=== PATIENT | male | born 1945 | race Caucasian/White ===

== ENCOUNTER 2019-09-05 05:48 | Inpatient (IN) | payer MEDICARE ==
[2019-09-05] MEDS ORDERED: Propofol* 100 ML IV ONE (05:49)
[2019-09-05] MEDS ORDERED: Etomidate* 2 MG/ML 20 ML VIAL (40 MG) ONE (05:50)
[2019-09-05] MEDS ORDERED: Succinylcholine* 20 MG/ML 10 ML VIAL ONE (05:50)
--- NOTE | 2019-09-05 05:59 | ED ---
Altered Mental Status - HPI Summary HPI Summary: This pt is a 74 Y/O M brought in by [facility] to [facility] due to being found unresponsive. The pt was last known well on 09/03/2019. [facility] states that the pt is believed to have cranial bleeding due to decerebrate posturing and a seizure that was witnessed when they arrived on the scene. His blood pressure [employer] was 147/86. This pt is a level 5 caveat due to his unresponsive nature. Pt was given Versed en route to [facility] by EMS. - History Of Current Complaint Chief Complaint: EDAltMentalStatus Stated Complaint: CVA PER EMS Time Seen by Provider: 09/05/19 05:49 Hx Obtained From: EMS Hx From Patient Unobtainable Due To: Other - unresponsiveness Last Known Well Date: 09/03/2019 Onset/Duration: Unknown Timing: Constant Severity Initially: Severe Severity Currently: Severe Character: Responsiveness - unresponsive Aggravating Factor(s): Unknown Alleviating Factor(s): Unknown - Allergies/Home Medications Allergies/Adverse Reactions: Allergies Allergy/AdvReac Type Severity Reaction Status Date / Time bupropion Allergy Vomiting Verified 09/05/19 07:47 famciclovir Allergy Vomiting Verified 09/05/19 07:47 liraglutide Allergy Vomiting Verified 09/05/19 07:47 morphine Allergy See Comment Verified 09/05/19 07:47 pioglitazone Allergy Vomiting Verified 09/05/19 07:47 pravastatin Allergy Vomiting Verified 09/05/19 07:47 Home Medications: Home Medications Aspirin 81 mg CHEW TAB* [Aspirin Low Dose TAB*] 81 mg PO DAILY 08/06/18 [ History Confirmed 09/05/19] Azelastine HCl 2 spray BOTH NARES BID PRN 08/06/18 [History Confirmed 09/05/19] Cilostazol TAB* [Pletal TAB*] 100 mg PO BID 08/06/18 [History Confirmed 09/05/19 ] Glucosamine Sulfate Dipot Chlr [Gnp Glucosamine Maximum S] 1,000 mg PO DAILY 10/20 [History Confirmed 09/05/19] Insulin Detemir [Levemir Flextouch] 52 unit SC BID 08/06/18 [History Confirmed 09/05/19] Loperamide CAP* [Imodium CAP*] 4 mg PO ONCE PRN MDD 8 caps 08/06/18 [History Confirmed 09/05/19] Metoprolol Tartrate TAB* [Lopressor TAB*] 25 mg PO BID 08/06/18 [History Confirmed 09/05/19] Multivitamin [Multivitamins] 1 cap PO DAILY 08/06/18 [History Confirmed 09/05/19 ] Nitroglycerin TAB 0.4 MG* 0.4 mg SL Q5M PRN 08/06/18 [History Confirmed 09/05/19 ] Ramipril CAP* [Altace CAP*] 10 mg PO BID 08/06/18 [History Confirmed 09/05/19] Cholecalciferol CAP/TAB(NF) [Vitamin D3 CAP/TAB (NF)] 2,000 unit PO DAILY [History Confirmed 09/05/19] Fenofibrate [Tricor 160 MG] 160 mg PO QAM 09/05/19 [History Confirmed 09/05/19] Insulin Aspart [Novolog Penfill 100 units/ml 5 ml x 3 pens] 6 units SUBCUT TID 09/05/19 [History Confirmed 09/05/19] Polyethylene Glycol 3350* [Miralax (17 GM DOSE JEN)] 17 gm PO DAILY 09/05/19 [ History Confirmed 09/05/19] Rosuvastatin (NF) [Crestor] 20 mg PO DAILY 09/05/19 [History Confirmed 09/05/19] hydroCHLOROthiazide [Hydrochlorothiazide] 12.5 mg PO QAM 09/05/19 [History Confirmed 09/05/19] PMH/Surg Hx/FS Hx/Imm Hx Previously Healthy: No - Unable to assess due to the pt being unresponsive and a level 5 caveat Endocrine/Hematology History: Reports: Hx Diabetes Cardiovascular History: Reports: Hx Coronary Artery Disease, Hx Hypertension, Other Cardiovascular Problems/Disorders - CABG - Cancer History Cancer Type, Location and Year: prostate - Surgical History Surgical History: Yes Surgery Procedure, Year, and Place: open heart. fatou. appy. CABG Infectious Disease History: Unable to Obtain/Confirm - Family History Known Family History: Positive: Hypertension - Social History Alcohol Use: Rare Substance Use Type: Reports: None Smoking Status (MU): Heavy Every Day Tobacco Smoker Type: Cigarettes Amount Used/How Often: 1 PPD Review of Systems Neurological/Mental Status: Other - unresponsive Psychological: Other - seizure and decerebrate position per EMS All Other Systems Reviewed And Are Negative: No Physical Exam - Summary Physical Exam Summary: General: Well appearing, no distress, non-responsive to painful or auditory stimulation. Dentures present in upper and lower mouth. Cardiovascular: Skin is well perfused Pulmonary: No respiratory distress, no tachypnea Abdomen: Non-distended Skin: Warm, pink, dry Psych: Normal affect Neuro: A&Ox3 Back: no CVA tenderness. Eye: Pupils 7mm nonreactive, L upper conjugate gauge Musculoskeletal: Left BKA A full PE is unobtainable due to the pt's unresponsiveness and being a level 5 caveat. Vital Signs On Initial Exam: Temp Pulse Resp BP SpO2 FiO2 Completion Of Physical Exam Limited Due To: Level 5 - unresponsive Procedures - Procedure Summary Procedure Summary: Upon arrival pt was met with respiratory therapists, ED Physician and nurses in protective equipment due to the unresponsive nature of the patient and to avoid any staff complications if the pt has COVID-19. The pt was given 20mg etomidate (0555) and 100mg succinylcholine (0556). He was successfully intubated at 0556 with a 7.5 tube. The patient had equal breath sounds bilaterally and a post procedural CXR was taken to see if the tube was in good position. Post procedural CXR shows that the tube is in good position without complications. Tube is 23 at the lip. - Sedation Patient Received Moderate/Deep Sedation with Procedure: No - Intubation Time of Intubation: 05:56 Intubation Method: orotracheal Tube Size (cm): 7.5 Medications: Succinylcholine - 100 Breath Sounds after Intubation: equal - bilateral Intubation Complications: no complications Post Intubation Xray: Yes Diagnostics - Laboratory Result Diagrams: 09/06/19 04:19 09/07/19 05:27 Lab Statement: Any lab studies that have been ordered have been reviewed, and results considered in the medical decision making process. - Radiology CXR post intubation Radiology Interpretation Completed By: ED Physician Summary of Radiographic Findings: Intubation tube is in good position without complications. no signs of infiltrate or plueral effusions. Pending offical review. - CT Brain CT CT Interpretation Completed By: Radiologist Summary of CT Findings: 1. Mild cerebral atrophy. 2. No acute intracranial hemorrhage or infarct. ED physician has reviewed this report. Re-Evaluation - Re-Evaluation First Eval Re-Evaluation Time: 06:06 Change: Unchanged Comment: TPA not considered due to the onset of the patient's current condition being unknown. Second Eval Re-Evaluation Time: 06:11 Change: Unchanged Comment: After looking through his records, he has a Hx of a CABG, HTN, and CAD Third Eval Re-Evaluation Time: 06:18 Change: Improved Comment: CT scan shows no large obvious intracranial hemorrhage, pt will be given propofol. Fourth Eval Re-Evaluation Time: 06:51 Change: Unchanged Comment: Pt's son was called to update him on the pt's condition. The son stated that the past couple of days the pt has been altered and was not responding yesterday to his . He is currently under work at [employer] for cancer. The son saw the pt shaking his arms but states that he is unsure of what a seizure is. Altered Mental Statu Course/Dx - Course Course Of Treatment: Patient is here with altered mental status. Patient had seizure activity per family at home. Upon arrival here, patient had left upward conjugate gaze and was posturing. Patient was intubated for airway protection. Patient had a stat CT head which showed no intracranial hemorrhage. Patient was started on sedation with propofol. Patient had blood work performed which showed a leukocytosis of 21. Neurology was called and they recommended a CTA to rule out basilar artery occlusion and an EEG to determine if patient is in status. Patient was signed out to Dr. Goins pending further testing - Diagnoses Provider Diagnoses: Status epilepticus, Adrenal insufficiency - Provider Notifications Discussed Care Of Patient With: Landy Le Time Discussed With Above Provider: 06:45 Instructed by Provider To: Other - Dr. Le, neurology, recommends EEG in the ED and a CTA to evaluate for basilar artery occulsion. If CTA and EEG is normal the pt can be admitted here. If the patient shows any seizure-like activity or EEG and CTA is abnormal the pt will need to be transfered. - Critical Care Time Critical Care Time: 75-104 min - 80 minutes Discharge ED - Sign-Out/Discharge Documenting (check all that apply): Sign-Out Patient Signing out patient TO: Myron Goins - Discharge Plan Condition: Fair Disposition: ADMITTED TO [facility] - Billing Disposition and Condition Condition: FAIR Disposition: Admitted to [facility] - Attestation Statements Document Initiated by Scribe: Yes Documenting Scribe: Yan Benitez Provider For Whom Scribe is Documenting (Include Credential): Jeremi Chairez MD Scribe Attestation: I, Yan Benitez, scribed for Jeremi Chairez MD on 09/07/19 at 0707. Scribe Documentation Reviewed: Yes Provider Attestation: The documentation as recorded by the myronibYan coronel accurately reflects the service I personally performed and the decisions made by me, Jeremi Chairez MD Status of Scribe Document: Viewed
[2019-09-05] MEDS ORDERED: Propofol* 0 ML ONE (06:15)
[2019-09-05] MEDS: Propofol* 100 ML IV ONE ×2 (06:18→12:48)
[2019-09-05 06:48] LABS: Hematocrit 39 % (42-52); Hemoglobin 12.6 g/dL (14.0-18.0); Mean Corpuscular HGB Conc 33 g/dL (31-36); Mean Corpuscular Hemoglobin 31 pg (27-31); Mean Corpuscular Volume 94 fL (80-94); Mean Platelet Volume 7.6 fL (7.4-10.4); Platelet Count 657 10^3/uL (150-450); Red Blood Count 4.13 10^6 /uL (4.18-5.48); Red Cell Distribution Width 15 % (10-15); White Blood Count 21.6 10^3/uL (3.5-10.8)
[2019-09-05 06:58] LABS: INR 1.23 (0.82-1.09)
[2019-09-05 07:04] LABS: Alcohol < 10 mg/dL (<10)
[2019-09-05 07:05] LABS: ALT 14 U/L (7-52); Albumin 3.7 g/dL (3.2-5.2); Alkaline Phosphatase 24 U/L (34-104); BUN/Creatinine Ratio 19.3 (8-20); Blood Urea Nitrogen 29 mg/dL (6-24); C Reactive Protein 76.69 mg/L (<8.01); Calcium 9.5 mg/dL (8.6-10.3); Chloride 85 mmol/L (101-111); Creatine Kinase 115 U/L (10-223); EGFR African American 55.7 (>60); Globulin 3.6 g/dL (2-4); Glucose 294 mg/dL (70-100); Sodium 120 mmol/L (135-145); Total Protein 7.3 g/dL (6.4-8.9)
[2019-09-05 07:09] LABS: Anion Gap 26 mmol/L (2-11); CO2 Carbon Dioxide 9 mmol/L (22-32)
--- NOTE | 2019-09-05 07:16 | ED ---
Progress - Progress Note Progress Note: Patient is received as a sign-out from Dr. Chairez at 0700 09/05/19 shift change pending Head CTA and EEG of this patient. EKG done at 0700 shows tachycardia with rate of 123 BPM, narrow complex, no STEMI. ED physician has reviewed and interpreted this EKG. 0747 - Dr. Le in ED, EEG evaluated and patient noted to be in status epilepticus. Ativan and Keppra to be administered and will inquire nearby facilities for transfer for continuous EEG monitoring. 0800 - Family was called with regards to the patient's case. Son reports that he had found the patient on the floor shaking. No recent illness, no fever, no cough, no SOB noted. However, the patient has been having decreased appetite and loose stools for the past week. It is also noted that the patient had low sugars recently. They have been in touch with his doctor with regards to this issue. Son states that the patient was recently found to have a mass "above one of his kidneys". Patient had additionally been admitted to [facility] for low sodium. Patient underwent recent PET scan in [place], patient was supposed to followup on results in near future. Transfer center to be contacted. 0818 - Initial report given to transfer center, patient's case discussed with [facility] neurology. Dr. Le notes that the EEG has cleared after Ativan and Keppra administration. CTA to be done, if negative, will admit to [facility] [address] Dr. Le notes the possibility of adrenal insufficiency, hydrocortisone 100 mg to be administrated. 0835 - Patient's case was discussed with Dr. Ta, Dr. Ta accepts for admission to ICU. HEAD CTA IMPRESSION: 1. ATTENUATION OF THE RIGHT SUPERIOR CEREBELLAR ARTERY, CONCERNING FOR OCCLUSION. THERE IS NO APPRECIABLE PERFUSION DEFECT OR LOSS OF CEJA-WHITE DIFFERENTIATION WITHIN THE EXPECTED VASCULAR TERRITORY OF THE RIGHT SUPERIOR CEREBELLAR ARTERY. 2. ATHEROMATOUS DISEASE 3. NO INTERNAL CAROTID ARTERY STENOSIS BY NASCET CRITERIA. THIS REPORT WAS REVIEWED BY ED PHYSICIAN. CXR IMPRESSION: NO ACTIVE CARDIOPULMONARY DISEASE IS NOTED. OG TUBE APPEARS TO BE COILED IN THE STOMACH. THIS REPORT WAS REVIEWED BY ED PHYSICIAN. 1003 - Head CTA was discussed with Dr. Le, agrees with having patient admitted to [facility]. Patient to be admitted to ICU by Dr. Ta. Re-Evaluation - Re-Evaluation First Eval Re-Evaluation Time: 08:00 Comment: 0800 - Family was called with regards to the patient's case. Son reports that he had found the patient on the floor shaking. No recent illness, no fever, no cough, no SOB noted. However, the patient has been having loose stools for the past week. It is also noted that the patient had low sugars recently. They have been in touch with his doctor with regards to this issue. Son states that the patient was recently found to have a mass above one of his kidneys. Patient had additionally been admitted to [facility] for low sodium. Patient underwent recent PET scan, patient was supposed to followup on results in near future. Second Eval Re-Evaluation Time: 08:18 Comment: Initial report given to transfer center. Third Eval Re-Evaluation Time: 08:39 Comment: Patient is noted to have systolic BP in 70s, 1 L fluid to be administered. Fourth Eval Re-Evaluation Time: 08:40 Comment: Patient to be admitted to [facility] [place]. Course/Dx - Course Course Of Treatment: Patient is received as a sign-out from Dr. Chairez at 0700 09/05/19 shift change pending Head CTA and EEG of this patient. EKG done at 0700 shows tachycardia with rate of 123 BPM, narrow complex, no STEMI. ED physician has reviewed and interpreted this EKG. 0747 - Dr. Le in ED, EEG evaluated and patient noted to be in status epilepticus. Ativan and Keppra to be administered and will inquire nearby facilities for transfer for continuous EEG monitoring. 0800 - Family was called with regards to the patient's case. Son reports that he had found the patient on the floor shaking. No recent illness, no fever, no cough, no SOB noted. However, the patient has been having decreased appetite and loose stools for the past week. It is also noted that the patient had low sugars recently. They have been in touch with his doctor with regards to this issue. Son states that the patient was recently found to have a "mass above one of his kidneys". Patient had additionally been admitted to [facility] for low sodium. Patient underwent recent PET scan in [place], patient was supposed to followup on results in near future. Transfer center to be contacted. 0818 - Initial report given to transfer center, patient's case discussed with [facility] neurology. Dr. Le notes that the EEG has cleared after Ativan and Keppra administration. CTA to be done, if negative, will admit to [facility] [address] Dr. Le notes the possibility of adrenal insufficiency, hydrocortisone 100 mg to be administrated. 0835 - Patient's case was discussed with Dr. Ta, Dr. Ta accepts for admission to ICU. HEAD CTA IMPRESSION: 1. ATTENUATION OF THE RIGHT SUPERIOR CEREBELLAR ARTERY, CONCERNING FOR OCCLUSION. THERE. IS NO APPRECIABLE PERFUSION DEFECT OR LOSS OF CEJA-WHITE DIFFERENTIATION WITHIN THE. EXPECTED VASCULAR TERRITORY OF THE RIGHT SUPERIOR CEREBELLAR ARTERY. 2. ATHEROMATOUS DISEASE. 3. NO INTERNAL CAROTID ARTERY STENOSIS BY NASCET CRITERIA. THIS REPORT WAS REVIEWED BY ED PHYSICIAN. CXR IMPRESSION: NO ACTIVE CARDIOPULMONARY DISEASE IS NOTED. OG TUBE APPEARS TO BE COILED IN. THE STOMACH. THIS REPORT WAS REVIEWED BY ED PHYSICIAN. 1003 - Head CTA was discussed with Dr. Le, agrees with having patient admitted to [facility]. Patient to be admitted to ICU by Dr. Ta. - Diagnoses Provider Diagnoses: Status epilepticus, Adrenal insufficiency - Provider Notifications Discussed Care Of Patient With: Landy Le Time Discussed With Above Provider: 07:47 Instructed by Provider To: Other - 0747 - Dr. Le in ED, EEG evaluated and patient noted to be in status epilepticus. Ativan and Keppra to be administered and will inquire nearby facilities for transfer for continuous EEG monitoring. 0818 - Initial report given to transfer center, patient's case discussed with [facility] neurology. Dr. Le notes that the EEG has cleared after Ativan and Keppra administration. CTA to be done, if negative, will admit to [facility] 0833 Dr. Le notes the possibility of adrenal insufficiency, hydrocortisone 100 mg to be administrated. 0835 - Patient's case was discussed with Dr. Ta, Dr. Ta accepts for admission to ICU. - Critical Care Time Critical Care Time: 75-104 min - 80 minutes Discharge ED - Sign-Out/Discharge Documenting (check all that apply): Patient Departure - admit, Receiving Sign- Out Receiving patient FROM: Jeremi Chairez - Discharge Plan Condition: Fair Disposition: ADMITTED TO [facility] - Billing Disposition and Condition Condition: FAIR Disposition: Admitted to [facility] - Attestation Statements Document Initiated by Scribe: Yes Documenting Scribe: VAIBHAV GAMBOA Provider For Whom Scribe is Documenting (Include Credential): POLINA DAVIDSON DO Scribe Attestation: I, VAIBHAV GAMBOA, scribed for POLINA DAVIDSON DO on 09/05/19 at 1309. Scribe Documentation Reviewed: Yes Provider Attestation: The documentation as recorded by the scribeVAIBHAV accurately reflects the service I personally performed and the decisions made by me, POLINA DAVIDSON DO Status of Scribe Document: Viewed
[2019-09-05 07:18] LABS: TSH (Thyroid Stimulating Horm) 1.75 mcIU/mL (0.34-5.60)
--- OUTSIDE RECORDS SUMMARY | 2019-09-05 07:26 | XMS REPORT | Continuity of Care Document ---
:1945 External Reference #:[id number] Author Name Servio (transmitted by agent of provider Jayda Apple) Address [address] [place] [address] Care Team Providers Name Role Phone Cleo Camacho MD - Physical Medicine Care Team Information Inorganic Chemical Technician & Rehabilitation Carlos Enrique Hale MD - Emergency Medicine Care Team Information Inorganic Chemical Technician Argenis Fox NP - Nurse Care Team Information Inorganic Chemical Technician [phone] Practitioner Jose Peña FISHERIES DIVER - Nurse Care Team Information Inorganic Chemical Technician [phone] Practitioner Treva Cornejo NP, CNM - Nurse Care Team Information Inorganic Chemical Technician Practitioner Richelle Munguia MD - Hematology & Care Team Information Inorganic Chemical Technician Oncology Problems Active Problems Provider Date Degenerative joint disease involving Leslie Lopez PA-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 Note: olecranon bursitis Type 2 diabetes mellitus Leslie Lopez PA-C Onset: 01/20/2015 Note: insulin-requiring (Jul 2016 A1C 7.7 microalb-; October 2014 microalb-) podiatry cs 2011 oph cs 31 Dec 2013 humulag sliding scale: > 100, 1 unit > 200, 4 unit 1 exta unit for every 25 MDD 24 units; call office/seek medica attention for BG over 500 Chronic obstructive lung disease Leslie Lopez PA-C Onset: 01/20/2015 Note: Apr 2012 FEV1/FVC 0.63 Coronary arteriosclerosis Leslie Lopez PA-C Onset: 01/20/2015 Note: Triple CABG 1997; Mar 2016 LDL 75 HDL 40 Chol 132; [place]/cath December 2015 Chronic renal failure Leslie Lopez PA-C Onset: 01/20/2015 Note: Jun 2015 cr 1.5 eGFR 49 Angiodysplasia of duodenum Leslie Lopez PA-C Onset: 01/20/2015 Note: D1 AVM. upper to D3 2013 History of polyp of colon Leslie Lopez PA-C Onset: 01/20/2015 Note: hyperplastic polyposis, colo to cecum Feb 2015 Cataract Leslie Lopez PA-C Onset: 01/20/2015 Allergic rhinitis Leslie Lopez PA-C Onset: 01/20/2015 Impotence of organic origin Leslie Lopez PA-C Onset: 01/20/2015 Disorder of prostate Leslie Lopez PA-C Onset: 01/20/2015 Note: stage II, T2, C, Hugh score 7 in 2006 (Radiation therapy -> microscopic hematuria, radiation colitis); Shields Congestive heart failure Leslie Lopez PA-C Onset: 01/20/2015 Note: diastolic dysfunction Essential hypertension Leslie Lopez PA-C Onset: 01/20/2015 Note: high-renin Diverticular disease of colon Mariano Rhodes MD Onset: 03/09/2015 Hemorrhoids Leslie Lopez PA-C Onset: 03/11/2015 Note: Internal and external Irritable bowel syndrome Leslie Lopez PA-C Onset: 03/11/2015 Note: SC, O&P negative 2014 Adult health examination Leslie Lopez PA-C Onset: 03/11/2015 Note: AAA screening - 2012. AWV 24 Jul 2014. 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 Longoria Navneet hematuria Leslie Lopez PA-C Onset: 01/20/2016 Note: 2016; Dr. 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 Onset: 03/27/2019 prostate Anorectal abscess Óscar Crenshaw MD,FACS Onset: 2019 Social History Type Date Description Comments Sex Unknown Tobacco Use Start: Unknown Current Cigarette Smoker 1 Pack Daily ETOH Use Rarely consumes alcohol 3 x year Recreational Drug Use Denies Drug Use Tobacco Use Start: Unknown Light tobacco smoker (10 or fewer cigarettes/day) Smoking Status Reviewed: 08/20/19 Light tobacco smoker (10 or fewer cigarettes/day) Allergies, Adverse Reactions, Alerts Active Allergies Reaction Severity Comments Date Victoza nausea Severe 01/20/2015 Prozac 01/03/2016 Bee Sting Anaphylaxis 10/19/2016 Bupropion dizziness Moderate also possible seizure hx 01/20/2015 Famciclovir Moderate 01/20/2015 Morphine and Related Moderate 01/20/2015 Liraglutide 12/24/2013 Pioglitazone Moderate 01/20/2015 Pravastatin Moderate 01/20/2015 PT Does Not Know 12/24/2013 Ssri's HypoNa 01/20/2015 Metformin lactic acidosis Moderate 12/16/2015 Chantix Nausea and Vomiting Moderate 03/20/2016 Medications Active Medications SIG Qnty Indications Ordering Date Provider Ramipril Take one capsule 180caps I10 Ratnasingam, 10mg Capsules twice a day MD Walt 0 Omron 7 Series Blood use daily as 1units I10 Ratnasingam, Pressure Monitor directed to MD Walt 0 Device monitor bp Vitamin D3 1 by mouth every 90caps Ratnasingam, 50mcg (2000 Ut) day MD Walt 0 Capsules Levaquin take one tablet 10tabs K61.1 Den, 500mg Tablets by mouth daily Mandi Cantrell for 10 days. MDFACS take it in the middle of your meal Fenofibrate Take 1 Tablet 90Tablet Gagen, 160mg Tablets Every Morning Treva, 9 MS, SENIOR WEB ENGINEER-C, CNM Hydrochlorothiazide take one capsule 90caps I10 Jimenez, Abbey 12.5mg in the morning Simonetta, 9 Capsules VIPUL, SY Loperamide HCL take two 30caps V89.2xxA Augustus Christianson, 2mg Capsules capsules with 8 onset of diarrhea and then one capsule after each diarrhea. maximum 16 mg (8 capsules) in 24 hours Prosthesis Left Lower Leg prosthesis left I73.9 Parul Foster, lower leg 8 S88.912D Accu-Chek Jennifer Plus use before meals,2 100units Terell, 07/24/2016 hours after a Christiana Collado Strips meal,at bedtime,and as needed Pen Loretto BV uad with insulin 100units nasing, 07/10/2016 31G X 8 MD Walt mm Misc Azelastine HCL 2 spays in each 90ml J30.9 Parul Foster MD 03/20/2016 (Nasal) nostril twice a day 0.1% Solution as needed Loperamide A-D 1 by mouth after 360tabs Wei Perez, 11/25/2015 2mg each unformed bm up DO Tablets to 8 times daily Accu-Chek Jennifer Plus use before meals, 2 100units Parul Foster MD 06/29 h after meals, at Strips bedtime and as needed Aspir-81 1 by mouth every day 90tabs Wei Perez, 81mg Tablets DO DR Glucosamine 1 by mouth every day Unknown 1000mg Capsules Levemir Flextouch 52 units subq twice 45ml Kristin, Parul, MD a day 100Unit/ML Solution Pen-Inject Metoprolol Tartrate 1 by mouth twice a 180tabs Ratnasingam, day MD Walt 25mg Tablets Nitrostat 1 tab sl every 5 min 30tabs Abbey Jimenez 0.4mg Tablets x3 chest pain as VIPUL King, Sub needed SENIOR WEB ENGINEER Polyethylene Glycol Take 17 Grams By Unknown 3350 Mouth Daily as 3350NF Packet Needed For Constipation Cilostazol take 1 tablet by 180tabs Parul Foster MD 100mg mouth twice a day Tablets Novolog Flexpen Inject 6 Units Unknown Before Meals Under 100Unit/ML Solution The Skin Three Times Pen-Inject A Day Multivitamin Adult 1 by mouth every day Unknown Tablets Rosuvastatin Calcium 1 by mouth every day Unknown 20mg Tablets History Medications Retroperineal Patient 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.10 Ratnasing, 07/28/2019 - Biopsey retroperitoneal lymph MD Walt Unknown node biopsy, in lieu of a left adrenal biopsy, as recommended by Dr Tiffanie Cleveland take one tablet by 30tabs K61.1 Óscar Crenshaw, 2019 - 500mg mouth 3 times daily ,FACS 04/11/2019 Tablets for 10 days. take it in the middle of your meal Medications Administered in Office Medication SIG Qnty Indications Ordering Provider Date Administration Of Flu Mariano Rhodes MD 04/03/2008 Injection Immunizations CPT Code Status Date Vaccine Reaction Lot # [id number] Given 03/31/2019 Influenza High Dose [id number] 24889 Given 05/20/2018 Influenza High Dose none [id number] 82883 Given 02/27/2017 Influenza High Dose [id number] 36520 Given 10/23/2016 Pneumovax Injection [id number] 85234 Given 10/23/2016 Tdap injection [id number] Q2038 Given 03/20/2016 Influenza Vaccine (Fluzone) Age 3 And [id number] Older Q2038 Given 03/11/2015 Influenza Vaccine (Fluzone) Age 3 And Older 86540 Given 03/11/2015 Pneumococcal Conjugate Vaccine 13 Valent For Intramuscular Use 49558 Given 04/03/2008 flu vaccination Vital Signs Date Vital Result Comment 08/20/2019 10:23am BP Systolic Sitting Left Arm 130 mmHg BP Diastolic Sitting Left Arm 64 mmHg Heart Rate 89 /min Respiratory Rate 14 /min Height 67 inches 5'7" Weight 149.00 lb BMI (Body Mass Index) 23.3 kg/m2 BSA (Body Surface Area) 1.78 m2 [place] body weight in kilograms 67 kg O2 % BldC Oximetry 98 % Ra 08/15/2019 9:52am BP Systolic 148 mmHg BP Diastolic 70 mmHg Body Temperature 98.5 F Heart Rate 80 /min Respiratory Rate 18 /min Height 67 inches 5'7" Weight 148.00 lb BMI (Body Mass Index) 23.2 kg/m2 BSA (Body Surface Area) 1.78 m2 [place] body weight in kilograms 67 kg O2 % BldC Oximetry 99 % Results Test Acquired Date Facility Test Result H/L Range Note Laboratory test 08/22/2019 [facility] Glycohemoglobin A1c <pending> finding [address] [place] [address] [phone] Vitamin D,25-Hydroxy <pending> Calcium 08/08/2019 N2N/CCD Import Calcium Level 8.5 8.5-10.1 SerPl-mCnc Co2 SerPl-sCnc 08/08/2019 N2N/CCD Import Carbon Dioxide 24 21-32 Level Chloride 08/08/2019 N2N/CCD Import Chloride Level 104 98-107 SerPl-sCnc Potassium 08/08/2019 N2N/CCD Import Potassium Level 4.5 3.5-5.1 SerPl-sCnc Sodium 08/08/2019 N2N/CCD Import Sodium Level 133 Low 136-145 SerPl-sCnc BUN/Creat SerPl 08/08/2019 N2N/CCD Import BUN/Creatinine 5.0 Ratio GFR/Bsa 08/08/2019 N2N/CCD Import Estimated GFR >60 >60 pred.black SerPl ( MDRD-ArVRat [place]) GFR/Bsa pred.non 08/08/2019 N2N/CCD Import Estimated GFR >60 >60 black SerPl (Non- MDRD-ArVRat [place] BUN SerPl-mCnc 08/08/2019 N2N/CCD Import Blood Urea 3 7-18 Nitrogen Glucose 08/08/2019 N2N/CCD Import Glucose Screen 203 High 74-106 SerPl-mCnc nRBC/100 WBC Bld 08/08/2019 N2N/CCD Import Nucleated Red 0.0 < 10/ 100 WBC Auto-Rto Blood Cells % (auto) RDW RBC Auto-Rto 08/08/2019 N2N/CCD Import RDW Coefficient 13.1 11.6- 15.8 of Variation RDW RBC Auto 08/08/2019 N2N/CCD Import Red Cell 45.8 36-51 Distribution Width MCHC RBC 08/08/2019 N2N/CCD Import Mean Corpuscular 32.9 31.7-36.0 Auto-mCnc Hemoglobin Concent MCH RBC Qn Auto 08/08/2019 N2N/CCD Import Mean Corpuscular 31.1 27.0- 33.0 Hemoglobin MCV RBC Auto 08/08/2019 N2N/CCD Import Mean Corpuscular 94.3 80.0-96.0 Volume Basic Metabolic 08/08/2019 [facility] Glucose 203 High 74-[address] mg/[place] [address] [phone] BUN 3 mg/dL Critical low 7-18 Creatinine 0.6 mg/dL Normal 0.6-1.3 Glom Filtration Rate, Estimate >60 mL/min >60 If >60 mL/min >60 2 BUN/Creat 5.0 ratio Sodium 133 mmol/L Low 136-145 Potassium 4.5 mmol/L 3.5-5.1 Chloride 104 mmol/L Normal 98-107 Carbon Dioxide 24 mmol/L Normal 21-32 Anion Gap 5 mEq/L Low 8-16 Calcium 8.5 mg/dL Normal 8.5-10.1 CBC 08/08/2019 [facility] White Blood Count 8.3 K/uL Normal 3.4-10.[address] [place] [address] [phone] Red Blood Count 3.67 M/uL Low 4.20-5.80 Hemoglobin 11.4 gm/dL Low 12.8-17.0 Hematocrit 34.6 % Low 38.0-48.0 Mean Cell Volume 94.3 fl Normal 80.0-96.0 Mean Corpuscular HGB 31.1 pg Normal 27.0-33.0 Mean Corpuscular HGB Conc 32.9 g/dL Normal 31.7-36.0 Platelet Count 473 K/uL High 155-360 Red Cell Distri Width SD 45.8 fl Normal 36-51 Red Cell Distri Width %CV 13.1 % Normal 11.6-15.8 Mean Platelet Volume 9.9 fl Normal 6.6-10.6 NRBC % 0.0 /100WBC < 10/ 100 WBC Glucose BldC 08/08/2019 N2N/CCD Import Bedside Glucose 202 High 70-110 Glucomtr-mCnc Cortisol - 3 08/07/2019 [facility] Cortisol #1 17.8 . [address] (Base) g/[place] [address] [phone] Cortisol #2 16.3 g/dL Not Estab. Cortisol #3 13.3 g/dL Not Estab. 4 Basic Metabolic 08/07/2019 [facility] Glucose 29 mg/dL Critical low 74-[address] [place] [address] [phone] BUN 5 mg/dL Critical low 7-18 Creatinine 0.6 mg/dL Normal 0.6-1.3 Glom Filtration Rate, Estimate >60 mL/min >60 If >60 mL/min >60 5 BUN/Creat 8.3 ratio Sodium 135 mmol/L Low 136-145 Potassium 3.6 mmol/L Normal 3.5-5.1 Chloride 106 mmol/L Normal 98-107 Carbon Dioxide 26 mmol/L Normal 21-32 Anion Gap 3 mEq/L Low 8-16 Calcium 8.3 mg/dL Low 8.5-10.1 CBC 08/07/2019 [facility] White Blood Count 11.8 K/uL High 3.4-10.[address] [place] [address] [phone] Red Blood Count 3.66 M/uL Low 4.20-5.80 Hemoglobin 11.2 gm/dL Low 12.8-17.0 Hematocrit 34.5 % Low 38.0-48.0 Mean Cell Volume 94.3 fl Normal 80.0-96.0 Mean Corpuscular HGB 30.6 pg Normal 27.0-33.0 Mean Corpuscular HGB Conc 32.5 g/dL Normal 31.7-36.0 Platelet Count 530 K/uL High 155-360 Red Cell Distri Width SD 45.5 fl Normal 36-51 Red Cell Distri Width %CV 13.0 % Normal 11.6-15.8 Mean Platelet Volume 9.7 fl Normal 6.6-10.6 NRBC % 0.0 /100WBC < 10/ 100 WBC TSH SerPl-aCnc 08/06/2019 N2N/CCD Import Thyroid 1.94 0.30-4.20 Stimulating Hormone (TSH) Est. average 08/06/2019 N2N/CCD Import Estimated 151 glucose Bld gHb Average Glucose Est-mCnc (eAG) Hgb A1c MFr Bld 08/06/2019 N2N/CCD Import Hemoglobin A1c 6.9 High 4.2- 6.3 nRBC # Bld Auto 08/06/2019 N2N/CCD Import Nucleated RBC 0.00 Absolute Count (auto) Imm Granulocytes # 08/06/2019 N2N/CCD Import Immature 0.04 Bld Auto Granulocyte # (Auto) Basophils # Bld 08/06/2019 N2N/CCD Import Basophils # 0.04 0.0-0.1 Auto (Auto) Eosinophil # Bld 08/06/2019 N2N/CCD Import Eosinophils # 0.02 0.0-0.5 Auto (Auto) Monocytes # Bld 08/06/2019 N2N/CCD Import Monocytes # 1.00 High 0.0-0.8 Auto (Auto) Lymphocytes # Bld 08/06/2019 N2N/CCD Import Lymphocytes # 0.70 Low 1.0- 4.0 Auto (Auto) Neutrophils # Bld 08/06/2019 N2N/CCD Import Neutrophils # 8.47 High 1.8- 7.0 Auto (Auto) Imm 08/06/2019 N2N/CCD Import Immature 0.4 0.0-5.0 Granulocytes/leuk Granulocyte % NFr Bld Auto (Auto) Basophils/leuk NFr 08/06/2019 N2N/CCD Import Basophils (%) 0.4 0.0-1.1 Bld Auto (Auto) Eosinophil/leuk 08/06/2019 N2N/CCD Import Eosinophils (%) 0.2 0.0-6.6 NFr Bld Auto (Auto) Monocytes/leuk NFr 08/06/2019 N2N/CCD Import Monocytes (%) 9.7 0.0-10.0 Bld Auto (Auto) Lymphocytes/leuk 08/06/2019 N2N/CCD Import Lymphocytes (%) 6.8 Low 20.0- 42.0 NFr Bld Auto (Auto) Neutrophils/leuk 08/06/2019 N2N/CCD Import Neutrophils (%) 82.5 High 33.0 -73.0 NFr Bld Auto (Auto) TSH Reflex FT4 08/06/2019 [facility] Thyroid Stim 1.94 Normal 0.30-4.20 And/Or FT3 [address] Hormone uIU/mL [facility] [place], [place] [id number] [phone] Reflex add FT3? N Reflex add FT4? Y Basic Metabolic Panel 08/06/2019 [facility] Glucose 91 mg/dL Normal 74-[address] [place] [address] [phone] BUN 10 mg/dL Normal 7-18 Creatinine 0.7 mg/dL Normal 0.6-1.3 Glom Filtration Rate, Estimate >60 mL/min >60 If >60 mL/min >60 6 BUN/Creat 14.2 ratio Sodium 132 mmol/L Low 136-145 Potassium 4.0 mmol/L Normal 3.5-5.1 Chloride 102 mmol/L 98-107 Carbon Dioxide 26 mmol/L Normal 21-32 Anion Gap 4 mEq/L Low 8-16 Calcium 8.5 mg/dL Normal 8.5-10.1 Reflex add FT3? N Reflex add FT4? Y Glycohemoglobin 08/06/2019 [facility] Glycohemoglobin 6.9 % High 4.2-6.[address] (A1c) [place] [address] [phone] eAG 151 mg/dL CBC W/Automated 08/06/2019 [facility] White Blood 10.3 K/uL Normal 3.4-10.[address] [place] [place] [address] [phone] Red Blood Count 3.80 M/uL Low 4.20-5.80 Hemoglobin 12.0 gm/dL Low 12.8-17.0 Hematocrit 35.3 % Low 38.0-48.0 Mean Cell Volume 92.9 fl Normal 80.0-96.0 Mean Corpuscular HGB 31.6 pg Normal 27.0-33.0 Mean Corpuscular HGB Conc 34.0 g/dL Normal 31.7-36.0 Platelet Count 530 K/uL High 155-360 Red Cell Distri Width SD 44.3 fl Normal 36-51 Red Cell Distri Width %CV 13.1 % Normal 11.6-15.8 Mean Platelet Volume 9.8 fl Normal 6.6-10.6 Neut% 82.5 % High 33.0-73.0 Lymph % 6.8 % Low 20.0-42.0 Amador % 9.7 % Normal 0.0-10.0 Eo% 0.2 % Normal 0.0-6.6 Bas% 0.4 % Normal 0.0-1.1 Immature Grans 0.4 % Normal 0.0-5.0 NRBC % 0.0 /100WBC < 10/ 100 WBC Neut# 8.47 K/uL High 1.8-7.0 Lymph # 0.70 K/uL Low 1.0-4.0 Amador # 1.00 K/uL High 0.0-0.8 Eos # 0.02 K/uL Normal 0.0-0.5 Baso # 0.04 K/uL Normal 0.0-0.1 Immature Grans Absolute 0.04 K/uL NRBC # 0.00 K/uL Leukocyte 08/05/2019 N2N/CCD Import Urine Small High Negative esterase Ur Ql Leukocyte Strip.auto Esterase Hyaline Casts 08/05/2019 N2N/CCD Import Urine Hyaline 3-5 None Seen #/area UrnS LPF Casts S pyo Throat Ql 08/05/2019 N2N/CCD Import Group A Strep No Beta Cult Throat Culture Streptococci Isolated CBC W/Automated 08/05/2019 [facility] White Blood 14.3 K/uL High 3.4-10.5 [address] [place] [place] [address] [phone] Red Blood Count 4.08 M/uL Low 4.20-5.80 Hemoglobin 12.8 gm/dL Normal 12.8-17.0 Hematocrit 37.5 % Low 38.0-48.0 Mean Cell Volume 91.9 fl Normal 80.0-96.0 Mean Corpuscular HGB 31.4 pg Normal 27.0-33.0 Mean Corpuscular HGB Conc 34.1 g/dL Normal 31.7-36.0 Platelet Count 529 K/uL High 155-360 Red Cell Distri Width SD 43.7 fl Normal 36-51 Red Cell Distri Width %CV 12.9 % Normal 11.6-15.8 Mean Platelet Volume 9.6 fl Normal 6.6-10.6 Neut% 84.1 % High 33.0-73.0 Lymph % 6.5 % Low 20.0-42.0 Amador % 8.1 % Normal 0.0-10.0 Eo% 0.1 % Normal 0.0-6.6 Bas% 0.4 % Normal 0.0-1.1 Immature Grans 0.8 % Normal 0.0-5.0 NRBC % 0.0 /100WBC < 10/ 100 WBC Neut# 12.00 K/uL High 1.8-7.0 Lymph # 0.93 K/uL Low 1.0-4.0 Amador # 1.16 K/uL High 0.0-0.8 Eos # 0.01 K/uL Normal 0.0-0.5 Baso # 0.06 K/uL Normal 0.0-0.1 Immature Grans Absolute 0.11 K/uL NRBC # 0.00 K/uL Prot 08/05/2019 N2N/CCD Import Total Protein 7.4 6.4-8.2 SerPl-mCnc Albumin 08/05/2019 N2N/CCD Import Albumin 3.2 Low 3.4-5.0 SerPl-mCnc Globulin Ser 08/05/2019 N2N/CCD Import Globulin 4.2 1.9-4.3 Calc-mCnc Albumin/Glob 08/05/2019 N2N/CCD Import Albumin/Globulin 0.8 SerPl Ratio Bilirub 08/05/2019 N2N/CCD Import Total Bilirubin 0.6 0.2-1.0 SerPl-mCnc Ast SerPl-cCnc 08/05/2019 N2N/CCD Import Aspartate Amino 23 15-37 Transf (Ast/Sgot) Alt SerPl-cCnc 08/05/2019 N2N/CCD Import Alanine 16 12-78 Aminotransferase (Alt/SGPT) Alp SerPl-cCnc 08/05/2019 N2N/CCD Import Alkaline Phosphatase 27 Low 45- 117 Lipase 08/05/2019 N2N/CCD Import Lipase 101 56-289 SerPl-cCnc Laboratory 08/05/2019 [facility] Troponin-I < 0.015 9 test finding [address] ng/[place] [address] [phone] Laboratory 08/05/2019 [facility] Rapid Strep A Negative Negative 10 test finding [address] [place] [address] [phone] Influenza A/B 08/05/2019 [facility] Influenza A Antigen Negative (Negative) Antigen [address] [place] [address] [phone] Influenza B Antigen Negative (Negative) 11 Urinalysis With 08/05/2019 [facility] Urine Color Yellow Yellow Microscopic [address] [place], [place] [id number] [phone] Urine Clarity Clear Clear Urine Glucose - Dipstick TRACE mg/dL Negative Urine Bilirubin - Dipstick NEGATIVE Negative Urine Ketone 20 mg/dL Abnormal Negative Urine Specific [place] 1.021 Normal 1.010-1.030 Urine Blood NEGATIVE Negative Urine PH 5.5 Low 6.5-7.5 Urine Protein - Dipstick 70 mg/dL Abnormal Negative Urine Urobilinogen - Dipstick 2.0 mg/dL < 2.0 Urine Nitrite - Dipstick NEGATIVE Negative Urine Leuk Esterase SMALL Abnormal Negative Urine RBC 3-5 rbc/hpf 0-2 Urine WBC 3-5 wbc/hpf 0-5 Urine Hyaline Cast 3-5 #/lpf None Seen Urine Mucus SMALL None Seen Source: URINE, CLEAN CAT <SEE NOTE> 12 Laboratory test 08/05/2019 [facility] Throat Strep NO BETA [address] [place] [address] <SEE NOTE> [phone] Fluav Ag XXX Ql 08/05/2019 N2N/CCD Import Influenza Type Negative ( Negative) A Antigen Flubv Ag XXX Ql 08/05/2019 N2N/CCD Import Influenza Type Negative ( Negative) B Antigen Glucose Ur Ql 08/05/2019 N2N/CCD Import Urine Glucose Trace Negative Strip.auto (Ua) Bilirub Ur Ql 08/05/2019 N2N/CCD Import Urine Negative Negative Strip.auto Bilirubin Ketones Ur Ql 08/05/2019 N2N/CCD Import Urine Ketones 20 High Negative Strip.auto Prot Ur Ql 08/05/2019 N2N/CCD Import Urine Protein 70 High Negative Strip.auto Urobilinogen Ur 08/05/2019 N2N/CCD Import Urine 2.0 < 2.0 Ql Strip.auto Urobilinogen Nitrite Ur Ql 08/05/2019 N2N/CCD Import Urine Nitrite Negative Negative Strip.auto Laboratory 07/14/2019 N2N/CCD Import Urine Culture Culture To comment Report Reflexed Follow Urine Culture 07/14/2019 [facility] Urine Culture URETHRAL [address] [place] [place], [place] [id number] [phone] Quantity 10,000 - 50,000 <SEE NOTE> 15 Laboratory test finding 07/14/2019 [facility] CK 45 U/L Normal 39-308 [address] [place] [address] [phone] Troponin-I 0.015 ng/mL 16 Comprehensive Metabolic 07/14/2019 [facility] Glucose 125 mg/dL High 74-106 Panel [address] [place], [place] [id number] [phone] BUN 9 mg/dL Normal 7-18 Creatinine 0.9 mg/dL Normal 0.6-1.3 Glom Filtration Rate, Estimate >60 mL/min >60 If >60 mL/min >60 17 BUN/Creat 10.0 ratio Sodium 132 mmol/L Low 136-145 Potassium 3.7 mmol/L Normal 3.5-5.1 Chloride 101 mmol/L Normal 98-107 Carbon Dioxide 26 mmol/L Normal 21-32 Anion Gap 5 mEq/L Low 8-16 Calcium 9.2 mg/dL Normal 8.5-10.1 Total Protein 6.9 g/dL Normal 6.4-8.2 Albumin 3.4 g/dL Normal 3.4-5.0 Globulin 3.5 g/dL Normal 1.9-4.3 Alb/Glob 1.0 ratio Bilirubin,Total 0.3 mg/dL Normal 0.2-1.0 Sgot/Ast 15 U/L Normal 15-37 SGPT/Alt 16 U/L Normal 12-78 Alkaline Phosphatase 22 U/L Low 45-117 Culture If 07/14/2019 [facility] Culture If CULTURE TO 18 Indicated Comment [address] Indicated Comment FOLLO <[place] [address] NOTE> [phone] Source: URINE, CLEAN CAT <SEE NOTE> 19 Urinalysis With 07/14/2019 [facility] Urine Color Yellow Yellow Microscopic [address] [place] [address] [phone] Urine Clarity Clear Clear Urine Glucose - Dipstick 500 mg/dL Abnormal Negative Urine Bilirubin - Dipstick NEGATIVE Negative Urine Ketone NEGATIVE mg/dL Negative Urine Specific [place] 1.021 Normal 1.010-1.030 Urine Blood NEGATIVE Negative Urine PH 5.5 Low 6.5-7.5 Urine Protein - Dipstick TRACE mg/dL Negative Urine Urobilinogen - Dipstick < 2.0 mg/dL < 2.0 Urine Nitrite - Dipstick NEGATIVE Negative Urine Leuk Esterase SMALL Abnormal Negative Urine RBC 3-5 rbc/hpf 0-2 Urine WBC 6-10 wbc/hpf 0-5 Urine Bacteria FEW None Seen Urine Hyaline Cast 0-2 #/lpf None Seen Urine Mucus SMALL None Seen Source: URINE, CLEAN CAT <SEE NOTE> 20 Blood Culture 07/14/2019 [facility] Blood Culture NO GROWTH: FINAL [address] Aerobic <SEE NOTE> [place] [address] [phone] Blood Culture Anaerobic NO GROWTH: FINAL <SEE NOTE> 22 Bacteria Bld 07/14/2019 N2N/CCD Import Aerobic Blood No Growth: Final Aerobe Cult Culture Report Bacteria Bld 07/14/2019 N2N/CCD Import Anaerobic Blood No Growth: Final Anaerobe Cult Culture Report Blood Culture 07/14/2019 [facility] Blood Culture NO GROWTH: FINAL [address] Aerobic <SEE NOTE> [place] [address] [phone] Blood Culture Anaerobic NO GROWTH: FINAL <SEE NOTE> 24 CBC W/Automated 07/14/2019 [facility] White Blood 10.7 K/uL High 3.4-10.[address] [place] [place] [address] [phone] Red Blood Count 4.41 M/uL Normal 4.20-5.80 Hemoglobin 13.8 gm/dL Normal 12.8-17.0 Hematocrit 40.3 % Normal 38.0-48.0 Mean Cell Volume 91.4 fl Normal 80.0-96.0 Mean Corpuscular HGB 31.3 pg Normal 27.0-33.0 Mean Corpuscular HGB Conc 34.2 g/dL Normal 31.7-36.0 Platelet Count 406 K/uL High 155-360 Red Cell Distri Width SD 42.6 fl Normal 36-51 Red Cell Distri Width %CV 12.6 % Normal 11.6-15.8 Mean Platelet Volume 9.8 fl Normal 6.6-10.6 Neut% 78.5 % High 33.0-73.0 Lymph % 12.4 % Low 20.0-42.0 Amador % 7.2 % Normal 0.0-10.0 Eo% 0.8 % Normal 0.0-6.6 Bas% 0.6 % Normal 0.0-1.1 Immature Grans 0.5 % Normal 0.0-5.0 NRBC % 0.0 /100WBC < 10/ 100 WBC Neut# 8.38 K/uL High 1.8-7.0 Lymph # 1.32 K/uL Normal 1.0-4.0 Amador # 0.77 K/uL Normal 0.0-0.8 Eos # 0.08 K/uL Normal 0.0-0.5 Baso # 0.06 K/uL Normal 0.0-0.1 Immature Grans Absolute 0.05 K/uL NRBC # 0.00 K/uL Lactate SerPl-sCnc 07/14/2019 N2N/CCD Import Lactic Acid 1.0 0.4-1.9 Level Lactic Acid 07/14/2019 [facility] Lactic Acid 1.0 mmol/L Normal 0.4-1.[address] [place], [place] [id number] [phone] Lab Reflex >2.0 for Sepsis? N Laboratory test 07/14/2019 [facility] LDH 200 Normal 87-[address] U/L [facility] [place], [place] [id number] [phone] Creat Ur-mCnc 05/14/2019 N2N/CCD Import Urine Creatinine 156 Concentration Microalbumin/Crea 05/14/2019 N2N/CCD Import Urine 73.7 < 30.0 t Ur-Rto Microalbumin/Cre atinine Ratio Microalbumin 05/14/2019 N2N/CCD Import Urine 115.0 < 20.0 Ur-mCnc Microalbumin Comprehensive 05/14/2019 [facility] Glucose 101 Normal 74-106 25 Metabolic Panel [address] mg/[place] [address] [phone] BUN 14 mg/dL Normal 7-18 Creatinine 1.0 mg/dL Normal 0.6-1.3 Glom Filtration Rate, Estimate >60 mL/min >60 If >60 mL/min >60 26 BUN/Creat 14.0 ratio Sodium 137 mmol/L Normal 136-145 Potassium 4.1 mmol/L Normal 3.5-5.1 Chloride 105 mmol/L Normal 98-107 Carbon Dioxide 27 mmol/L Normal 21-32 Anion Gap 5 mEq/L Low 8-16 Calcium 9.2 mg/dL Normal 8.5-10.1 Total Protein 7.2 g/dL Normal 6.4-8.2 Albumin 3.8 g/dL Normal 3.4-5.0 Globulin 3.4 g/dL Normal 1.9-4.3 Alb/Glob 1.1 ratio Bilirubin,Total 0.4 mg/dL Normal 0.2-1.0 Sgot/Ast 11 U/L Low 15-37 27 SGPT/Alt 22 U/L Normal 12-78 Alkaline Phosphatase 20 U/L Low 45-117 CBC W/Automated 05/14/2019 [facility] White Blood 11.2 K/uL High 3.4-10.[address] [place] [address] [phone] Red Blood Count 5.02 M/uL Normal 4.20-5.80 Hemoglobin 16.0 gm/dL Normal 12.8-17.0 Hematocrit 47.5 % Normal 38.0-48.0 Mean Cell Volume 94.6 fl Normal 80.0-96.0 Mean Corpuscular HGB 31.9 pg Normal 27.0-33.0 Mean Corpuscular HGB Conc 33.7 g/dL Normal 31.7-36.0 Platelet Count 403 K/uL High 155-360 Red Cell Distri Width SD 46.6 fl Normal 36-51 Red Cell Distri Width %CV 13.4 % Normal 11.6-15.8 Mean Platelet Volume 9.9 fl Normal 6.6-10.6 Neut% 79.1 % High 33.0-73.0 Lymph % 10.5 % Low 20.0-42.0 Amador % 8.1 % Normal 0.0-10.0 Eo% 1.3 % Normal 0.0-6.6 Bas% 0.6 % Normal 0.0-1.1 Immature Grans 0.4 % Normal 0.0-5.0 NRBC % 0.0 /100WBC < 10/ 100 WBC Neut# 8.84 K/uL High 1.8-7.0 Lymph # 1.18 K/uL Normal 1.0-4.0 Amador # 0.91 K/uL High 0.0-0.8 Eos # 0.14 K/uL Normal 0.0-0.5 Baso # 0.07 K/uL Normal 0.0-0.1 Immature Grans Absolute 0.05 K/uL NRBC # 0.00 K/uL Laboratory test 05/14/2019 [facility] Cholesterol 141 <200 [address] mg/[place] [address] [phone] Glycohemoglobin 05/14/2019 [facility] Glycohemoglobin 7.4 % High 4.2-6. [address] (A1c) 3 [address] [place], [place] [id number] [phone] eAG 166 mg/dL Microalbumin,Random 05/14/2019 [facility] Microalbumin,Urine 115.0 < 20.[address] mg/[place] [address] [phone] Microalb/Creat 05/14/2019 [facility] Microalbumin/Creatin 73.7 < 30.0 Ratio,Random [address] ine Ratio ug/[place] [address] t [phone] Urine Creatinine Conc 156 mg/dL Glycohemoglobin 04/29/2019 [facility] Glycohemoglobin 7.5 % High 4.2-6.3 30, A1c [address] (A1c) 31 [address] [place], [place] [id number] [phone] eAG 169 mg/dL CBC W/Automated 04/29/2019 [facility] White Blood 9.5 K/uL Normal 3.4-10.[address] Count [facility] [place], [place] [id number] [phone] Red Blood Count 4.86 M/uL Normal 4.20-5.80 Hemoglobin 15.4 gm/dL Normal 12.8-17.0 Hematocrit 46.1 % Normal 38.0-48.0 Mean Cell Volume 94.9 fl Normal 80.0-96.0 Mean Corpuscular HGB 31.7 pg Normal 27.0-33.0 Mean Corpuscular HGB Conc 33.4 g/dL Normal 31.7-36.0 Platelet Count 363 K/uL High 155-360 Red Cell Distri Width SD 46.6 fl Normal 36-51 Red Cell Distri Width %CV 13.3 % Normal 11.6-15.8 Mean Platelet Volume 10.2 fl Normal 6.6-10.6 Neut% 73.9 % High 33.0-73.0 Lymph % 14.6 % Low 20.0-42.0 Amador % 8.6 % Normal 0.0-10.0 Eo% 1.9 % Normal 0.0-6.6 Bas% 0.6 % Normal 0.0-1.1 Immature Grans 0.4 % Normal 0.0-5.0 NRBC % 0.0 /100WBC < 10/ 100 WBC Neut# 6.99 K/uL Normal 1.8-7.0 Lymph # 1.38 K/uL Normal 1.0-4.0 Amador # 0.81 K/uL High 0.0-0.8 Eos # 0.18 K/uL Normal 0.0-0.5 Baso # 0.06 K/uL Normal 0.0-0.1 Immature Grans Absolute 0.04 K/uL NRBC # 0.00 K/uL Comprehensive 04/29/2019 [facility] Glucose 80 mg/dL Normal 74-106 Metabolic Panel [address] [place] [address] [phone] BUN 19 mg/dL High 7-18 Creatinine 1.0 mg/dL Normal 0.6-1.3 Glom Filtration Rate, Estimate >60 mL/min >60 If >60 mL/min >60 32 BUN/Creat 19.0 ratio Sodium 138 mmol/L Normal 136-145 Potassium 4.2 mmol/L Normal 3.5-5.1 Chloride 108 mmol/L High 98-107 Carbon Dioxide 29 mmol/L Normal 21-32 Anion Gap 1 mEq/L Low 8-16 Calcium 8.9 mg/dL Normal 8.5-10.1 Total Protein 7.0 g/dL Normal 6.4-8.2 Albumin 3.7 g/dL Normal 3.4-5.0 Globulin 3.3 g/dL Normal 1.9-4.3 Alb/Glob 1.1 ratio Bilirubin,Total 0.4 mg/dL Normal 0.2-1.0 Sgot/Ast 9 U/L Low 15-37 33 SGPT/Alt 22 U/L Normal 12-78 Alkaline Phosphatase 21 U/L Low 45-117 LDL Cholesterol Profile 04/29/2019 [facility] Cholesterol 146 mg/dL <[address] [place] [address] [phone] Triglycerides 78 mg/dL <150 35 HDL Cholesterol 37 mg/dL Low >40 36 LDL-Cholesterol 93 mg/dL < 100 37 Laboratory test 04/29/2019 [facility] Vitamin 52.3 30.0-100.0 [address] D,25-Hydroxy ng/[place] [address] [phone] Hepatitis C Antibody < 0.1 s/corat 0.0-0.9 39 Trigl SerPl-mCnc 04/29/2019 N2N/CCD Import Triglycerides Level 78 <150 LDLc SerPl 04/29/2019 N2N/CCD Import LDL Cholesterol, 93 < 100 Calc-mCnc Calculated HCV Ab s/co SerPl 04/29/2019 N2N/CCD Import Hepatitis C Ab < 0.1 0.0- 0.9 Ia Signal/Cutoff Ratio Laboratory test 03/27/2019 [facility] Prostate Specific 0.17 < 4.0 40, [address] Antigen ng/[place] [address] [phone] 1 HYPONATREMIA, VOMITING 2 Note: Persistent reduction for 3 months or more in an eGFR <60 mL/min/1.73 m2 defines CKD. Patients with eGFR values >/=60 mL/min/1.73 m2 may also have CKD if evidence of persistent proteinuria is present. The original MDRD equation for estimated GFR is not valid for patients less than 18 years of age. Additional information may be found at www.kdoqi.org. 3 Cortisol AM 6.2 - 19.4 Cortisol PM 2.3 - 11.9 4 Performed at: RN - [facility] [id number] Passenger Flagman: Michelle Lima MD, Phone: [phone] Note: Persistent reduction for 3 months or more in an eGFR <60 mL/min/1.73 m2 defines CKD. Patients with eGFR values >/=60 mL/min/1.73 m2 may also have CKD if evidence of persistent proteinuria is present. The original MDRD equation for estimated GFR is not valid for patients less than 18 years of age. Additional information may be found at www.[email or web address]. 6 Note: Persistent reduction for 3 months or more in an eGFR <60 mL/min/1.73 m2 defines CKD. Patients with eGFR values >/=60 mL/min/1.73 m2 may also have CKD if evidence of persistent proteinuria is present. The original MDRD equation for estimated GFR is not valid for patients less than 18 years of age. Additional information may be found at www.[email or web address]. 7 Elevated levels of HbA1c suggest the need for more aggressive treatment of glycemia. The [place] [employer] recommends that a primary goal of therapy should be a HbA1c of <7% and that physicians should re-evaluate the treatment regimen in patients with HbA1c values consistently >8%. 8 VOMITING,SOB,DIARRHEA,HARD TIME SWALLOWING 9 0.0 - 0.045 ng/mL: Normal 0.046 - 0.5 ng/mL: Suggestive 0.6 - 1.5 ng/mL: Consistent 10 Infection due to Strep A cannot be ruled-out because the antigen present in the sample may be below the detection limit of the test. Culture confirmation of negative result is in progress Method: BD Veritor Chromatographic immunoassay 11 Please Note: A POSITIVE result for influenza A and/or B antigen does not rule out a co-infection with other pathogens or identify any specific influenza A virus subtype. A NEGATIVE result for influenza A and/or B antigen does not preclude influenza virus infection and should not be the sole basis for treatment or other management decisions, since the antigen present in the specimen may be below the detection limit of the test. A NEGATIVE result is PRESUMPTIVE and it is recommended these results be confirmed by virus culture or an FDA-cleared influenza A and B molecular assay. Method: BD Veritor Chromatographic immunoassay 12 URINE, CLEAN CATCH 13 NO BETA STREPTOCOCCI ISOLATED 14 DIARRHEA,WATERY,SMELLS,GETTING NEAR KIDNEYS 15 10,000 - 50,000 CFU/mL 16 0.0 - 0.045 ng/mL: Normal 0.046 - 0.5 ng/mL: Suggestive 0.6 - 1.5 ng/mL: Consistent 17 Note: Persistent reduction for 3 months or more in an eGFR <60 mL/min/1.73 m2 defines CKD. Patients with eGFR values >/=60 mL/min/1.73 m2 may also have CKD if evidence of persistent proteinuria is present. The original MDRD equation for estimated GFR is not valid for patients less than 18 years of age. Additional information may be found at www.[email or web address]. 18 CULTURE TO FOLLOW 19 URINE, CLEAN CATCH 20 URINE, CLEAN CATCH 21 NO GROWTH: FINAL REPORT 22 NO GROWTH: FINAL REPORT 23 NO GROWTH: FINAL REPORT 24 NO GROWTH: FINAL REPORT 25 E11.9 E78.5 I10 26 Note: Persistent reduction for 3 months or more in an eGFR <60 mL/min/1.73 m2 defines CKD. Patients with eGFR values >/=60 mL/min/1.73 m2 may also have CKD if evidence of persistent proteinuria is present. The original MDRD equation for estimated GFR is not valid for patients less than 18 years of age. Additional information may be found at www.kdoqi.org. 27 Values below the stated reference ranges of AST and ALT can be seen in normal populations. Clinical correlation is suggested. 28 Reference Guidelines*: Desirable: ........... < 200 mg/dL Borderline High: ..... 200-239 mg/dL High: ................ >= 240 mg/dL * The National Cholesterol Education Program (NCEP) 29 Elevated levels of HbA1c suggest the need for more aggressive treatment of glycemia. The [place] Diabetes [employer] recommends that a primary goal of therapy should be a HbA1c of <7% and that physicians should re-evaluate the treatment regimen in patients with HbA1c values consistently >8%. 30 E11.9 V89.2XXA E78.5 E55.9 31 Elevated levels of HbA1c suggest the need for more aggressive treatment of glycemia. The [place] Diabetes [employer] recommends that a primary goal of therapy should be a HbA1c of <7% and that physicians should re-evaluate the treatment regimen in patients with HbA1c values consistently >8%. 32 Note: Persistent reduction for 3 months or more in an eGFR <60 mL/min/1.73 m2 defines CKD. Patients with eGFR values >/=60 mL/min/1.73 m2 may also have CKD if evidence of persistent proteinuria is present. The original MDRD equation for estimated GFR is not valid for patients less than 18 years of age. Additional information may be found at www.kdoqi.org. 33 Values below the stated reference ranges of AST and ALT can be seen in normal populations. Clinical correlation is suggested. 34 Reference Guidelines*: Desirable: ........... < 200 mg/dL Borderline High: ..... 200-239 mg/dL High: ................ >= 240 mg/dL * The National Cholesterol Education Program (NCEP) 35 Reference Guidelines*: Normal: ............. < 150 mg/dL Borderline High: .... 150-199 mg/dL High: ............... 200-499 mg/dL Very High: .......... > 500 mg/dL * Source: National Cholesterol Education Program (NCEP) 36 Reference Guidelines*: Low HDL: ..... < 40 mg/dL Normal: ..... 40-60 mg/dL Desirable: ... > 60 mg/dL *The National Cholesterol Education Program(NCEP) 37 Reference Guidelines*: Optimal:........... <100 mg/dL Near Optimal....... 100-129 mg/dL Borderline High.... 130-159 mg/dL High............... 160-189 mg/dL Very High.......... >=190 mg/dL * Source: National Cholesterol Education Program (NCEP) 38 Vitamin D deficiency has been defined by the [place] of [employer] and an Endocrine Society practice guideline as a level of serum 25-OH vitamin D less than 20 ng/mL (1,2). The Endocrine Society went on to further define vitamin D insufficiency as a level between 21 and 29 ng/mL (2). 1. IOM ([place] of [employer]). 2010. Dietary reference intakes for calcium and D. [place]: The National Academies Press. 2. Margarita QUINTERO, Jesús [place], David DUBON, et al. Evaluation, treatment, and prevention of vitamin D deficiency: an Endocrine Society clinical practice guideline. JCEM. 2010; 96(7):1911-30. Performed at: [facility] [id number] Passenger Flagman: Michelle Lima MD, Phone: [phone] INFCE Result Units: s/co ratio Negative: < 0.8 Indeterminate: 0.8 - 0.9 Positive: > 0.9 The CDC recommends that a positive HCV antibody result be followed up with a HCV Nucleic Acid Amplification test (333173). Performed at: [address] [id number] Passenger Flagman: Michelle Lima MD, Phone: [phone] 40 Z85.46 41 THIS ASSAY IS NOT INTENDED A CANCER SCREENING TEST The concentration of PSA in a given specimen, determined with assays from different manufacturers, can vary due to differences in assay methods and reagent specificity. Values obtained from different assay methods cannot be used interchangeably. Method: Sport Universal Process [place] Chemiluminescent immunoassay. 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 Fernando, VIPUL, disease of [place] [employer]IOR WEB ENGINEER cor art w unsp ang pctrs I73.9 Peripheral vascular disease, unspecified E78.5 Hyperlipidemia, unspecified I10 Essential (primary) hypertension Office Visit 08/15/2019 10:10a Primary Care Chantal, E11.9 Type 2 diabetes Office MS Treva, mellitus without [employer]IOR WEB ENGINEER-C, CNM complications 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 I10 Essential (primary) hypertension E78.5 Hyperlipidemia, unspecified G47.00 Insomnia, unspecified E55.9 Vitamin D deficiency, unspecified N50.89 Other specified disorders of the male genital organs R63.4 Abnormal weight loss Z71.6 Tobacco abuse counseling Office Visit 07/17/2019 10:30a Primary Care Chantal, D44.10 Neoplasm of Office Treva, , uncertain [employer] WEB ENGINEER-C, CNM behavior of unspecified adrenal gland R63.4 Abnormal weight loss G47.00 Insomnia, unspecified Office Visit 05/21/2019 11:00a Primary Care Elidaelvira Treva, Z85.46 Personal history Office MS, [employer] WEB ENGINEER-C, CNM of malignant neoplasm of prostate Z12.11 Encounter for screening for malignant neoplasm of colon 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 I73.9 Peripheral vascular disease, unspecified R19.7 Diarrhea, unspecified E11.9 Type 2 diabetes mellitus without complications I10 Essential (primary) hypertension F17.210 Nicotine dependence, cigarettes, uncomplicated Z71.6 Tobacco abuse counseling E78.5 Hyperlipidemia, unspecified Office Visit 04/11/2019 8:45a Surgical Office Óscar Crenshaw, Z48.817 Encntr for ,FACS surgical aftcr fol surgery on the skin, subcu K61.1 Rectal abscess Office Visit 2019 11:30a Surgical Office Óscar Crenshaw, K61.1 Rectal abscess ,FACS K61.1 Rectal abscess Office Visit 03/27/2019 9:30a Urology Eric Moreira, Z85.46 Personal history of M.D. 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, VIPUL, [place] coronary artery with [employer] WE[employer] ENGINEER 08/20/2019 I73.9 Peripheral vascular disease, Abbey iJmenez, VIPUL, unspecified [employer] WE[employer] ENG[employer]ER 08/20/2019 E78.5 Hyperlipidemia, unspecified Abbey Jimenez, VIPUL, [employer] WE[employer] ENGINEER 08/20/2019 I10 Essential (primary) hypertension Abbey Jimenez, MSN, [facility] 08/15/2019 E11.9 Type 2 diabetes mellitus without Treva Cornejo, MS, [employer] WE[employer] ENGINEER -C, complications [facility] 08/15/2019 D44.10 Neoplasm of uncertain behavior of Treva Cornejo, , [employer] WE[employer] ENGINEER-C, unspecified adrenal gland [facility] 08/15/2019 I10 Essential (primary) hypertension Treva Cornejo, MS, [employer] WEB ENGINEER-C , [facility] 08/15/2019 E78.5 Hyperlipidemia, unspecified Chantal, Treva, MS, [employer] WE[employer] ENGINEER-C, [facility] 08/15/2019 G47.00 Insomnia, unspecified Treva Cornejo, MS, [employer]IOR WE[employer] ENGINEER-C, [facility] 08/15/2019 E55.9 Vitamin D deficiency, unspecified Treva Cornejo, MS, [employer] WE[employer] ENGINEER-C, [facility] 08/15/2019 N50.89 Swelling of scrotum Treva Cornejo, MS, [employer] WE[employer] ENGINEER-C, [facility] 08/15/2019 R63.4 Abnormal weight loss Treva Cornejo, MS, [employer] WE[employer] ENGINEER-C, [facility] 08/15/2019 Z71.6 Tobacco abuse counseling Treva Cornejo, MS, [employer] WE[employer] ENGINEER-C, [facility] 08/08/2019 R11.15 Cyclical vomiting syndrome unrelated Jorge Nieto, [employer]IOR WEB ENGINEER to migraine 08/08/2019 R19.7 Diarrhea, unspecified KaroetJorge, S[employer]IOR WEB ENGINEER 08/08/2019 E86.0 Dehydration Felice Nietoley, [employer]IOR WEB ENGINEER 08/08/2019 E11.649 Type 2 diabetes mellitus with Cadet, Jorge, [employer] WE[employer] ENGINEER hypoglycemia without coma 08/07/2019 E87.1 Hypo-osmolality and hyponatremia Jorge Nieto, S[employer]IOR WEB ENGINEER 08/07/2019 E86.0 Dehydration KaroetFeliceJorge, S[employer]IOR WEB ENGINEER 08/07/2019 E11.649 Type 2 diabetes mellitus with Cadet, Jorge, [employer]IOR WE[employer] ENGINEER hypoglycemia without coma 08/06/2019 R19.7 Diarrhea, unspecified KaroetFeliceJorge, S[employer]IOR WEB ENGINEER 08/06/2019 E87.1 Hypo-osmolality and hyponatremia Jorge Nieto, S[employer]IOR WEB ENGINEER 08/06/2019 E86.0 Dehydration CadJorge barrientos, [facility] 08/05/2019 R11.15 Cyclical vomiting syndrome unrelated Benjamin Akins M.D. to migraine 08/05/2019 R19.7 Diarrhea, unspecified Benjamin Akins M.D. 08/05/2019 E87.1 Hypo-osmolality and hyponatremia Benjamin Akins M.D. 08/05/2019 R93.3 Abnormal findings on diagnostic Benjamin Akins M.D. 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, MS, [employer] WE[employer] ENGINEER-C, [place] coronary artery with CNM 05/21/2019 I73.9 Peripheral vascular disease, Flory Cornejoline, MS, [employer]IOR WEB ENGINEER-C, unspecified CNM 05/21/2019 R19.7 Diarrhea, unspecified Gagen, Treva, MS, S[employer]IOR WEB ENGINEER-C, CNM 05/21/2019 E11.9 Type 2 diabetes mellitus without Gagen, Treva, MS, [employer]IOR WEB ENGINEER -C, complications CNM 05/21/2019 I10 Essential (primary) hypertension Treva Cornejo, MS, [employer] WEB ENGINEER-C , CNM 05/21/2019 F17.210 Nicotine dependence, cigarettes, Chantal, Treva, MS, [employer] WE[employer] ENGINEER-C, uncomplicated CNM 05/21/2019 Z71.6 Tobacco abuse counseling ChantalTreva, MS, [employer] WE[employer] ENGINEER-C, CNM 05/21/2019 E78.5 Hyperlipidemia, unspecified Treva Cornejo, , [employer]IOR WEB ENGINEER-C, CNM 05/05/2019 Z85.46 Personal history of malignant Treva Cornejo, , [employer]IOR WEB ENGINEER-C , neoplasm of prostate CNM 05/05/2019 Z12.11 Encounter for screening for malignant Treva Cornejo, , [employer]IOR WEB ENGINEER-C, neoplasm of colon CNM 05/05/2019 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, , [employer]IOR WE[employer] ENGINEER-C, [place] coronary artery with CNM 05/05/2019 E78.5 Hyperlipidemia, unspecified Treva Cornejo, MS, [employer]IOR WE[employer] ENGINEER-C, CNM 05/05/2019 I73.9 Peripheral vascular disease, Treva Cornejo, MS, S[employer]IOR WEB ENGINEER-C, unspecified CNM 05/05/2019 I10 Essential (primary) hypertension Treva Cornejo, MS, S[employer]IOR WEB ENGINEER-C , CNM 05/05/2019 F17.210 Nicotine dependence, cigarettes, Treva Cornejo, MS, [employer]IOR WEB ENGINEER-C, uncomplicated CNM 05/05/2019 E11.9 Type 2 diabetes mellitus without Treva Cornejo, MS, SENIOR WEB ENGINEER -C, complications CNM 05/05/2019 R19.7 Diarrhea, unspecified Treva Cornejo, MS, [employer]IOR WEB ENGINEER-C, CNM 05/05/2019 E55.9 Vitamin D deficiency, unspecified Treva Cornejo, MS, S[employer]IOR WEB ENGINEER-C, CNM 05/05/2019 J44.9 Chronic obstructive pulmonary Treva Cornejo, MS, S[employer]IOR WEB ENGINEER-C, disease, unspecified CN 05/05/2019 Z71.6 Tobacco abuse counseling Treva Cornejo, MS, S[employer]IOR WEB ENGINEER-C, CNM 04/11/2019 Z48.817 Encounter for surgical aftercare Óscar Crenshaw MD,FACS following surgery on the skin and subcutaneous tissue 04/11/2019 K61.1 Rectal abscess Óscar Crenshaw MD,FACS 03/31/2019 Z23 Encounter for immunization Treva Cornejo MS, SENIOR WEB ENGINEER-C, CN 03/31/2019 Z23 Encounter for immunization Nurse Internal Med 2019 K61.1 Rectal abscess Óscar Crenshaw MD,FACS 2019 K61.1 Rectal abscess Óscar Crenshaw MD,FACS 03/27/2019 Z85.46 Personal history of malignant Eric Moreira M.D. neoplasm of prostate 03/27/2019 Z71.6 Tobacco abuse counseling Eric Moreira M.D. 03/13/2019 Z12.11 Encounter for screening for malignant Nicholas Drew MD neoplasm of colon 03/13/2019 K63.5 Polyp of colon Nicholas Drew MD 02/26/2019 Z12.11 Encounter for screening for malignant Nicholas Drew MD neoplasm of colon 02/26/2019 D12.2 Benign neoplasm of ascending colon Nicholas Drew MD 02/26/2019 K63.5 Polyp of colon Nicholas Drew MD 02/26/2019 K57.30 Diverticulosis of large intestine Nicholas Drew MD without perforation or abscess without bleeding Plan of Treatment Future Appointment(s):02/20/2020 2:00 pm - Abbey Jimenez, MSN, SENIOR WEB ENGINEER at Cardiology Ceogwz6508/29/2019 10:30 am - Treva Cornejo MS, SENIOR WEB ENGINEER-C, CNM at Primary Care Lnbecw2009/22/2019 10:30 am - Treva Cornejo MS, SY-C, CNM at Primary Care Chwdbx4708/20/2019 - Abbey Jimenez, MSN, FNP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 [place] coronary artery withNew Orders: Echocardiogram, Ordered: 08/20/19Comments:I will set him up for an echo prior to next visit to re-valuate his LVF. Continue with medical management.I73.9 Peripheral vascular disease, unspecifiedComments:Monitor.E78.5 Hyperlipidemia, unspecifiedComments:Goal of therapy: Total cholesterol <200 and LDL < 70.I10 Essential (primary) hypertensionComments:No changes.AllFollow up:Follow up visit in six months with echo just before. Functional Status Functional Condition Comment Date Status Glasses Active Mental Status Description No Information Available Referrals Refer to Reason for Referral Status Appt Date Richelle Munguia MD send [facility] note pls call Patient to let Scheduled him know address and that we are working on OV 07/18/2019 faxed notes.. [address], [place] [id number] [phone] Nicholas Alvarado MD was going to endo who retired diabetes Closed 06/25/[address] [place] [id number] [phone]
--- OUTSIDE RECORDS SUMMARY | 2019-09-05 07:26 | XMS REPORT | Continuity of Care Document ---
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 Carlos Enrique Hale MD - Emergency Medicine Care Team Information Swimming Pool Installer Argenis Fox NP - Nurse Care Team Information Swimming Pool Installer [phone] Practitioner Jose Peña GOVERNMENT CLERK - Nurse Care Team Information Swimming Pool Installer [phone] Practitioner Treva Cornejo NP, CNM - Nurse Care Team Information Swimming Pool Installer [phone] Practitioner Richelle Munguia MD - Hematology & Care Team Information Swimming Pool Installer [phone] Oncology Problems Active Problems Provider Date Degenerative [...] 2016 LDL 75 HDL 40 Chol 132; RI/cath December 2015 Chronic renal failure Leslie Lopez [...] Shields Hyperlipidemia Abbey Jimenez, MSN, Onset: 02/15/2017 [employer] Tobacco user Abbey Jimenez, MSN, Onset: 02/15/2017 [employer] Atherosclerotic heart disease of Abbey Jimenez, MSN, 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 Mixed hyperlipidemia Parul Foster [...] 160mg Tablets Every Morning Treva, 9 MS, [employer]ER-C, CNM Hydrochlorothiazide take one capsule 90caps I10 [...] Collado Strips meal,at bedtime,and as needed Pen [place] [employer] uad with insulin 100units nasing, 07/10/2016 [...] Levemir Flextouch 52 units subq twice 45ml KristinParul MD a day 100Unit/ML Solution Pen-Inject Metoprolol Tartrate 1 by mouth twice a 180tabs Ratnasingam, day MD Walt 25mg Tablets Nitrostat 1 tab sl every 5 min 30tabs Abbey Jimenez 0.4mg Tablets x3 chest pain as VIPUL King, Sub needed [employer]ER Polyethylene Glycol Take 17 Grams By Unknown 3350 Mouth Daily as 3350NF Packet Needed For Constipation Cilostazol Take 1 Tablet By 180tabs Ratnasingam, 100mg Mouth Twice A Day MD Walt Tablets Novolog Flexpen Inject 6 Units Unknown [...] Code Status Date Vaccine Reaction Lot # 77255 Given 03/31/2019 Influenza High Dose [id number] 35350 Given 05/20/2018 Influenza High Dose none [id number] 13862 Given 02/27/2017 Influenza High Dose [id number] 43717 Given 10/23/2016 Pneumovax Injection [id number] 02910 Given 10/23/2016 Tdap injection [id number] Q2038 Given 03/20/2016 Influenza Vaccine (Fluzone) Age 3 And [id number] Older Q2038 Given 03/11/2015 Influenza Vaccine (Fluzone) Age 3 And Older 39485 Given 03/11/2015 Pneumococcal Conjugate Vaccine 13 Valent For Intramuscular Use 90033 Given 04/03/2008 flu vaccination Vital Signs Date Vital Result Comment 08/20/2019 10:23am BP Systolic Sitting Left Arm 130 mmHg BP Diastolic Sitting Left Arm 64 mmHg Heart Rate 89 /min Respiratory Rate 14 /min Height 67 inches 5'7" Weight 149.00 lb BMI (Body Mass Index) 23.3 kg/m2 BSA (Body Surface Area) 1.78 m2 [place]ott body weight in kilograms 67 kg O2 % BldC Oximetry 98 % Ra 08/15/2019 9:52am BP Systolic 148 mmHg BP Diastolic 70 mmHg Body Temperature 98.5 F Heart Rate 80 /min Respiratory Rate 18 /min Height 67 inches 5'7" Weight 148.00 lb BMI (Body Mass Index) 23.2 kg/m2 BSA (Body Surface Area) 1.78 m2 [place] body weight in kilograms 67 kg O2 % BldC Oximetry 99 % Results Test Acquired Date Facility Test Result H/L Range Note CBC 08/22/2019 [facility] White Blood 18.1 K/uL High 3.4-10.5 1 W/Automated [address] [place] [address] [phone] Red Blood Count 4.43 M/uL Normal 4.20-5.80 Hemoglobin 13.4 gm/dL Normal 12.8-17.0 Hematocrit 41.0 % Normal 38.0-48.0 Mean Cell Volume 92.6 fl Normal 80.0-96.0 Mean Corpuscular HGB 30.2 pg Normal 27.0-33.0 Mean Corpuscular HGB Conc 32.7 g/dL Normal 31.7-36.0 Platelet Count 728 K/uL High 155-360 Red Cell Distri Width SD 45.6 fl Normal 36-51 Red Cell Distri Width %CV 13.4 % Normal 11.6-15.8 Mean Platelet Volume 9.6 fl Normal 6.6-10.6 Neut% 87.4 % High 33.0-73.0 Lymph % 4.8 % Low 20.0-42.0 [place] % 6.2 % Normal 0.0-10.0 Eo% 0.4 % Normal 0.0-6.6 Bas% 0.4 % Normal 0.0-1.1 Immature Grans 0.8 % Normal 0.0-5.0 NRBC % 0.0 /100WBC < 10/ 100 WBC Neut# 15.83 K/uL High 1.8-7.0 Lymph # 0.87 K/uL Low 1.0-4.0 [place] # 1.12 K/uL High 0.0-0.8 Eos # 0.08 K/uL Normal 0.0-0.5 Baso # 0.08 K/uL Normal 0.0-0.1 Immature Grans Absolute 0.14 K/uL NRBC # 0.00 K/uL Comprehensive Metabolic 08/22/2019 [facility] Glucose 57 mg/dL Low 74-106 Panel [address] [place] [address] [phone] BUN 11 mg/dL Normal 7-18 Creatinine 0.7 mg/dL Normal 0.6-1.3 Glom Filtration Rate, Estimate >60 mL/min >60 If >60 mL/min >60 2 BUN/Creat 15.7 ratio Sodium 128 mmol/L Low 136-145 Potassium 4.9 mmol/L Normal 3.5-5.1 Chloride 93 mmol/L Low 98-107 Carbon Dioxide 28 mmol/L Normal 21-32 Anion Gap 7 mEq/L Low 8-16 Calcium 9.9 mg/dL Normal 8.5-10.1 Total Protein 7.4 g/dL Normal 6.4-8.2 Albumin 3.6 g/dL Normal 3.4-5.0 Globulin 3.8 g/dL Normal 1.9-4.3 Alb/Glob 0.9 ratio Bilirubin,Total 0.4 mg/dL Normal 0.2-1.0 3 Sgot/Ast 24 U/L Normal 15-37 SGPT/Alt 16 U/L Normal 12-78 Alkaline Phosphatase 26 U/L Low 45-117 LDL Cholesterol Profile 08/22/2019 [facility] Cholesterol 120 mg/dL <200 4 [address] [place] [address] [phone] Triglycerides 104 mg/dL <150 5 HDL Cholesterol 42 mg/dL >40 6 LDL-Cholesterol 57 mg/dL < 100 7 Glycohemoglobin 08/22/2019 [facility] Glycohemoglobin 6.9 % High 4.2-6.3 8 A1c [address] [place] (A1c) [place] [address] [phone] eAG 151 mg/dL Laboratory 08/22/2019 [facility] Vitamin 43.4 30.0-100.0 9 test finding [address] D,25-Hydroxy ng/mL [place] [address] [phone] Slide Review 08/22/2019 [facility] Slide Review (SEE [address] NOTE) [place] [address] [phone] Calcium 08/08/2019 N2N/CCD Import Calcium Level 8.5 8.5-10.1 SerPl-mCnc Co2 08/08/2019 N2N/CCD Import Carbon Dioxide 24 21-32 SerPl-sCnc Level Chloride 08/08/2019 N2N/CCD Import Chloride Level 104 98-107 SerPl-sCnc Potassium 08/08/2019 N2N/CCD Import Potassium Level 4.5 3.5-5.1 SerPl-sCnc Sodium 08/08/2019 N2N/CCD Import Sodium Level 133 Low 136-145 SerPl-sCnc BUN/Creat 08/08/2019 N2N/CCD Import BUN/Creatinine 5.0 SerPl Ratio GFR/Bsa 08/08/2019 N2N/CCD Import Estimated GFR >60 >60 pred.black ( SerPl [place]) MDRD-ArVRat GFR/Bsa 08/08/2019 N2N/CCD Import Estimated GFR >60 >60 pred.non (Non- black SerPl [place] MDRD-ArVRat BUN 08/08/2019 N2N/CCD Import Blood Urea 3 7-18 SerPl-mCnc Nitrogen Glucose 08/08/2019 N2N/CCD Import Glucose Screen 203 High 74-106 SerPl-mCnc nRBC/100 WBC 08/08/2019 N2N/CCD Import Nucleated Red 0.0 < 10/ 100 WBC Bld Auto-Rto Blood Cells % (auto) RDW RBC 08/08/2019 N2N/CCD Import RDW Coefficient 13.1 11.6-15.8 Auto-Rto of Variation RDW RBC Auto 08/08/2019 N2N/CCD Import Red Cell 45.8 36-51 Distribution Width MCHC RBC 08/08/2019 N2N/CCD Import Mean 32.9 31.7-36.0 Auto-mCnc Corpuscular Hemoglobin Concent MCH RBC Qn 08/08/2019 N2N/CCD Import Mean 31.1 27.0-33.0 Auto Corpuscular Hemoglobin MCV RBC Auto 08/08/2019 N2N/CCD Import Mean 94.3 80.0-96.0 Corpuscular Volume Basic 08/08/2019 [facility] Glucose 203 High 74-106 [address] mg/[place] [address] [phone] BUN 3 mg/dL Critical low 7-18 Creatinine 0.6 mg/dL Normal 0.6-1.3 Glom Filtration Rate, Estimate >60 mL/min >60 If >60 mL/min >60 12 BUN/Creat 5.0 ratio Sodium 133 mmol/L Low 136-145 Potassium 4.5 mmol/L 3.5-5.1 Chloride 104 mmol/L Normal 98-107 Carbon Dioxide 24 mmol/L Normal 21-32 Anion Gap 5 mEq/L Low 8-16 Calcium 8.5 mg/dL Normal 8.5-10.1 CBC 08/08/2019 [facility] White Blood Count 8.3 K/uL Normal 3.4-10.[address] [place], [place] [id number] [phone] Red Blood Count 3.67 M/uL Low 4.20-5.80 [...] N2N/CCD Import Bedside Glucose 202 High 70-110 Glucomtr-[facility] Cortisol - 3 08/07/2019 [facility] Cortisol #1 17.8 . [address] (Base) g/[place] [address] [phone] Cortisol #2 16.3 g/dL Not Estab. Cortisol #3 13.3 g/dL Not Estab. 14 Basic Metabolic 08/07/2019 [facility] Glucose 29 mg/dL Critical low 74-106 Panel [address] [place] [address] [phone] BUN 5 mg/dL Critical low 7-18 Creatinine 0.6 mg/dL Normal 0.6-1.3 Glom Filtration Rate, Estimate >60 mL/min >60 If >60 mL/min >60 15 BUN/Creat 8.3 ratio Sodium 135 mmol/L Low 136-145 Potassium 3.6 mmol/L Normal 3.5-5.1 Chloride 106 mmol/L Normal 98-107 Carbon Dioxide 26 mmol/L Normal 21-32 Anion Gap 3 mEq/L Low 8-16 Calcium 8.3 mg/dL Low 8.5-10.1 CBC 08/07/2019 [facility] White Blood Count 11.8 K/uL High 3.4-10.5 [address] [place], [place] [address] [phone] Red Blood Count 3.66 M/uL Low 4.20-5.80 [...] Bld Auto (Auto) TSH Reflex FT4 08/06/2019 [facility] Thyroid Stim 1.94 Normal 0.30-4.20 And/Or FT3 [address] Hormone uIU/[place] [address] [phone] Reflex add FT3? N Reflex add FT4? Y Basic Metabolic Panel 08/06/2019 [facility] Glucose 91 mg/dL Normal 74-[address] [place], [place] [id number] [phone] BUN 10 mg/dL Normal 7-18 Creatinine 0.7 mg/dL Normal 0.6-1.3 Glom Filtration Rate, Estimate >60 mL/min >60 If >60 mL/min >60 16 BUN/Creat 14.2 ratio Sodium 132 mmol/L Low 136-145 Potassium 4.0 mmol/L Normal 3.5-5.1 Chloride 102 mmol/L 98-107 Carbon Dioxide 26 mmol/L Normal 21-32 Anion Gap 4 mEq/L Low 8-16 Calcium 8.5 mg/dL Normal 8.5-10.1 Reflex add FT3? N Reflex add FT4? Y Glycohemoglobin 08/06/2019 [facility] Glycohemoglobin 6.9 % High 4.2-6.3 [address] (A1c) [place], [place] [id number] [phone] eAG 151 mg/dL CBC W/Automated 08/06/2019 [facility] White Blood 10.3 K/uL Normal 3.4-10.[address] Count [place], [place] [address] [phone] Red Blood Count 3.80 M/uL Low 4.20-5.80 [...] 33.0-73.0 Lymph % 6.8 % Low 20.0-42.0 [place] % 9.7 % Normal 0.0-10.0 Eo% 0.2 % Normal 0.0-6.6 Bas% 0.4 % Normal 0.0-1.1 Immature Grans 0.4 % Normal 0.0-5.0 NRBC % 0.0 /100WBC < 10/ 100 WBC Neut# 8.47 K/uL High 1.8-7.0 Lymph # 0.70 K/uL Low 1.0-4.0 [place] # 1.00 K/uL High 0.0-0.8 Eos # [...] Group A Strep No Beta Cult Throat Streptococci Culture Isolated CBC W/Automated 08/05/2019 [facility] White Blood 14.3 K/uL High 3.4-10.5 [address] [place] [place] [address] [phone] Red Blood Count 4.08 M/uL Low 4.20-5.80 [...] 33.0-73.0 Lymph % 6.5 % Low 20.0-42.0 [place] % 8.1 % Normal 0.0-10.0 Eo% 0.1 % Normal 0.0-6.6 Bas% 0.4 % Normal 0.0-1.1 Immature Grans 0.8 % Normal 0.0-5.0 NRBC % 0.0 /100WBC < 10/ 100 WBC Neut# 12.00 K/uL High 1.8-7.0 Lymph # 0.93 K/uL Low 1.0-4.0 [place] # 1.16 K/uL High 0.0-0.8 Eos # [...] Import Lipase 101 56-289 SerPl-cCnc Laboratory 08/05/2019 [facility] Troponin-I < 0.015 19 test finding [address] ng/[place] [address] [phone] Laboratory 08/05/2019 [facility] Rapid Strep A Negative Negative 20 test finding [address] [place] [address] [phone] Influenza A/B 08/05/2019 [facility] Influenza A Antigen Negative (Negative) Antigen [address] [place], [place] [address] [phone] Influenza B Antigen Negative (Negative) 21 Urinalysis With 08/05/2019 [facility] Urine Color Yellow Yellow Microscopic [address] [place] [address] [phone] Urine Clarity Clear Clear Urine Glucose - Dipstick TRACE mg/dL Negative Urine Bilirubin - Dipstick NEGATIVE Negative Urine Ketone 20 mg/dL Abnormal Negative Urine Specific [place] 1.021 Normal 1.010-1.030 Urine Blood NEGATIVE Negative [...] Seen Source: URINE, CLEAN CAT <SEE NOTE> 22 Laboratory test 08/05/2019 [facility] Throat Strep NO BETA 23 finding [address] [facility] [place] [address] <SEE NOTE> [phone] Fluav Ag XXX Ql 08/05/2019 N2N/CCD Import [...] comment Report Reflexed Follow Urine Culture 07/14/2019 [facility] Urine Culture URETHRAL 24 [address] [place] [address] [phone] Quantity 10,000 - 50,000 <SEE NOTE> 25 Laboratory test finding 07/14/2019 [facility] CK 45 U/L Normal 39-[address] [place] [address] [phone] Troponin-I 0.015 ng/mL 26 Comprehensive Metabolic 07/14/2019 [facility] Glucose 125 mg/dL High 74-106 Panel [address] [place], [place] [address] [phone] BUN 9 mg/dL Normal 7-18 Creatinine 0.9 mg/dL Normal 0.6-1.3 Glom Filtration Rate, Estimate >60 mL/min >60 If >60 mL/min >60 27 BUN/Creat 10.0 ratio Sodium 132 mmol/L Low [...] 22 U/L Low 45-117 Culture If 07/14/2019 [facility] Culture If CULTURE TO 28 Indicated Comment [address] [facility] Indicated Comment FOLLO <[place] [address] NOTE> [phone] Source: URINE, CLEAN CAT <SEE NOTE> 29 Urinalysis With 07/14/2019 [facility] Urine Color Yellow Yellow Microscopic [address] [place], [place] [address] [phone] Urine Clarity Clear Clear Urine Glucose - Dipstick 500 mg/dL Abnormal Negative Urine Bilirubin - Dipstick NEGATIVE Negative Urine Ketone NEGATIVE mg/dL Negative Urine Specific [place] 1.021 Normal 1.010-1.030 Urine Blood NEGATIVE Negative [...] Seen Source: URINE, CLEAN CAT <SEE NOTE> 30 Blood Culture 07/14/2019 [facility] Blood Culture NO GROWTH: FINAL [address] Aerobic <SEE NOTE> [place] [address] [phone] Blood Culture Anaerobic NO GROWTH: FINAL <SEE NOTE> 32 Bacteria Bld 07/14/2019 N2N/CCD Import Aerobic Blood No Growth: Final Aerobe Cult Culture Report Bacteria Bld 07/14/2019 N2N/CCD Import Anaerobic Blood No Growth: Final Anaerobe Cult Culture Report Blood Culture 07/14/2019 [facility] Blood Culture NO GROWTH: FINAL [address] Aerobic <SEE NOTE> [place] [address] [phone] Blood Culture Anaerobic NO GROWTH: FINAL <SEE NOTE> 34 CBC W/Automated 07/14/2019 [facility] White Blood 10.7 K/uL High 3.4-10.[address] [place] [place] [address] [phone] Red Blood Count 4.41 M/uL Normal 4.20-5.80 [...] 33.0-73.0 Lymph % 12.4 % Low 20.0-42.0 [place] % 7.2 % Normal 0.0-10.0 Eo% 0.8 % Normal 0.0-6.6 Bas% 0.6 % Normal 0.0-1.1 Immature Grans 0.5 % Normal 0.0-5.0 NRBC % 0.0 /100WBC < 10/ 100 WBC Neut# 8.38 K/uL High 1.8-7.0 Lymph # 1.32 K/uL Normal 1.0-4.0 [place] # 0.77 K/uL Normal 0.0-0.8 Eos # 0.08 K/uL Normal 0.0-0.5 Baso # 0.06 K/uL Normal 0.0-0.1 Immature Grans Absolute 0.05 K/uL NRBC # 0.00 K/uL Lactate SerPl-sCnc 07/14/2019 N2N/CCD Import Lactic Acid 1.0 0.4-1.9 Level Lactic Acid 07/14/2019 [facility] Lactic Acid 1.0 mmol/L Normal 0.4-1.[address] [place] [address] [phone] Lab Reflex >2.0 for Sepsis? N Laboratory test 07/14/2019 [facility] LDH 200 Normal 87-[address] U/[place] [address] [phone] Creat Ur-mCnc 05/14/2019 N2N/CCD Import Urine Creatinine 156 Concentration Microalbumin/Crea 05/14/2019 N2N/CCD Import Urine 73.7 < 30.0 t Ur-Rto Microalbumin/Cre atinine Ratio Microalbumin 05/14/2019 N2N/CCD Import Urine 115.0 < 20.0 Ur-mCnc Microalbumin Comprehensive 05/14/2019 [facility] Glucose 101 Normal 74-106 35 Metabolic Panel [address] mg/[place] [address] [phone] BUN 14 mg/dL Normal 7-18 Creatinine 1.0 mg/dL Normal 0.6-1.3 Glom Filtration Rate, Estimate >60 mL/min >60 If >60 mL/min >60 36 BUN/Creat 14.0 ratio Sodium 137 mmol/L Normal [...] Normal 0.2-1.0 Sgot/Ast 11 U/L Low 15-37 37 SGPT/Alt 22 U/L Normal 12-78 Alkaline Phosphatase 20 U/L Low 45-117 CBC W/Automated 05/14/2019 [facility] White Blood 11.2 K/uL High 3.4-10.[address] [place] [place] [address] [phone] Red Blood Count 5.02 M/uL Normal 4.20-5.80 [...] 33.0-73.0 Lymph % 10.5 % Low 20.0-42.0 [place] % 8.1 % Normal 0.0-10.0 Eo% 1.3 % Normal 0.0-6.6 Bas% 0.6 % Normal 0.0-1.1 Immature Grans 0.4 % Normal 0.0-5.0 NRBC % 0.0 /100WBC < 10/ 100 WBC Neut# 8.84 K/uL High 1.8-7.0 Lymph # 1.18 K/uL Normal 1.0-4.0 [place] # 0.91 K/uL High 0.0-0.8 Eos # 0.14 K/uL Normal 0.0-0.5 Baso # 0.07 K/uL Normal 0.0-0.1 Immature Grans Absolute 0.05 K/uL NRBC # 0.00 K/uL Laboratory test 05/14/2019 [facility] Cholesterol 141 <200 [address] mg/[place] [address] [phone] Glycohemoglobin 05/14/2019 [facility] Glycohemoglobin 7.4 % High 4.2-6. [address] (A1c) 3 [place] [address] [phone] eAG 166 mg/dL Microalbumin,Random 05/14/2019 [facility] Microalbumin,Urine 115.0 < 20.[address] mg/[place] [address] [phone] Microalb/Creat 05/14/2019 [facility] Microalbumin/Creatin 73.7 < 30.0 Ratio,Random [address] ine Ratio ug/[place] [address] t [phone] Urine Creatinine Conc 156 mg/dL Glycohemoglobin 04/29/2019 [facility] Glycohemoglobin 7.5 % High 4.2-6.3 40, A1c [address] (A1c) [address] [place] [address] [phone] eAG 169 mg/dL CBC W/Automated 04/29/2019 [facility] White Blood 9.5 K/uL Normal 3.4-10.[address] [place] [place] [address] [phone] Red Blood Count 4.86 M/uL Normal 4.20-5.80 [...] 33.0-73.0 Lymph % 14.6 % Low 20.0-42.0 [place] % 8.6 % Normal 0.0-10.0 Eo% 1.9 % Normal 0.0-6.6 Bas% 0.6 % Normal 0.0-1.1 Immature Grans 0.4 % Normal 0.0-5.0 NRBC % 0.0 /100WBC < 10/ 100 WBC Neut# 6.99 K/uL Normal 1.8-7.0 Lymph # 1.38 K/uL Normal 1.0-4.0 [place] # 0.81 K/uL High 0.0-0.8 Eos # 0.18 K/uL Normal 0.0-0.5 Baso # 0.06 K/uL Normal 0.0-0.1 Immature Grans Absolute 0.04 K/uL NRBC # 0.00 K/uL Comprehensive 04/29/2019 [facility] Glucose 80 mg/dL Normal 74-106 Metabolic Panel [address] [place] [address] [phone] BUN 19 mg/dL High 7-18 Creatinine 1.0 mg/dL Normal 0.6-1.3 Glom Filtration Rate, Estimate >60 mL/min >60 If >60 mL/min >60 42 BUN/Creat 19.0 ratio Sodium 138 mmol/L Normal [...] Normal 0.2-1.0 Sgot/Ast 9 U/L Low 15-37 43 SGPT/Alt 22 U/L Normal 12-78 Alkaline Phosphatase 21 U/L Low 45-117 LDL Cholesterol Profile 04/29/2019 [facility] Cholesterol 146 mg/dL <200 44 [address] [place] [address] [phone] Triglycerides 78 mg/dL <150 45 HDL Cholesterol 37 mg/dL Low >40 46 LDL-Cholesterol 93 mg/dL < 100 47 Laboratory test 04/29/2019 [facility] Vitamin 52.3 30.0-100.0 [address] D,25-Hydroxy ng/[place] [address] [phone] Hepatitis C Antibody < 0.1 s/corat 0.0-0.9 49 Trigl SerPl-mCnc 04/29/2019 N2N/CCD Import Triglycerides Level 78 <150 LDLc SerPl 04/29/2019 N2N/CCD Import LDL Cholesterol, 93 < 100 Calc-mCnc Calculated HCV Ab s/co SerPl 04/29/2019 N2N/CCD Import Hepatitis C Ab < 0.1 0.0- 0.9 Ia Signal/Cutoff Ratio Laboratory test 03/27/2019 [facility] Prostate Specific 0.17 < 4.0 50, [address] Antigen ng/[place] [address] [phone] 1 I10,E78.5,E11.9,E55.9 2 Note: Persistent reduction for 3 months or more in an eGFR <60 mL/min/1.73 m2 defines CKD. Patients with eGFR values >/=60 mL/min/1.73 m2 may also have CKD if evidence of persistent proteinuria is present. The original MDRD equation for estimated GFR is not valid for patients less than 18 years of age. Additional information may be found at www.kdoqi.org. 3 Please Note: Patients undergoing treatment with eltrombopag may have falsely elevated results with this assay method. 4 Reference Guidelines*: Desirable: ........... < 200 mg/dL Borderline High: ..... 200-239 mg/dL High: ................ >= 240 mg/dL * The National Cholesterol Education Program (NCEP) 5 Reference Guidelines*: Normal: ............. < 150 mg/dL Borderline High: .... 150-199 mg/dL High: ............... 200-499 mg/dL Very High: .......... > 500 mg/dL * Source: National Cholesterol Education Program (NCEP) 6 Reference Guidelines*: Low HDL: ..... < 40 mg/dL Normal: ..... 40-60 mg/dL Desirable: ... > 60 mg/dL *The National Cholesterol Education Program(NCEP) 7 Reference Guidelines*: Optimal:........... <100 mg/dL Near Optimal....... 100-129 mg/dL Borderline High.... 130-159 mg/dL High............... 160-189 mg/dL Very High.......... >=190 mg/dL * Source: National Cholesterol Education Program (NCEP) 8 Elevated levels of HbA1c suggest the need for more aggressive treatment of glycemia. The [place] Diabetes Association recommends that a primary goal of therapy should be a HbA1c of <7% and that physicians should re-evaluate the treatment regimen in patients with HbA1c values consistently >8%. 9 Vitamin D deficiency has been defined by the [place] [employer] and an Endocrine Society practice guideline as a level of serum 25-OH vitamin D less than 20 ng/mL (1,2). The Endocrine Society went on to further define vitamin D insufficiency as a level between 21 and 29 ng/mL (2). 1. IOM ([employer]). 2010. Dietary reference intakes for calcium and D. [place]: The National Academies Press. 2. Margarita MF, Jesús GERMAN, David DUBON, et al. Evaluation, treatment, and prevention of vitamin D deficiency: an Endocrine Society clinical practice guideline. JCEM. 2010; 96(7):1911-30. Performed at: RN - [facility] [address] [id number] [employer] Garment Finisher: Michelle Lima MD, Phone: [phone] 10 Instrument flagged sample for slide review. Less than 10% Bands seen, no other immature WBC's seen. RBC morphology essentially normal. Platelet estimate = MARKED INCREASE 11 HYPONATREMIA, VOMITING 12 Note: Persistent reduction for 3 months or more in an eGFR <60 mL/min/1.73 m2 defines CKD. Patients with eGFR values >/=60 mL/min/1.73 m2 may also have CKD if evidence of persistent proteinuria is present. The original MDRD equation for estimated GFR is not valid for patients less than 18 years of age. Additional information may be found at www.kdoqi.org. 13 Cortisol AM 6.2 - 19.4 Cortisol PM 2.3 - 11.9 14 Performed at: RN - [facility] [address] [id number] Knitted Garment Finisher: Michelel Lima MD, Phone: [phone] 15 Note: Persistent reduction for 3 months or more in an eGFR <60 mL/min/1.73 m2 defines CKD. Patients with eGFR values >/=60 mL/min/1.73 m2 may also have CKD if evidence of persistent proteinuria is present. The original MDRD equation for estimated GFR is not valid for patients less than 18 years of age. Additional information may be found at www.kdoqi.org. 16 Note: Persistent reduction for 3 months or more in an eGFR <60 mL/min/1.73 m2 defines CKD. Patients with eGFR values >/=60 mL/min/1.73 m2 may also have CKD if evidence of persistent proteinuria is present. The original MDRD equation for estimated GFR is not valid for patients less than 18 years of age. Additional information may be found at www.kdoqi.org. 17 Elevated levels of HbA1c suggest the need for more aggressive treatment of glycemia. The [place] Diabetes Association recommends that a primary goal of therapy should be a HbA1c of <7% and that physicians should re-evaluate the treatment regimen in patients with HbA1c values consistently >8%. 18 VOMITING,SOB,DIARRHEA,HARD TIME SWALLOWING 19 0.0 - 0.045 ng/mL: Normal 0.046 - 0.5 ng/mL: Suggestive 0.6 - 1.5 ng/mL: Consistent 20 Infection due to Strep A cannot be ruled-out because the antigen present in the sample may be below the detection limit of the test. Culture confirmation of negative result is in progress Method: [employer] Chromatographic immunoassay 21 Please Note: A POSITIVE result for influenza [...] A and B molecular assay. Method: [employer] Chromatographic immunoassay 22 URINE, CLEAN CATCH 23 NO BETA STREPTOCOCCI ISOLATED 24 DIARRHEA,WATERY,SMELLS,GETTING NEAR KIDNEYS 25 10,000 - 50,000 CFU/mL 26 0.0 - 0.045 ng/mL: Normal 0.046 - 0.5 ng/mL: Suggestive 0.6 - 1.5 ng/mL: Consistent 27 Note: Persistent reduction for 3 months or more in an eGFR <60 mL/min/1.73 m2 defines CKD. Patients with eGFR values >/=60 mL/min/1.73 m2 may also have CKD if evidence of persistent proteinuria is present. The original MDRD equation for estimated GFR is not valid for patients less than 18 years of age. Additional information may be found at [email or web address]. 28 CULTURE TO FOLLOW 29 URINE, CLEAN CATCH 30 URINE, CLEAN CATCH 31 NO GROWTH: FINAL REPORT 32 NO GROWTH: FINAL REPORT 33 NO GROWTH: FINAL REPORT 34 NO GROWTH: FINAL REPORT 35 E11.9 E78.5 I10 36 Note: Persistent reduction for 3 months or more in an eGFR <60 mL/min/1.73 m2 defines CKD. Patients with eGFR values >/=60 mL/min/1.73 m2 may also have CKD if evidence of persistent proteinuria is present. The original MDRD equation for estimated GFR is not valid for patients less than 18 years of age. Additional information may be found at www.kdoqi.org. 37 Values below the stated reference ranges of AST and ALT can be seen in normal populations. Clinical correlation is suggested. 38 Reference Guidelines*: Desirable: ........... < 200 mg/dL Borderline High: ..... 200-239 mg/dL High: ................ >= 240 mg/dL * The National Cholesterol Education Program (NCEP) 39 Elevated levels of HbA1c suggest the need for more aggressive treatment of glycemia. The [place] [employer] recommends that a primary goal of therapy should be a HbA1c of <7% and that physicians should re-evaluate the treatment regimen in patients with HbA1c values consistently >8%. 40 E11.9 V89.2XXA E78.5 E55.9 41 Elevated levels of HbA1c suggest the need for more aggressive treatment of glycemia. The [place] [employer] recommends that a primary goal of therapy should be a HbA1c of <7% and that physicians should re-evaluate the treatment regimen in patients with HbA1c values consistently >8%. 42 Note: Persistent reduction for 3 months or more in an eGFR <60 mL/min/1.73 m2 defines CKD. Patients with eGFR values >/=60 mL/min/1.73 m2 may also have CKD if evidence of persistent proteinuria is present. The original MDRD equation for estimated GFR is not valid for patients less than 18 years of age. Additional information may be found at www.kdoqi.org. 43 Values below the stated reference ranges of AST and ALT can be seen in normal populations. Clinical correlation is suggested. 44 Reference Guidelines*: Desirable: ........... < 200 mg/dL Borderline High: ..... 200-239 mg/dL High: ................ >= 240 mg/dL * The National Cholesterol Education Program (NCEP) 45 Reference Guidelines*: Normal: ............. < 150 mg/dL Borderline High: .... 150-199 mg/dL High: ............... 200-499 mg/dL Very High: .......... > 500 mg/dL * Source: National Cholesterol Education Program (NCEP) 46 Reference Guidelines*: Low HDL: ..... < 40 mg/dL Normal: ..... 40-60 mg/dL Desirable: ... > 60 mg/dL *The National Cholesterol Education Program(NCEP) 47 Reference Guidelines*: Optimal:........... <100 mg/dL Near Optimal....... 100-129 mg/dL Borderline High.... 130-159 mg/dL High............... 160-189 mg/dL Very High.......... >=190 mg/dL * Source: National Cholesterol Education Program (NCEP) 48 Vitamin D deficiency has been defined by the [place] [employer] and an Endocrine Society practice guideline as a level of serum 25-OH vitamin D less than 20 ng/mL (1,2). The Endocrine Society went on to further define vitamin D insufficiency as a level between 21 and 29 ng/mL (2). 1. IOM ([employer] [place] [employer]). 2010. Dietary reference intakes for calcium and D. [place]: The National Academies Press. 2. Margarita MF, Jesús GERMAN, David DUBON, et al. Evaluation, treatment, and prevention of vitamin D deficiency: an Endocrine Society clinical practice guideline. JCEM. 2010; 96(7):1911-30. Performed at: [facility] [id number] Knitted Garment Finisher: Michelle Lima MD, Phone: [phone] INFCE Result Units: s/co ratio Negative: < 0.8 Indeterminate: 0.8 - 0.9 Positive: > 0.9 The CDC recommends that a positive HCV antibody result be followed up with a HCV Nucleic Acid Amplification test (195803). Performed at: [facility] [id number] Knitted Garment Finisher: Michelle Lima MD, Phone: [phone] Z85.46 51 THIS ASSAY IS NOT INTENDED A CANCER SCREENING TEST The concentration of PSA in a given specimen, determined with assays from different manufacturers, can vary due to differences in assay methods and reagent specificity. Values obtained from different assay methods cannot be used interchangeably. Method: Siemens Dimension [place] Chemiluminescent immunoassay. 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, VIPUL, 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 I73.9 Peripheral vascular disease, unspecified E78.5 Hyperlipidemia, unspecified I10 Essential (primary) hypertension Office Visit 08/15/2019 10:10a Primary Care Chantal, E11.9 Type 2 diabetes Office MS Treva, mellitus without [employer]-C, CNM complications 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 I10 Essential (primary) hypertension E78.5 Hyperlipidemia, unspecified G47.00 Insomnia, unspecified E55.9 Vitamin D deficiency, unspecified N50.89 Other specified disorders of the male genital organs R63.4 Abnormal weight loss Z71.6 Tobacco abuse counseling Office Visit 07/17/2019 10:30a Primary Care Chantal, 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.10 Neoplasm of Office MS Treva, uncertain [employer]-C, CNM behavior of unspecified adrenal gland R63.4 Abnormal weight loss G47.00 Insomnia, unspecified Office Visit 05/21/2019 11:00a Primary Care Treva Cornejo, Z85.46 Personal history Office MS, [employer]-C, CNM of malignant neoplasm of prostate Z12.11 Encounter for screening for malignant neoplasm of colon 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 I73.9 Peripheral vascular disease, unspecified R19.7 Diarrhea, unspecified E11.9 Type 2 diabetes mellitus without complications I10 Essential (primary) hypertension F17.210 Nicotine dependence, cigarettes, uncomplicated Z71.6 Tobacco abuse counseling E78.5 Hyperlipidemia, unspecified Office Visit 04/11/2019 8:45a Surgical Office Óscar Crenshaw, Z48.817 Encntr for THA SHAIKH surgical aftcr fol surgery on the skin, subcu K61.1 Rectal abscess Office Visit 2019 11:30a Surgical Office Óscar Crenshaw K61.1 Rectal abscess THA SHAIKH K61.1 Rectal abscess Office Visit 03/27/2019 9:30a Urology Eric Moreira, Z85.46 Personal history of M.D. malignant neoplasm of prostate Z71.6 Tobacco abuse counseling Office Visit 03/13/2019 9:45a Nicholas Gabriel MD Z12.11 Encounter for screening for malignant neoplasm of colon K63.5 Polyp of colon Assessments Date Code Description Provider 08/22/2019 I10 Essential (primary) hypertension Walt Cortez MD 08/22/2019 I10 Essential (primary) hypertension [employer] 08/22/2019 E78.5 Hyperlipidemia, unspecified Walt Cortez MD 08/22/2019 E78.5 Hyperlipidemia, unspecified [employer] 08/22/2019 E11.9 Type 2 diabetes mellitus without Walt Cortez MD complications 08/22/2019 E11.9 Type 2 diabetes mellitus without [employer] complications 08/22/2019 E55.9 Vitamin D deficiency, unspecified Walt Cortez MD 08/22/2019 E55.9 Vitamin D deficiency, unspecified [employer] 08/20/2019 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, VIPUL, kenaitze coronary artery with [facility] 08/20/2019 I73.9 Peripheral vascular disease, Abbey Jimenez, MSN, unspecified [facility] 08/20/2019 E78.5 Hyperlipidemia, unspecified Abbey Jimenez, VIPUL, [facility] 08/20/2019 I10 Essential (primary) hypertension Abbey Jimenez, VIPUL, [facility] 08/15/2019 E11.9 Type 2 diabetes mellitus without Treva Cornejo, MS, [employer] -C, complications [facility] 08/15/2019 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.10 Neoplasm of uncertain behavior of Treva Cornejo, MS, [employer]-C, unspecified adrenal gland [facility] 08/15/2019 I10 Essential (primary) hypertension Treva Cornejo, MS, [employer]-C , [facility] 08/15/2019 E78.5 Hyperlipidemia, unspecified Treva Cornejo, MS, [employer], [facility] 08/15/2019 G47.00 Insomnia, unspecified Gagelvira, Treva, MS, [employer], [facility] 08/15/2019 E55.9 Vitamin D deficiency, unspecified Treva Cornejo, MS, [employer], [facility] 08/15/2019 N50.89 Swelling of scrotum Treva Cornejo, MS, [employer]-C, [facility] 08/15/2019 R63.4 Abnormal weight loss Treva Cornejo, MS, [employer]C, [facility] 08/15/2019 Z71.6 Tobacco abuse counseling Treva Cornejo, MS, [employer]-C, CNM 08/08/2019 R11.15 Cyclical vomiting syndrome unrelated Cadet, Jorge, [employer] to migraine 08/08/2019 R19.7 Diarrhea, unspecified CadetJorge, [employer] 08/08/2019 E86.0 Dehydration CadetFeliceJorge, [employer]ER 08/08/2019 E11.649 Type 2 diabetes mellitus with Cadet, Jorge, [employer] hypoglycemia without coma 08/07/2019 E87.1 Hypo-osmolality and hyponatremia CadetFeliceJorge, [employer]ER 08/07/2019 E86.0 Dehydration CadetFeliceJorge, [employer]ER 08/07/2019 E11.649 Type 2 diabetes mellitus with Cadet, Jorge, [employer] hypoglycemia without coma 08/06/2019 R19.7 Diarrhea, unspecified Cadet, Jorge, [employer] 08/06/2019 E87.1 Hypo-osmolality and hyponatremia CadJorge barrientos, [employer]ER 08/06/2019 E86.0 Dehydration CadetFeliceJorge, [employer]ER 08/05/2019 R11.15 Cyclical vomiting syndrome unrelated Benjamin Akins M.D. to migraine 08/05/2019 R19.7 Diarrhea, unspecified Benjamin Akins M.D. 08/05/2019 E87.1 Hypo-osmolality and hyponatremia Benjamin Akins M.D. 08/05/2019 R93.3 Abnormal findings on diagnostic Benjamin Akins M.D. 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, Treva, MS, [employer]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, kenaitze coronary artery with CNM 05/21/2019 I73.9 Peripheral vascular disease, Gagen, Treva, MS, [employer]-C, unspecified CNM 05/21/2019 R19.7 Diarrhea, unspecified Gagen, Treva, MS, [employer]-C, CNM 05/21/2019 E11.9 Type 2 diabetes mellitus without Gagen, Treva, MS, [employer] -C, complications CNM 05/21/2019 I10 Essential (primary) hypertension Gagen, Treva, MS, [employer]-C , CNM 05/21/2019 F17.210 Nicotine dependence, cigarettes, Gagen, Treva, MS, [employer]-C, uncomplicated CNM 05/21/2019 Z71.6 Tobacco abuse counseling Gagen, Treva, MS, [employer]-C, CNM 05/21/2019 E78.5 Hyperlipidemia, unspecified Gagen, Treva, MS, [employer]-C, CNM 05/05/2019 Z85.46 Personal history of malignant Gagen, Treva, MS, [employer]-C , neoplasm of prostate CNM 05/05/2019 Z12.11 Encounter for screening for malignant Elidaen, Treva, MS, [employer]-C, neoplasm of colon CNM 05/05/2019 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, Treva, MS, [employer]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, kenaitze coronary artery with CNM 05/05/2019 E78.5 Hyperlipidemia, unspecified Gagen, Treva, MS, [employer]-C, CNM 05/05/2019 I73.9 Peripheral vascular disease, Gagen, Treva, MS, [employer]-C, unspecified CNM 05/05/2019 I10 Essential (primary) hypertension Gagen, Treva, MS, [employer]-C , CNM 05/05/2019 F17.210 Nicotine dependence, cigarettes, Gagen, Treva, MS, [employer]-C, uncomplicated CNM 05/05/2019 E11.9 Type 2 diabetes mellitus without Gagen, Rteva, MS, [employer] -C, complications CNM 05/05/2019 R19.7 Diarrhea, unspecified Gagen, Treva, MS, [employer]-C, CNM 05/05/2019 E55.9 Vitamin D deficiency, unspecified Treva Cornejo MS, [employer]-C, CNM 05/05/2019 J44.9 Chronic obstructive pulmonary Treva Cornejo MS, [employer]-C, disease, unspecified CNM 05/05/2019 Z71.6 Tobacco abuse counseling Treva Cornejo MS, [employer]-C, CNM 04/11/2019 Z48.817 Encounter for surgical aftercare Óscar Crenshaw MD,FACS following surgery on the skin and subcutaneous tissue 04/11/2019 K61.1 Rectal abscess Óscar Crenshaw MD,FACS 03/31/2019 Z23 Encounter for immunization Chantal TrevaMS, ALEXIS, CNM 03/31/2019 Z23 Encounter for immunization Nurse Internal [...] Future Appointment(s):02/20/2020 2:00 pm - Abbey Jimenez, VIPUL, [employer] P[employer]ER at Cardiology Acgmof0308/29/2019 10:30 am - Treva Cornejo MS, ALEXIS, RUBÉNM at Primary Care Yyvpjn6009/22/2019 10:30 am - Treva Cornejo, MS, [employer] P[employer]ER-C, CNM at Primary Care Bydqpx6408/20/2019 - Abbey Jimenez, MSN, FNP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 kenaitze coronary artery withNew Orders: Echocardiogram, Ordered: 08/20/19Comments:I [...] Status Appt Date Richelle Munguia MD send [facility] note pls call Patient to let Scheduled him know address and that we are working on OV 07/18/2019 faxed notes.. [address], [place] [address] [phone] Nicholas Alvarado MD was going to [facility] who retired diabetes Closed 06/25/[address] [place] [id number] [phone]
--- OUTSIDE RECORDS SUMMARY | 2019-09-05 07:26 | XMS REPORT | Continuity of Care Document ---
:1945 External Reference #:[id number] Author Name Treva Cornejo, MS, UNIX SYSTEM ADMINISTRATOR-C, CNM (transmitted by agent of provider Shira Lopez) Address [address] [place] [address] Care Team Providers Name Role Phone Cleo Camacho MD - Physical Medicine Care Team Information Test Inspection Engineer & Rehabilitation Carlos Enrique Hale MD - Emergency Medicine Care Team Information Test Inspection Engineer Argenis Fox NP - Nurse Care Team Information Test Inspection Engineer [phone] Practitioner Jose Peña SMOKE EATER - Nurse Care Team Information Test Inspection Engineer [phone] Practitioner Treva Cornejo NP, CNM - Nurse Care Team Information Test Inspection Engineer [phone] Practitioner Richelle Munguia MD - Hematology & Care Team Information Test Inspection Engineer Oncology Problems Active Problems Provider Date Degenerative [...] 2016 LDL 75 HDL 40 Chol 132; SC/cath December 2015 Chronic renal failure Leslie Lopez [...] Shields Hyperlipidemia Abbey Jimenez, MSN, Onset: 02/15/2017 UNIX SYSTEM ADMINISTRATOR Tobacco user Abbey Jimenez, MSN, Onset: 02/15/2017 UNIX SYSTEM ADMINISTRATOR Atherosclerotic heart disease of Abbey Jimenez, MSN, 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 UNIX SYSTEM ADMINISTRATOR unspecified angina pectoris Mixed hyperlipidemia Parul Foster [...] (10 or fewer cigarettes/day) Smoking Status Reviewed: 08/27/19 Light tobacco smoker (10 or fewer cigarettes/day) [...] 160mg Tablets Every Morning Treva, 9 MS, UNIX SYSTEM ADMINISTRATOR-C, CNM Hydrochlorothiazide take one capsule 90caps I10 Jimenez, Abbey 12.5mg in the morning Fernando, 9 Capsules VIPUL, SY Loperamide HCL take [...] Collado Strips meal,at bedtime,and as needed Pen [place] [facility] uad with insulin 100units [facility], 07/10/2016 31G X 8 MD Walt mm [...] Levemir Flextouch 52 units subq twice 45ml Parul Foster MD a day 100Unit/ML Solution Pen-Inject Metoprolol Tartrate 1 by mouth twice a 180tabs Ratnasingam, day MD Walt 25mg Tablets Nitrostat 1 tab sl every 5 min 30tabs JimenezAbbey khanna 0.4mg Tablets x3 chest pain as Fernando, MSN, Sub needed UNIX SYSTEM ADMINISTRATOR Polyethylene Glycol Take 17 Grams By Unknown [...] Medications Retroperineal Patient 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.10 Ratnasingam, 07/28/2019 - Biopsey retroperitoneal lymph MD Walt [...] Code Status Date Vaccine Reaction Lot # 56924 Given 03/31/2019 Influenza High Dose [id number] 36246 Given 05/20/2018 Influenza High Dose none [id number] 19781 Given 02/27/2017 Influenza High Dose [id number] 44663 Given 10/23/2016 Pneumovax Injection [id number] 18254 Given 10/23/2016 Tdap injection [id number] Q2038 Given 03/20/2016 Influenza Vaccine (Fluzone) Age 3 And [id number] Older Q2038 Given 03/11/2015 Influenza Vaccine (Fluzone) Age 3 And Older 25025 Given 03/11/2015 Pneumococcal Conjugate Vaccine 13 Valent For Intramuscular Use 18388 Given 04/03/2008 flu vaccination Vital Signs Date Vital Result Comment 08/20/2019 10:23am BP Systolic Sitting Left Arm 130 mmHg BP Diastolic Sitting Left Arm 64 mmHg Heart Rate 89 /min Respiratory Rate 14 /min Height 67 inches 5'7" Weight 149.00 lb BMI (Body Mass Index) 23.3 kg/m2 BSA (Body Surface Area) 1.78 m2 [place] body weight in kilograms 67 kg O2 % BldC Oximetry 98 % Ra 08/15/2019 9:52am BP Systolic 148 mmHg BP Diastolic 70 mmHg Body Temperature 98.5 F Heart Rate 80 /min Respiratory Rate 18 /min Height 67 inches 5'7" Weight 148.00 lb BMI (Body Mass Index) 23.2 kg/m2 BSA (Body Surface Area) 1.78 m2 [place] body weight in kilograms 67 kg O2 % BldC Oximetry 99 % Results Test Acquired Date Facility Test Result H/L Range Note CBC 08/22/2019 [facility] White Blood 18.1 K/uL High 3.4-10.5 1 W/Automated [address] Count Diff [place], [place] [id number] [phone] Red Blood Count 4.43 M/uL Normal 4.20-5.80 [...] 33.0-73.0 Lymph % 4.8 % Low 20.0-42.0 [place] % 6.2 % Normal 0.0-10.0 Eo% 0.4 % Normal 0.0-6.6 Bas% 0.4 % Normal 0.0-1.1 Immature Grans 0.8 % Normal 0.0-5.0 NRBC % 0.0 /100WBC < 10/ 100 WBC Neut# 15.83 K/uL High 1.8-7.0 Lymph # 0.87 K/uL Low 1.0-4.0 [place] # 1.12 K/uL High 0.0-0.8 Eos # 0.08 K/uL Normal 0.0-0.5 Baso # 0.08 K/uL Normal 0.0-0.1 Immature Grans Absolute 0.14 K/uL NRBC # 0.00 K/uL Comprehensive Metabolic 08/22/2019 [facility] Glucose 57 mg/dL Low 74-106 Panel [address] [place] [address] [phone] BUN 11 mg/dL Normal 7-18 Creatinine 0.7 [...] U/L Low 45-117 LDL Cholesterol Profile 08/22/2019 [facility] Cholesterol 120 mg/dL <200 4 [address] [place] [address] [phone] Triglycerides 104 mg/dL <150 5 HDL Cholesterol 42 mg/dL >40 6 LDL-Cholesterol 57 mg/dL < 100 7 Glycohemoglobin 08/22/2019 [facility] Glycohemoglobin 6.9 % High 4.2-6.3 8 A1c [address] [facility] (A1c) [place] [address] [phone] eAG 151 mg/dL Laboratory 08/22/2019 [facility] Vitamin 43.4 30.0-100.0 9 test finding [address] D,25-Hydroxy ng/[place] [address] [phone] Slide Review 08/22/2019 [facility] Slide Review (SEE [address] NOTE) [place] [address] [phone] Calcium 08/08/2019 N2N/CCD Import Calcium Level 8.5 [...] Estimated GFR >60 >60 pred.black ( SerPl [place]) MDRD-ArVRat GFR/Bsa 08/08/2019 N2N/CCD Import Estimated GFR >60 >60 pred.non (Non- black SerPl [place] MDRD-ArVRat BUN 08/08/2019 N2N/CCD Import Blood Urea [...] Mean 94.3 80.0-96.0 Corpuscular Volume Basic 08/08/2019 [facility] Glucose 203 High 74-106 [address] mg/dL Panel [place], [place] [address] [phone] BUN 3 mg/dL Critical low 7-18 Creatinine 0.6 mg/dL Normal 0.6-1.3 Glom Filtration Rate, Estimate >60 mL/min >60 If >60 mL/min >60 12 BUN/Creat 5.0 ratio Sodium 133 mmol/L Low 136-145 Potassium 4.5 mmol/L 3.5-5.1 Chloride 104 mmol/L Normal 98-107 Carbon Dioxide 24 mmol/L Normal 21-32 Anion Gap 5 mEq/L Low 8-16 Calcium 8.5 mg/dL Normal 8.5-10.1 CBC 08/08/2019 [facility] White Blood Count 8.3 K/uL Normal 3.4-10.[address] [place] [address] [phone] Red Blood Count 3.67 M/uL Low 4.20-5.80 [...] High 70-110 Glucomtr-mCnc Cortisol - 3 08/07/2019 [facility] Cortisol #1 17.8 . [address] (Base) g/[place] [address] [phone] Cortisol #2 16.3 g/dL Not Estab. Cortisol #3 13.3 g/dL Not Estab. 14 Basic Metabolic 08/07/2019 [facility] Glucose 29 mg/dL Critical low 74-106 Panel [address] [place], [place] [address] [phone] BUN 5 mg/dL Critical low 7-18 Creatinine 0.6 mg/dL Normal 0.6-1.3 Glom Filtration Rate, Estimate >60 mL/min >60 If >60 mL/min >60 15 BUN/Creat 8.3 ratio Sodium 135 mmol/L Low 136-145 Potassium 3.6 mmol/L Normal 3.5-5.1 Chloride 106 mmol/L Normal 98-107 Carbon Dioxide 26 mmol/L Normal 21-32 Anion Gap 3 mEq/L Low 8-16 Calcium 8.3 mg/dL Low 8.5-10.1 CBC 08/07/2019 [facility] White Blood Count 11.8 K/uL High 3.4-10.5 [address] [place] [address] [phone] Red Blood Count 3.66 M/uL Low 4.20-5.80 [...] Bld Auto (Auto) TSH Reflex FT4 08/06/2019 [facility] Thyroid Stim 1.94 Normal 0.30-4.20 And/Or FT3 [address] Hormone uIU/mL KENDAL Shepard [address] [phone] Reflex add FT3? N Reflex add FT4? Y Basic Metabolic Panel 08/06/2019 [facility] Glucose 91 mg/dL Normal 74-[address] [place], [place] [address] [phone] BUN 10 mg/dL Normal 7-18 Creatinine 0.7 [...] N Reflex add FT4? Y Glycohemoglobin 08/06/2019 [facility] Glycohemoglobin 6.9 % High 4.2-6.3 [address] (A1c) [place], [place] [address] [phone] eAG 151 mg/dL CBC W/Automated 08/06/2019 [facility] White Blood 10.3 K/uL Normal 3.4-10.[address] [place] [address] [phone] Red Blood Count 3.80 M/uL Low 4.20-5.80 [...] 33.0-73.0 Lymph % 6.8 % Low 20.0-42.0 [place] % 9.7 % Normal 0.0-10.0 Eo% 0.2 % Normal 0.0-6.6 Bas% 0.4 % Normal 0.0-1.1 Immature Grans 0.4 % Normal 0.0-5.0 NRBC % 0.0 /100WBC < 10/ 100 WBC Neut# 8.47 K/uL High 1.8-7.0 Lymph # 0.70 K/uL Low 1.0-4.0 [place] # 1.00 K/uL High 0.0-0.8 Eos # [...] 3.4-10.5 [address] Count [place], [place] [address] [phone] Red Blood Count 4.08 M/uL Low 4.20-5.80 [...] 33.0-73.0 Lymph % 6.5 % Low 20.0-42.0 [place] % 8.1 % Normal 0.0-10.0 Eo% 0.1 % Normal 0.0-6.6 Bas% 0.4 % Normal 0.0-1.1 Immature Grans 0.8 % Normal 0.0-5.0 NRBC % 0.0 /100WBC < 10/ 100 WBC Neut# 12.00 K/uL High 1.8-7.0 Lymph # 0.93 K/uL Low 1.0-4.0 [place] # 1.16 K/uL High 0.0-0.8 Eos # [...] Lipase 08/05/2019 N2N/CCD Import Lipase 101 56-[facility] 08/05/2019 [facility] Troponin-I < 0.015 19 test finding [address] ng/[place] [address] [phone] Laboratory 08/05/2019 [facility] Rapid Strep A Negative Negative 20 test finding [address] [place] [address] [phone] Influenza A/B 08/05/2019 [facility] Influenza A Antigen Negative (Negative) Antigen [address] [place] [address] [phone] Influenza B Antigen Negative (Negative) 21 Urinalysis With 08/05/2019 [facility] Urine Color Yellow Yellow Microscopic [address] [place] [address] [phone] Urine Clarity Clear Clear Urine Glucose - Dipstick TRACE mg/dL Negative Urine Bilirubin - Dipstick NEGATIVE Negative Urine Ketone 20 mg/dL Abnormal Negative Urine Specific [place] 1.021 Normal 1.010-1.030 Urine Blood NEGATIVE Negative [...] CAT <SEE NOTE> 22 Laboratory test 08/05/2019 [facility] Throat Strep NO BETA [address] [place] [address] <SEE NOTE> [phone] Fluav Ag XXX Ql 08/05/2019 N2N/CCD Import [...] comment Report Reflexed Follow Urine Culture 07/14/2019 [facility] Urine Culture URETHRAL [address] [place] [address] [phone] Quantity 10,000 - 50,000 <SEE NOTE> 25 Laboratory test finding 07/14/2019 [facility] CK 45 U/L Normal 39-308 [address] [place] [address] [phone] Troponin-I 0.015 ng/mL 26 Comprehensive Metabolic 07/14/2019 [facility] Glucose 125 mg/dL High 74-106 Panel [address] [place] [address] [phone] BUN 9 mg/dL Normal 7-18 Creatinine 0.9 [...] 22 U/L Low 45-117 Culture If 07/14/2019 [facility] Culture If CULTURE TO 28 Indicated Comment [address] [facility] Indicated Comment FOLLO <[place] [address] NOTE> [phone] Source: URINE, CLEAN CAT <SEE NOTE> 29 Urinalysis With 07/14/2019 [facility] Urine Color Yellow Yellow Microscopic [address] [place], [place] [address] [phone] Urine Clarity Clear Clear Urine Glucose - Dipstick 500 mg/dL Abnormal Negative Urine Bilirubin - Dipstick NEGATIVE Negative Urine Ketone NEGATIVE mg/dL Negative Urine Specific [place] 1.021 Normal 1.010-1.030 Urine Blood NEGATIVE Negative [...] CAT <SEE NOTE> 30 Blood Culture 07/14/2019 [facility] Blood Culture NO GROWTH: FINAL [address] Aerobic <SEE NOTE> [place] [address] [phone] Blood Culture Anaerobic NO GROWTH: FINAL <SEE NOTE> 32 Bacteria Bld 07/14/2019 N2N/CCD Import Aerobic Blood No Growth: Final Aerobe Cult Culture Report Bacteria Bld 07/14/2019 N2N/CCD Import Anaerobic Blood No Growth: Final Anaerobe Cult Culture Report Blood Culture 07/14/2019 [facility] Blood Culture NO GROWTH: FINAL [address] Aerobic <SEE NOTE> [place] [address] [phone] Blood Culture Anaerobic NO GROWTH: FINAL <SEE NOTE> 34 CBC W/Automated 07/14/2019 [facility] White Blood 10.7 K/uL High 3.4-10.[address] [place] [address] [phone] Red Blood Count 4.41 M/uL Normal 4.20-5.80 [...] 33.0-73.0 Lymph % 12.4 % Low 20.0-42.0 [place] % 7.2 % Normal 0.0-10.0 Eo% 0.8 % Normal 0.0-6.6 Bas% 0.6 % Normal 0.0-1.1 Immature Grans 0.5 % Normal 0.0-5.0 NRBC % 0.0 /100WBC < 10/ 100 WBC Neut# 8.38 K/uL High 1.8-7.0 Lymph # 1.32 K/uL Normal 1.0-4.0 [place] # 0.77 K/uL Normal 0.0-0.8 Eos # 0.08 K/uL Normal 0.0-0.5 Baso # 0.06 K/uL Normal 0.0-0.1 Immature Grans Absolute 0.05 K/uL NRBC # 0.00 K/uL Lactate SerPl-sCnc 07/14/2019 N2N/CCD Import Lactic Acid 1.0 0.4-1.9 Level Lactic Acid 07/14/2019 [facility] Lactic Acid 1.0 mmol/L Normal 0.4-1.[address] [place], [place] [address] [phone] Lab Reflex >2.0 for Sepsis? N Laboratory test 07/14/2019 [facility] LDH 200 Normal 87-[address] U/L [place], [place] [address] [phone] Creat Ur-mCnc 05/14/2019 N2N/CCD Import Urine Creatinine 156 Concentration Microalbumin/Crea 05/14/2019 N2N/CCD Import Urine 73.7 < 30.0 t Ur-Rto Microalbumin/Cre atinine Ratio Microalbumin 05/14/2019 N2N/CCD Import Urine 115.0 < 20.0 Ur-mCnc Microalbumin Comprehensive 05/14/2019 [facility] Glucose 101 Normal 74-106 35 Metabolic Panel [address] mg/[place] [address] [phone] BUN 14 mg/dL Normal 7-18 Creatinine 1.0 [...] 20 U/L Low 45-117 CBC W/Automated 05/14/2019 [facility] White Blood 11.2 K/uL High 3.4-10.[address] Count [place], [place] [address] [phone] Red Blood Count 5.02 M/uL Normal 4.20-5.80 [...] 33.0-73.0 Lymph % 10.5 % Low 20.0-42.0 [place] % 8.1 % Normal 0.0-10.0 Eo% 1.3 % Normal 0.0-6.6 Bas% 0.6 % Normal 0.0-1.1 Immature Grans 0.4 % Normal 0.0-5.0 NRBC % 0.0 /100WBC < 10/ 100 WBC Neut# 8.84 K/uL High 1.8-7.0 Lymph # 1.18 K/uL Normal 1.0-4.0 [place] # 0.91 K/uL High 0.0-0.8 Eos # 0.14 K/uL Normal 0.0-0.5 Baso # 0.07 K/uL Normal 0.0-0.1 Immature Grans Absolute 0.05 K/uL NRBC # 0.00 K/uL Laboratory test 05/14/2019 [facility] Cholesterol 141 <200 [address] mg/[place] [address] [phone] Glycohemoglobin 05/14/2019 [facility] Glycohemoglobin 7.4 % High 4.2-6. [address] (A1c) 3 [place] [address] [phone] eAG 166 mg/dL Microalbumin,Random 05/14/2019 [facility] Microalbumin,Urine 115.0 < 20.[address] mg/[place] [address] [phone] Microalb/Creat 05/14/2019 [facility] Microalbumin/Creatin 73.7 < 30.0 Ratio,Random [address] ine Ratio ug/[place] [address] t [phone] Urine Creatinine Conc 156 mg/dL Glycohemoglobin 04/29/2019 [facility] Glycohemoglobin 7.5 % High 4.2-6.3 40, A1c [address] (A1c) 41 [place] [address] [phone] eAG 169 mg/dL CBC W/Automated 04/29/2019 [facility] White Blood 9.5 K/uL Normal 3.4-10.[address] [place] [place] [address] [phone] Red Blood Count 4.86 M/uL Normal 4.20-5.80 [...] 33.0-73.0 Lymph % 14.6 % Low 20.0-42.0 [place] % 8.6 % Normal 0.0-10.0 Eo% 1.9 % Normal 0.0-6.6 Bas% 0.6 % Normal 0.0-1.1 Immature Grans 0.4 % Normal 0.0-5.0 NRBC % 0.0 /100WBC < 10/ 100 WBC Neut# 6.99 K/uL Normal 1.8-7.0 Lymph # 1.38 K/uL Normal 1.0-4.0 [place] # 0.81 K/uL High 0.0-0.8 Eos # 0.18 K/uL Normal 0.0-0.5 Baso # 0.06 K/uL Normal 0.0-0.1 Immature Grans Absolute 0.04 K/uL NRBC # 0.00 K/uL Comprehensive 04/29/2019 [facility] Glucose 80 mg/dL Normal 74-106 Metabolic Panel [address] [place] [address] [phone] BUN 19 mg/dL High 7-18 Creatinine 1.0 [...] U/L Low 45-117 LDL Cholesterol Profile 04/29/2019 [facility] Cholesterol 146 mg/dL <200 44 [address] [place] [address] [phone] Triglycerides 78 mg/dL <150 45 HDL Cholesterol 37 mg/dL Low >40 46 LDL-Cholesterol 93 mg/dL < 100 47 Laboratory test 04/29/2019 [facility] Vitamin 52.3 30.0-100.0 [address] D,25-Hydroxy ng/[place] [address] [phone] Hepatitis C Antibody < 0.1 s/corat 0.0-0.9 49 Trigl SerPl-mCnc 04/29/2019 N2N/CCD Import Triglycerides Level 78 <150 LDLc SerPl 04/29/2019 N2N/CCD Import LDL Cholesterol, 93 < 100 Calc-mCnc Calculated HCV Ab s/co SerPl 04/29/2019 N2N/CCD Import Hepatitis C Ab < 0.1 0.0- 0.9 Ia Signal/Cutoff Ratio Laboratory test 03/27/2019 [facility] Prostate Specific 0.17 < 4.0 50, [address] Antigen ng/[place] [address] [phone] 1 I10,E78.5,E11.9,E55.9 2 Note: Persistent reduction for [...] for more aggressive treatment of glycemia. The [place] Diabetes Association recommends that a primary goal of therapy should be a HbA1c of <7% and that physicians should re-evaluate the treatment regimen in patients with HbA1c values consistently >8%. 9 Vitamin D deficiency has been defined by the [place] [employer] and an Endocrine Society practice guideline as a level of serum 25-OH vitamin D less than 20 ng/mL (1,2). The Endocrine Society went on to further define vitamin D insufficiency as a level between 21 and 29 ng/mL (2). 1. IOM ([place] of [employer]). 2010. Dietary reference intakes for calcium and D. [place]: The National Academies Press. 2. Margarita MF, Jesús NC, David DUBON, et al. Evaluation, treatment, and prevention of vitamin D deficiency: an Endocrine Society clinical practice guideline. JCEM. 2010; 96(7):1911-30. Performed at: RN - [facility] [address] [id number] Artificial Candy Maker: Michelle Lima MD, Phone: [phone] Instrument flagged sample for slide review. [...] 11.9 14 Performed at: RN - [facility] [address] [id number] Artificial Candy Maker: Michelle Lima MD, Phone: [phone] Note: Persistent reduction for 3 months [...] for more aggressive treatment of glycemia. The [place] Diabetes Association recommends that a primary goal [...] of negative result is in progress Method: Frograms Chromatographic immunoassay 21 Please Note: A POSITIVE [...] influenza A and B molecular assay. Method: Frograms Chromatographic immunoassay 22 URINE, CLEAN CATCH 23 [...] for more aggressive treatment of glycemia. The [place] Diabetes Association recommends that a primary goal of therapy should be a HbA1c of <7% and that physicians should re-evaluate the treatment regimen in patients with HbA1c values consistently >8%. 40 E11.9 V89.2XXA E78.5 E55.9 41 Elevated levels of HbA1c suggest the need for more aggressive treatment of glycemia. The [place] Diabetes Association recommends that a primary goal [...] D deficiency has been defined by the [place] [employer] and an Endocrine Society practice guideline as a level of serum 25-OH vitamin D less than 20 ng/mL (1,2). The Endocrine Society went on to further define vitamin D insufficiency as a level between 21 and 29 ng/mL (2). 1. IOM ([place] [employer]). 2010. Dietary reference intakes for calcium and D. [place]: The National Academies Press. 2. Margarita MF, Jesús [place], David DUBON, et al. Evaluation, treatment, and prevention of vitamin D deficiency: an Endocrine Society clinical practice guideline. JCEM. 2010; 96(2):1911-30. Performed at: [facility] [id number] Artificial Candy Maker: Michelle Lima MD, Phone: [phone] INFCE Result Units: s/co ratio Negative: < 0.8 Indeterminate: 0.8 - 0.9 Positive: > 0.9 The CDC recommends that a positive HCV antibody result be followed up with a HCV Nucleic Acid Amplification test (319067). Performed at: [facility] [address] [id number] Artificial Candy Maker: Michelle Lima MD, Phone: [phone] Z85.46 51 THIS ASSAY IS NOT INTENDED A CANCER SCREENING TEST The concentration of PSA in a given specimen, determined with assays from different manufacturers, can vary due to differences in assay methods and reagent specificity. Values obtained from different assay methods cannot be used interchangeably. Method: Siemens [employer] Expressions [place] Chemiluminescent immunoassay. 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 Fernando, VIPUL, disease of eyak UNIX SYSTEM ADMINISTRATOR cor art w unsp ang pctrs I73.9 Peripheral vascular disease, unspecified E78.5 Hyperlipidemia, unspecified I10 Essential (primary) hypertension Office Visit 08/15/2019 10:10a Primary Care Chantal, E11.9 Type 2 diabetes Office Treva, MS, mellitus without UNIX SYSTEM ADMINISTRATOR-C, CNM complications 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 I10 Essential (primary) hypertension E78.5 Hyperlipidemia, unspecified G47.00 Insomnia, unspecified E55.9 Vitamin D deficiency, unspecified N50.89 Other specified disorders of the male genital organs R63.4 Abnormal weight loss Z71.6 Tobacco abuse counseling Office Visit 07/17/2019 10:30a Primary Care Chantal, D44.10 Neoplasm of Office MS Treva, uncertain UNIX SYSTEM ADMINISTRATOR-C, CNM behavior of unspecified adrenal gland R63.4 Abnormal weight loss G47.00 Insomnia, unspecified Office Visit 05/21/2019 11:00a Primary Care Treva Cornejo, Z85.46 Personal history Office MS, UNIX SYSTEM ADMINISTRATOR-C, CNM of malignant neoplasm of prostate Z12.11 Encounter for screening for malignant neoplasm of colon 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 eyak cor art w unsp ang pctrs I73.9 [...] of colon Assessments Date Code Description Provider 08/29/2019 C34.90 Non-small cell lung cancer Treva Cornejo, MS, UNIX SYSTEM ADMINISTRATOR-C, CN 08/29/2019 E87.1 Hypo-osmolality and hyponatremia Treva Cornejo MS, UNIX SYSTEM ADMINISTRATOR -C, [facility] 08/29/2019 N50.89 Swelling of scrotum Treva Cornejo MS, UNIX SYSTEM ADMINISTRATOR-C, [facility] 08/29/2019 F17.210 Nicotine dependence, cigarettes, Treva Cornejo, , UNIX SYSTEM ADMINISTRATOR-C, uncomplicated CN 08/29/2019 E11.9 Type 2 diabetes mellitus without Treva Cornejo, , UNIX SYSTEM ADMINISTRATOR -C, complications [facility] 08/29/2019 I10 Essential (primary) hypertension Treva Cornejo, , UNIX SYSTEM ADMINISTRATOR-C , [facility] 08/29/2019 E78.5 Hyperlipidemia, unspecified Treva Cornejo, , UNIX SYSTEM ADMINISTRATOR-C, [facility] 08/29/2019 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 MS, UNIX SYSTEM ADMINISTRATOR-C, eyak coronary artery with [facility] 08/29/2019 D72.829 Elevated white blood cell count, Treva Cornejo, , UNIX SYSTEM ADMINISTRATOR-C, unspecified [facility] 08/22/2019 I10 Essential (primary) hypertension Walt Cortez MD 08/22/2019 I10 Essential (primary) hypertension Group Managing Director 08/22/2019 E78.5 Hyperlipidemia, unspecified Walt Cortez MD 08/22/2019 E78.5 Hyperlipidemia, unspecified Group Managing Director 08/22/2019 E11.9 Type 2 diabetes mellitus without Walt Cortez MD complications 08/22/2019 E11.9 Type 2 diabetes mellitus without Group Managing Director complications 08/22/2019 E55.9 Vitamin D deficiency, unspecified Walt Cortez MD 08/22/2019 E55.9 Vitamin D deficiency, unspecified Group Managing Director 08/20/2019 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, VIPUL, eyak coronary artery with [facility] 08/20/2019 I73.9 Peripheral vascular disease, Abbey Jimenez, VIPUL, unspecified [facility] 08/20/2019 E78.5 Hyperlipidemia, unspecified Abbey Jimenez, VIPUL, [facility] 08/20/2019 I10 Essential (primary) hypertension Abbey Jimenez, MSN, [facility] 08/15/2019 E11.9 Type 2 diabetes mellitus without Treva Cornejo, MS, UNIX SYSTEM ADMINISTRATOR -C, complications [facility] 08/15/2019 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.10 Neoplasm of uncertain behavior of Treva Cornejo, , UNIX SYSTEM ADMINISTRATOR-C, unspecified adrenal gland [facility] 08/15/2019 I10 Essential (primary) hypertension Treva Cornejo, MS, UNIX SYSTEM ADMINISTRATOR-C , [facility] 08/15/2019 E78.5 Hyperlipidemia, unspecified Chantal, Treva, MS, [employer]IX SYSTEM ADMINISTRATOR-C, [facility] 08/15/2019 G47.00 Insomnia, unspecified Treva Cornejo, MS, UNIX SYSTEM ADMINISTRATOR-C, [facility] 08/15/2019 E55.9 Vitamin D deficiency, unspecified Treva Cornejo, MS, UNIX SYSTEM ADMINISTRATOR-C, [facility] 08/15/2019 N50.89 Swelling of scrotum Treva Cornejo, MS, UNIX SYSTEM ADMINISTRATOR-C, [facility] 08/15/2019 R63.4 Abnormal weight loss Treva Cornejo, MS, UNIX SYSTEM ADMINISTRATOR-C, [facility] 08/15/2019 Z71.6 Tobacco abuse counseling Treva Cornejo, MS, UNIX SYSTEM ADMINISTRATOR-C, [facility] 08/08/2019 R11.15 Cyclical vomiting syndrome unrelated Jorge Nieto, UNIX SYSTEM ADMINISTRATOR to migraine 08/08/2019 R19.7 Diarrhea, unspecified KaroetJorge, UNIX SYSTEM ADMINISTRATOR 08/08/2019 E86.0 Dehydration Felice Nietoley, UNIX SYSTEM ADMINISTRATOR 08/08/2019 E11.649 Type 2 diabetes mellitus with Cadet, Jroge, UNIX SYSTEM ADMINISTRATOR hypoglycemia without coma 08/07/2019 E87.1 Hypo-osmolality and hyponatremia Jorge Nieto, UNIX SYSTEM ADMINISTRATOR 08/07/2019 E86.0 Dehydration KaroetFeliceJorge, UNIX SYSTEM ADMINISTRATOR 08/07/2019 E11.649 Type 2 diabetes mellitus with Cadet, Jorge, UNIX SYSTEM ADMINISTRATOR hypoglycemia without coma 08/06/2019 R19.7 Diarrhea, unspecified KaroetFeliceJorge, UNIX SYSTEM ADMINISTRATOR 08/06/2019 E87.1 Hypo-osmolality and hyponatremia Jorge Nieto, UNIX SYSTEM ADMINISTRATOR 08/06/2019 E86.0 Dehydration CadJorge barrientos, [facility] 08/05/2019 R11.15 Cyclical vomiting syndrome unrelated Benjamin Akins M.D. to migraine 08/05/2019 R19.7 Diarrhea, unspecified Benjamin Akins M.D. 08/05/2019 E87.1 Hypo-osmolality and hyponatremia Benjamin Akins M.D. 08/05/2019 R93.3 Abnormal findings on diagnostic Benjamin Akins M.D. 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 Cornejo, MS, UNIX SYSTEM ADMINISTRATOR-C, unspecified adrenal gland CNM 07/17/2019 R63.4 Abnormal weight loss Flory Cornejoline, MS, UNIX SYSTEM ADMINISTRATOR-C, CNM 07/17/2019 G47.00 Insomnia, unspecified Gagen, Treva, MS, UNIX SYSTEM ADMINISTRATOR-C, CNM 05/21/2019 Z85.46 Personal history of malignant Flory Cornejoline, MS, UNIX SYSTEM ADMINISTRATOR-C , neoplasm of prostate CNM 05/21/2019 Z12.11 Encounter for screening for malignant Flory Cornejoline, MS, UNIX SYSTEM ADMINISTRATOR-C, neoplasm of colon CNM 05/21/2019 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, MS, UNIX SYSTEM ADMINISTRATOR-C, eyak coronary artery with CNM 05/21/2019 I73.9 Peripheral vascular disease, Flory Cornejoline, MS, UNIX SYSTEM ADMINISTRATOR-C, unspecified CNM 05/21/2019 R19.7 Diarrhea, unspecified Gagen, Treva, MS, UNIX SYSTEM ADMINISTRATOR-C, CNM 05/21/2019 E11.9 Type 2 diabetes mellitus without Gagen, Treva, MS, UNIX SYSTEM ADMINISTRATOR -C, complications CNM 05/21/2019 I10 Essential (primary) hypertension Treva Cornejo, MS, UNIX SYSTEM ADMINISTRATOR-C , CNM 05/21/2019 F17.210 Nicotine dependence, cigarettes, Chantal, Treva, MS, UNIX SYSTEM ADMINISTRATOR-C, uncomplicated CNM 05/21/2019 Z71.6 Tobacco abuse counseling ChantalTreva, MS, UNIX SYSTEM ADMINISTRATOR-C, CNM 05/21/2019 E78.5 Hyperlipidemia, unspecified Treva Cornejo, , UNIX SYSTEM ADMINISTRATOR-C, CNM 05/05/2019 Z85.46 Personal history of malignant Treva Cornejo, , UNIX SYSTEM ADMINISTRATOR-C , neoplasm of prostate CNM 05/05/2019 Z12.11 Encounter for screening for malignant Treva Cornejo, , UNIX SYSTEM ADMINISTRATOR-C, neoplasm of colon CNM 05/05/2019 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, , UNIX SYSTEM ADMINISTRATOR-C, eyak coronary artery with CNM 05/05/2019 E78.5 Hyperlipidemia, unspecified Treva Cornejo, MS, UNIX SYSTEM ADMINISTRATOR-C, CNM 05/05/2019 I73.9 Peripheral vascular disease, Treva Cornejo, MS, UNIX SYSTEM ADMINISTRATOR-C, unspecified CNM 05/05/2019 I10 Essential (primary) hypertension Treva Cornejo, MS, UNIX SYSTEM ADMINISTRATOR-C , CNM 05/05/2019 F17.210 Nicotine dependence, cigarettes, Treva Cornejo, MS, UNIX SYSTEM ADMINISTRATOR-C, uncomplicated CNM 05/05/2019 E11.9 Type 2 diabetes mellitus without Treva Cornejo, MS, UNIX SYSTEM ADMINISTRATOR -C, complications CNM 05/05/2019 R19.7 Diarrhea, unspecified Treva Cornejo, MS, UNIX SYSTEM ADMINISTRATOR-C, CNM 05/05/2019 E55.9 Vitamin D deficiency, unspecified Treva Corneoj, MS, UNIX SYSTEM ADMINISTRATOR-C, CNM 05/05/2019 J44.9 Chronic obstructive pulmonary Treva Cornejo, MS, UNIX SYSTEM ADMINISTRATOR-C, disease, unspecified CN 05/05/2019 Z71.6 Tobacco abuse counseling Treva Cornejo, MS, UNIX SYSTEM ADMINISTRATOR-C, CNM 04/11/2019 Z48.817 Encounter for surgical aftercare Óscar Crenshaw MD,FACS following surgery on the skin and subcutaneous tissue 04/11/2019 K61.1 Rectal abscess Óscar Crenshaw MD,FACS 03/31/2019 Z23 Encounter for immunization Treva Cornejo MS, UNIX SYSTEM ADMINISTRATOR-C, CN 03/31/2019 Z23 Encounter for immunization Nurse [...] K63.5 Polyp of colon Nicholas Drew MD Plan of Treatment Future Appointment(s):02/20/2020 2:00 pm - Abbey Jimenez, VIPUL, UNIX SYSTEM ADMINISTRATOR at Cardiology Uurycl5209/22/2019 10:30 am - Treva Cornejo MS, UNIX SYSTEM ADMINISTRATOR-C, CNM at Primary Care [id number]/29/2019 - Treva Cornejo MS, UNIX SYSTEM ADMINISTRATOR-C, CNMC34.90 Non- small cell lung cancerComments:--Following with DR Munguia. Office appointment on 08/25/2019 -- discussed treatment with palliative intent. Plan of care is to get a PET scan to stage cancer. He will then, most likely, start Keytruda with, or without, chemotherapy.E87.1 Hypo-osmolality and hyponatremiaComments:-- serum sodium level on 05/14/2019: 137. Then in July, 132> 135>133> presently 128 --Chronic, not acute. Most likely caused by disease component. CT scan showed thickened left adrenal gland --Will monitor fluid intake and restrict if needed. Gatorade--Edema, Emesis, diarrhea, H/A, confusion, fatigue, curettes looseness, irritability, muscle weakness, spasms, cramps, seizures, coma ?.--Will consider stopping HCTZ--Will consider urine osmolarity, urine sodium, plasma osmolarity, cortisol level--creatinine, TSH WNLN50.89 Swelling of scrotumComments:--In light of his new diagnosis of lung cancer, patient declines sonogram at this time. -- Patient counseled if pain-go to ER to R/O jpjnjozF16.210 Nicotine dependence, cigarettes, igebobkhefijjL63.9 Type 2 diabetes mellitus without complicationsComments:-- Patient recently went to ER, at which timehe had an episode of hypoglycemia. --No episodes of hypoglycemia since hospitalization--Controlled, Continue Levemir Flextouch 100 Unit/ML 52 units subq twice a dayNovolog Flexpen 100 Unit/ML inject 6 units before meals under the skin three times A day. Patient states endo said not to take his Novolog if his BS is < 150--HgA1C: 7.5 > 7.4 > 6.9-- Following with Dr Alvarado, had OV 06/24/2019--Continue BP goal is <130/80 mmHg. --Diet: Include complex carbohydrates such as brown rice, whole wheat, quinoa, oatmeal, fruits, vegetables, beans, lentils. Avoid simple carbohydrates such as, sugar, pasta, white bread, flour, processed foods, baked goods. --Optho: Had OV 12/17/18-- Podiatry: Patient is going to have his foot assessed with vascular surgeon. We discussed the importance of inspecting feet for abrasions, cuts, non healing sores. Potential for neuropathy, poor healing. Report any changes. -- Microalbuminuria: 115--Microalbuminuria/creatinine mass ratio: 73.7 --Had Prevnar vaccination 2014, had pneumonia vaccination 2016.Counseled againon Trisha --Was referred to heel slugger Myrna Benitez NP in [place] by dwaine. In light of new diagnosis of lung cancer, patient will hold on thisI10 Essential (primary) hypertensionComments:--BP goal <130/80 --On last at office visit we increased Ramipril from 5mg to 10 mg twice daily, Metoprolol Tartrate 25 mg 1 by mouth twice a day, HCTZ 12.5 mg po Qam--Endocrinology stated in OVnote that they also would like an increase in B/P medication -- On last office visit, I ordered a blood pressure machine and advised patient to take blood pressures every day. Patient was also advised to report any low B/P prior to OV.E78.5 Hyperlipidemia, unspecifiedComments:-- Rosuvastatin Calcium was increased by endo from 10 mg to 20 mg take 1 by mouth at bedtime, Fenofibric Acid 105 mg take 1 tablet in the morning, maximum daily dose 1 Total Cholesterol: 141 > 120Triglycerides: 78 > 104High Density Lipids:37 > 42Low Density Lipids: 93 > 57--Quit smoking.Non smokers should avoid second hand smoke. 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 S/p NSTEMI 12/2015; cath showed patent HOOKS toLAD and SVG to RCA, collaterals left to right and acute lesion Cx stented with BMS x 1. EF 65%.-- Remains asymptomatic.D72.829 Elevated white blood cell count, unspecifiedComments:--WBC 8.3 > 18.1 Functional Status Functional Condition Comment Date Status Glasses Active Mental Status Description No Information Available Referrals Refer to Dr Reason for Referral Status Appt Date Richelle Munguia MD send [facility] note pls call Patient to let him Closed know address and that we are working on OV 07/18/2019 faxed notes.. [address], [place] [address] [phone] Nicholas Alvarado MD was going to endo who retired diabetes Closed 06/25/[address] [place] [id number] [phone]
--- OUTSIDE RECORDS SUMMARY | 2019-09-05 07:26 | XMS REPORT | Continuity of Care Document ---
:1945 External Reference #:[id number] Author Name Abbey Jimenez, MSN, BOBBIN MARKER (transmitted by agent of provider Karla Chapman) Address [address] [place] [address] Care Team Providers Name Role Phone Cleo Camacho MD - Physical Medicine Care Team Information Equal Opportunity Specialist & Rehabilitation Carlos Enrique Hale MD - Emergency Medicine Care Team Information Equal Opportunity Specialist Argenis Fox NP - Nurse Care Team Information Equal Opportunity Specialist [phone] Practitioner Jose Peña [employer] GROUND WORKER - Nurse Care Team Information Equal Opportunity Specialist [phone] Practitioner Treva Cornejo NP, CNM - Nurse Care Team Information Equal Opportunity Specialist Practitioner Richelle Munguia MD - Hematology & Care Team Information Equal Opportunity Specialist Oncology Problems Active Problems Provider Date Degenerative [...] 2016 LDL 75 HDL 40 Chol 132; ID/cath December 2015 Chronic renal failure Leslie Lopez [...] Shields Hyperlipidemia Abbey Jimenez, MSN, Onset: 02/15/2017 BOBBIN MARKER Tobacco user Abbey Jimenez, MSN, Onset: 02/15/2017 BOBBIN MARKER Atherosclerotic heart disease of Abbey Jimenez, MSN, 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 THA SHAIKH take it in the middle of your meal Fenofibrate Take 1 Tablet 90Tablet Gagen, 160mg Tablets Every Morning Treva, 9 MS, SY-C, CNM Hydrochlorothiazide take one capsule 90caps I10 Jimenez, Abbey 12.5mg in the morning Fernando, 9 Capsules SY MATTHEW Loperamide HCL take two 30caps V89.2xxA Augustus [...] Collado Strips meal,at bedtime,and as needed Pen [place] BV uad with insulin 100units [facility], 07/10/2016 31G X 8 MD Walt [...] Flextouch 52 units subq twice 45ml KristinParul clemente MD a day 100Unit/ML Solution Pen-Inject Metoprolol Tartrate 1 by mouth twice a 180tabs Ratnasingam, day MD Walt 25mg Tablets Nitrostat 1 tab sl every 5 min 30tabs JimenezAbbey khanna 0.4mg Tablets x3 chest pain as Fernando, MSN, Sub needed BOBBIN MARKER Polyethylene Glycol Take 17 Grams By Unknown [...] Code Status Date Vaccine Reaction Lot # 21788 Given 03/31/2019 Influenza High Dose [id number] 59358 Given 05/20/2018 Influenza High Dose none [id number] 48920 Given 02/27/2017 Influenza High Dose [id number] 08172 Given 10/23/2016 Pneumovax Injection [id number] 15392 Given 10/23/2016 Tdap injection [id number] Q2038 Given 03/20/2016 Influenza Vaccine (Fluzone) Age 3 And [id number] Older Q2038 Given 03/11/2015 Influenza Vaccine (Fluzone) Age 3 And Older 99067 Given 03/11/2015 Pneumococcal Conjugate Vaccine 13 Valent For Intramuscular Use 35237 Given 04/03/2008 flu vaccination Vital Signs Date Vital Result Comment 08/20/2019 10:23am BP Systolic Sitting Left Arm 130 mmHg BP Diastolic Sitting Left Arm 64 mmHg Heart Rate 89 /min Respiratory Rate 14 /min Height 67 inches 5'7" Weight 149.00 lb BMI (Body Mass Index) 23.3 kg/m2 BSA (Body Surface Area) 1.78 m2 [place] body weight in kilograms 67 kg O2 % BldC Oximetry 98 % Ra 08/15/2019 9:52am BP Systolic 148 mmHg BP Diastolic 70 mmHg Body Temperature 98.5 F Heart Rate 80 /min Respiratory Rate 18 /min Height 67 inches 5'7" Weight 148.00 lb BMI (Body Mass Index) 23.2 kg/m2 BSA (Body Surface Area) 1.78 m2 [place] body weight in kilograms 67 kg O2 % BldC Oximetry 99 % Results Test Acquired Date Facility Test Result H/L Range Note CBC 08/22/2019 [facility] White Blood 18.1 K/uL High 3.4-10.5 1 W/Automated [address] Count Diff [place], [place] [id number] [phone] Red Blood Count 4.43 M/uL Normal 4.20-5.80 [...] 33.0-73.0 Lymph % 4.8 % Low 20.0-42.0 Norman % 6.2 % Normal 0.0-10.0 Eo% 0.4 % Normal 0.0-6.6 Bas% 0.4 % Normal 0.0-1.1 Immature Grans 0.8 % Normal 0.0-5.0 NRBC % 0.0 /100WBC < 10/ 100 WBC Neut# 15.83 K/uL High 1.8-7.0 Lymph # 0.87 K/uL Low 1.0-4.0 Norman # 1.12 K/uL High 0.0-0.8 Eos # 0.08 K/uL Normal 0.0-0.5 Baso # 0.08 K/uL Normal 0.0-0.1 Immature Grans Absolute 0.14 K/uL NRBC # 0.00 K/uL Comprehensive Metabolic 08/22/2019 [facility] Glucose 57 mg/dL Low 74-106 Panel [address] [place] [address] [phone] BUN 11 mg/dL Normal 7-18 Creatinine 0.7 [...] U/L Low 45-117 LDL Cholesterol Profile 08/22/2019 [facility] Cholesterol 120 mg/dL <200 4 [address] [place] [address] [phone] Triglycerides 104 mg/dL <150 5 HDL Cholesterol 42 mg/dL >40 6 LDL-Cholesterol 57 mg/dL < 100 7 Glycohemoglobin 08/22/2019 [facility] Glycohemoglobin 6.9 % High 4.2-6.3 8 A1c [address] [facility] (A1c) [place] [address] [phone] eAG 151 mg/dL Laboratory 08/22/2019 [facility] Vitamin 43.4 30.0-100.0 9 test finding [address] D,25-Hydroxy ng/[place] [address] [phone] Slide Review 08/22/2019 [facility] Slide Review (SEE [address] NOTE) [place] [address] [phone] Calcium 08/08/2019 N2N/CCD Import Calcium Level 8.5 [...] Estimated GFR >60 >60 pred.black ( SerPl [place]) MDRD-ArVRat GFR/Bsa 08/08/2019 N2N/CCD Import Estimated GFR >60 >60 pred.non (Non- black SerPl [place] MDRD-ArVRat BUN 08/08/2019 N2N/CCD Import Blood Urea [...] Mean 94.3 80.0-96.0 Corpuscular Volume Basic 08/08/2019 [facility] Glucose 203 High 74-106 [address] mg/dL Panel [place], [place] [id number] [phone] BUN 3 mg/dL Critical low 7-18 Creatinine 0.6 mg/dL Normal 0.6-1.3 Glom Filtration Rate, Estimate >60 mL/min >60 If >60 mL/min >60 12 BUN/Creat 5.0 ratio Sodium 133 mmol/L Low 136-145 Potassium 4.5 mmol/L 3.5-5.1 Chloride 104 mmol/L Normal 98-107 Carbon Dioxide 24 mmol/L Normal 21-32 Anion Gap 5 mEq/L Low 8-16 Calcium 8.5 mg/dL Normal 8.5-10.1 CBC 08/08/2019 [facility] White Blood Count 8.3 K/uL Normal 3.4-10.[address] [place], [place] [address] [phone] Red Blood Count 3.67 M/uL Low 4.20-5.80 [...] High 70-110 Glucomtr-mCnc Cortisol - 3 08/07/2019 [facility] Cortisol #1 17.8 . [address] (Base) g/[place] [address] [phone] Cortisol #2 16.3 g/dL Not Estab. Cortisol #3 13.3 g/dL Not Estab. 14 Basic Metabolic 08/07/2019 [facility] Glucose 29 mg/dL Critical low 74-106 Panel [address] [place], [place] [address] [phone] BUN 5 mg/dL Critical low 7-18 Creatinine 0.6 mg/dL Normal 0.6-1.3 Glom Filtration Rate, Estimate >60 mL/min >60 If >60 mL/min >60 15 BUN/Creat 8.3 ratio Sodium 135 mmol/L Low 136-145 Potassium 3.6 mmol/L Normal 3.5-5.1 Chloride 106 mmol/L Normal 98-107 Carbon Dioxide 26 mmol/L Normal 21-32 Anion Gap 3 mEq/L Low 8-16 Calcium 8.3 mg/dL Low 8.5-10.1 CBC 08/07/2019 [facility] White Blood Count 11.8 K/uL High 3.4-10.5 [address] [place] [address] [phone] Red Blood Count 3.66 M/uL Low 4.20-5.80 [...] # 0.02 0.0-0.5 Auto (Auto) Monocytes # d 08/06/2019 N2N/CCD Import Monocytes # 1.00 High 0.0-0.8 Auto (Auto) Lymphocytes # d 08/06/2019 N2N/CCD Import Lymphocytes # 0.70 Low [...] Bld Auto (Auto) TSH Reflex FT[facility] Thyroid Stim 1.94 Normal 0.30-4.20 And/Or FT3 [address] Hormone uIU/[place] [address] [phone] Reflex add FT3? N Reflex add FT4? Y Basic Metabolic Panel 08/06/2019 [facility] Glucose 91 mg/dL Normal 74-[address] [place], [place] [address] [phone] BUN 10 mg/dL Normal 7-18 Creatinine 0.7 [...] N Reflex add FT4? Y Glycohemoglobin 08/06/2019 [facility] Glycohemoglobin 6.9 % High 4.2-6.3 [address] (A1c) [place], [place] [id number] [phone] eAG 151 mg/dL CBC W/Automated 08/06/2019 [facility] White Blood 10.3 K/uL Normal 3.4-10.[address] Count [place], [place] [address] [phone] Red Blood Count 3.80 M/uL Low 4.20-5.80 [...] 33.0-73.0 Lymph % 6.8 % Low 20.0-42.0 Norman % 9.7 % Normal 0.0-10.0 Eo% 0.2 % Normal 0.0-6.6 Bas% 0.4 % Normal 0.0-1.1 Immature Grans 0.4 % Normal 0.0-5.0 NRBC % 0.0 /100WBC < 10/ 100 WBC Neut# 8.47 K/uL High 1.8-7.0 Lymph # 0.70 K/uL Low 1.0-4.0 Norman # 1.00 K/uL High 0.0-0.8 Eos # [...] 3.4-10.5 [address] Count [place], [place] [address] [phone] Red Blood Count 4.08 M/uL Low 4.20-5.80 [...] 33.0-73.0 Lymph % 6.5 % Low 20.0-42.0 Norman % 8.1 % Normal 0.0-10.0 Eo% 0.1 % Normal 0.0-6.6 Bas% 0.4 % Normal 0.0-1.1 Immature Grans 0.8 % Normal 0.0-5.0 NRBC % 0.0 /100WBC < 10/ 100 WBC Neut# 12.00 K/uL High 1.8-7.0 Lymph # 0.93 K/uL Low 1.0-4.0 Norman # 1.16 K/uL High 0.0-0.8 Eos # [...] Import Lipase 101 56-289 SerPl-cCnc Laboratory 08/05/2019 [facility] Troponin-I < 0.015 19 test finding [address] ng/[place] [address] [phone] Laboratory 08/05/2019 [facility] Rapid Strep A Negative Negative 20 test finding [address] [place] [address] [phone] Influenza A/B 08/05/2019 [facility] Influenza A Antigen Negative (Negative) Antigen [address] [place] [address] [phone] Influenza B Antigen Negative (Negative) 21 Urinalysis With 08/05/2019 [facility] Urine Color Yellow Yellow Microscopic [address] [place], [place] [address] [phone] Urine Clarity Clear Clear Urine Glucose - Dipstick TRACE mg/dL Negative Urine Bilirubin - Dipstick NEGATIVE Negative Urine Ketone 20 mg/dL Abnormal Negative Urine Specific [place] 1.021 Normal 1.010-1.030 Urine Blood NEGATIVE Negative [...] CAT <SEE NOTE> 22 Laboratory test 08/05/2019 [facility] Throat Strep NO BETA 23 finding [address] [place] [address] <SEE NOTE> [phone] Fluav Ag XXX Ql 08/05/2019 N2N/CCD Import [...] comment Report Reflexed Follow Urine Culture 07/14/2019 [facility] Urine Culture URETHRAL [address] [place] [address] [phone] Quantity 10,000 - 50,000 <SEE NOTE> 25 Laboratory test finding 07/14/2019 [facility] CK 45 U/L Normal 39-308 [address] [place] [address] [phone] Troponin-I 0.015 ng/mL 26 Comprehensive Metabolic 07/14/2019 [facility] Glucose 125 mg/dL High 74-106 Panel [address] [place] [address] [phone] BUN 9 mg/dL Normal 7-18 Creatinine 0.9 [...] 22 U/L Low 45-117 Culture If 07/14/2019 [facility] Culture If CULTURE TO 28 Indicated Comment 134 [facility] Indicated Comment FOLLO <[place] [address] NOTE> [phone] Source: URINE, CLEAN CAT <SEE NOTE> 29 Urinalysis With 07/14/2019 [facility] Urine Color Yellow Yellow Microscopic [address] [place], [place] [address] [phone] Urine Clarity Clear Clear Urine Glucose - Dipstick 500 mg/dL Abnormal Negative Urine Bilirubin - Dipstick NEGATIVE Negative Urine Ketone NEGATIVE mg/dL Negative Urine Specific [place] 1.021 Normal 1.010-1.030 Urine Blood NEGATIVE Negative [...] CAT <SEE NOTE> 30 Blood Culture 07/14/2019 [facility] Blood Culture NO GROWTH: FINAL [address] Aerobic <SEE NOTE> [place] [address] [phone] Blood Culture Anaerobic NO GROWTH: FINAL <SEE NOTE> 32 Bacteria Bld 07/14/2019 N2N/CCD Import Aerobic Blood No Growth: Final Aerobe Cult Culture Report Bacteria Bld 07/14/2019 N2N/CCD Import Anaerobic Blood No Growth: Final Anaerobe Cult Culture Report Blood Culture 07/14/2019 [facility] Blood Culture NO GROWTH: FINAL [address] Aerobic <SEE NOTE> [place], [place] [address] [phone] Blood Culture Anaerobic NO GROWTH: FINAL <SEE NOTE> 34 CBC W/Automated 07/14/2019 [facility] White Blood 10.7 K/uL High 3.4-10.[address] [place] [address] [phone] Red Blood Count 4.41 M/uL Normal 4.20-5.80 [...] 33.0-73.0 Lymph % 12.4 % Low 20.0-42.0 Norman % 7.2 % Normal 0.0-10.0 Eo% 0.8 % Normal 0.0-6.6 Bas% 0.6 % Normal 0.0-1.1 Immature Grans 0.5 % Normal 0.0-5.0 NRBC % 0.0 /100WBC < 10/ 100 WBC Neut# 8.38 K/uL High 1.8-7.0 Lymph # 1.32 K/uL Normal 1.0-4.0 Norman # 0.77 K/uL Normal 0.0-0.8 Eos # 0.08 K/uL Normal 0.0-0.5 Baso # 0.06 K/uL Normal 0.0-0.1 Immature Grans Absolute 0.05 K/uL NRBC # 0.00 K/uL Lactate SerPl-sCnc 07/14/2019 N2N/CCD Import Lactic Acid 1.0 0.4-1.9 Level Lactic Acid 07/14/2019 [facility] Lactic Acid 1.0 mmol/L Normal 0.4-1.[address] [place] [address] [phone] Lab Reflex >2.0 for Sepsis? N Laboratory test 07/14/2019 [facility] LDH 200 Normal 87-[address] U/L [place], [place] [address] [phone] Creat Ur-mCnc 05/14/2019 N2N/CCD Import Urine Creatinine 156 Concentration Microalbumin/Crea 05/14/2019 N2N/CCD Import Urine 73.7 < 30.0 t Ur-Rto Microalbumin/Cre atinine Ratio Microalbumin 05/14/2019 N2N/CCD Import Urine 115.0 < 20.0 Ur-mCnc Microalbumin Comprehensive 05/14/2019 [facility] Glucose 101 Normal 74-106 35 Metabolic Panel [address] mg/[place] [address] [phone] BUN 14 mg/dL Normal 7-18 Creatinine 1.0 [...] 20 U/L Low 45-117 CBC W/Automated 05/14/2019 [facility] White Blood 11.2 K/uL High 3.4-10.[address] Count [place], [place] [address] [phone] Red Blood Count 5.02 M/uL Normal 4.20-5.80 [...] 33.0-73.0 Lymph % 10.5 % Low 20.0-42.0 Norman % 8.1 % Normal 0.0-10.0 Eo% 1.3 % Normal 0.0-6.6 Bas% 0.6 % Normal 0.0-1.1 Immature Grans 0.4 % Normal 0.0-5.0 NRBC % 0.0 /100WBC < 10/ 100 WBC Neut# 8.84 K/uL High 1.8-7.0 Lymph # 1.18 K/uL Normal 1.0-4.0 Norman # 0.91 K/uL High 0.0-0.8 Eos # 0.14 K/uL Normal 0.0-0.5 Baso # 0.07 K/uL Normal 0.0-0.1 Immature Grans Absolute 0.05 K/uL NRBC # 0.00 K/uL Laboratory test 05/14/2019 [facility] Cholesterol 141 <200 [address] mg/[place] [address] [phone] Glycohemoglobin 05/14/2019 [facility] Glycohemoglobin 7.4 % High 4.2-6. [address] (A1c) 3 [place] [address] [phone] eAG 166 mg/dL Microalbumin,Random 05/14/2019 [facility] Microalbumin,Urine 115.0 < 20.[address] mg/[place] [address] [phone] Microalb/Creat 05/14/2019 [facility] Microalbumin/Creatin 73.7 < 30.0 Ratio,Random [address] ine Ratio ug/[place] [address] t [phone] Urine Creatinine Conc 156 mg/dL Glycohemoglobin 04/29/2019 [facility] Glycohemoglobin 7.5 % High 4.2-6.3 40, A1c [address] (A1c) 41 [place] [address] [phone] eAG 169 mg/dL CBC W/Automated 04/29/2019 [facility] White Blood 9.5 K/uL Normal 3.4-10.[address] [place] [address] [phone] Red Blood Count 4.86 M/uL Normal 4.20-5.80 [...] 33.0-73.0 Lymph % 14.6 % Low 20.0-42.0 Norman % 8.6 % Normal 0.0-10.0 Eo% 1.9 % Normal 0.0-6.6 Bas% 0.6 % Normal 0.0-1.1 Immature Grans 0.4 % Normal 0.0-5.0 NRBC % 0.0 /100WBC < 10/ 100 WBC Neut# 6.99 K/uL Normal 1.8-7.0 Lymph # 1.38 K/uL Normal 1.0-4.0 Norman # 0.81 K/uL High 0.0-0.8 Eos # 0.18 K/uL Normal 0.0-0.5 Baso # 0.06 K/uL Normal 0.0-0.1 Immature Grans Absolute 0.04 K/uL NRBC # 0.00 K/uL Comprehensive 04/29/2019 [facility] Glucose 80 mg/dL Normal 74-106 Metabolic Panel [address] [place] [address] [phone] BUN 19 mg/dL High 7-18 Creatinine 1.0 [...] U/L Low 45-117 LDL Cholesterol Profile 04/29/2019 [facility] Cholesterol 146 mg/dL <200 44 [address] [place] [address] [phone] Triglycerides 78 mg/dL <150 45 HDL Cholesterol 37 mg/dL Low >40 46 LDL-Cholesterol 93 mg/dL < 100 47 Laboratory test 04/29/2019 [facility] Vitamin 52.3 30.0-100.[address] D,25-Hydroxy ng/[place] [address] [phone] Hepatitis C Antibody < 0.1 s/corat 0.0-0.9 49 Trigl SerPl-mCnc 04/29/2019 N2N/CCD Import Triglycerides Level 78 <150 LDLc SerPl 04/29/2019 N2N/CCD Import LDL Cholesterol, 93 < 100 Calc-mCnc Calculated HCV Ab s/co SerPl 04/29/2019 N2N/CCD Import Hepatitis C Ab < 0.1 0.0- 0.9 Ia Signal/Cutoff Ratio Laboratory test 03/27/2019 [facility] Prostate Specific 0.17 < 4.0 50, [address] Antigen ng/[place] [address] [phone] 1 I10,E78.5,E11.9,E55.9 2 Note: Persistent reduction for [...] for more aggressive treatment of glycemia. The [place] Diabetes Association recommends that a primary goal of therapy should be a HbA1c of <7% and that physicians should re-evaluate the treatment regimen in patients with HbA1c values consistently >8%. 9 Vitamin D deficiency has been defined by the [place] of Medicine and an Endocrine Society practice guideline as a level of serum 25-OH vitamin D less than 20 ng/mL (1,2). The Endocrine Society went on to further define vitamin D insufficiency as a level between 21 and 29 ng/mL (2). 1. IOM ([place] of [employer]). 2010. Dietary reference intakes for calcium and D. [place]: The National Academies Press. 2. Margarita MF, Jesús [place], David DUBON, et al. Evaluation, treatment, and prevention of vitamin D deficiency: an Endocrine Society clinical practice guideline. JCEM. 2010; 96(7):1911-30. Performed at: RN - [facility] [address] [id number] Artistic Associate: Michelle Lima MD, Phone: [phone] Instrument flagged sample for slide review. [...] 11.9 14 Performed at: RN - [facility] [address] [id number] Artistic Associate: Michelle Lima MD, Phone: [phone] Note: Persistent reduction for 3 months [...] for more aggressive treatment of glycemia. The [place] Diabetes Association recommends that a primary goal [...] of negative result is in progress Method: TellMi Chromatographic immunoassay 21 Please Note: A POSITIVE [...] A and B molecular assay. Method: BD Roobiq Chromatographic immunoassay 22 URINE, CLEAN CATCH 23 [...] for more aggressive treatment of glycemia. The [place] Diabetes Association recommends that a primary goal of therapy should be a HbA1c of <7% and that physicians should re-evaluate the treatment regimen in patients with HbA1c values consistently >8%. 40 E11.9 V89.2XXA E78.5 E55.9 41 Elevated levels of HbA1c suggest the need for more aggressive treatment of glycemia. The [place] Diabetes Association recommends that a primary goal [...] D deficiency has been defined by the [place] of Medicine and an Endocrine Society practice guideline as a level of serum 25-OH vitamin D less than 20 ng/mL (1,2). The Endocrine Society went on to further define vitamin D insufficiency as a level between 21 and 29 ng/mL (2). 1. IOM ([place] of [employer]). 2010. Dietary reference intakes for calcium and D. [place]: The National Academies Press. 2. Margarita MF, Jesús [place], David DUBON, et al. Evaluation, treatment, and prevention of vitamin D deficiency: an Endocrine Society clinical practice guideline. JCEM. 2010; 96(1):1911-30. Performed at: [facility] [id number] Artistic Associate: Michelle Lima MD, Phone: [phone] INFCE Result Units: s/co ratio Negative: < 0.8 Indeterminate: 0.8 - 0.9 Positive: > 0.9 The CDC recommends that a positive HCV antibody result be followed up with a HCV Nucleic Acid Amplification test (520025). Performed at: [facility] [address] [id number] Artistic Associate: Michelle Lima MD, Phone: [phone] Z85.46 51 THIS ASSAY IS NOT INTENDED A CANCER SCREENING TEST The concentration of PSA in a given specimen, determined with assays from different manufacturers, can vary due to differences in assay methods and reagent specificity. Values obtained from different assay methods cannot be used interchangeably. Method: Siemens Dimension Linn Chemiluminescent immunoassay. Procedures Date Code Description Status 2019 11055 I&D, perianal abscess, superficial Completed 03/27/2019 20195 Measurement Post Voiding Residual Urine By Completed Ultrasound,Non-Imaging 03/27/2019 81274 complex uroflowmetry electronic Completed 02/26/2019 73434 Colonoscopy With Biopsy Completed 02/26/2019 [id number] Colonoscopy Completed 05/24/2017 [id number] Diabetic Foot Exam Completed 12/29/2013 [id number] Colonoscopy Completed Medical Devices Description No Information Available Encounters Type Date Location Provider Dx Diagnosis Office Visit 08/20/2019 Cardiology Office Abbey Jimenez I25.119 Athscl heart 10:20a Fernando, VIPUL, disease of kake BOBBIN MARKER cor art w unsp ang pctrs I73.9 Peripheral vascular disease, unspecified E78.5 Hyperlipidemia, unspecified I10 Essential (primary) hypertension Office Visit 08/15/2019 10:10a Primary Care Chantal, E11.9 Type 2 diabetes Office MS Treva, mellitus without BOBBIN MARKER-C, CNM complications 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 I10 Essential (primary) hypertension E78.5 Hyperlipidemia, unspecified G47.00 Insomnia, unspecified E55.9 Vitamin D deficiency, unspecified N50.89 Other specified disorders of the male genital organs R63.4 Abnormal weight loss Z71.6 Tobacco abuse counseling Office Visit 07/17/2019 10:30a Primary Care Elidaelvira, 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.10 Neoplasm of Office MS Treva, uncertain BOBBIN MARKER-C, CNM behavior of unspecified adrenal gland R63.4 Abnormal weight loss G47.00 Insomnia, unspecified Office Visit 05/21/2019 11:00a Primary Care ElidaTreva felix, Z85.46 Personal history Office MS, BOBBIN MARKER-C, CNM of malignant neoplasm of prostate Z12.11 Encounter for screening for malignant neoplasm of colon 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 kake cor art w unsp ang pctrs I73.9 [...] Cortez MD 08/22/2019 I10 Essential (primary) hypertension [employer] 08/22/2019 E78.5 Hyperlipidemia, unspecified Walt Cortez MD 08/22/2019 E78.5 Hyperlipidemia, unspecified [employer] 08/22/2019 E11.9 Type 2 diabetes mellitus without Walt Cortez MD complications 08/22/2019 E11.9 Type 2 diabetes mellitus without Chemical Tank Worker complications 08/22/2019 E55.9 Vitamin D deficiency, unspecified Watl Cortez MD 08/22/2019 E55.9 Vitamin D deficiency, unspecified [employer] 08/20/2019 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, VIPUL, kake coronary artery with [facility] 08/20/2019 I73.9 Peripheral vascular disease, Abbey Jimenez, VIPUL, unspecified [facility] 08/20/2019 E78.5 Hyperlipidemia, unspecified Abbey Jimenez, VIPUL, [facility] 08/20/2019 I10 Essential (primary) hypertension Abbey Jimenez, VIPUL, [facility] 08/15/2019 E11.9 Type 2 diabetes mellitus without Treva Cornejo, MS, BOBBIN MARKER -C, complications [facility] 08/15/2019 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.10 Neoplasm of uncertain behavior of Treva Cornejo, MS, BOBBIN MARKER-C, unspecified adrenal gland [facility] 08/15/2019 I10 Essential (primary) hypertension Treva Cornejo, MS, BOBBIN MARKER-C , [facility] 08/15/2019 E78.5 Hyperlipidemia, unspecified GagFlory felixline, MS, BOBBIN MARKER-C, [facility] 08/15/2019 G47.00 Insomnia, unspecified Gagen, Treva, MS, BOBBIN MARKER-C, [facility] 08/15/2019 E55.9 Vitamin D deficiency, unspecified Treva Cornejo, MS, BOBBIN MARKER-C, [facility] 08/15/2019 N50.89 Swelling of scrotum Treva Cornejo, MS, BOBBIN MARKER-C, [facility] 08/15/2019 R63.4 Abnormal weight loss Treva Cornejo, MS, BOBBIN MARKER-C, [facility] 08/15/2019 Z71.6 Tobacco abuse counseling ChantalTreva, MS, BOBBIN MARKER-C, CNM 08/08/2019 R11.15 Cyclical vomiting syndrome unrelated Cadet, Jorge, BOBBIN MARKER to migraine 08/08/2019 R19.7 Diarrhea, unspecified Cadet, Jorge, BOBBIN MARKER 08/08/2019 E86.0 Dehydration Cadet, Jorge, BOBBIN MARKER 08/08/2019 E11.649 Type 2 diabetes mellitus with Cadet, Jorge, BOBBIN MARKER hypoglycemia without coma 08/07/2019 E87.1 Hypo-osmolality and hyponatremia Cadet, Jorge, BOBBIN MARKER 08/07/2019 E86.0 Dehydration Cadet, Jorge, BOBBIN MARKER 08/07/2019 E11.649 Type 2 diabetes mellitus with Cadet, Jorge, BOBBIN MARKER hypoglycemia without coma 08/06/2019 R19.7 Diarrhea, unspecified Cadet, Jorge, BOBBIN MARKER 08/06/2019 E87.1 Hypo-osmolality and hyponatremia CadetFeliceJorge, BOBBIN MARKER 08/06/2019 E86.0 Dehydration Cadet, Jorge, BOBBIN MARKER 08/05/2019 R11.15 Cyclical vomiting syndrome unrelated Benjamin Akins M.D. to migraine 08/05/2019 R19.7 Diarrhea, unspecified Benjamin Akins M.D. 08/05/2019 E87.1 Hypo-osmolality and hyponatremia Benjamin Akins M.D. 08/05/2019 R93.3 Abnormal findings on diagnostic Benjamin Akins M.D. 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, Treva, MS, [employer], kake coronary artery with CNM 05/21/2019 I73.9 Peripheral vascular disease, Gagen, Treva, MS, [employer], unspecified CNM 05/21/2019 R19.7 Diarrhea, unspecified Gagen, Treva, MS, [employer], CNM 05/21/2019 E11.9 Type 2 diabetes mellitus without Gagen, Treva, MS, [employer], complications CNM 05/21/2019 I10 Essential (primary) hypertension Gagen, Treva, MS, [employer] , CNM 05/21/2019 F17.210 Nicotine dependence, cigarettes, GagenJayTreva, MS, [employer], uncomplicated CNM 05/21/2019 Z71.6 Tobacco abuse counseling Jay Cornejoqueline, MS, [employer], CN 05/21/2019 E78.5 Hyperlipidemia, unspecified Gagen, Treva, MS, [employer], CNM 05/05/2019 Z85.46 Personal history of malignant Gagen, Treva, MS, [employer] , neoplasm of prostate CNM 05/05/2019 Z12.11 Encounter for screening for malignant Flory Cornejoline, MS, [employer], neoplasm of colon CNM 05/05/2019 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, Treva, MS, [employer], kake coronary artery with CNM 05/05/2019 E78.5 Hyperlipidemia, unspecified Gagen, Treva, MS, [employer], CNM 05/05/2019 I73.9 Peripheral vascular disease, Gagen, Treva, MS, [employer], unspecified CNM 05/05/2019 I10 Essential (primary) hypertension Gagen, Treva, MS, [employer] , CNM 05/05/2019 F17.210 Nicotine dependence, cigarettes, Gagen, Treva, MS, [employer], uncomplicated CNM 05/05/2019 E11.9 Type 2 diabetes mellitus without Gagen, Treva, MS, [employer], complications CNM 05/05/2019 R19.7 Diarrhea, unspecified Treva Cornejo, , [employer], CNM 05/05/2019 E55.9 Vitamin D deficiency, unspecified Treva Cornejo, , [employer], CNM 05/05/2019 J44.9 Chronic obstructive pulmonary Treva Cornejo, , [employer], disease, unspecified CNM 05/05/2019 Z71.6 Tobacco abuse counseling Treva Cornejo, , [employer], CNM 04/11/2019 Z48.817 Encounter for surgical aftercare Óscar Crenshaw MD,FACS following surgery on the skin and subcutaneous tissue 04/11/2019 K61.1 Rectal abscess Óscar Crenshaw MD,FACS 03/31/2019 Z23 Encounter for immunization Elidaelvira MS Treva, [employer], CNM 03/31/2019 Z23 Encounter for immunization Nurse [...] Appointment(s):02/20/2020 2:00 pm - Abbey Jimenez, VIPUL, [employer] at Cardiology Pbzfkm0708/29/2019 10:30 am - Treva Cornejo MS, BOB[facility] MARKERCHRIS Lopez at [facility] Care Nahiop7909/22/2019 10:30 am - Treva Cornejo, , CHRIS ESPINOZA at Primary Care Vkwuwc4808/20/2019 - Abbey Jimenez, MSN, FNP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 kake coronary artery withNew Orders: Echocardiogram, Ordered: 08/20/19Comments:I [...] Status Appt Date Richelle Munguia MD send [facility] note pls call Patient to let him Closed know address and that we are working on OV 07/18/2019 faxed notes.. [address], [place] [id number] [phone] Nicholas Alvarado MD was going to endo who retired diabetes Closed 06/25/[address] [place] [id number] [phone]
--- OUTSIDE RECORDS SUMMARY | 2019-09-05 07:26 | XMS REPORT | Continuity of Care Document ---
:1945 External Reference #:[id number] Author Name Treva Cornejo, MS, ROBOTICS ENGINEER-C, CNM (transmitted by agent of provider Arianne Rendon) Address [address] [place] [address] Care Team Providers Name Role Phone Cleo Camacho MD - Physical Medicine Care Team Information Aircraft Systems Technician & Rehabilitation Carlos Enrique Hale MD - Emergency Medicine Care Team Information Aircraft Systems Technician Argenis Fox NP - Nurse Care Team Information Aircraft Systems Technician [phone] Practitioner Jose Peña RUBBER TUBING SPLICER - Nurse Care Team Information Aircraft Systems Technician [phone] Practitioner Treva Cornejo NP, CNM - Nurse Care Team Information Aircraft Systems Technician Practitioner Richelle Munguia MD - Hematology & Care Team Information Aircraft Systems Technician Oncology Problems Active Problems Provider Date Degenerative joint disease involving Leslie Lopez PA-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 Note: olecranon bursitis Type 2 diabetes mellitus Lelsie Lopez PA-C Onset: 01/20/2015 Note: insulin-requiring (Jul [...] 2016 LDL 75 HDL 40 Chol 132; TX/cath December 2015 Chronic renal failure Leslie Lopez [...] Shields Hyperlipidemia Abbey Jimenez, MSN, Onset: 02/15/2017 ROBOTICS ENGINEER Tobacco user Abbey Jimenez, MSN, Onset: 02/15/2017 ROBOTICS ENGINEER Atherosclerotic heart disease of Abbey Jimenez, MSN, 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 Mixed hyperlipidemia Parul [...] 160mg Tablets Every Morning Treva, 9 MS, ROBOTICS ENGINEER-C, CNM Hydrochlorothiazide take one capsule 90caps I10 Jimenez Abbey 12.5mg in the morning Fernando, 9 [...] Collado Strips meal,at bedtime,and as needed Pen [place] [employer] uad with insulin 100units ing, 07/10/2016 31G X 8 MD Walt mm Misc Azelastine HCL 2 spays in each 90ml J30.9 Parlu Foster MD 03/20/2016 (Nasal) nostril twice a [...] Jimenez 0.4mg Tablets x3 chest pain as Fernando, MSN, Sub needed ROBOTICS ENGINEER Polyethylene Glycol Take 17 Grams By [...] adrenal biopsy, as recommended by Dr Tiffanie Clevleand take one tablet by 30tabs K61.1 Óscar Crenshaw, 2019 - 500mg mouth 3 times daily ,FACS 04/11/2019 Tablets for 10 days. take it in the middle of your meal Medications Administered in Office Medication SIG Qnty Indications Ordering Provider Date Administration Of Flu Mariano Rhodes MD 04/03/2008 Injection Immunizations CPT Code Status Date Vaccine Reaction Lot # 48411 Given 03/31/2019 Influenza High Dose [id number] 10172 Given 05/20/2018 Influenza High Dose none [id number] 08691 Given 02/27/2017 Influenza High Dose [id number] 18190 Given 10/23/2016 Pneumovax Injection [id number] 09802 Given 10/23/2016 Tdap injection [id number] Q2038 Given 03/20/2016 Influenza Vaccine (Fluzone) Age 3 And [id number] Older Q2038 Given 03/11/2015 Influenza Vaccine (Fluzone) Age 3 And Older 58246 Given 03/11/2015 Pneumococcal Conjugate Vaccine 13 Valent For Intramuscular Use 99796 Given 04/03/2008 flu vaccination Vital Signs Date Vital Result Comment 08/20/2019 10:23am BP Systolic Sitting Left Arm 130 mmHg BP Diastolic Sitting Left Arm 64 mmHg Heart Rate 89 /min Respiratory Rate 14 /min Height 67 inches 5'7" Weight 149.00 lb BMI (Body Mass Index) 23.3 kg/m2 BSA (Body Surface Area) 1.78 m2 [place] body weight in kilograms 67 kg O2 % BldC Oximetry 98 % Ra 08/15/2019 9:52am BP Systolic 148 mmHg BP Diastolic 70 mmHg Body Temperature 98.5 F Heart Rate 80 /min Respiratory Rate 18 /min Height 67 inches 5'7" Weight 148.00 lb BMI (Body Mass Index) 23.2 kg/m2 BSA (Body Surface Area) 1.78 m2 [place] body weight in kilograms 67 kg O2 % BldC Oximetry 99 % Results Test Acquired Date Facility Test Result H/L Range Note CBC 08/22/2019 [facility] White Blood 18.1 K/uL High 3.4-10.5 1 W/Automated [address] Count Diff [place], [place] [id number] [phone] Red Blood Count 4.43 M/uL Normal 4.20-5.80 [...] 33.0-73.0 Lymph % 4.8 % Low 20.0-42.0 [place] % 6.2 % Normal 0.0-10.0 Eo% 0.4 % Normal 0.0-6.6 Bas% 0.4 % Normal 0.0-1.1 Immature Grans 0.8 % Normal 0.0-5.0 NRBC % 0.0 /100WBC < 10/ 100 WBC Neut# 15.83 K/uL High 1.8-7.0 Lymph # 0.87 K/uL Low 1.0-4.0 [place] # 1.12 K/uL High 0.0-0.8 Eos # 0.08 K/uL Normal 0.0-0.5 Baso # 0.08 K/uL Normal 0.0-0.1 Immature Grans Absolute 0.14 K/uL NRBC # 0.00 K/uL Comprehensive Metabolic 08/22/2019 [facility] Glucose 57 mg/dL Low 74-106 Panel [address] [place] [address] [phone] BUN 11 mg/dL Normal 7-18 Creatinine 0.7 [...] U/L Low 45-117 LDL Cholesterol Profile 08/22/2019 [facility] Cholesterol 120 mg/dL <200 4 [address] [place] [address] [phone] Triglycerides 104 mg/dL <150 5 HDL Cholesterol 42 mg/dL >40 6 LDL-Cholesterol 57 mg/dL < 100 7 Glycohemoglobin 08/22/2019 [facility] Glycohemoglobin 6.9 % High 4.2-6.3 8 A1c [address] [place] (A1c) [place] [address] [phone] eAG 151 mg/dL Laboratory 08/22/2019 [facility] Vitamin 43.4 30.0-100.0 9 test finding [address] D,25-Hydroxy ng/[place] [address] [phone] Slide Review 08/22/2019 [facility] Slide Review (SEE [address] NOTE) [place] [address] [phone] Calcium 08/08/2019 N2N/CCD Import Calcium Level 8.5 [...] Estimated GFR >60 >60 pred.black ( SerPl [place]) MDRD-ArVRat GFR/Bsa 08/08/2019 N2N/CCD Import Estimated GFR >60 >60 pred.non (Non- black SerPl [place] MDRD-ArVRat BUN 08/08/2019 N2N/CCD Import Blood Urea [...] Mean 94.3 80.0-96.0 Corpuscular Volume Basic 08/08/2019 [facility] Glucose 203 High 74-106 [address] mg/[place] [address] [phone] BUN 3 mg/dL Critical low 7-18 Creatinine 0.6 mg/dL Normal 0.6-1.3 Glom Filtration Rate, Estimate >60 mL/min >60 If >60 mL/min >60 12 BUN/Creat 5.0 ratio Sodium 133 mmol/L Low 136-145 Potassium 4.5 mmol/L 3.5-5.1 Chloride 104 mmol/L Normal 98-107 Carbon Dioxide 24 mmol/L Normal 21-32 Anion Gap 5 mEq/L Low 8-16 Calcium 8.5 mg/dL Normal 8.5-10.1 CBC 08/08/2019 [facility] White Blood Count 8.3 K/uL Normal 3.4-10.[address] [place] [address] [phone] Red Blood Count 3.67 M/uL Low 4.20-5.80 [...] High 70-110 Glucomtr-mCnc Cortisol - 3 08/07/2019 [facility] Cortisol #1 17.8 . [address] (Base) g/[place] [address] [phone] Cortisol #2 16.3 g/dL Not Estab. Cortisol #3 13.3 g/dL Not Estab. 14 Basic Metabolic 08/07/2019 [facility] Glucose 29 mg/dL Critical low 74-106 Panel [address] [place] [address] [phone] BUN 5 mg/dL Critical low 7-18 Creatinine 0.6 mg/dL Normal 0.6-1.3 Glom Filtration Rate, Estimate >60 mL/min >60 If >60 mL/min >60 15 BUN/Creat 8.3 ratio Sodium 135 mmol/L Low 136-145 Potassium 3.6 mmol/L Normal 3.5-5.1 Chloride 106 mmol/L Normal 98-107 Carbon Dioxide 26 mmol/L Normal 21-32 Anion Gap 3 mEq/L Low 8-16 Calcium 8.3 mg/dL Low 8.5-10.1 CBC 08/07/2019 [facility] White Blood Count 11.8 K/uL High 3.4-10.5 [address] [place] [address] [phone] Red Blood Count 3.66 M/uL Low 4.20-5.80 [...] Bld Auto (Auto) TSH Reflex FT4 08/06/2019 [facility] Thyroid Stim 1.94 Normal 0.30-4.20 And/Or FT3 [address] Hormone uIU/mL [facility] [place] [address] [phone] Reflex add FT3? N Reflex add FT4? Y Basic Metabolic Panel 08/06/2019 [facility] Glucose 91 mg/dL Normal 74-[address] [place] [address] [phone] BUN 10 mg/dL Normal 7-18 Creatinine 0.7 [...] N Reflex add FT4? Y Glycohemoglobin 08/06/2019 [facility] Glycohemoglobin 6.9 % High 4.2-6.3 [address] (A1c) [place] [address] [phone] eAG 151 mg/dL CBC W/Automated 08/06/2019 [facility] White Blood 10.3 K/uL Normal 3.4-10.[address] [place] [address] [phone] Red Blood Count 3.80 M/uL Low 4.20-5.80 [...] 33.0-73.0 Lymph % 6.8 % Low 20.0-42.0 [place] % 9.7 % Normal 0.0-10.0 Eo% 0.2 % Normal 0.0-6.6 Bas% 0.4 % Normal 0.0-1.1 Immature Grans 0.4 % Normal 0.0-5.0 NRBC % 0.0 /100WBC < 10/ 100 WBC Neut# 8.47 K/uL High 1.8-7.0 Lymph # 0.70 K/uL Low 1.0-4.0 [place] # 1.00 K/uL High 0.0-0.8 Eos # [...] 3.4-10.5 [address] [place] [address] [phone] Red Blood Count 4.08 M/uL Low 4.20-5.80 [...] 33.0-73.0 Lymph % 6.5 % Low 20.0-42.0 [place] % 8.1 % Normal 0.0-10.0 Eo% 0.1 % Normal 0.0-6.6 Bas% 0.4 % Normal 0.0-1.1 Immature Grans 0.8 % Normal 0.0-5.0 NRBC % 0.0 /100WBC < 10/ 100 WBC Neut# 12.00 K/uL High 1.8-7.0 Lymph # 0.93 K/uL Low 1.0-4.0 [place] # 1.16 K/uL High 0.0-0.8 Eos # [...] Import Lipase 101 56-289 SerPl-cCnc Laboratory 08/05/2019 [facility] Troponin-I < 0.015 19 test finding [address] ng/[place] [address] [phone] Laboratory 08/05/2019 [facility] Rapid Strep A Negative Negative 20 test finding [address] [place] [address] [phone] Influenza A/B 08/05/2019 [facility] Influenza A Antigen Negative (Negative) Antigen [address] [place], [place] [address] [phone] Influenza B Antigen Negative (Negative) 21 Urinalysis With 08/05/2019 [facility] Urine Color Yellow Yellow Microscopic [address] [place] [address] [phone] Urine Clarity Clear Clear Urine Glucose - Dipstick TRACE mg/dL Negative Urine Bilirubin - Dipstick NEGATIVE Negative Urine Ketone 20 mg/dL Abnormal Negative Urine Specific [place] 1.021 Normal 1.010-1.030 Urine Blood NEGATIVE Negative [...] CAT <SEE NOTE> 22 Laboratory test 08/05/2019 [facility] Throat Strep NO BETA [address] [place] [address] <SEE NOTE> [phone] Fluav Ag XXX Ql 08/05/2019 N2N/CCD Import [...] comment Report Reflexed Follow Urine Culture 07/14/2019 [facility] Urine Culture URETHRAL [address] [place] [address] [phone] Quantity 10,000 - 50,000 <SEE NOTE> 25 Laboratory test finding 07/14/2019 [facility] CK 45 U/L Normal 39-308 [address] [place] [address] [phone] Troponin-I 0.015 ng/mL 26 Comprehensive Metabolic 07/14/2019 [facility] Glucose 125 mg/dL High 74-106 Panel [address] [place] [address] [phone] BUN 9 mg/dL Normal 7-18 Creatinine 0.9 [...] 22 U/L Low 45-117 Culture If 07/14/2019 [facility] Culture If CULTURE TO 28 Indicated Comment 134 [facility] Indicated Comment FOLLO <[place] [address] NOTE> [phone] Source: URINE, CLEAN CAT <SEE NOTE> 29 Urinalysis With 07/14/2019 [facility] Urine Color Yellow Yellow Microscopic [address] [place], [place] [address] [phone] Urine Clarity Clear Clear Urine Glucose - Dipstick 500 mg/dL Abnormal Negative Urine Bilirubin - Dipstick NEGATIVE Negative Urine Ketone NEGATIVE mg/dL Negative Urine Specific [place] 1.021 Normal 1.010-1.030 Urine Blood NEGATIVE Negative [...] CAT <SEE NOTE> 30 Blood Culture 07/14/2019 [facility] Blood Culture NO GROWTH: FINAL [address] Aerobic <SEE NOTE> [place] [address] [phone] Blood Culture Anaerobic NO GROWTH: FINAL <SEE NOTE> 32 Bacteria Bld 07/14/2019 N2N/CCD Import Aerobic Blood No Growth: Final Aerobe Cult Culture Report Bacteria Bld 07/14/2019 N2N/CCD Import Anaerobic Blood No Growth: Final Anaerobe Cult Culture Report Blood Culture 07/14/2019 [facility] Blood Culture NO GROWTH: FINAL [address] Aerobic <SEE NOTE> [place] [address] [phone] Blood Culture Anaerobic NO GROWTH: FINAL <SEE NOTE> 34 CBC W/Automated 07/14/2019 [facility] White Blood 10.7 K/uL High 3.4-10.[address] [place] [address] [phone] Red Blood Count 4.41 M/uL Normal 4.20-5.80 [...] 33.0-73.0 Lymph % 12.4 % Low 20.0-42.0 [place] % 7.2 % Normal 0.0-10.0 Eo% 0.8 % Normal 0.0-6.6 Bas% 0.6 % Normal 0.0-1.1 Immature Grans 0.5 % Normal 0.0-5.0 NRBC % 0.0 /100WBC < 10/ 100 WBC Neut# 8.38 K/uL High 1.8-7.0 Lymph # 1.32 K/uL Normal 1.0-4.0 [place] # 0.77 K/uL Normal 0.0-0.8 Eos # 0.08 K/uL Normal 0.0-0.5 Baso # 0.06 K/uL Normal 0.0-0.1 Immature Grans Absolute 0.05 K/uL NRBC # 0.00 K/uL Lactate SerPl-sCnc 07/14/2019 N2N/CCD Import Lactic Acid 1.0 0.4-1.9 Level Lactic Acid 07/14/2019 [facility] Lactic Acid 1.0 mmol/L Normal 0.4-1.[address] [place], [place] [phone] Lab Reflex >2.0 for Sepsis? N Laboratory test 07/14/2019 [facility] LDH 200 Normal 87-[address] U/L [place], [place] [address] [phone] Creat Ur-mCnc 05/14/2019 N2N/CCD Import Urine Creatinine 156 Concentration Microalbumin/Crea 05/14/2019 N2N/CCD Import Urine 73.7 < 30.0 t Ur-Rto Microalbumin/Cre atinine Ratio Microalbumin 05/14/2019 N2N/CCD Import Urine 115.0 < 20.0 Ur-mCnc Microalbumin Comprehensive 05/14/2019 [facility] Glucose 101 Normal 74-106 35 Metabolic Panel [address] mg/dL [place], [place] [address] [phone] BUN 14 mg/dL Normal 7-18 Creatinine 1.0 [...] 20 U/L Low 45-117 CBC W/Automated 05/14/2019 [facility] White Blood 11.2 K/uL High 3.4-10.[address] [place] [address] [phone] Red Blood Count 5.02 M/uL Normal 4.20-5.80 [...] 33.0-73.0 Lymph % 10.5 % Low 20.0-42.0 [place] % 8.1 % Normal 0.0-10.0 Eo% 1.3 % Normal 0.0-6.6 Bas% 0.6 % Normal 0.0-1.1 Immature Grans 0.4 % Normal 0.0-5.0 NRBC % 0.0 /100WBC < 10/ 100 WBC Neut# 8.84 K/uL High 1.8-7.0 Lymph # 1.18 K/uL Normal 1.0-4.0 [place] # 0.91 K/uL High 0.0-0.8 Eos # 0.14 K/uL Normal 0.0-0.5 Baso # 0.07 K/uL Normal 0.0-0.1 Immature Grans Absolute 0.05 K/uL NRBC # 0.00 K/uL Laboratory test 05/14/2019 [facility] Cholesterol 141 <200 [address] mg/[place] [address] [phone] Glycohemoglobin 05/14/2019 [facility] Glycohemoglobin 7.4 % High 4.2-6. [address] (A1c) 3 [place] [address] [phone] eAG 166 mg/dL Microalbumin,Random 05/14/2019 [facility] Microalbumin,Urine 115.0 < 20.[address] mg/[place] [address] [phone] Microalb/Creat 05/14/2019 [facility] Microalbumin/Creatin 73.7 < 30.0 Ratio,Random [address] ine Ratio ug/[place] [address] t [phone] Urine Creatinine Conc 156 mg/dL Glycohemoglobin 04/29/2019 [facility] Glycohemoglobin 7.5 % High 4.2-6.3 40, A1c [address] (A1c) [address] [place] [address] [phone] eAG 169 mg/dL CBC W/Automated 04/29/2019 [facility] White Blood 9.5 K/uL Normal 3.4-10.[address] [place] [address] [phone] Red Blood Count 4.86 M/uL Normal 4.20-5.80 [...] 33.0-73.0 Lymph % 14.6 % Low 20.0-42.0 [place] % 8.6 % Normal 0.0-10.0 Eo% 1.9 % Normal 0.0-6.6 Bas% 0.6 % Normal 0.0-1.1 Immature Grans 0.4 % Normal 0.0-5.0 NRBC % 0.0 /100WBC < 10/ 100 WBC Neut# 6.99 K/uL Normal 1.8-7.0 Lymph # 1.38 K/uL Normal 1.0-4.0 [place] # 0.81 K/uL High 0.0-0.8 Eos # 0.18 K/uL Normal 0.0-0.5 Baso # 0.06 K/uL Normal 0.0-0.1 Immature Grans Absolute 0.04 K/uL NRBC # 0.00 K/uL Comprehensive 04/29/2019 [facility] Glucose 80 mg/dL Normal 74-106 Metabolic Panel [address] [place] [address] [phone] BUN 19 mg/dL High 7-18 Creatinine 1.0 [...] U/L Low 45-117 LDL Cholesterol Profile 04/29/2019 [facility] Cholesterol 146 mg/dL <200 44 [address] [place] [address] [phone] Triglycerides 78 mg/dL <150 45 HDL Cholesterol 37 mg/dL Low >40 46 LDL-Cholesterol 93 mg/dL < 100 47 Laboratory test 04/29/2019 [facility] Vitamin 52.3 30.0-100.0 [address] D,25-Hydroxy ng/[place] [address] [phone] Hepatitis C Antibody < 0.1 s/corat 0.0-0.9 49 Trigl SerPl-mCnc 04/29/2019 N2N/CCD Import Triglycerides Level 78 <150 LDLc SerPl 04/29/2019 N2N/CCD Import LDL Cholesterol, 93 < 100 Calc-mCnc Calculated HCV Ab s/co SerPl 04/29/2019 N2N/CCD Import Hepatitis C Ab < 0.1 0.0- 0.9 Ia Signal/Cutoff Ratio Laboratory test 03/27/2019 [facility] Prostate Specific 0.17 < 4.0 50, [address] Antigen ng/[place] [address] [phone] 1 I10,E78.5,E11.9,E55.9 2 Note: Persistent reduction for [...] for more aggressive treatment of glycemia. The [place] Diabetes Association recommends that a primary goal of therapy should be a HbA1c of <7% and that physicians should re-evaluate the treatment regimen in patients with HbA1c values consistently >8%. 9 Vitamin D deficiency has been defined by the [place] of Medicine and an Endocrine Society practice guideline as a level of serum 25-OH vitamin D less than 20 ng/mL (1,2). The Endocrine Society went on to further define vitamin D insufficiency as a level between 21 and 29 ng/mL (2). 1. IOM ([place] of Medicine). 2010. Dietary reference intakes for calcium and D. [place]: The National Academies Press. 2. Margarita MF, Jesús [place], David DUBON, et al. Evaluation, treatment, and prevention of vitamin D deficiency: an Endocrine Society clinical practice guideline. JCEM. 2010; 96(7):1911-30. Performed at: RN - [facility] [address] [id number] Photogrammetric Technician: Michelle Lima MD, Phone: [phone] Instrument flagged sample for slide review. [...] 11.9 14 Performed at: RN - [facility] [address] [id number] Photogrammetric Technician: Michelle Lima MD, Phone: [phone] Note: Persistent reduction for 3 months [...] for more aggressive treatment of glycemia. The [place] Diabetes Association recommends that a primary goal [...] of negative result is in progress Method: [employer] Chromatographic immunoassay 21 Please Note: A POSITIVE [...] influenza A and B molecular assay. Method: [employer] Chromatographic immunoassay 22 URINE, CLEAN CATCH 23 [...] for more aggressive treatment of glycemia. The [place] Diabetes Association recommends that a primary goal of therapy should be a HbA1c of <7% and that physicians should re-evaluate the treatment regimen in patients with HbA1c values consistently >8%. 40 E11.9 V89.2XXA E78.5 E55.9 41 Elevated levels of HbA1c suggest the need for more aggressive treatment of glycemia. The [place] Diabetes Association recommends that a primary goal [...] D deficiency has been defined by the [place] of Medicine and an Endocrine Society practice guideline as a level of serum 25-OH vitamin D less than 20 ng/mL (1,2). The Endocrine Society went on to further define vitamin D insufficiency as a level between 21 and 29 ng/mL (2). 1. IOM ([place] of Medicine). 2010. Dietary reference intakes for calcium and D. [place]: The National Academies Press. 2. Margarita MF, Jesús [place], David DUBON, et al. Evaluation, treatment, and prevention of vitamin D deficiency: an Endocrine Society clinical practice guideline. JCEM. 2010; 96(8):1911-30. Performed at: - [facility] [id number] Photogrammetric Technician: Michelle Lima MD, Phone: [phone] INFCE Result Units: s/co ratio Negative: < 0.8 Indeterminate: 0.8 - 0.9 Positive: > 0.9 The CDC recommends that a positive HCV antibody result be followed up with a HCV Nucleic Acid Amplification test (818137). Performed at: - [facility] [address] [id number] Photogrammetric Technician: Michelle Lima MD, Phone: [phone] Z85.46 51 THIS ASSAY IS NOT INTENDED A CANCER SCREENING TEST The concentration of PSA in a given specimen, determined with assays from different manufacturers, can vary due to differences in assay methods and reagent specificity. Values obtained from different assay methods cannot be used interchangeably. Method: Siemens Dimension [place] Chemiluminescent immunoassay. Procedures Date Code Description Status 2019 [address]9749 I&D, perianal abscess, superficial Completed 03/27/2019 11065 Measurement Post Voiding Residual Urine By Completed Ultrasound,Non-Imaging 03/27/2019 19575 complex uroflowmetry electronic Completed 02/26/2019 [id number] Colonoscopy Completed 05/24/2017 [id number] Diabetic Foot Exam Completed 12/29/2013 [id number] Colonoscopy Completed Medical Devices Description No Information Available Encounters Type Date Location Provider Dx Diagnosis Office Visit 08/20/2019 Cardiology Office Abbey Jimenez I25.119 Athscl heart 10:20a Fernando, VIPUL, disease of [place] ROBOTICS ENGINEER cor art w unsp ang pctrs I73.9 Peripheral vascular disease, unspecified E78.5 Hyperlipidemia, unspecified I10 Essential (primary) hypertension Office Visit 08/15/2019 10:10a Primary Care Chantal, E11.9 Type 2 diabetes Office Treva, MS, mellitus without ROBOTICS ENGINEER-C, CNM complications 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 I10 Essential (primary) hypertension E78.5 Hyperlipidemia, unspecified G47.00 Insomnia, unspecified E55.9 Vitamin D deficiency, unspecified N50.89 Other specified disorders of the male genital organs R63.4 Abnormal weight loss Z71.6 Tobacco abuse counseling Office Visit 07/17/2019 10:30a Primary Care Chantal, D44.10 Neoplasm of Office MS Treva, uncertain ROBOTICS ENGINEER-C, CNM behavior of unspecified adrenal gland R63.4 Abnormal weight loss G47.00 Insomnia, unspecified Office Visit 05/21/2019 11:00a Primary Care Treva Cornejo, Z85.46 Personal history Office MS, ROBOTICS ENGINEER-C, CNM of malignant neoplasm of prostate Z12.11 Encounter for screening for malignant neoplasm of colon 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 [place] cor art w unsp ang pctrs I73.9 [...] Non-small cell lung cancer Treva Cornejo, MS, ROBOTICS ENGINEER-C, CN 08/29/2019 E87.1 Hypo-osmolality and hyponatremia Treva Cornejo MS, ROBOTICS ENGINEER -C, [facility] 08/29/2019 N50.89 Swelling of scrotum Treva Cornejo MS, ROBOTICS ENGINEER-C, [facility] 08/29/2019 F17.210 Nicotine dependence, cigarettes, Treva Cornejo, , ROBOTICS ENGINEER-C, uncomplicated CN 08/29/2019 E11.9 Type 2 diabetes mellitus without Treva Cornejo, MS, ROBOTICS ENGINEER -C, complications [facility] 08/29/2019 I10 Essential (primary) hypertension Treva Cornejo, , ROBOTICS ENGINEER-C , [facility] 08/29/2019 E78.5 Hyperlipidemia, unspecified Treva Cornejo, , ROBOTICS ENGINEER-C, [facility] 08/29/2019 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 MS, ROBOTICS ENGINEER-C, [place] coronary artery with [facility] 08/29/2019 D72.829 Elevated white blood cell count, Treva Cornejo, , ROBOTICS ENGINEER-C, unspecified [facility] 08/22/2019 I10 Essential (primary) hypertension Walt Cortez MD 08/22/2019 I10 Essential (primary) hypertension [facility] 08/22/2019 E78.5 Hyperlipidemia, unspecified Walt Cortez MD 08/22/2019 E78.5 Hyperlipidemia, unspecified [facility] 08/22/2019 E11.9 Type 2 diabetes mellitus without Walt Cortez MD complications 08/22/2019 E11.9 Type 2 diabetes mellitus without [facility] complications 08/22/2019 E55.9 Vitamin D deficiency, unspecified Walt Cortez MD 08/22/2019 E55.9 Vitamin D deficiency, unspecified [facility] 08/20/2019 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, VIPUL, [place] coronary artery with [facility] 08/20/2019 I73.9 Peripheral vascular disease, Abbey Jimenez, VIPUL, unspecified [facility] 08/20/2019 E78.5 Hyperlipidemia, unspecified Abbey Jimenez, VIPUL, [facility] 08/20/2019 I10 Essential (primary) hypertension Abbey Jimenez, MSN, [facility] 08/15/2019 E11.9 Type 2 diabetes mellitus without Treva Cornejo, MS, ROBOTICS ENGINEER -C, complications [facility] 08/15/2019 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.10 Neoplasm of uncertain behavior of Treva Cornejo, , ROBOTICS ENGINEER-C, unspecified adrenal gland [facility] 08/15/2019 I10 Essential (primary) hypertension Treva Cornejo, MS, ROBOTICS ENGINEER-C , [facility] 08/15/2019 E78.5 Hyperlipidemia, unspecified Chantal, Treva, MS, ROBOTICS ENGINEER-C, [facility] 08/15/2019 G47.00 Insomnia, unspecified Treva Cornejo, MS, ROBOTICS ENGINEER-C, [facility] 08/15/2019 E55.9 Vitamin D deficiency, unspecified Treva Cornejo, MS, ROBOTICS ENGINEER-C, [facility] 08/15/2019 N50.89 Swelling of scrotum Treva Cornejo, MS, ROBOTICS ENGINEER-C, [facility] 08/15/2019 R63.4 Abnormal weight loss Treva Cornejo, MS, ROBOTICS ENGINEER-C, [facility] 08/15/2019 Z71.6 Tobacco abuse counseling Treva Cornejo, MS, ROBOTICS ENGINEER-C, [facility] 08/08/2019 R11.15 Cyclical vomiting syndrome unrelated Jorge Nieto, ROBOTICS ENGINEER to migraine 08/08/2019 R19.7 Diarrhea, unspecified Jorge Nieto, ROBOTICS ENGINEER 08/08/2019 E86.0 Dehydration Felice Nietoley, ROBOTICS ENGINEER 08/08/2019 E11.649 Type 2 diabetes mellitus with Cadet, Jorge, ROBOTICS ENGINEER hypoglycemia without coma 08/07/2019 E87.1 Hypo-osmolality and hyponatremia Felice Nietoley, ROBOTICS ENGINEER 08/07/2019 E86.0 Dehydration KaroetFeliceJorge, ROBOTICS ENGINEER 08/07/2019 E11.649 Type 2 diabetes mellitus with Cadet, Jorge, ROBOTICS ENGINEER hypoglycemia without coma 08/06/2019 R19.7 Diarrhea, unspecified KaroetFeliceJorge, ROBOTICS ENGINEER 08/06/2019 E87.1 Hypo-osmolality and hyponatremia Jorge Nieto, ROBOTICS ENGINEER 08/06/2019 E86.0 Dehydration Emilia Jorge, ROBOTICS ENGINEER 08/05/2019 R11.15 Cyclical vomiting syndrome unrelated Benjamin Akins M.D. to migraine 08/05/2019 R19.7 Diarrhea, unspecified Benjamin Akins M.D. 08/05/2019 E87.1 Hypo-osmolality and hyponatremia Benjamin Akins M.D. 08/05/2019 R93.3 Abnormal findings on diagnostic Benjamin Akins M.D. 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, MS, ROBOTICS ENGINEER-C, [place] coronary artery with CNM 05/21/2019 I73.9 Peripheral vascular disease, Treva Cornejo, MS, ROBOTICS ENGINEER-C, unspecified CNM 05/21/2019 R19.7 Diarrhea, unspecified Gagen, Treva, MS, ROBOTICS ENGINEER-C, CNM 05/21/2019 E11.9 Type 2 diabetes mellitus without Gagen, Treva, MS, ROBOTICS ENGINEER -C, complications CNM 05/21/2019 I10 Essential (primary) hypertension Treva Cornejo, MS, ROBOTICS ENGINEER-C , CNM 05/21/2019 F17.210 Nicotine dependence, cigarettes, Chantal, Treva, MS, ROBOTICS ENGINEER-C, uncomplicated CNM 05/21/2019 Z71.6 Tobacco abuse counseling ElidaTreva felix, MS, ROBOTICS ENGINEER-C, CNM 05/21/2019 E78.5 Hyperlipidemia, unspecified Gagen, Treva, , ROBOTICS ENGINEER-C, CNM 05/05/2019 Z85.46 Personal history of malignant Treva Cornejo, , ROBOTICS ENGINEER-C , neoplasm of prostate CNM 05/05/2019 Z12.11 Encounter for screening for malignant Treva Cornejo, , ROBOTICS ENGINEER-C, neoplasm of colon CNM 05/05/2019 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, , ROBOTICS ENGINEER-C, [place] coronary artery with CNM 05/05/2019 E78.5 Hyperlipidemia, unspecified Treva Cornejo, MS, ROBOTICS ENGINEER-C, CNM 05/05/2019 I73.9 Peripheral vascular disease, Treva Cornejo, MS, ROBOTICS ENGINEER-C, unspecified CNM 05/05/2019 I10 Essential (primary) hypertension Treva Cornejo, MS, ROBOTICS ENGINEER-C , CNM 05/05/2019 F17.210 Nicotine dependence, cigarettes, Treva Cornejo, MS, ROBOTICS ENGINEER-C, uncomplicated CNM 05/05/2019 E11.9 Type 2 diabetes mellitus without Treva Cornejo, MS, ROBOTICS ENGINEER -C, complications CNM 05/05/2019 R19.7 Diarrhea, unspecified Treva Cornejo, MS, ROBOTICS ENGINEER-C, CNM 05/05/2019 E55.9 Vitamin D deficiency, unspecified Treva Cornejo, MS, ROBOTICS ENGINEER-C, CNM 05/05/2019 J44.9 Chronic obstructive pulmonary Treva Cornejo, MS, ROBOTICS ENGINEER-C, disease, unspecified CN 05/05/2019 Z71.6 Tobacco abuse counseling Treva Cornejo, MS, ROBOTICS ENGINEER-C, CNM 04/11/2019 Z48.817 Encounter for surgical aftercare Óscar Crenshaw MD,FACS following surgery on the skin and subcutaneous tissue 04/11/2019 K61.1 Rectal abscess Óscar Crenshaw MD,FACS 03/31/2019 Z23 Encounter for immunization Treva Cornejo MS, ROBOTICS ENGINEER-C, CN 03/31/2019 Z23 Encounter for immunization [...] Nicholas Drew MD Plan of Treatment Future Appointment(s):11/24/2019 9:00 am - [facility] [id number] 12:30 pm - Treva Cornejo MS, ROBOTICS ENGINEER-C, CNM at Primary Care [id number] 2:00 pm - Abbey Jimenez, VIPUL, ROBOTICS ENGINEER at Cardiology Otshyh8009/22/2019 10:30 am - Treva Cornejo MS, ROBOTICS ENGINEER-C, CNM at Primary Care Npbflc0408/29/2019 - Treva Cornejo MS, ROBOTICS ENGINEER-C, CNMC34.90 Non-small cell lung cancerNew Labs: Vitamin D,25-Hydroxy, Scheduled: 11/24/19Comments:--Following with DR Munguia. Office appointment on 08/25/2019 -- discussed treatment with palliative intent. Plan of care is to get a PET scan to stage cancer. He will then, most likely, start Keytruda with, or without, chemotherapy.E87.1 Hypo-osmolality and hyponatremiaNew Labs:CBC W/Automated Diff, Scheduled: 11/24/19Comprehensive Metabolic Panel, Scheduled: 11/24/19Comments:--serum sodium level on 05/14/2019 : 137. Then in July, 132> 135>133> presently 128 -- Most likely caused by disease component N chronic diarrhea. CT scan showed thickened left adrenal gland --I talked to 's office to alert them that patient may have had a "seizure" at Dr. amin's office. Dr. amin's office note was missing page 2 and 3 which was charted about this event. Office will fax over additional pages so that I may review.--I discussed with Dr. Munguia's office the "seizure", which the low sodium may have contributed to this. Their office is aware of the low sodium. They already draw additional labs. They gave him IV normal saline solution on Saturday 08/26.--Today wereviewed signs and symptoms of low sodium -edema, Emesis, diarrhea, H/A, confusion, fatigue, irritability, muscle weakness, spasms, cramps, seizures, coma.--creatinine, TSH WNLN50.89 Swelling of scrotumComments:--In light of his new diagnosis of lung cancer, patient declines sonogram at this time. -- Patient counseled if pain- go to ER to R/O enzypkkY18.210 Nicotine dependence, cigarettes, uncomplicatedComments:--Patient states that he is quitting smoking, in light of his akepzazzuI25.9 Type 2 diabetes mellitus without complicationsNew Labs: Glycohemoglobin A1c, Scheduled: 11/24/19Comments:--No episodes of hypoglycemia-- Controlled, Continue Levemir Flextouch 100 Unit/ML 52 units subq twice a dayNovolog Flexpen 100 Unit/ML inject 6 units before meals under the skin three times A day.Patient states endo said not to take his Novolog if his BS is < 150--HgA1C: 7.5 > 7.4 > 6.9-- Following with Dr Amin, priscilla OV 2019--Continue BP goal is <130/80 mmHg. --Diet: Include [...] feet for abrasions, cuts, non healing sores. Potentialfor neuropathy, poor healing. Report any changes. -- Microalbuminuria: 115--Microalbuminuria/creatinine mass ratio: 73.7 --Had Prevnar vaccination 2014, had pneumonia vaccination 2016.Counseled again on Shingrix --Was referred to resident physician Myrna Benitez NP in [place] by dwaine. In light of newdiagnosis of lung cancer, patient will hold on thisI10 Essential (primary) hypertensionComments:--BP goal <130/80 --Continue Ramipril 10 mg twice daily, Metoprolol Tartrate 25 mg 1 by mouth twice a day, HCTZ 12.5 mg po Qam--On last office visit, I ordered a blood pressure machine and advised patient to take blood pressures every day. Patient states that his blood pressures have been well controlled.E78.5 Hyperlipidemia, unspecifiedNew Labs:LDL Cholesterol Profile, Scheduled: 11/24/19Comments:-- Rosuvastatin Calcium was increased by endo from 10 mg to 20 mg take 1 by mouth at bedtime, Fenofibric Acid 105 mg take 1 tablet in the morning, maximum daily dose 1 Total Cholesterol: 141 > 120Triglycerides: 78 > 104High Density Lipids:37 > 42Low Density Lipids: 93 > 57--Quit smoking.Non smokers should avoid second hand smoke. --Do not lose anymore pptwnlZ80.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 heart disease of [place] coronary artery withComments:--Follows with cardiology.--s/p CABG 1998 at [facility]. S/p NSTEMI 12/2015; cath showed patent HOOKS toLAD and SVG to RCA, collaterals left to right and acute lesion Cx stented with BMS x 1. EF 65%.-- Remains asymptomatic.D72.829 Elevated white blood cell count, unspecifiedComments:--WBC 8.3 > 18.1 most likely due to his cancer.AllFollow up:--Phone consultation in 1 month for follow-up. No labs for this office visit --Return to office in 3 months. Please get labs 1 week prior to office visit. Please mail patient labs. This visit can beeither phone consultation or video. --Time for phone consultation was 45 minutes Functional Status Functional Condition Comment Date Status Glasses Active Mental Status Description No Information Available Referrals Refer to Reason for Referral Status Appt Date Richelle Munguia MD send [facility] note pls call Patient to let him Closed know address and that we are working on OV 07/18/2019 faxed notes.. [address], [place] [id number] [phone] Nicholas Amin MD was going to endo who retired diabetes Closed 06/25/[address] [place] [address] [phone]
--- OUTSIDE RECORDS SUMMARY | 2019-09-05 07:27 | XMS REPORT | Continuity of Care Document ---
:1945 External Reference #:[id number] Author Name Chris Mckenzie M.D. (transmitted by agent of provider Tashia Daly) Address [address] [place] [id number] Care Team Providers Name Role Phone Ximena Galvan M.D. - Cardiovascular Care Team Information Flight Teacher Disease Treva Cornejo NP - Obstetrics & Care Team Information Flight Teacher [phone] Gynecology Problems Active Problems Provider Date Navneet hematuria Leslie Lopez P.A. Onset: 01/20/2016 Encephalomalacia Leslie Lopez P.A. Onset: 01/17/2016 Abdominal aortic aneurysm Leslie Lopez P.A. Onset: 08/16/2015 Leiomyoma of lung Leslie Lopez P.A. Onset: 06/28/2015 Non-alcoholic fatty liver Mariano Rhodes M.D. Onset: 06/01/2015 Peripheral vascular disease Mariano Rhodes M.D. Onset: 06/01/2015 Adult health examination Leslie Lopez P.A. Onset: 03/11/2015 Irritable bowel syndrome Leslie Lopez P.A. Onset: 03/11/2015 Hemorrhoids Leslie Lopez P.A. Onset: 03/11/2015 Diverticular disease of colon Mariano Rhodes M.D. Onset: 03/09/2015 Essential hypertension Leslie Lopez P.A. Onset: 01/20/2015 Congestive heart failure Leslie Lopez P.A. Onset: 01/20/2015 Disorder of prostate Leslie Lopez P.A. Onset: 01/20/2015 Impotence of organic origin Leslie Lopez P.A. Onset: 01/20/2015 Allergic rhinitis Leslie Lopez P.A. Onset: 01/20/2015 Cataract Leslie Lopez P.A. Onset: 01/20/2015 History of polyp of colon Leslie Lopez P.A. Onset: 01/20/2015 Angiodysplasia of duodenum Leslie Lopez P.A. Onset: 01/20/2015 Chronic renal failure Leslie Lopez P.A. Onset: 01/20/2015 Coronary arteriosclerosis Leslie Lopez P.A. Onset: 01/20/2015 Chronic obstructive lung disease Leslie Lopez P.A. Onset: 01/20/2015 Type 2 diabetes mellitus Leslie Lopez P.A. Onset: 01/20/2015 Degenerative joint disease involving multiple Leslie Lopez P.A. Onset: joints Carotid artery occlusion Chris Mckenzie M.D. Onset: 10/19/2016 Pure hypercholesterolemia Chris Mckenzie M.D. Onset: 10/19/2016 Atherosclerosis of arteries of the extremities Chris Mckenzie M.D. Onset: Social History Type Date Description Comments Sex Unknown Tobacco Use Start: Unknown currently smokes 1/2 Pack Daily ETOH Use Denies alcohol use Tobacco Use Reviewed: 07/30/19 Patient is a current smoker, smokes every day Smoking Status Reviewed: 07/30/19 Patient is a current smoker, smokes every day Allergies, Adverse Reactions, Alerts Active Allergies Reaction Severity Comments Date Chantix Nausea and Vomiting Moderate 03/20/2016 Prozac 01/03/2016 Metformin lactic acidosis Moderate 12/16/2015 Victoza nausea Severe 01/20/2015 Bupropion dizziness Moderate 01/20/2015 Famciclovir 01/20/2015 Morphine And Related 01/20/2015 Pioglitazone 01/20/2015 Pravastatin 01/20/2015 Morphine 12/24/2013 Liraglutide 12/24/2013 Bee Sting Anaphylaxis 10/19/2016 Medications Active Medications SIG Qnty Indications Ordering Date Provider Azelastine HCL (Nasal) 2 spays in each 90units J30.9 Wei Perez, 2015 0.1% nostril twice a D.O. Solution day as needed Loperamide A-D 1 by mouth 360tabs Wei Perez, 11/25/2015 2mg Tablets after each D.O. unformed bm up to 8 times daily Levemir Flexpen 52 units bid 9units John, 08/25/2015 100Unit/ML Leslie P.ANohemi Solution Pen-Inject Cilostazol take 1 tablet Unknown 100mg Tablets by mouth twice a day Glucosamine 1000 mg daily Unknown Hydrochlorothiazide every day Unknown 12.5mg Capsules Vitamin D (Ergocalciferol) every week Unknown 1.25mg (04370 Ut) Capsules Ramipril 1 by mouth Unknown 5mg Capsules twice a day Novolog Flexpen ss OlegarioDann oh, 100Unit/ML M.DNohemi Solution Pen-Inject Multiple Vitamin 1 by mouth Unknown Tablets every day Polyethylene Glycol 3350 prn Unknown 3350NF Powder Acetaminophen 2 tabs by mouth Unknown 325mg Tablets every 6h as needed Nitrostat 1 tab sl every Unknown 0.4mg Tablets Sub 5 min x3 chest pain Metoprolol Tartrate 1 by mouth 180tabs Wei Perez, 25mg Tablets twice a day D.O. Crestor 1 by mouth 90tabs Parul Foster, 10mg Tablets every day at M.D. bedtime Fenofibric Acid every day Unknown 135mg Capsules Aspir-81 1 by mouth 90tabs Wei Perez, 81mg Tablets DR every day D.O. Immunizations Description No Information Available Vital Signs Date Vital Result Comment 07/30/2019 10:11am BP Systolic Right Arm 160 mmHg BP Diastolic Right Arm 60 mmHg BP Systolic Left Arm 170 mmHg BP Diastolic Left Arm 80 mmHg Heart Rate 88 /min Height 67 inches 5'7" Weight 158.00 lb Weight 71.669 kg BMI (Body Mass Index) 24.7 kg/m2 09/19/2018 9:32am BP Systolic Right Arm 150 mmHg BP Diastolic Right Arm 80 mmHg BP Systolic Left Arm 168 mmHg BP Diastolic Left Arm 80 mmHg Height 67 inches 5'7" Weight 173.00 lb Weight 78.473 kg BMI (Body Mass Index) 27.1 kg/m2 Results Test Acquired Date Facility Test Result H/L Range Note Poct glucose 07/15/2019 N2N/CCD Import Glucose, Poc 220 mg/dL High 70 - 99 1 Hemoglobin A1c 07/15/2019 N2N/CCD Import Hemoglobin A1c 7.1 % High 4.0 - 6.0 2 Est. Average Glucose 157 mg/dL Cortisol 07/15/2019 N2N/CCD Import Cortisol #1 15.7 g/dL 3 (Base) Lactate 07/15/2019 N2N/CCD Import LD 144 U/L 84 - 246 dehydrogenase CBC 07/15/2019 N2N/CCD Import WBC 8.9 10*3/uL 4.1 - 11.0 RBC 4.34 10*6/uL Low 4.60 - 6.10 Hemoglobin 13.9 g/dL 13.5 - 18.0 Hematocrit 40.4 % Low 41.0 - 53.0 MCV 93.0 fL 80.0 - 95.0 MCH 32.1 pg High 27.0 - 32.0 MCHC 34.5 g/dL 32.0 - 36.0 RDW 13.6 % 10.5 - 14.5 Platelets 341 10*3/uL 150 - 450 MPV 8.2 fL 7.1 - 10.7 Urinalysis w/ hold tube for culture 07/15/2019 N2N/CCD Import Color, Ua Yellow Appearance Clear Specific [place], Ua >1.040 High 1.003 - 1.030 pH, Urine 6.0 5.0 - 7.5 Leukocyte Esterase Negative Negative Nitrite, Ua Negative Negative Protein, Ua Negative Negative Glucose, Ua Trace Abnormal Negative Ketones, Ua Negative Negative Urobilinogen, Ua 1.0 mg/dL 0 - 1.0 Bilirubin, Ua Negative Negative Blood, Ua Negative Negative Urine specimen 07/15/2019 N2N/CCD Import Urine specimen held Urine Specimen 4 held in lab for in lab for culture Available In Lab culture For 24 Hours Type and screen 07/15/2019 N2N/CCD Import Specimen Expiration 07/17/2019 Date Patient Abo/Rh A Positive Antibody Screen Negative Testing site Performed AT [address] [place] [address] Blood bank comment See Notes 5 CMP 07/15/2019 N2N/CCD Import Sodium 137 mmol/L 136 - 145 Potassium 3.7 mmol/L 3.6 - 5.2 Chloride 105 mmol/L 100 - 108 Co2 27 mmol/L 22 - 31 Anion Gap 5 mmol/L Low 7 - 16 Urea nitrogen 8 mg/dL 7 - 24 Creatinine 0.87 mg/dL 0.80 - 1.30 BUN/Creatinine Ratio 9.2 Low 10.0 - 20.0 Ratio Glucose 75 mg/dL 70 - 99 Calcium 8.8 mg/dL 8.4 - 10.2 Protein, Total 6.9 g/dL 6.4 - 8.2 Albumin 3.3 g/dL 3.2 - 4.5 Globulin 3.6 g/dL 2.7 - 4.3 Alb/Glob ratio 0.9 Ratio Alkaline Phosphatase 22 U/L Low 45 - 117 Bilirubin, Total 0.4 mg/dL 0.0 - 1.0 Ast 15 U/L 11 - 39 Alt 14 U/L 12 - 78 GFR MDRD Non Af Amer >60 >59 ml/min/1.73m2 GFR MDRD Af Amer >60 >59 ml/min/1.73m2 Glom Filt Rate, Est See Notes 6 Protime-Inr 07/15/2019 N2N/CCD Import Protime 10.6 s 9.2 - 11.9 Inr 1.03 7 Aptt 07/15/2019 N2N/CCD Import aPTT 30.1 s 22.0 - 34.3 Lipase 07/15/2019 N2N/CCD Import Lipase 131 U/L 65 - 230 CBC and differential 07/15/2019 N2N/CCD Import WBC 11.6 10*3/uL High 4.1 - 11.0 RBC 4.35 10*6/uL Low 4.60 - 6.10 Hemoglobin 13.7 g/dL 13.5 - 18.0 Hematocrit 40.0 % Low 41.0 - 53.0 MCV 91.8 fL 80.0 - 95.0 MCH 31.5 pg 27.0 - 32.0 MCHC 34.3 g/dL 32.0 - 36.0 RDW 13.6 % 10.5 - 14.5 Platelets 373 10*3/uL 150 - 450 MPV 7.7 fL 7.1 - 10.7 Neutrophils % 78.3 % High 35.0 - 75.0 Lymphocytes Relative 11.2 % Low 16.0 - 52.0 Monocytes Relative 9.3 % High 0.0 - 8.0 Eosinophils Relative 0.7 % 0.0 - 5.0 Basophils Relative 0.5 % 0.0 - 4.0 Neutrophils Absolute 9.1 10*3/uL High 1.8 - 7.7 Lymphocytes Absolute 1.3 10*3/uL 1.2 - 4.8 Monocytes Absolute 1.1 10*3/uL High 0.0 - 0.8 Eosinophils Man 0.1 10*3/uL 0.0 - 0.5 Basophils Absolute 0.1 10*3/uL 0.0 - 0.2 1 PERFORMED BY [facility] CLINICAL STAFF 2 Performed using Siemens Minerva immunoassay. Care must be taken when interpreting HbA1c results in patients with a hemoglobin variant or decreased erythrocyte lifespan. Values 5.7 - 6.4% suggest prediabetes. Values >=6.5% are diagnostic for diabetes. REFERENCE: DIABETES CARE 2018: 41([id number]). PERFORMED AT [address] [place] [address] 3 CORTISOL REFERENCE RANGE: 7-9AM 5.3 - 22.5 MCG/DL 4-6PM 3.4 - 16.8 MCG/DL LATE AFTERNOON LEVELS FALL TO APPROX. 1/2 AM VALUE. RESULTS REVIEWED 4 FOR ADD ON CULTURE 5 BLOOD TYPE CONFIRMED. 6 NORMAL KIDNEY FUNCTION OR MILD DISEASE - GFR >OR= 60 CHRONIC KIDNEY DISEASE - GFR 15 - 59 RENAL FAILURE - GFR <15 Est. GFR calculation based on the MDRD study equation, which assumes a steady state for creatinine. Est. GFR should not be used for medication dosing. 7 SUGGESTED THERAPEUTIC RANGES USING INR FOR STABILIZED ANTICOAGULATED PATIENTS: STANDARD DOSE THERAPY INR 2.0-3.0 DVT, PE, PREVENT DVT OR EMBOLISM HIGH DOSE THERAPY INR 2.5-3.5 PREVENT EMBOLISM FROM MECHANICAL HEART VALVE Procedures Description No Information Available Medical Devices Description No Information Available Encounters Type Date Location Provider Dx Diagnosis Office Visit 07/15/2019 Main Office Bronwyn Sevilla M.D. I70.209 Unsp athscl [place] 1:00p arteries of extremities, unsp extremity Z95.828 Presence of other vascular implants and grafts F17.210 Nicotine dependence, cigarettes, uncomplicated Assessments Date Code Description Provider 07/15/2019 I70.209 Unspecified atherosclerosis of [place] arteries Bronwyn Sevilla M.D. of extremities, unspecified extremity 07/15/2019 Z95.828 Presence of other vascular implants and grafts Bronwyn Sevilla M.D. 07/15/2019 F17.210 Nicotine dependence, cigarettes, uncomplicated Bronwyn Sevilla M.D. Plan of Treatment Future Appointment(s):09/25/2019 10:30 am - Chris Mckenzie M.D. at Main Nekhoc6109/25/2019 10:00 am - Vascular Lab at Main Ozimhg5707/30/2019 - Chris Mckenzie M.D.Follow up:see scan [place] Functional Status Description No Information Available Mental Status Description No Information Available Referrals Description No Information Available
--- OUTSIDE RECORDS SUMMARY | 2019-09-05 07:27 | XMS REPORT | Continuity of Care Document ---
:1945 External Reference #:[id number] Author Name Abbey Jimenez, MSN, [employer] (transmitted by agent of provider Jodi Jim) Address [address] [place] [address] Care Team Providers Name Role Phone Cleo Camacho MD - Physical Medicine Care Team Information Secondary Social Studies Teacher [phone] & Rehabilitation Carlos Enrique Hale MD - Emergency Medicine Care Team Information Secondary Social Studies Teacher [phone] Argenis Fox NP - Nurse Care Team Information Secondary Social Studies Teacher [phone] Practitioner Jose Peña HAND KNITTER - Nurse Care Team Information Secondary Social Studies Teacher [phone] Practitioner Treva Cornejo NP, CNM - Nurse Care Team Information Secondary Social Studies Teacher Practitioner Richelle Munguia MD - Hematology & Care Team Information Secondary Social Studies Teacher Oncology Problems Active Problems Provider Date Degenerative [...] 2016 LDL 75 HDL 40 Chol 132; MO/cath December 2015 Chronic renal failure Leslie Lopez [...] Shields Hyperlipidemia Abbey Jimenez, MSN, Onset: 02/15/2017 [employer] Tobacco user Abbey Jimenez, MSN, Onset: 02/15/2017 [employer] Atherosclerotic heart disease of Abbey Jimenez, MSN, 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 Mixed hyperlipidemia Parul Foster [...] Collado Strips meal,at bedtime,and as needed Pen Nelson [employer] uad with insulin 100units [facility], 07/10/2016 31G X 8 MD Walt mm [...] chest pain as Fernando, MSN, Sub needed [employer] Polyethylene Glycol Take 17 Grams By Unknown [...] Code Status Date Vaccine Reaction Lot # 64901 Given 03/31/2019 Influenza High Dose [id number] 21668 Given 05/20/2018 Influenza High Dose none [id number] 15153 Given 02/27/2017 Influenza High Dose [id number] 57022 Given 10/23/2016 Pneumovax Injection [id number] 09064 Given 10/23/2016 Tdap injection [id number] Q2038 Given 03/20/2016 Influenza Vaccine (Fluzone) Age 3 And [id number] Older Q2038 Given 03/11/2015 Influenza Vaccine (Fluzone) Age 3 And Older 06498 Given 03/11/2015 Pneumococcal Conjugate Vaccine 13 Valent For Intramuscular Use 03577 Given 04/03/2008 flu vaccination Vital Signs Date Vital Result Comment 08/20/2019 10:23am BP Systolic Sitting Left Arm 130 mmHg BP Diastolic Sitting Left Arm 64 mmHg Heart Rate 89 /min Respiratory Rate 14 /min Height 67 inches 5'7" Weight 149.00 lb BMI (Body Mass Index) 23.3 kg/m2 BSA (Body Surface Area) 1.78 m2 [place] body weight in kilograms 67 kg O2 % BldC Oximetry 98 % Ra 08/15/2019 9:52am BP Systolic 148 mmHg BP Diastolic 70 mmHg Body Temperature 98.5 F Heart Rate 80 /min Respiratory Rate 18 /min Height 67 inches 5'7" Weight 148.00 lb BMI (Body Mass Index) 23.2 kg/m2 BSA (Body Surface Area) 1.78 m2 [place] body weight in kilograms 67 kg O2 % BldC Oximetry 99 % Results Test Acquired Date Facility Test Result H/L Range Note Calcium 08/08/2019 N2N/CCD Import Calcium Level 8.5 [...] Estimated GFR >60 >60 pred.black ( SerPl [place]) MDRD-ArVRat GFR/Bsa 08/08/2019 N2N/CCD Import Estimated GFR >60 >60 pred.non black (Non- SerPl [place] MDRD-ArVRat BUN SerPl-mCnc 08/08/2019 N2N/CCD Import Blood Urea 3 7-18 Nitrogen Glucose 08/08/2019 N2N/CCD Import Glucose Screen 203 High 74-106 SerPl-mCnc nRBC/100 WBC 08/08/2019 N2N/CCD Import Nucleated Red 0.0 < 10/ 100 Bld Auto-Rto Blood Cells % WBC (auto) RDW RBC 08/08/2019 N2N/CCD Import RDW Coefficient 13.1 11.6-15.8 Auto-Rto of Variation RDW RBC Auto 08/08/2019 N2N/CCD Import Red Cell 45.8 36-51 Distribution Width MCHC RBC 08/08/2019 N2N/CCD Import Mean Corpuscular 32.9 31.7-36.0 Auto-mCnc Hemoglobin Concent MCH RBC Qn 08/08/2019 N2N/CCD Import Mean Corpuscular 31.1 27.0-33.0 Auto Hemoglobin MCV RBC Auto 08/08/2019 N2N/CCD Import Mean Corpuscular 94.3 80.0-96.0 Volume Basic 08/08/2019 [facility] Glucose 203 mg/dL High 74-106 1 Metabolic [address] [place], [place] [id number] [phone] BUN 3 mg/dL Critical low 7-18 Creatinine 0.6 mg/dL Normal 0.6-1.3 Glom Filtration Rate, Estimate >60 mL/min >60 If >60 mL/min >60 2 BUN/Creat 5.0 ratio Sodium 133 mmol/L Low 136-145 Potassium 4.5 mmol/L 3.5-5.1 Chloride 104 mmol/L Normal 98-107 Carbon Dioxide 24 mmol/L Normal 21-32 Anion Gap 5 mEq/L Low 8-16 Calcium 8.5 mg/dL Normal 8.5-10.1 CBC 08/08/2019 [facility] White Blood Count 8.3 K/uL Normal 3.4-10.5 [address] [place], [place] [id number] [phone] Red Blood Count 3.67 M/uL Low 4.20-5.80 [...] High 70-110 Glucomtr-mCnc Cortisol - 3 08/07/2019 [facility] Cortisol #1 17.8 . [address] (Base) g/[place] [address] [phone] Cortisol #2 16.3 g/dL Not Estab. Cortisol #3 13.3 g/dL Not Estab. 4 Basic Metabolic 08/07/2019 [facility] Glucose 29 mg/dL Critical low 74-[address] [place] [address] [phone] BUN 5 mg/dL Critical low 7-18 Creatinine 0.6 mg/dL Normal 0.6-1.3 Glom Filtration Rate, Estimate >60 mL/min >60 If >60 mL/min >60 5 BUN/Creat 8.3 ratio Sodium 135 mmol/L Low 136-145 Potassium 3.6 mmol/L Normal 3.5-5.1 Chloride 106 mmol/L Normal 98-107 Carbon Dioxide 26 mmol/L Normal 21-32 Anion Gap 3 mEq/L Low 8-16 Calcium 8.3 mg/dL Low 8.5-10.1 CBC 08/07/2019 [facility] White Blood Count 11.8 K/uL High 3.4-10.5 [address] [place] [address] [phone] Red Blood Count 3.66 M/uL Low 4.20-5.80 [...] Bld Auto (Auto) TSH Reflex FT4 08/06/2019 [facility] Thyroid Stim 1.94 Normal 0.30-4.20 And/Or FT3 [address] Hormone uIU/[place] [address] [phone] Reflex add FT3? N Reflex add FT4? Y Basic Metabolic Panel 08/06/2019 [facility] Glucose 91 mg/dL Normal 74-[address] [place], [place] [address] [phone] BUN 10 mg/dL Normal 7-18 Creatinine 0.7 [...] N Reflex add FT4? Y Glycohemoglobin 08/06/2019 [facility] Glycohemoglobin 6.9 % High 4.2-6.[address] (A1c) [place], [place] [id number] [phone] eAG 151 mg/dL CBC W/Automated 08/06/2019 [facility] White Blood 10.3 K/uL Normal 3.4-10.[address] [place] [address] [phone] Red Blood Count 3.80 M/uL Low 4.20-5.80 [...] 33.0-73.0 Lymph % 6.8 % Low 20.0-42.0 [place] % 9.7 % Normal 0.0-10.0 Eo% 0.2 % Normal 0.0-6.6 Bas% 0.4 % Normal 0.0-1.1 Immature Grans 0.4 % Normal 0.0-5.0 NRBC % 0.0 /100WBC < 10/ 100 WBC Neut# 8.47 K/uL High 1.8-7.0 Lymph # 0.70 K/uL Low 1.0-4.0 [place] # 1.00 K/uL High 0.0-0.8 Eos # [...] 3.4-10.5 [address] [place] [address] [phone] Red Blood Count 4.08 M/uL Low 4.20-5.80 [...] 33.0-73.0 Lymph % 6.5 % Low 20.0-42.0 [place] % 8.1 % Normal 0.0-10.0 Eo% 0.1 % Normal 0.0-6.6 Bas% 0.4 % Normal 0.0-1.1 Immature Grans 0.8 % Normal 0.0-5.0 NRBC % 0.0 /100WBC < 10/ 100 WBC Neut# 12.00 K/uL High 1.8-7.0 Lymph # 0.93 K/uL Low 1.0-4.0 [place] # 1.16 K/uL High 0.0-0.8 Eos # [...] Import Lipase 101 56-289 SerPl-cCnc Laboratory 08/05/2019 [facility] Troponin-I < 0.015 9 test finding [address] ng/[place] [address] [phone] Laboratory 08/05/2019 [facility] Rapid Strep A Negative Negative 10 test finding [address] [place] [address] [phone] Influenza A/B 08/05/2019 [facility] Influenza A Antigen Negative (Negative) Antigen [address] [place] [address] [phone] Influenza B Antigen Negative (Negative) 11 Urinalysis With 08/05/2019 [facility] Urine Color Yellow Yellow Microscopic [address] [place], [place] [id number] [phone] Urine Clarity Clear Clear Urine Glucose - Dipstick TRACE mg/dL Negative Urine Bilirubin - Dipstick NEGATIVE Negative Urine Ketone 20 mg/dL Abnormal Negative Urine Specific [place] 1.021 Normal 1.010-1.030 Urine Blood NEGATIVE Negative [...] CAT <SEE NOTE> 12 Laboratory test 08/05/2019 [facility] Throat Strep NO BETA [address] [place] [address] <SEE NOTE> [phone] Fluav Ag XXX Ql 08/05/2019 N2N/CCD Import [...] comment Report Reflexed Follow Urine Culture 07/14/2019 [facility] Urine Culture URETHRAL 14 [address] [place] [address] [phone] Quantity 10,000 - 50,000 <SEE NOTE> 15 Laboratory test finding 07/14/2019 [facility] CK 45 U/L Normal 39-308 [address] [place] [address] [phone] Troponin-I 0.015 ng/mL 16 Comprehensive Metabolic 07/14/2019 [facility] Glucose 125 mg/dL High 74-106 Panel [address] [place], [place] [address] [phone] BUN 9 mg/dL Normal 7-18 Creatinine 0.9 [...] 22 U/L Low 45-117 Culture If 07/14/2019 [facility] Culture If CULTURE TO 18 Indicated Comment [address] Indicated Comment FOLLO <[place] [address] NOTE> [phone] Source: URINE, CLEAN CAT <SEE NOTE> 19 Urinalysis With 07/14/2019 [facility] Urine Color Yellow Yellow Microscopic [address] [place] [address] [phone] Urine Clarity Clear Clear Urine Glucose - Dipstick 500 mg/dL Abnormal Negative Urine Bilirubin - Dipstick NEGATIVE Negative Urine Ketone NEGATIVE mg/dL Negative Urine Specific [place] 1.021 Normal 1.010-1.030 Urine Blood NEGATIVE Negative [...] CAT <SEE NOTE> 20 Blood Culture 07/14/2019 [facility] Blood Culture NO GROWTH: FINAL [address] Aerobic <SEE NOTE> [place] [address] [phone] Blood Culture Anaerobic NO GROWTH: FINAL <SEE NOTE> 22 Bacteria Bld 07/14/2019 N2N/CCD Import Aerobic Blood No Growth: Final Aerobe Cult Culture Report Bacteria Bld 07/14/2019 N2N/CCD Import Anaerobic Blood No Growth: Final Anaerobe Cult Culture Report Blood Culture 07/14/2019 [facility] Blood Culture NO GROWTH: FINAL [address] Aerobic <SEE NOTE> [place] [address] [phone] Blood Culture Anaerobic NO GROWTH: FINAL <SEE NOTE> 24 CBC W/Automated 07/14/2019 [facility] White Blood 10.7 K/uL High 3.4-10.[address] [place] [address] [phone] Red Blood Count 4.41 M/uL Normal 4.20-5.80 [...] 33.0-73.0 Lymph % 12.4 % Low 20.0-42.0 [place] % 7.2 % Normal 0.0-10.0 Eo% 0.8 % Normal 0.0-6.6 Bas% 0.6 % Normal 0.0-1.1 Immature Grans 0.5 % Normal 0.0-5.0 NRBC % 0.0 /100WBC < 10/ 100 WBC Neut# 8.38 K/uL High 1.8-7.0 Lymph # 1.32 K/uL Normal 1.0-4.0 [place] # 0.77 K/uL Normal 0.0-0.8 Eos # 0.08 K/uL Normal 0.0-0.5 Baso # 0.06 K/uL Normal 0.0-0.1 Immature Grans Absolute 0.05 K/uL NRBC # 0.00 K/uL Lactate SerPl-sCnc 07/14/2019 N2N/CCD Import Lactic Acid 1.0 0.4-1.9 Level Lactic Acid 07/14/2019 [facility] Lactic Acid 1.0 mmol/L Normal 0.4-1.[address] [place] [address] [phone] Lab Reflex >2.0 for Sepsis? N Laboratory test 07/14/2019 [facility] LDH 200 Normal 87-[address] U/L [place], [place] [id number] [phone] Creat Ur-mCnc 05/14/2019 N2N/CCD Import Urine Creatinine 156 Concentration Microalbumin/Crea 05/14/2019 N2N/CCD Import Urine 73.7 < 30.0 t Ur-Rto Microalbumin/Cre atinine Ratio Microalbumin 05/14/2019 N2N/CCD Import Urine 115.0 < 20.0 Ur-mCnc Microalbumin Comprehensive 05/14/2019 [facility] Glucose 101 Normal 74-106 25 Metabolic Panel [address] mg/[place] [address] [phone] BUN 14 mg/dL Normal 7-18 Creatinine 1.0 [...] 20 U/L Low 45-117 CBC W/Automated 05/14/2019 [facility] White Blood 11.2 K/uL High 3.4-10.[address] Count [place], [place] [id number] [phone] Red Blood Count 5.02 M/uL Normal 4.20-5.80 [...] 33.0-73.0 Lymph % 10.5 % Low 20.0-42.0 [place] % 8.1 % Normal 0.0-10.0 Eo% 1.3 % Normal 0.0-6.6 Bas% 0.6 % Normal 0.0-1.1 Immature Grans 0.4 % Normal 0.0-5.0 NRBC % 0.0 /100WBC < 10/ 100 WBC Neut# 8.84 K/uL High 1.8-7.0 Lymph # 1.18 K/uL Normal 1.0-4.0 [place] # 0.91 K/uL High 0.0-0.8 Eos # 0.14 K/uL Normal 0.0-0.5 Baso # 0.07 K/uL Normal 0.0-0.1 Immature Grans Absolute 0.05 K/uL NRBC # 0.00 K/uL Laboratory test 05/14/2019 [facility] Cholesterol 141 <200 [address] mg/[place] [address] [phone] Glycohemoglobin 05/14/2019 [facility] Glycohemoglobin 7.4 % High 4.2-6. [address] (A1c) 3 [place], [place] [address] [phone] eAG 166 mg/dL Microalbumin,Random 05/14/2019 [facility] Microalbumin,Urine 115.0 < 20.[address] mg/[place] [address] [phone] Microalb/Creat 05/14/2019 [facility] Microalbumin/Creatin 73.7 < 30.0 Ratio,Random [address] ine Ratio ug/[place] [address] t [phone] Urine Creatinine Conc 156 mg/dL Glycohemoglobin 04/29/2019 [facility] Glycohemoglobin 7.5 % High 4.2-6.3 30, A1c [address] (A1c) [address] [place] [address] [phone] eAG 169 mg/dL CBC W/Automated 04/29/2019 [facility] White Blood 9.5 K/uL Normal 3.4-10.[address] [place] [address] [phone] Red Blood Count 4.86 M/uL Normal 4.20-5.80 [...] 33.0-73.0 Lymph % 14.6 % Low 20.0-42.0 [place] % 8.6 % Normal 0.0-10.0 Eo% 1.9 % Normal 0.0-6.6 Bas% 0.6 % Normal 0.0-1.1 Immature Grans 0.4 % Normal 0.0-5.0 NRBC % 0.0 /100WBC < 10/ 100 WBC Neut# 6.99 K/uL Normal 1.8-7.0 Lymph # 1.38 K/uL Normal 1.0-4.0 [place] # 0.81 K/uL High 0.0-0.8 Eos # 0.18 K/uL Normal 0.0-0.5 Baso # 0.06 K/uL Normal 0.0-0.1 Immature Grans Absolute 0.04 K/uL NRBC # 0.00 K/uL Comprehensive 04/29/2019 [facility] Glucose 80 mg/dL Normal 74-106 Metabolic Panel [address] [place] [address] [phone] BUN 19 mg/dL High 7-18 Creatinine 1.0 [...] U/L Low 45-117 LDL Cholesterol Profile 04/29/2019 [facility] Cholesterol 146 mg/dL <[address] [place] [address] [phone] Triglycerides 78 mg/dL <150 35 HDL Cholesterol 37 mg/dL Low >40 36 LDL-Cholesterol 93 mg/dL < 100 37 Laboratory test 04/29/2019 [facility] Vitamin 52.3 30.0-100.0 [address] D,25-Hydroxy ng/[place] [address] [phone] Hepatitis C Antibody < 0.1 s/corat 0.0-0.9 39 Trigl SerPl-mCnc 04/29/2019 N2N/CCD Import Triglycerides Level 78 <150 LDLc SerPl 04/29/2019 N2N/CCD Import LDL Cholesterol, 93 < 100 Calc-mCnc Calculated HCV Ab s/co SerPl 04/29/2019 N2N/CCD Import Hepatitis C Ab < 0.1 0.0- 0.9 Ia Signal/Cutoff Ratio Laboratory test 03/27/2019 [facility] Prostate Specific 0.17 < 4.0 40, [address] Antigen ng/[place] [address] [phone] 1 HYPONATREMIA, VOMITING 2 Note: Persistent reduction [...] - 11.9 4 Performed at: RN - [facility] [address] [id number] Dry End Operator: Michelle Lima MD, Phone: [phone] Note: Persistent reduction for 3 months [...] for more aggressive treatment of glycemia. The [place] Diabetes Association recommends that a primary goal [...] for more aggressive treatment of glycemia. The [place] Diabetes Association recommends that a primary goal of therapy should be a HbA1c of <7% and that physicians should re-evaluate the treatment regimen in patients with HbA1c values consistently >8%. 30 E11.9 V89.2XXA E78.5 E55.9 31 Elevated levels of HbA1c suggest the need for more aggressive treatment of glycemia. The [place] Diabetes Association recommends that a primary goal [...] D deficiency has been defined by the Heath of Medicine and an Endocrine Society practice guideline as a level of serum 25-OH vitamin D less than 20 ng/mL (1,2). The Endocrine Society went on to further define vitamin D insufficiency as a level between 21 and 29 ng/mL (2). 1. IOM (Heath of Medicine). 2010. Dietary reference intakes for calcium and D. [place]: The National Academies Press. 2. Margarita MF, Jesús NC, David DUBON, et al. Evaluation, treatment, and prevention of vitamin D deficiency: an Endocrine Society clinical practice guideline. JCEM. 2011 Benjie; 96(7):1911-30. Performed at: RN - [facility] [address] [id number] Dry End Operator: Michelle Lima MD, Phone: [phone] INFCE Result Units: s/co ratio Negative: < 0.8 Indeterminate: 0.8 - 0.9 Positive: > 0.9 The CDC recommends that a positive HCV antibody result be followed up with a HCV Nucleic Acid Amplification test (584746). Performed at: RN - [facility] [address] [id number] Dry End Operator: Michelle Lima MD, Phone: [phone] Z85.46 41 THIS ASSAY IS NOT INTENDED A CANCER SCREENING TEST The concentration of PSA in a given specimen, determined with assays from different manufacturers, can vary due to differences in assay methods and reagent specificity. Values obtained from different assay methods cannot be used interchangeably. Method: basno [place] Chemiluminescent immunoassay. Procedures Date Code Description Status 2019 65195 I&D, perianal abscess, superficial Completed 03/27/2019 93997 Measurement Post Voiding Residual Urine By Completed Ultrasound,Non-Imaging 03/27/2019 45938 complex uroflowmetry electronic Completed 02/26/2019 88830 Colonoscopy With Biopsy Completed 02/26/2019 [id number] Colonoscopy Completed 05/24/2017 [id number] Diabetic Foot Exam Completed 12/29/2013 [id number] Colonoscopy Completed Medical Devices Description No Information Available Encounters Type Date Location Provider Dx Diagnosis Office Visit 08/15/2019 Primary Care [facility], E11.9 Type 2 diabetes 10:10a Office Treva, , mellitus without [employer]-C, CNM complications 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 I10 Essential (primary) hypertension E78.5 Hyperlipidemia, unspecified G47.00 Insomnia, unspecified E55.9 Vitamin D deficiency, unspecified N50.89 Other specified disorders of the male genital organs R63.4 Abnormal weight loss Z71.6 Tobacco abuse counseling Office Visit 07/17/2019 10:30a Primary Care [facility], D44.10 Neoplasm of Office Treva, , uncertain [employer]-C, CNM behavior of unspecified adrenal gland R63.4 Abnormal weight loss G47.00 Insomnia, unspecified Office Visit 05/21/2019 11:00a Primary Care Treva Cornejo, Z85.46 Personal history Office MS, [employer]-C, CNM of malignant neoplasm of prostate Z12.11 Encounter for screening for malignant neoplasm of colon 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 [place] cor art w unsp ang pctrs I73.9 [...] Surgical Office Óscar Crenshaw, K61.1 Rectal abscess THA SHAIKH K61.1 Rectal abscess Office Visit 03/27/2019 9:30a Urology Eric Moreira, Z85.46 Personal history of M.D. 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, VIPUL, [place] coronary artery with [employer] AIDE 08/20/2019 I73.9 Peripheral vascular disease, Abbey Jimenez, VIPUL, unspecified [employer]IDE 08/20/2019 E78.5 Hyperlipidemia, unspecified Abbey Jimenez, VIPUL, [employer] 08/20/2019 I10 Essential (primary) hypertension Abbey Jimenez, MSN, [employer] AIDE 08/15/2019 E11.9 Type 2 diabetes mellitus without Treva Cornejo, , [employer] -C, complications CNM 08/15/2019 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.10 Neoplasm of uncertain behavior of Treva Cornejo, , [employer]-C, unspecified adrenal gland CNM 08/15/2019 I10 Essential (primary) hypertension Treva Cornejo, MS, [employer]-C , CNM 08/15/2019 E78.5 Hyperlipidemia, unspecified Treva Cornejo, MS, [employer]IDE-C, [facility] 08/15/2019 G47.00 Insomnia, unspecified Treva Cornejo, MS, [employer]-C, [facility] 08/15/2019 E55.9 Vitamin D deficiency, unspecified Treva Cornejo, , [employer]-C, [facility] 08/15/2019 N50.89 Swelling of scrotum Treva Cornejo, , [employer]-C, [facility] 08/15/2019 R63.4 Abnormal weight loss Treva Cornejo, , [employer]-C, [facility] 08/15/2019 Z71.6 Tobacco abuse counseling Treva Cornejo, , [employer]-C, [facility] 08/08/2019 R11.15 Cyclical vomiting syndrome unrelated Cadet, Jorge, [employer] AIDE to migraine 08/08/2019 R19.7 Diarrhea, unspecified Cadet, Jorge, [employer] AIDE 08/08/2019 E86.0 Dehydration Cadet, Jorge, [employer] AIDE 08/08/2019 E11.649 Type 2 diabetes mellitus with Cadet, Jorge, [employer]IDE hypoglycemia without coma 08/07/2019 E87.1 Hypo-osmolality and hyponatremia Cadet, Jorge, [employer] 08/07/2019 E86.0 Dehydration Cadet Jorge, [employer] AIDE 08/07/2019 E11.649 Type 2 diabetes mellitus with Cadet, Jorge, [employer] hypoglycemia without coma 08/06/2019 R19.7 Diarrhea, unspecified Cadet, Jorge, [employer] AIDE 08/06/2019 E87.1 Hypo-osmolality and hyponatremia Cadet Jorge, [employer] AIDE 08/06/2019 E86.0 Dehydration Cadet, Jorge, [employer] AIDE 08/05/2019 R11.15 Cyclical vomiting syndrome unrelated Benjamin Akins M.D. to migraine 08/05/2019 R19.7 Diarrhea, unspecified Benjamin Akins M.D. 08/05/2019 E87.1 Hypo-osmolality and hyponatremia Benjamin Akins M.D. 08/05/2019 R93.3 Abnormal findings on diagnostic Zakariyya, Hasan, M.D. 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 Cornejo, MS, [employer]-C, unspecified adrenal gland CNM 07/17/2019 R63.4 Abnormal weight loss Treva Cornejo, MS, [employer]-C, CNM 07/17/2019 G47.00 Insomnia, unspecified Elidaen, Treva, MS, [employer]IDE-C, CNM 05/21/2019 Z85.46 Personal history of malignant Flory Cornejoline, MS, [employer]IDE-C , neoplasm of prostate CNM 05/21/2019 Z12.11 Encounter for screening for malignant Flory Cornejoline, MS, [employer]IDE-C, neoplasm of colon CNM 05/21/2019 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, MS, [employer] AIDE-C, [place] coronary artery with CNM 05/21/2019 I73.9 Peripheral vascular disease, Treva Cornejo, MS, [employer]IDE-C, unspecified CNM 05/21/2019 R19.7 Diarrhea, unspecified Gagen, Treva, MS, [employer] AIDE-C, CNM 05/21/2019 E11.9 Type 2 diabetes mellitus without GagenFloryTreva, MS, [employer]IDE -C, complications CNM 05/21/2019 I10 Essential (primary) hypertension Treva Cornejo, MS, [employer] AIDE-C , CNM 05/21/2019 F17.210 Nicotine dependence, cigarettes, Flory Cornejoline, MS, [employer]IDE-C, uncomplicated CNM 05/21/2019 Z71.6 Tobacco abuse counseling Treva Cornejo, MS, [employer], CNM 05/21/2019 E78.5 Hyperlipidemia, unspecified Gagen, Treva, MS, [employer]-C, CNM 05/05/2019 Z85.46 Personal history of malignant Flory Cornejoline, MS, [employer]-C , neoplasm of prostate CNM 05/05/2019 Z12.11 Encounter for screening for malignant Flory Cornejoline, MS, [employer] A[employer]-C, neoplasm of colon CNM 05/05/2019 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, MS, [employer]-C, [place] coronary artery with CNM 05/05/2019 E78.5 Hyperlipidemia, unspecified Treva Cornejo, MS, [employer], CNM 05/05/2019 I73.9 Peripheral vascular disease, Treva Cornejo, MS, [employer], unspecified CNM 05/05/2019 I10 Essential (primary) hypertension Treva Cornejo, MS, [employer]-C , CNM 05/05/2019 F17.210 Nicotine dependence, cigarettes, Treva Cornejo, MS, [employer], uncomplicated CNM 05/05/2019 E11.9 Type 2 diabetes mellitus without Chantal, Treva, MS, [employer] -C, complications CN 05/05/2019 R19.7 Diarrhea, unspecified Treva Cornejo, MS, [employer], CN 05/05/2019 E55.9 Vitamin D deficiency, unspecified Treva Cornejo, MS, [employer]-C, CN 05/05/2019 J44.9 Chronic obstructive pulmonary Treva Cornejo, MS, [employer], disease, unspecified CN 05/05/2019 Z71.6 Tobacco abuse counseling Treva Cornejo, MS, [employer], CN 04/11/2019 Z48.817 Encounter for surgical aftercare Óscar Crenshaw MD,FACS following surgery on the skin and subcutaneous tissue 04/11/2019 K61.1 Rectal abscess Óscar Crenshaw MD,FACS 03/31/2019 Z23 Encounter for immunization Treva Cornejo, , [employer], CN 03/31/2019 Z23 Encounter for immunization Nurse [...] Appointment(s):02/20/2020 2:00 pm - Abbey Jimenez, MSN, [employer] AIDE at [facility] [place]1708/22/2019 8:15 am - [facility] [id number] 10:30 am - Treva Cornejo MS, [employer]IDE-C, CNM at [facility] Care [id number] 10:30 am - Treva Cornejo MS, [employer]IDE-C, CNM at [facility] [id number] - Abbey Jimenez, MSN, FNP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 [place] coronary artery withNew Orders:Echocardiogram, Ordered: 08/20/19I73.9 Peripheral vascular disease, bivaxqamcltF92.5 Hyperlipidemia, [id number] Essential (primary) hypertensionAllFollow up:Follow up visit in six months with echo just before. Functional Status Functional Condition Comment Date Status Glasses Active Mental Status Description No Information Available Referrals Refer to Reason for Referral Status Appt Date Richelle Munguia MD send [facility] note pls call Patient to let Scheduled him know address and that we are working on OV 07/18/2019 faxed notes.. [address], [place] [address] [phone] Nicholas Alvarado MD was going to [facility] who retired diabetes Closed 06/25/[address] [place] [address] [phone]
--- OUTSIDE RECORDS SUMMARY | 2019-09-05 07:27 | XMS REPORT | Continuity of Care Document ---
:1945 External Reference #:[id number] Author Name Chris Mckenzie M.D. (transmitted by agent of provider Judith MCCLELLAN) Address [address] [place] [id number] Care Team Providers Name Role Phone Ximena Galvan M.D. - Cardiovascular Care Team Information Directional Driller Disease Treva Cornejo NP - Obstetrics & Care Team Information Directional Driller [phone] Gynecology Problems Active Problems Provider Date Navneet [...] Vitamin D (Ergocalciferol) every week Unknown 1.25mg (87708 Ut) Capsules Ramipril 1 by mouth Unknown [...] Import Color, Ua Yellow Appearance Clear Specific [place], Ua >1.040 High 1.003 - 1.030 pH, [...] Antibody Screen Negative Testing site Performed AT [address] [place] [address] Blood bank comment See Notes 5 CMP [...] 10*3/uL 0.0 - 0.2 1 PERFORMED BY [facility]ICAL STAFF 2 Performed using Siemens [place] immunoassay. Care must be taken when interpreting HbA1c results in patients with a hemoglobin variant or decreased erythrocyte lifespan. Values 5.7 - 6.4% suggest prediabetes. Values >=6.5% are diagnostic for diabetes. REFERENCE: DIABETES CARE 2018: 41(S13-S27). PERFORMED AT [address] [place] [address] 3 CORTISOL REFERENCE RANGE: 7-9AM 5.3 - [...] Date Location Provider Dx Diagnosis Office Visit 07/30/2019 Main Office Chris Mckenzie Z48.812 Encntr for surgical 10:15a M.DNohemi aftcr following surgery on the circ sys Office Visit 07/15/2019 Main Office Bronwyn Sevilla M.D. 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 arteries of extremities, unspecified extremity 07/15/2019 Z95.828 Presence of other vascular implants and Bronwyn Sevilla M.D. grafts 07/15/2019 F17.210 Nicotine dependence, cigarettes, Bronwyn Sevilla M.D. uncomplicated Plan of Treatment Future Appointment(s):09/25/2019 10:30 am - Chris Mckenzie M.D. at Main Zdpkku2609/25/2019 10:00 am - Vascular Lab at Main [id number]/30/2019 - Chris Mckenzie M.D.Z48.812 Encntr for surgical aftcr following surgery on the circ sysFollow up:see scan lucille Functional Status Description No Information Available Mental Status Description No Information Available Referrals Description No Information Available
--- OUTSIDE RECORDS SUMMARY | 2019-09-05 07:27 | XMS REPORT | Continuity of Care Document ---
:1945 External Reference #:[id number] Author Name Treva Cornejo, MS, FUNERAL DRIVER-C, CNM (transmitted by agent of provider Shira Lopez) Address [address] [place] [address] Care Team Providers Name Role Phone Cleo Camacho MD - Physical Medicine Care Team Information Pvc Monitor & Rehabilitation Carlos Enrique Hale MD - Emergency Medicine Care Team Information Pvc Monitor Argenis Fox NP - Nurse Care Team Information Pvc Monitor [phone] Practitioner Jose Peña [employer]SEMBLER - Nurse Care Team Information Pvc Monitor [phone] Practitioner Treva Cornejo NP, CNM - Nurse Care Team Information Pvc Monitor [phone] Practitioner Richelle Munguia MD - Hematology & Care Team Information Pvc Monitor [phone] Oncology Problems Active Problems Provider Date Degenerative [...] 2016 LDL 75 HDL 40 Chol 132; VT/cath December 2015 Chronic renal failure Leslie Lopez [...] Shields Hyperlipidemia Abbey Jimenez, MSN, Onset: 02/15/2017 FUNERAL DRIVER Tobacco user Abbey Jimenez, MSN, Onset: 02/15/2017 FUNERAL DRIVER Atherosclerotic heart disease of Abbey Jimenez, MSN, 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 Mixed hyperlipidemia Parul Foster [...] (10 or fewer cigarettes/day) Smoking Status Reviewed: 08/15/19 Light tobacco smoker (10 or fewer cigarettes/day) [...] Ramipril Take one capsule 180caps I10 Ratnasingam, 08/15/19 10mg Capsules twice a day Walt, 20 Retroperineal Biopsey Patient 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.10 Ratnasingam, 07/28/19 retroperitoneal Shamanthy, 20 lymph node biopsy, in lieu of a left adrenal biopsy, as recommended by Dr Moreno Vitamin D3 1 by mouth every day 90caps Ratnasingam, 06/24/19 50mcg (2000 Ut) Shamanthy, 20 Capsules MD Dejesus take one tablet by 10tabs K61.1 Den, 03/28/20 500mg Tablets mouth daily for 10 Óscar, 19 days. take it in the THA SHAIKH middle of your meal Fenofibrate Take 1 Tablet Every 90Tablet Gagen, 12/21/19 160mg Tablets Morning Treva, 19 MS, FUNERAL DRIVER-C, CNM Hydrochlorothiazide take one capsule in 90caps I10 Jimenez, Abbey 08/06/19 12.5mg the morning Simonetta, 19 Capsules MSN, FUNERAL DRIVER Loperamide HCL take two capsules 30caps V89.2xxA Augustus Christianson, 05/20/20 2mg Capsules with onset of 18 diarrhea and then one capsule after each diarrhea. 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 take it in the middle of your meal Medications Administered in Office Medication SIG Qnty Indications Ordering Provider Date Administration Of Flu Mariano Rhodes MD 04/03/2008 Injection Immunizations CPT Code Status Date Vaccine Reaction Lot # 47500 Given 03/31/2019 Influenza High Dose [id number] 56214 Given 05/20/2018 Influenza High Dose none [id number] 73913 Given 02/27/2017 Influenza High Dose [id number] 17228 Given 10/23/2016 Pneumovax Injection [id number] 76826 Given 10/23/2016 Tdap injection [id number] Q2038 Given 03/20/2016 Influenza Vaccine (Fluzone) Age 3 And [id number] Older Q2038 Given 03/11/2015 Influenza Vaccine (Fluzone) Age 3 And Older 45002 Given 03/11/2015 Pneumococcal Conjugate Vaccine 13 Valent For Intramuscular Use 52901 Given 04/03/2008 flu vaccination Vital Signs Date Vital Result Comment 08/15/2019 9:52am BP Systolic 148 mmHg BP Diastolic 70 mmHg Body Temperature 98.5 F Heart Rate 80 /min Respiratory Rate 18 /min Height 67 inches 5'7" Weight 148.00 lb BMI (Body Mass Index) 23.2 kg/m2 BSA (Body Surface Area) 1.78 m2 [place] body weight in kilograms 67 kg O2 % BldC Oximetry 99 % 08/08/2019 9:59am BP Systolic 128 mmHg BP Diastolic 76 mmHg Body Temperature 98.2 F Heart Rate 88 /min Respiratory Rate 18 /min O2 % BldC Oximetry 94 % Results Test Acquired Date Facility Test [...] Estimated GFR >60 >60 pred.black ( SerPl Vietnamese) MDRD-ArVRat GFR/Bsa 08/08/2019 N2N/CCD Import Estimated GFR >60 >60 pred.non black (Non- SerPl Vietnamese MDRD-ArVRat BUN SerPl-mCnc 08/08/2019 N2N/CCD Import Blood [...] 203 mg/dL High 74-106 1 Metabolic [address] [place], [place] [address] [phone] BUN 3 mg/dL Critical low 7-18 Creatinine 0.6 mg/dL Normal 0.6-1.3 Glom Filtration Rate, Estimate >60 mL/min >60 If >60 mL/min >60 2 BUN/Creat 5.0 ratio Sodium 133 mmol/L Low 136-145 Potassium 4.5 mmol/L 3.5-5.1 Chloride 104 mmol/L Normal 98-107 Carbon Dioxide 24 mmol/L Normal 21-32 Anion Gap 5 mEq/L Low 8-16 Calcium 8.5 mg/dL Normal 8.5-10.1 CBC 08/08/2019 [facility] White Blood Count 8.3 K/uL Normal 3.4-10.5 [address] [place] [address] [phone] Red Blood Count 3.67 M/uL Low 4.20-5.80 [...] High 70-110 Glucomtr-mCnc Cortisol - 3 08/07/2019 [facility] Cortisol #1 17.8 . [address] (Base) g/[place] [address] [phone] Cortisol #2 16.3 g/dL Not Estab. Cortisol #3 13.3 g/dL Not Estab. 4 Basic Metabolic 08/07/2019 [facility] Glucose 29 mg/dL Critical low 74-106 Panel [address] [place] [address] [phone] BUN 5 mg/dL Critical low 7-18 Creatinine 0.6 mg/dL Normal 0.6-1.3 Glom Filtration Rate, Estimate >60 mL/min >60 If >60 mL/min >60 5 BUN/Creat 8.3 ratio Sodium 135 mmol/L Low 136-145 Potassium 3.6 mmol/L Normal 3.5-5.1 Chloride 106 mmol/L Normal 98-107 Carbon Dioxide 26 mmol/L Normal 21-32 Anion Gap 3 mEq/L Low 8-16 Calcium 8.3 mg/dL Low 8.5-10.1 CBC 08/07/2019 [facility] White Blood Count 11.8 K/uL High 3.4-10.5 [address] [place] [address] [phone] Red Blood Count 3.66 M/uL Low 4.20-5.80 [...] Bld Auto (Auto) TSH Reflex FT4 08/06/2019 [facility] Thyroid Stim 1.94 Normal 0.30-4.20 And/Or FT3 [address] Hormone uIU/mL [place], [place] [address] [phone] Reflex add FT3? N Reflex add FT4? Y Basic Metabolic Panel 08/06/2019 [facility] Glucose 91 mg/dL Normal 74-[address] [place] [address] [phone] BUN 10 mg/dL Normal 7-18 Creatinine 0.7 [...] N Reflex add FT4? Y Glycohemoglobin 08/06/2019 [facility] Glycohemoglobin 6.9 % High 4.2-6.[address] (A1c) [place] [address] [phone] eAG 151 mg/dL CBC W/Automated 08/06/2019 [facility] White Blood 10.3 K/uL Normal 3.4-10.[address] [place] [address] [phone] Red Blood Count 3.80 M/uL Low 4.20-5.80 [...] 33.0-73.0 Lymph % 6.8 % Low 20.0-42.0 [place] % 9.7 % Normal 0.0-10.0 Eo% 0.2 % Normal 0.0-6.6 Bas% 0.4 % Normal 0.0-1.1 Immature Grans 0.4 % Normal 0.0-5.0 NRBC % 0.0 /100WBC < 10/ 100 WBC Neut# 8.47 K/uL High 1.8-7.0 Lymph # 0.70 K/uL Low 1.0-4.0 [place] # 1.00 K/uL High 0.0-0.8 Eos # [...] 3.4-10.5 [address] [place] [address] [phone] Red Blood Count 4.08 M/uL Low 4.20-5.80 [...] 33.0-73.0 Lymph % 6.5 % Low 20.0-42.0 [place] % 8.1 % Normal 0.0-10.0 Eo% 0.1 % Normal 0.0-6.6 Bas% 0.4 % Normal 0.0-1.1 Immature Grans 0.8 % Normal 0.0-5.0 NRBC % 0.0 /100WBC < 10/ 100 WBC Neut# 12.00 K/uL High 1.8-7.0 Lymph # 0.93 K/uL Low 1.0-4.0 [place] # 1.16 K/uL High 0.0-0.8 Eos # [...] Lipase 08/05/2019 N2N/CCD Import Lipase 101 56-[facility]/05/2019 [facility] Troponin-I < 0.015 9 test finding [address] ng/[place] [address] [phone] Laboratory 08/05/2019 [facility] Rapid Strep A Negative Negative 10 test finding [address] [place] [place] [address] [phone] Influenza A/B 08/05/2019 [facility] Influenza A Antigen Negative (Negative) Antigen [address] [place], [place] [id number] [phone] Influenza B Antigen Negative (Negative) 11 Urinalysis With 08/05/2019 [facility] Urine Color Yellow Yellow Microscopic [address] [place], [place] [id number] [phone] Urine Clarity Clear Clear Urine Glucose - Dipstick TRACE mg/dL Negative Urine Bilirubin - Dipstick NEGATIVE Negative Urine Ketone 20 mg/dL Abnormal Negative Urine Specific Berk[place] 1.021 Normal 1.010-1.030 Urine Blood NEGATIVE Negative [...] CAT <SEE NOTE> 12 Laboratory test 08/05/2019 [facility] Throat Strep NO BETA 13 finding [address] [facility] [place] [address] <SEE NOTE> [phone] Fluav Ag XXX Ql 08/05/2019 N2N/CCD Import [...] comment Report Reflexed Follow Urine Culture 07/14/2019 [facility] Urine Culture URETHRAL [address] ESME [place], [place] [address] [phone] Quantity 10,000 - 50,000 <SEE NOTE> 15 Laboratory test finding 07/14/2019 [facility] CK 45 U/L Normal 39-308 [address] [place] [address] [phone] Troponin-I 0.015 ng/mL 16 Comprehensive Metabolic 07/14/2019 [facility] Glucose 125 mg/dL High 74-106 Panel [address] [place] [address] [phone] BUN 9 mg/dL Normal 7-18 Creatinine 0.9 [...] 22 U/L Low 45-117 Culture If 07/14/2019 [facility] Culture If CULTURE TO 18 Indicated Comment [address] [facility] Indicated Comment FOLLO <[place] [address] NOTE> [phone] Source: URINE, CLEAN CAT <SEE NOTE> 19 Urinalysis With 07/14/2019 [facility] Urine Color Yellow Yellow Microscopic [address] [place] [address] [phone] Urine Clarity Clear Clear Urine Glucose - Dipstick 500 mg/dL Abnormal Negative Urine Bilirubin - Dipstick NEGATIVE Negative Urine Ketone NEGATIVE mg/dL Negative Urine Specific Berk[place] 1.021 Normal 1.010-1.030 Urine Blood NEGATIVE Negative [...] CAT <SEE NOTE> 20 Blood Culture 07/14/2019 [facility] Blood Culture NO GROWTH: FINAL [address] Aerobic <SEE NOTE> [place] [address] [phone] Blood Culture Anaerobic NO GROWTH: FINAL <SEE NOTE> 22 Bacteria Bld 07/14/2019 N2N/CCD Import Aerobic Blood No Growth: Final Aerobe Cult Culture Report Bacteria Bld 07/14/2019 N2N/CCD Import Anaerobic Blood No Growth: Final Anaerobe Cult Culture Report Blood Culture 07/14/2019 [facility] Blood Culture NO GROWTH: FINAL [address] Aerobic <SEE NOTE> [place] [address] [phone] Blood Culture Anaerobic NO GROWTH: FINAL <SEE NOTE> 24 CBC W/Automated 07/14/2019 [facility] White Blood 10.7 K/uL High 3.4-10.[address] [place] [address] [phone] Red Blood Count 4.41 M/uL Normal 4.20-5.80 [...] 33.0-73.0 Lymph % 12.4 % Low 20.0-42.0 [place] % 7.2 % Normal 0.0-10.0 Eo% 0.8 % Normal 0.0-6.6 Bas% 0.6 % Normal 0.0-1.1 Immature Grans 0.5 % Normal 0.0-5.0 NRBC % 0.0 /100WBC < 10/ 100 WBC Neut# 8.38 K/uL High 1.8-7.0 Lymph # 1.32 K/uL Normal 1.0-4.0 [place] # 0.77 K/uL Normal 0.0-0.8 Eos # 0.08 K/uL Normal 0.0-0.5 Baso # 0.06 K/uL Normal 0.0-0.1 Immature Grans Absolute 0.05 K/uL NRBC # 0.00 K/uL Lactate SerPl-sCnc 07/14/2019 N2N/CCD Import Lactic Acid 1.0 0.4-1.9 Level Lactic Acid 07/14/2019 [facility] Lactic Acid 1.0 mmol/L Normal 0.4-1.[address] [place], [place] [address] [phone] Lab Reflex >2.0 for Sepsis? N Laboratory test 07/14/2019 [facility] LDH 200 Normal 87-[address] U/L [place], [place] [address] [phone] Creat Ur-mCnc 05/14/2019 N2N/CCD Import Urine Creatinine 156 Concentration Microalbumin/Crea 05/14/2019 N2N/CCD Import Urine 73.7 < 30.0 t Ur-Rto Microalbumin/Cre atinine Ratio Microalbumin 05/14/2019 N2N/CCD Import Urine 115.0 < 20.0 Ur-mCnc Microalbumin Comprehensive 05/14/2019 [facility] Glucose 101 Normal 74-106 25 Metabolic Panel [address] mg/[place] [address] [phone] BUN 14 mg/dL Normal 7-18 Creatinine 1.0 [...] 20 U/L Low 45-117 CBC W/Automated 05/14/2019 [facility] White Blood 11.2 K/uL High 3.4-10.[address] [place] [address] [phone] Red Blood Count 5.02 M/uL Normal 4.20-5.80 [...] 33.0-73.0 Lymph % 10.5 % Low 20.0-42.0 [place] % 8.1 % Normal 0.0-10.0 Eo% 1.3 % Normal 0.0-6.6 Bas% 0.6 % Normal 0.0-1.1 Immature Grans 0.4 % Normal 0.0-5.0 NRBC % 0.0 /100WBC < 10/ 100 WBC Neut# 8.84 K/uL High 1.8-7.0 Lymph # 1.18 K/uL Normal 1.0-4.0 [place] # 0.91 K/uL High 0.0-0.8 Eos # 0.14 K/uL Normal 0.0-0.5 Baso # 0.07 K/uL Normal 0.0-0.1 Immature Grans Absolute 0.05 K/uL NRBC # 0.00 K/uL Laboratory test 05/14/2019 [facility] Cholesterol 141 <[address] mg/[place] [address] [phone] Glycohemoglobin 05/14/2019 [facility] Glycohemoglobin 7.4 % High 4.2-6. [address] (A1c) 3 [place] [address] [phone] eAG 166 mg/dL Microalbumin,Random 05/14/2019 [facility] Microalbumin,Urine 115.0 < 20.[address] mg/[place] [address] [phone] Microalb/Creat 05/14/2019 [facility] Microalbumin/Creatin 73.7 < 30.0 Ratio,Random [address] ine Ratio ug/[place] [address] t [phone] Urine Creatinine Conc 156 mg/dL Glycohemoglobin 04/29/2019 [facility] Glycohemoglobin 7.5 % High 4.2-6.3 30, A1c [address] (A1c) 31 [place] [address] [phone] eAG 169 mg/dL CBC W/Automated 04/29/2019 [facility] White Blood 9.5 K/uL Normal 3.4-10.[address] [place] [address] [phone] Red Blood Count 4.86 M/uL Normal 4.20-5.80 [...] 33.0-73.0 Lymph % 14.6 % Low 20.0-42.0 [place] % 8.6 % Normal 0.0-10.0 Eo% 1.9 % Normal 0.0-6.6 Bas% 0.6 % Normal 0.0-1.1 Immature Grans 0.4 % Normal 0.0-5.0 NRBC % 0.0 /100WBC < 10/ 100 WBC Neut# 6.99 K/uL Normal 1.8-7.0 Lymph # 1.38 K/uL Normal 1.0-4.0 [place] # 0.81 K/uL High 0.0-0.8 Eos # 0.18 K/uL Normal 0.0-0.5 Baso # 0.06 K/uL Normal 0.0-0.1 Immature Grans Absolute 0.04 K/uL NRBC # 0.00 K/uL Comprehensive 04/29/2019 [facility] Glucose 80 mg/dL Normal 74-106 Metabolic Panel [address] [place], [place] [address] [phone] BUN 19 mg/dL High 7-18 Creatinine 1.0 [...] U/L Low 45-117 LDL Cholesterol Profile 04/29/2019 [facility] Cholesterol 146 mg/dL <[address] [place] [address] [phone] Triglycerides 78 mg/dL <150 35 HDL Cholesterol 37 mg/dL Low >40 36 LDL-Cholesterol 93 mg/dL < 100 37 Laboratory test 04/29/2019 [facility] Vitamin 52.3 30.0-100.0 [address] D,25-Hydroxy ng/[place] [address] [phone] Hepatitis C Antibody < 0.1 s/corat 0.0-0.9 39 Trigl SerPl-mCnc 04/29/2019 N2N/CCD Import Triglycerides Level 78 <150 LDLc SerPl 04/29/2019 N2N/CCD Import LDL Cholesterol, 93 < 100 Calc-mCnc Calculated HCV Ab s/co SerPl 04/29/2019 N2N/CCD Import Hepatitis C Ab < 0.1 0.0- 0.9 Ia Signal/Cutoff Ratio Laboratory test 03/27/2019 [facility] Prostate Specific 0.17 < 4.0 40, [address] Antigen ng/[place] [address] [phone] 1 HYPONATREMIA, VOMITING 2 Note: Persistent reduction [...] 11.9 4 Performed at: RN - [facility] [address] [id number] Municipal Maintenance Worker: Michelle Lima MD, Phone: [phone] Note: Persistent reduction for 3 months [...] for more aggressive treatment of glycemia. The [place] [employer] recommends that a primary goal [...] for more aggressive treatment of glycemia. The [place] [employer] recommends that a primary goal of therapy should be a HbA1c of <7% and that physicians should re-evaluate the treatment regimen in patients with HbA1c values consistently >8%. 30 E11.9 V89.2XXA E78.5 E55.9 31 Elevated levels of HbA1c suggest the need for more aggressive treatment of glycemia. The [place] Diabetes Association recommends that a primary goal [...] D deficiency has been defined by the [place] of [employer] and an Endocrine Society practice guideline as a level of serum 25-OH vitamin D less than 20 ng/mL (1,2). The Endocrine Society went on to further define vitamin D insufficiency as a level between 21 and 29 ng/mL (2). 1. IOM ([place] of [employer]). 2010. Dietary reference intakes for calcium and D. [place]: The National Academies Press. 2. Margarita MF, Jesús NC, David DUBON, et al. Evaluation, treatment, and prevention of vitamin D deficiency: an Endocrine Society clinical practice guideline. JCEM. 2010; 96(7):1911-30. Performed at: RN - [facility] [address] [id number] Municipal Maintenance Worker: Michelle Lima MD, Phone: [phone] INFCE Result Units: s/co ratio Negative: < 0.8 Indeterminate: 0.8 - 0.9 Positive: > 0.9 The CDC recommends that a positive HCV antibody result be followed up with a HCV Nucleic Acid Amplification test (770583). Performed at: [facility] [id number] Municipal Maintenance Worker: Michelle Lima MD, Phone: [phone] z85.46 41 THIS ASSAY IS NOT INTENDED A CANCER SCREENING TEST The concentration of PSA in a given specimen, determined with assays from different manufacturers, can vary due to differences in assay methods and reagent specificity. Values obtained from different assay methods cannot be used interchangeably. Method: [place] Chemiluminescent immunoassay. 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 cor art w unsp ang pctrs I73.9 [...] Surgical Office Óscar Crenshaw, K61.1 Rectal abscess ,[facility] K61.1 Rectal abscess Office Visit 03/27/2019 9:30a Urology Eric Moreira, Z85.46 Personal history of M.D. 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, Treva, MS, FUNERAL DRIVER-C, unspecified adrenal gland [facility] 08/15/2019 I10 Essential (primary) hypertension Gagen, Treva, MS, FUNERAL DRIVER-C , CN 08/15/2019 E78.5 Hyperlipidemia, unspecified Gagen, Treva, MS, FUNERAL DRIVER-C, [facility] 08/15/2019 G47.00 Insomnia, unspecified Gagen, Treva, MS, FUNERAL DRIVER-C, [facility] 08/15/2019 E55.9 Vitamin D deficiency, unspecified Gagen, Treva, MS, FUNERAL DRIVER-C, [facility] 08/15/2019 Z71.6 Tobacco abuse counseling Gagen, Treva, MS, FUNERAL DRIVER-C, [facility] 07/17/2019 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 coronary artery with CNM 05/21/2019 I73.9 Peripheral vascular disease, Gagen, Treva, MS, FUNERAL DRIVER-C, unspecified CNM 05/21/2019 R19.7 Diarrhea, unspecified Gagen, Treva, MS, FUNERAL DRIVER-C, CNM 05/21/2019 E11.9 Type 2 diabetes mellitus without Gagen, Treva, MS, FUNERAL DRIVER -C, complications CNM 05/21/2019 I10 Essential (primary) hypertension Gagen, Treva, MS, FUNERAL DRIVER-C , CNM 05/21/2019 F17.210 Nicotine dependence, cigarettes, Gagen, Treva, MS, FUNERAL DRIVER-C, uncomplicated CNM 05/21/2019 Z71.6 Tobacco abuse counseling Gagen, Treva, MS, FUNERAL DRIVER-C, CNM 05/21/2019 E78.5 Hyperlipidemia, unspecified Gagen, Treva, MS, FUNERAL DRIVER-C, CNM 05/05/2019 Z85.46 Personal history of malignant Gagen, Treva, MS, FUNERAL DRIVER-C , neoplasm of prostate CNM 05/05/2019 Z12.11 Encounter for screening for malignant Gagen, Treva, MS, FUNERAL DRIVER-C, neoplasm of colon CNM 05/05/2019 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 coronary artery with CNM 05/05/2019 E78.5 Hyperlipidemia, unspecified Gagen, Treva, MS, FUNERAL DRIVER-C, CNM 05/05/2019 I73.9 Peripheral vascular disease, Gagen, Treva, MS, FUNERAL DRIVER-C, unspecified CNM 05/05/2019 I10 Essential (primary) hypertension Gagen, Treva, MS, FUNERAL DRIVER-C , CNM 05/05/2019 F17.210 Nicotine dependence, cigarettes, Gagen, Treva, MS, FUNERAL DRIVER-C, uncomplicated CNM 05/05/2019 E11.9 Type 2 diabetes mellitus without Treva Cornejo, , FUNERAL DRIVER -C, complications CNM 05/05/2019 R19.7 Diarrhea, unspecified Treva Cornejo, , FUNERAL DRIVER-C, CNM 05/05/2019 E55.9 Vitamin D deficiency, unspecified Treva Cornejo, , FUNERAL DRIVER-C, CNM 05/05/2019 J44.9 Chronic obstructive pulmonary Treva Cornejo, , FUNERAL DRIVER-C, disease, unspecified CNM 05/05/2019 Z71.6 Tobacco abuse counseling Treva Cornejo, , FUNERAL DRIVER-C, CNM 04/11/2019 Z48.817 Encounter for surgical aftercare Óscar Crenshaw MD,FACS following surgery on the skin and subcutaneous tissue 04/11/2019 K61.1 Rectal abscess Óscar Crenshaw MD,FACS 03/31/2019 Z23 Encounter for immunization Treva Cornejo MS, FUNERAL DRIVER-C, CNM 03/31/2019 Z23 Encounter for immunization Nurse [...] abscess without bleeding Plan of Treatment Future Appointment(s):08/29/2019 10:30 am - Chantal Treva, MS, FUNERAL DRIVER-C, CNM at Primary Care [id number]/22/2019 10:30 am - Treva Cornejo, MS, FUNERAL DRIVER-C, CNM at Primary Care [id number]/15/2019 - Chantal Treva, MS, FUNERAL DRIVER-C, CNME11.9 Type 2 diabetes mellitus without complicationsNew Labs:Glycohemoglobin A1c, Ordered: 08/15/19Comments:-- Patient recently went to ER for nausea, vomiting, diarrhea after lengthy use of laxatives. At which time patient had an episode of hypoglycemia. Hospitalist felt the hospitalist was due to change indiet while in the hospital. Hospitalist decreased the Levemir 52 units b.i.d. dose in half. --Controlled, Continue Levemir Flextouch 100 Unit/ML 52 units subq twice a dayNovolog Flexpen 100 Unit/ML inject 6 units before meals under the skin three times A day--HgA1C: 7.5 > 7.4-- Following withDr Law, had OV 2019--Continue BP goal is <130/80 mmHg. --Diet: Include complex carbohydratessuch as brown rice, whole wheat, quinoa, oatmeal, fruits, vegetables, beans, lentils. Avoid simple carbohydrates such as, sugar, pasta, white bread, flour, processed foods, baked goods. --Optho: Had OV12/17/18-- Podiatry: Patient is going to have his foot assessed with vascular surgeon. We discussed the importance of inspecting feet for abrasions, cuts, non healing sores. Potential for neuropathy, poor healing. Report any changes. 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 hkvnsE04 Essential ( primary) hypertensionNew Medication:Ramipril 10 mg - Take one capsule twice a day -New Labs:CBC W/Automated Diff, Ordered: 08/15/19Comprehensive Metabolic Panel, Ordered: 08/15/19Comments:--B/P 138/62--BP goal <130/80 --Controlled , to continue Ramipril to 5mg twice daily, Metoprolol Tartrate 25 mg 1 by mouth twice a day, HCTZ 12.5 mg po Qam--Low salt dietE78.5 Hyperlipidemia, unspecifiedNew Labs:LDL Cholesterol Profile, Ordered: 08/15/19Comments:-- Rosuvastatin Calcium was increased by endo from 10 mg to 20 mg take 1 by mouth at bedtime, Fenofibric Acid 105 mg take 1 tablet in the morning, maximum daily dose 1 Total Cholesterol: 141Triglycerides: 78High Density Lipids:37Low Density Lipids: 93--Follow a heart healthy diet that emphasizes fruits, vegetables, whole grains, poultry, fish, and nuts. --[place] [employer] recommends limiting saturated fats to 5-6 % of your daily calories and minimizing the amount of saturated fats and trans fatty acids that you eat. Saturated fats are typically solids at room temperature. Trans fatty acids are found in fried foods, baked goods.--A diet high in fiber can help lower cholesterol. --Decrease sugary food and beverages--Increase physical activity to 30 minutes on most days, as tolerated--Quit smoking. Non smokers should avoid second hand smoke. --Maintain weight -- Patient to discuss withvascular surgeon. To consider increasing statin. 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 Smoking is linked to a variety of health conditions such as hypertension, lung disease, as well as inflammatory disease. It is also linked to multiple cancers, not just lung cancer - it is also implicated in breast, colon and skin cancer. -- Patient counseled for >3 minutes on smoking cessationAllFollow up:--RTO in 2 weeks with labs 1 week before Functional Status Functional Condition Comment Date Status Glasses Active Mental Status Description No Information Available Referrals Refer to Reason for Referral Status Appt Date Richelle Munguia MD send [facility] note pls call Patient to let Scheduled him know address and that we are working on OV 07/18/2019 faxed notes.. [address] [place], [place] [address] [phone] Nicholas Alvarado MD was going to endo who retired diabetes Closed 06/25/[address] [place], [place] [id number] [phone]
--- OUTSIDE RECORDS SUMMARY | 2019-09-05 07:27 | XMS REPORT | Continuity of Care Document ---
:1945 External Reference #:[id number] Author Name Treva Cornejo, MS, [employer] [facility], CNM (transmitted by agent of provider Arianne Rendon) Address [address] [place] [address] Care Team Providers Name Role Phone Cleo Camacho MD - Physical Medicine Care Team Information Service Administrator [phone] & Rehabilitation Carlos Enrique Hale MD - Emergency Medicine Care Team Information Service Administrator Argenis Fox NP - Nurse Care Team Information Service Administrator [phone] Practitioner Jose Peña SUPERVISOR HARD CANDY - Nurse Care Team Information Service Administrator [phone] Practitioner Treva Cornejo NP, CNM - Nurse Care Team Information Service Administrator Practitioner Richelle Munguia MD - Hematology & Care Team Information Service Administrator Oncology Problems Active Problems Provider Date Degenerative [...] 2016 LDL 75 HDL 40 Chol 132; NM/cath December 2015 Chronic renal failure Leslie Lopez [...] Shields Hyperlipidemia Abbey Jimenez, MSN, Onset: 02/15/2017 [facility] [employer] [facility] Tobacco user Abbey Jimenez, MSN, Onset: 02/15/2017 [facility] Atherosclerotic heart disease of Abbey Jimenez, MSN, 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 Mixed hyperlipidemia Parul Foster [...] Ratnasingam, 08/15/19 10mg Capsules twice a day [place], 20 Omron 7 Series Blood use daily as 1units I10 Ratnasingam, 08/15/19 Pressure Monitor directed to monitor Shamanthy, 20 Device bp Retroperineal Biopsey Patient 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.10 [...] 12/21/19 160mg Tablets Morning Treva, 19 MS, [employer], CNM Hydrochlorothiazide take one capsule in 90caps I10 Jimenez, Abbey 08/06/19 12.5mg the morning Simonetta, 19 Capsules MSN, [employer] [employer] [facility] Loperamide HCL take two capsules 30caps V89.2xxA [...] Collado Strips meal,at bedtime,and as needed Pen [place] [employer] uad with insulin 100units nasingam, 07/10/2016 31G X 8 MD Walt mm [...] chest pain as Fernando, MSN, Sub needed [employer] [facility] Polyethylene Glycol Take 17 Grams By Unknown [...] 2019 - 500mg by mouth 3 times ,THA 04/11/2019 Tablets daily for 10 days. take it in the middle of your meal Medications Administered in Office Medication SIG Qnty Indications Ordering Provider Date Administration Of Flu Mariano Rhodes MD 04/03/2008 Injection Immunizations CPT Code Status Date Vaccine Reaction Lot # [id number] Given 03/31/2019 Influenza High Dose [id number] 93920 Given 05/20/2018 Influenza High Dose none [id number] 56752 Given 02/27/2017 Influenza High Dose [id number] 64236 Given 10/23/2016 Pneumovax Injection [id number] 57071 Given 10/23/2016 Tdap injection [id number] Q2038 Given 03/20/2016 Influenza Vaccine (Fluzone) Age 3 And [id number] Older Q2038 Given 03/11/2015 Influenza Vaccine (Fluzone) Age 3 And Older 71889 Given 03/11/2015 Pneumococcal Conjugate Vaccine 13 Valent For Intramuscular Use 46046 Given 04/03/2008 flu vaccination Vital Signs Date Vital Result Comment 08/15/2019 9:52am BP Systolic 148 mmHg BP Diastolic 70 mmHg Body Temperature 98.5 F Heart Rate 80 /min Respiratory Rate 18 /min Height 67 inches 5'7" Weight 148.00 lb BMI (Body Mass Index) 23.2 kg/m2 BSA (Body Surface Area) 1.78 m2 [place] body weight in kilograms 67 kg O2 [...] Estimated GFR >60 >60 pred.black ( SerPl [place]) MDRD-ArVRat GFR/Bsa 08/08/2019 N2N/CCD Import Estimated GFR >60 >60 pred.non black (Non- SerPl [place] MDRD-ArVRat BUN SerPl-mCnc 08/08/2019 N2N/CCD Import Blood [...] 203 mg/dL High 74-106 1 Metabolic [address] [place] [address] [phone] BUN 3 mg/dL Critical low 7-18 Creatinine 0.6 mg/dL Normal 0.6-1.3 Glom Filtration Rate, Estimate >60 mL/min >60 If >60 mL/min >60 2 BUN/Creat 5.0 ratio Sodium 133 mmol/L Low 136-145 Potassium 4.5 mmol/L 3.5-5.1 Chloride 104 mmol/L Normal 98-107 Carbon Dioxide 24 mmol/L Normal 21-32 Anion Gap 5 mEq/L Low 8-16 Calcium 8.5 mg/dL Normal 8.5-10.1 CBC 08/08/2019 [facility] White Blood Count 8.3 K/uL Normal 3.4-10.5 [address] [place] [address] [phone] Red Blood Count 3.67 M/uL Low 4.20-5.80 [...] High 70-110 Glucomtr-mCnc Cortisol - 3 08/07/2019 [facility] Cortisol #1 17.8 . [address] (Base) g/dL [place], [place] [id number] [phone] Cortisol #2 16.3 g/dL Not Estab. Cortisol #3 13.3 g/dL Not Estab. 4 Basic Metabolic 08/07/2019 [facility] Glucose 29 mg/dL Critical low 74-[address] [place], [place] [id number] [phone] BUN 5 mg/dL Critical low 7-18 Creatinine 0.6 mg/dL Normal 0.6-1.3 Glom Filtration Rate, Estimate >60 mL/min >60 If >60 mL/min >60 5 BUN/Creat 8.3 ratio Sodium 135 mmol/L Low 136-145 Potassium 3.6 mmol/L Normal 3.5-5.1 Chloride 106 mmol/L Normal 98-107 Carbon Dioxide 26 mmol/L Normal 21-32 Anion Gap 3 mEq/L Low 8-16 Calcium 8.3 mg/dL Low 8.5-10.1 CBC 08/07/2019 [facility] White Blood Count 11.8 K/uL High 3.4-10.[address] [place], [place] [address] [phone] Red Blood Count 3.66 M/uL Low 4.20-5.80 [...] Bld Auto (Auto) TSH Reflex FT4 08/06/2019 [facility] Thyroid Stim 1.94 Normal 0.30-4.20 And/Or FT3 [address] Hormone uIU/[place] [address] [phone] Reflex add FT3? N Reflex add FT4? Y Basic Metabolic Panel 08/06/2019 [facility] Glucose 91 mg/dL Normal 74-[address] [place] [address] [phone] BUN 10 mg/dL Normal 7-18 Creatinine 0.7 [...] N Reflex add FT4? Y Glycohemoglobin 08/06/2019 [facility] Glycohemoglobin 6.9 % High 4.2-6.[address] (A1c) [place] [address] [phone] eAG 151 mg/dL CBC W/Automated 08/06/2019 [facility] White Blood 10.3 K/uL Normal 3.4-10.[address] [place] [address] [phone] Red Blood Count 3.80 M/uL Low 4.20-5.80 [...] 33.0-73.0 Lymph % 6.8 % Low 20.0-42.0 Gilchrist % 9.7 % Normal 0.0-10.0 Eo% 0.2 % Normal 0.0-6.6 Bas% 0.4 % Normal 0.0-1.1 Immature Grans 0.4 % Normal 0.0-5.0 NRBC % 0.0 /100WBC < 10/ 100 WBC Neut# 8.47 K/uL High 1.8-7.0 Lymph # 0.70 K/uL Low 1.0-4.0 Gilchrist # 1.00 K/uL High 0.0-0.8 Eos # [...] 3.4-10.5 [address] [place] [address] [phone] Red Blood Count 4.08 M/uL Low 4.20-5.80 [...] 33.0-73.0 Lymph % 6.5 % Low 20.0-42.0 Gilchrist % 8.1 % Normal 0.0-10.0 Eo% 0.1 % Normal 0.0-6.6 Bas% 0.4 % Normal 0.0-1.1 Immature Grans 0.8 % Normal 0.0-5.0 NRBC % 0.0 /100WBC < 10/ 100 WBC Neut# 12.00 K/uL High 1.8-7.0 Lymph # 0.93 K/uL Low 1.0-4.0 Gilchrist # 1.16 K/uL High 0.0-0.8 Eos # [...] Import Lipase 101 56-289 SerPl-cCnc Laboratory 08/05/2019 [facility] Troponin-I < 0.015 9 test finding [address] ng/[place] [address] [phone] Laboratory 08/05/2019 [facility] Rapid Strep A Negative Negative 10 test finding [address] [place] [address] [phone] Influenza A/B 08/05/2019 [facility] Influenza A Antigen Negative (Negative) Antigen [address] [place] [address] [phone] Influenza B Antigen Negative (Negative) 11 Urinalysis With 08/05/2019 [facility] Urine Color Yellow Yellow Microscopic [address] [place] [address] [phone] Urine Clarity Clear Clear Urine Glucose - Dipstick TRACE mg/dL Negative Urine Bilirubin - Dipstick NEGATIVE Negative Urine Ketone 20 mg/dL Abnormal Negative Urine Specific Wolbach 1.021 Normal 1.010-1.030 Urine Blood NEGATIVE Negative [...] CAT <SEE NOTE> 12 Laboratory test 08/05/2019 [facility] Throat Strep NO BETA 13 finding [address] [facility] [place] [place] [address] <SEE NOTE> [phone] Fluav Ag XXX Ql 08/05/2019 N2N/CCD Import [...] comment Report Reflexed Follow Urine Culture 07/14/2019 [facility] Urine Culture URETHRAL 14 [address] [place], [place] [address] [phone] Quantity 10,000 - 50,000 <SEE NOTE> 15 Laboratory test finding 07/14/2019 [facility] CK 45 U/L Normal 39-308 [address] [place] [address] [phone] Troponin-I 0.015 ng/mL 16 Comprehensive Metabolic 07/14/2019 [facility] Glucose 125 mg/dL High 74-106 Panel [address] [place] [address] [phone] BUN 9 mg/dL Normal 7-18 Creatinine 0.9 [...] 22 U/L Low 45-117 Culture If 07/14/2019 [facility] Culture If CULTURE TO 18 Indicated Comment [address] Indicated Comment FOLLO <[place] [address] NOTE> [phone] Source: URINE, CLEAN CAT <SEE NOTE> 19 Urinalysis With 07/14/2019 [facility] Urine Color Yellow Yellow Microscopic [address] [place], [place] [address] [phone] Urine Clarity Clear Clear Urine Glucose - Dipstick 500 mg/dL Abnormal Negative Urine Bilirubin - Dipstick NEGATIVE Negative Urine Ketone NEGATIVE mg/dL Negative Urine Specific Wolbach 1.021 Normal 1.010-1.030 Urine Blood NEGATIVE Negative [...] CAT <SEE NOTE> 20 Blood Culture 07/14/2019 [facility] Blood Culture NO GROWTH: FINAL [address] Aerobic <SEE NOTE> [place] [address] [phone] Blood Culture Anaerobic NO GROWTH: FINAL <SEE NOTE> 22 Bacteria Bld 07/14/2019 N2N/CCD Import Aerobic Blood No Growth: Final Aerobe Cult Culture Report Bacteria d 07/14/2019 N2N/CCD Import Anaerobic Blood No Growth: Final Anaerobe Cult Culture Report Blood Culture 07/14/2019 [facility] Blood Culture NO GROWTH: FINAL [address] Aerobic <SEE NOTE> [place], [place] [address] [phone] Blood Culture Anaerobic NO GROWTH: FINAL <SEE NOTE> 24 CBC W/Automated 07/14/2019 [facility] White Blood 10.7 K/uL High 3.4-10.[address] [place] [address] [phone] Red Blood Count 4.41 M/uL Normal 4.20-5.80 [...] 33.0-73.0 Lymph % 12.4 % Low 20.0-42.0 Gilchrist % 7.2 % Normal 0.0-10.0 Eo% 0.8 % Normal 0.0-6.6 Bas% 0.6 % Normal 0.0-1.1 Immature Grans 0.5 % Normal 0.0-5.0 NRBC % 0.0 /100WBC < 10/ 100 WBC Neut# 8.38 K/uL High 1.8-7.0 Lymph # 1.32 K/uL Normal 1.0-4.0 Gilchrist # 0.77 K/uL Normal 0.0-0.8 Eos # 0.08 K/uL Normal 0.0-0.5 Baso # 0.06 K/uL Normal 0.0-0.1 Immature Grans Absolute 0.05 K/uL NRBC # 0.00 K/uL Lactate SerPl-sCnc 07/14/2019 N2N/CCD Import Lactic Acid 1.0 0.4-1.9 Level Lactic Acid 07/14/2019 [facility] Lactic Acid 1.0 mmol/L Normal 0.4-1.[address] [place], [place] [address] [phone] Lab Reflex >2.0 for Sepsis? N Laboratory test 07/14/2019 [facility] LDH 200 Normal 87-[address] U/L [place], [place] [address] [phone] Creat Ur-mCnc 05/14/2019 N2N/CCD Import Urine Creatinine 156 Concentration Microalbumin/Crea 05/14/2019 N2N/CCD Import Urine 73.7 < 30.0 t Ur-Rto Microalbumin/Cre atinine Ratio Microalbumin 05/14/2019 N2N/CCD Import Urine 115.0 < 20.0 Ur-mCnc Microalbumin Comprehensive 05/14/2019 [facility] Glucose 101 Normal 74-106 25 Metabolic Panel [address] mg/[place] [address] [phone] BUN 14 mg/dL Normal 7-18 Creatinine 1.0 [...] 20 U/L Low 45-117 CBC W/Automated 05/14/2019 [facility] White Blood 11.2 K/uL High 3.4-10.[address] Count [place], [place] [address] [phone] Red Blood Count 5.02 M/uL Normal 4.20-5.80 [...] 33.0-73.0 Lymph % 10.5 % Low 20.0-42.0 Gilchrist % 8.1 % Normal 0.0-10.0 Eo% 1.3 % Normal 0.0-6.6 Bas% 0.6 % Normal 0.0-1.1 Immature Grans 0.4 % Normal 0.0-5.0 NRBC % 0.0 /100WBC < 10/ 100 WBC Neut# 8.84 K/uL High 1.8-7.0 Lymph # 1.18 K/uL Normal 1.0-4.0 Gilchrist # 0.91 K/uL High 0.0-0.8 Eos # 0.14 K/uL Normal 0.0-0.5 Baso # 0.07 K/uL Normal 0.0-0.1 Immature Grans Absolute 0.05 K/uL NRBC # 0.00 K/uL Laboratory test 05/14/2019 [facility] Cholesterol 141 <200 [address] mg/[place] [address] [phone] Glycohemoglobin 05/14/2019 [facility] Glycohemoglobin 7.4 % High 4.2-6. [address] (A1c) 3 [place] [address] [phone] eAG 166 mg/dL Microalbumin,Random 05/14/2019 [facility] Microalbumin,Urine 115.0 < 20.[address] mg/[place] [address] [phone] Microalb/Creat 05/14/2019 [facility] Microalbumin/Creatin 73.7 < 30.0 Ratio,Random [address] ine Ratio ug/[place] [address] t [phone] Urine Creatinine Conc 156 mg/dL Glycohemoglobin 04/29/2019 [facility] Glycohemoglobin 7.5 % High 4.2-6.3 30, A1c [address] (A1c) [address] [place] [address] [phone] eAG 169 mg/dL CBC W/Automated 04/29/2019 [facility] White Blood 9.5 K/uL Normal 3.4-10.[address] [place] [address] [phone] Red Blood Count 4.86 M/uL Normal 4.20-5.80 [...] 33.0-73.0 Lymph % 14.6 % Low 20.0-42.0 Gilchrist % 8.6 % Normal 0.0-10.0 Eo% 1.9 % Normal 0.0-6.6 Bas% 0.6 % Normal 0.0-1.1 Immature Grans 0.4 % Normal 0.0-5.0 NRBC % 0.0 /100WBC < 10/ 100 WBC Neut# 6.99 K/uL Normal 1.8-7.0 Lymph # 1.38 K/uL Normal 1.0-4.0 Gilchrist # 0.81 K/uL High 0.0-0.8 Eos # 0.18 K/uL Normal 0.0-0.5 Baso # 0.06 K/uL Normal 0.0-0.1 Immature Grans Absolute 0.04 K/uL NRBC # 0.00 K/uL Comprehensive 04/29/2019 [facility] Glucose 80 mg/dL Normal 74-106 Metabolic Panel [address] [place] [address] [phone] BUN 19 mg/dL High 7-18 Creatinine 1.0 [...] U/L Low 45-117 LDL Cholesterol Profile 04/29/2019 [facility] Cholesterol 146 mg/dL <[address] [place] [address] [phone] Triglycerides 78 mg/dL <150 35 HDL Cholesterol 37 mg/dL Low >40 36 LDL-Cholesterol 93 mg/dL < 100 37 Laboratory test 04/29/2019 [facility] Vitamin 52.3 30.0-100.0 [address] D,25-Hydroxy ng/[place] [address] [phone] Hepatitis C Antibody < 0.1 s/corat 0.0-0.9 39 Trigl SerPl-mCnc 04/29/2019 N2N/CCD Import Triglycerides Level 78 <150 LDLc SerPl 04/29/2019 N2N/CCD Import LDL Cholesterol, 93 < 100 Calc-mCnc Calculated HCV Ab s/co SerPl 04/29/2019 N2N/CCD Import Hepatitis C Ab < 0.1 0.0- 0.9 Ia Signal/Cutoff Ratio Laboratory test 03/27/2019 [facility] Prostate Specific 0.17 < 4.0 40, [address] Antigen ng/[place] [address] [phone] 1 HYPONATREMIA, VOMITING 2 Note: Persistent reduction [...] 11.9 4 Performed at: RN - [facility] [address] [id number] Financial Supervisor: Michelle Lima MD, Phone: [phone] Note: Persistent reduction for 3 months [...] for more aggressive treatment of glycemia. The [place] Diabetes Association recommends that a primary goal [...] A and B molecular assay. Method: BD Bevvyitor Chromatographic immunoassay 12 URINE, CLEAN CATCH 13 [...] for more aggressive treatment of glycemia. The [place] Diabetes Association recommends that a primary goal of therapy should be a HbA1c of <7% and that physicians should re-evaluate the treatment regimen in patients with HbA1c values consistently >8%. 30 E11.9 V89.2XXA E78.5 E55.9 31 Elevated levels of HbA1c suggest the need for more aggressive treatment of glycemia. The [place] Diabetes Association recommends that a primary goal [...] deficiency has been defined by the [place] of Medicine and an Endocrine Society practice guideline as a level of serum 25-OH vitamin D less than 20 ng/mL (1,2). The Endocrine Society went on to further define vitamin D insufficiency as a level between 21 and 29 ng/mL (2). 1. IOM ([place] of Medicine). 2010. Dietary reference intakes for calcium and D. [place]: The National Academies Press. 2. Margarita MF, Jesús NC, David DUBON, et al. Evaluation, treatment, and prevention of vitamin D deficiency: an Endocrine Society clinical practice guideline. JCEM. 2010; 96(7):1911-30. Performed at: RN - [facility] [id number] Financial Supervisor: Michelle Lima MD, Phone: [phone] INFCE Result Units: s/co ratio Negative: < 0.8 Indeterminate: 0.8 - 0.9 Positive: > 0.9 The CDC recommends that a positive HCV antibody result be followed up with a HCV Nucleic Acid Amplification test (239587). Performed at: [address] [id number] Financial Supervisor: Michelle Lima MD, Phone: [phone] Z85.46 41 THIS ASSAY IS NOT INTENDED A CANCER SCREENING TEST The concentration of PSA in a given specimen, determined with assays from different manufacturers, can vary due to differences in assay methods and reagent specificity. Values obtained from different assay methods cannot be used interchangeably. Method: PolySuite [place] Chemiluminescent immunoassay. Procedures Date Code Description Status 2019 46059 I&D, perianal abscess, superficial Completed 03/27/2019 01204 Measurement Post Voiding Residual Urine By Completed Ultrasound,Non-Imaging 03/27/2019 18788 complex uroflowmetry electronic Completed 02/26/2019 10215 Colonoscopy With Biopsy Completed 02/26/2019 [id number] Colonoscopy Completed 05/24/2017 739559636 Diabetic Foot Exam Completed 12/29/2013 [id number] Colonoscopy Completed Medical Devices Description No Information Available Encounters Type Date Location Provider Dx Diagnosis Office Visit 08/15/2019 [facility], E11.9 Type 2 diabetes 10:10a Office Treva, MS, mellitus without [facility], CNM complications 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 I10 Essential (primary) hypertension E78.5 Hyperlipidemia, unspecified G47.00 Insomnia, unspecified E55.9 Vitamin D deficiency, unspecified N50.89 Other specified disorders of the male genital organs R63.4 Abnormal weight loss Z71.6 Tobacco abuse counseling Office Visit 07/17/2019 10:30a [facility] D44.10 Neoplasm of Office MS Treva, uncertain [employer] [facility], CNM behavior of unspecified adrenal gland R63.4 Abnormal weight loss G47.00 Insomnia, unspecified Office Visit 05/21/2019 11:00a Primary Care Treva Cornejo, Z85.46 Personal history Office MS, [employer] [facility], CNM of malignant neoplasm of prostate Z12.11 Encounter for screening for malignant neoplasm of colon 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 [place] cor art w unsp [facility] pctrs I73.9 Peripheral vascular disease, unspecified R19.7 [...] 08/15/2019 E11.9 Type 2 diabetes mellitus without GagTreva felix, MS, [employer] [facility] -[facility], complications [facility] 08/15/2019 D44.10 Neoplasm of uncertain behavior of ElidaTreva felix, MS, [employer] [facility], unspecified adrenal gland [facility] 08/15/2019 I10 Essential (primary) hypertension Treva Cornejo, MS, [employer] [facility] , [facility] 08/15/2019 E78.5 Hyperlipidemia, unspecified Gagen, Treva, MS, [employer] [facility], [facility] 08/15/2019 G47.00 Insomnia, unspecified Gagen, Treva, MS, [employer] [facility], [facility] 08/15/2019 E55.9 Vitamin D deficiency, unspecified Treva Cornejo, MS, [employer] [facility], [facility] 08/15/2019 N50.89 Swelling of scrotum Treva Cornejo, MS, [employer] [facility], [facility] 08/15/2019 R63.4 Abnormal weight loss Treva Cornejo, MS, [employer] [facility], [facility] 08/15/2019 Z71.6 Tobacco abuse counseling Treva Cornejo, MS, [employer] [facility], CN 08/08/2019 R11.15 Cyclical vomiting syndrome unrelated Cadet, Jorge, [employer] to migraine 08/08/2019 R19.7 Diarrhea, unspecified Cadet, Jorge, [employer] [facility] 08/08/2019 E86.0 Dehydration Cadet, Jorge, [employer] [facility] 08/08/2019 E11.649 Type 2 diabetes mellitus with Cadet, Jorge, [employer] [facility] hypoglycemia without coma 08/07/2019 E87.1 Hypo-osmolality and hyponatremia Cadet, Jorge, [employer] [facility] 08/07/2019 E86.0 Dehydration Cadet, Jorge, [employer] [facility] 08/07/2019 E11.649 Type 2 diabetes mellitus with Cadet, Jorge, [employer] [facility] hypoglycemia without coma 08/06/2019 R19.7 Diarrhea, unspecified Cadet, Jorge, [employer] [facility] 08/06/2019 E87.1 Hypo-osmolality and hyponatremia Cadet, Jorge, [employer] [facility] 08/06/2019 E86.0 Dehydration Cadet, Jorge, [employer] 08/05/2019 R11.15 Cyclical vomiting syndrome unrelated Benjamin Akins M.D. to migraine 08/05/2019 R19.7 Diarrhea, unspecified Benjamin Akins M.D. 08/05/2019 E87.1 Hypo-osmolality and hyponatremia Benjamin Akins M.D. 08/05/2019 R93.3 Abnormal findings on diagnostic Benjamin Akins M.D. 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 Cornejo, MS, [employer] [facility], unspecified adrenal gland CN 07/17/2019 R63.4 Abnormal weight loss Treva Cornejo, MS, [employer] [facility], CNM 07/17/2019 G47.00 Insomnia, unspecified Treva Cornejo, MS, [employer] [facility], CNM 05/21/2019 Z85.46 Personal history of malignant Treva Cornejo, MS, [employer] [facility] , neoplasm of prostate CNM 05/21/2019 Z12.11 Encounter for screening for malignant Gagen, Treva, MS, [employer] [facility], neoplasm of colon CNM 05/21/2019 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 Elidaen, Treva, MS, [employer] [facility], [place] coronary artery with CNM 05/21/2019 I73.9 Peripheral vascular disease, Gagen, Treva, MS, [employer] [facility], unspecified CNM 05/21/2019 R19.7 Diarrhea, unspecified Gagen, Treva, MS, [employer] [facility], CNM 05/21/2019 E11.9 Type 2 diabetes mellitus without Gagen, Treva, MS, [employer] [facility], complications CNM 05/21/2019 I10 Essential (primary) hypertension Gagen, Treva, MS, [employer] [facility] , CNM 05/21/2019 F17.210 Nicotine dependence, cigarettes, Gagen, Treva, MS, [employer] [facility], uncomplicated CNM 05/21/2019 Z71.6 Tobacco abuse counseling Jay Cornejoqueline, MS, [employer] [facility], CNM 05/21/2019 E78.5 Hyperlipidemia, unspecified Gagen, Treva, MS, [employer] [facility], CNM 05/05/2019 Z85.46 Personal history of malignant Gagen, Treva, MS, [employer] [facility] , neoplasm of prostate CNM 05/05/2019 Z12.11 Encounter for screening for malignant Flory Cornejoline, MS, [employer] [facility], neoplasm of colon CNM 05/05/2019 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 Flory Cornejoline, MS, [employer] [facility], [place] coronary artery with CNM 05/05/2019 E78.5 Hyperlipidemia, unspecified Gagen, Treva, MS, [employer] [facility], CNM 05/05/2019 I73.9 Peripheral vascular disease, Gagen, Treva, MS, [employer] [facility], unspecified CNM 05/05/2019 I10 Essential (primary) hypertension Gagen, Treva, MS, [employer] [facility] , CNM 05/05/2019 F17.210 Nicotine dependence, cigarettes, Gagelvira, Treva, MS, [employer] [facility], uncomplicated CNM 05/05/2019 E11.9 Type 2 diabetes mellitus without Gagen, Treva, MS, [employer] [facility], complications CNM 05/05/2019 R19.7 Diarrhea, unspecified Treva Cornejo, , [employer] [facility], CNM 05/05/2019 E55.9 Vitamin D deficiency, unspecified Treva Cornejo, , [employer] [facility], CNM 05/05/2019 J44.9 Chronic obstructive pulmonary Treva Cornejo, , [employer] [facility], disease, unspecified CNM 05/05/2019 Z71.6 Tobacco abuse counseling Treva Cornejo, , [employer] [facility], CNM 04/11/2019 Z48.817 Encounter for surgical aftercare Óscar Crenshaw MD,FACS following surgery on the skin and subcutaneous tissue 04/11/2019 K61.1 Rectal abscess Óscar Crenshaw MD,FACS 03/31/2019 Z23 Encounter for immunization Chantal Treva, MS, [employer] [facility], CNM 03/31/2019 Z23 Encounter for immunization Nurse [...] abscess without bleeding Plan of Treatment Future Appointment(s):08/22/2019 8:15 am - [facility] [id number] 10:30 am - Treva Cornejo, , [employer], CNM at [facility] [id number] 10:30 am - Treva Cornejo, MS, [employer], CNM at [facility] [id number] - Treva Cornejo, MS, [employer], CNME11.9 Type 2 diabetes mellitus without complicationsNew Labs:Glycohemoglobin A1c, Scheduled: 08/22/19Comments:-- Patient recently went to ER for nausea, vomiting, diarrhea after lengthy use of laxatives. At which time patient had an episode of hypoglycemia. Hospitalist felt the hospitalist was due to change indiet while in the hospital. Hospitalist decreased the Levemir 52 units b.i.d. dose in half for 5 days. He is now back on his regular regime at this time. --No episodes of hypoglycemia since hospitalization--Controlled, Continue Levemir Flextouch 100 Unit/ML 52 units subq twice a dayNovolog Flexpen 100 Unit/ML inject 6 units before meals under the skin three times A day. Patient states endo said not to take his Novolog if his BS is < 150--HgA1C: 7.5 > 7.4-- Following with Dr Alvarado, priscilla OV 06/24/2019--Continue BP goal is <130/80 mmHg. --Diet: Include complex carbohydrates such as brownrice, whole wheat, quinoa, oatmeal, fruits, vegetables, beans, lentils. Avoid simple carbohydrates such as, sugar, pasta, white bread, flour, processed foods, baked goods. --Optho: Had OV 12/17/18-- Podiatry: Patient is going to have his foot assessed with vascular surgeon. We discussed the importanceof inspecting feet for abrasions, cuts, non healing sores. Potential for neuropathy, poor healing. Report any changes. -- Microalbuminuria: 115--Microalbuminuria/creatinine mass ratio: 73.7 --Had Prevnar vaccination 2014, had pneumonia vaccination 2016.Counseled again on Shingrix --Was referred to dietetic tech Myrna Benitez NP in [place] by endo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Comments:- -Awaiting BX results of left adrenal gland. Has upcoming OV with Dr Richelle Munguia.I10 Essential (primary) hypertensionNew Medication:Ramipril 10 mg - Take one capsule twice a dayOmron 7 Series Blood Pressure Monitor - use daily as directed to monitor bpNew Labs:CBC W/Automated Diff, Scheduled: Comprehensive Metabolic Panel, Scheduled: 08/22/19Comments:--B/P last OV 138/ 62, today 148/70--BP goal <130/80 --Uncontrolled, increase Ramipril from 5mg to 10 mg twice daily, Metoprolol Tartrate 25 mg 1 by mouth twice a day, HCTZ 12.5 mg po Qam--Low salt diet --Endocrinology stated in OV note that they also would like an increase in B/P medication B/P machine ordered to take B/ P q am and bring log in to next OV. Report any low B/P prior to OVE78.5 Hyperlipidemia, unspecifiedNew Labs:LDL Cholesterol Profile, Scheduled: Comments:-- Rosuvastatin Calcium was increased by endo from 10 mg to 20 mg take 1 by mouth at bedtime, Fenofibric Acid 105 mg take 1 tablet in the morning, maximum daily dose 1 Total Cholesterol: 141Triglycerides: 78High Density Lipids:37Low Density Lipids: 93--Follow a heart healthy diet that emphasizes fruits, vegetables, whole grains, poultry, fish, and nuts. -- [place] [employer] recommends limiting saturated fats to [...] withvascular surgeon. To consider increasing statin. Will [id number] Insomnia, unspecifiedComments:--Practice good sleep hygiene, including:-- Waking at a regular time-- Avoiding stimulants, caffeinebeverages, power/energy drinks, nicotine, and cyda-eag-ljoizok medications-- Avoiding stimulating activities, light, noise, and temperature extremes before bedtime (e.g., exercise, video games, T.V.) or in the sleeping area-- Practicing relaxation techniques-- Engaging in moderate exercise, but not immediately before bedtime - -Trial tumeric milk, if not effective Tylenol PME55.9 Vitamin D deficiency, unspecifiedNew Labs:Vitamin D,25-Hydroxy, Scheduled: 08/22/19N50.89 Swelling of scrotumComments:-- Patient does not want sono at this time. Also declined urology OV at this time, as he awaiting adrenal BX-- Patient counseled if pain- go to ER to R/O torsion (NONE at this time)R63.4 Abnormal weight lossComments:-- encourage to increase protein, fluids. Ensure samples given. If too expensive or does not like her taste can trial carnation instant breakfast drink.--Will [id number] Tobacco abuse counselingComments:---I highly encouraged patient to [...] working on OV 07/18/2019 faxed notes.. [address], [place] [address] [phone] Nicholas Alvarado MD was going to [facility] who retired diabetes Closed 06/25/2019 [address] [place] [address] [phone]
[2019-09-05] MEDS ORDERED: Iodixanol* (CONTRAST) 320 MG/ML 100 ML SDV IV ONE (07:28)
[2019-09-05 07:40] LABS: Urine Appearance Turbid; Urine Bilirubin Negative (Negative); Urine Blood 1+ (Negative); Urine Color Yellow; Urine Glucose 3+(>=500 mg/dL) (Negative); Urine Ketones Trace (Negative); Urine Nitrite Negative (Negative); Urine Protein 2+(100 mg/dL) (Negative); Urine Specific Gravity 1.013 (1.010-1.030); Urine Urobilinogen Negative (Negative)
[2019-09-05] MEDS ORDERED: LORazepam INJ* 2 MG/ML 1 ML VIAL IV PUSH ONE (07:49)
[2019-09-05] MEDS ORDERED: Lorazepam PYXIS KEY PRN (07:49)
[2019-09-05 07:51] LABS: AST Redraw 22 U/L (13-39)
[2019-09-05] MEDS ORDERED: Lorazepam PYXIS KEY ONE (07:53)
[2019-09-05] MEDS ORDERED: NS 0.9% 100 ML* 100 ML ONE (07:55)
[2019-09-05 07:56] LABS: Potassium Redraw 5.2 mmol/L (3.5-5.0); Urine Benzodiazepine Screen Presumptive Positive (None Detect); Urine Opiates Screen None Detected (None Detect)
[2019-09-05 07:58] LABS: Urine Bacteria Absent (Absent); Urine Red Blood Cell Trace(0-2/hpf) (Absent); Urine Squamous Epithelial Cell Present (Absent); Urine White Blood Cell 2+(11-20/hpf) (Absent)
[2019-09-05 07:59] LABS: ABS Basophils 0.1 10^3/ul (0-0.2); ABS Lymphocytes 0.2 10^3/ul (1.0-4.8); ABS Monocytes 0.4 10^3/ul (0-0.8); ABS Neutrophils 20.8 10^3/ul (1.5-7.7); Lymphocyte % 1.1 %
[2019-09-05] MEDS ORDERED: levETIRAcetam IV* 1,500 MG in NS 0.9% 100 ML* 100 ML IVPB SCH (08:00)
[2019-09-05] MEDS ORDERED: Hydrocortisone INJ* 100 MG/2 ML VIAL (in pyxis) IV ONE (08:34)
[2019-09-05] MEDS ORDERED: NS 0.9% 1000 ML** 1,000 ML IV.FLUID IV ONE (08:35)
[2019-09-05] MEDS ORDERED: NS 0.9% 1000 ML** 1,000 ML IV ONE (08:44)
--- NOTE | 2019-09-05 10:19 | CONSULT ---
Consult Consult: Neurology Inpatient Consult Note Date of service: 09/05/2019 Reason for consult: Neurology was consulted by Dr. Chairez for suspected stroke or status epilepticus. The history was obtained by the patient's son Ralph who can be reached at . According to Ralph, Mrs. Tyson has hearing impairment and has trouble communicating by phone. Chief complaint: Found unresponsive and is now intubated. History of Present Illness: Mr. Gray Tyson is a 74-year-old man with a history significant for CAD, DMII on insulin, and hypertension who was found unresponsive today with rapid breathing. The patient has been feeling ill for the past 1-2 weeks. He has lost more than 25lbs within a short period of time. He goes into fits of coughing. He continues to smoke approximately 1.5 ppd which he has done since 17 years of age. The patient was hypoglycemic all day yesterday. He had a finger stick of 56 in the morning, 65 in the afternoon and 65 at night. He did not take his insulin last night. According to Ralph, Mrs. Tyson woke up and noticed the patient laying on the floor in the hallway near their bedroom unresponsive. He was moaning incomprehensible words before EMS arrived. Accucheck at the scene is unknown. EMS reported shaking activity with rolling vertical eye movements. The patient was flaccid and not moving any extremities. In the ED, the patient was intubated and placed on Propofol. Stat EEG showed that he had intermittent nonconvulsive electrographic seizures. He is being evaluated by [facility] in [place] for an mass "above his kidney." He had a PET scan one week ago and he had a follow- up appointment there today. I reviewed Dr. Munguia's note from 08/25/2019 for which he suspect that the patient has poorly differentiated adenocarcinoma of the lung. He was going to start treatment for metastatic non-small cell lung cancer. Labs, Imaging and Other Diagnostics: WBC: 21.6 - Hemoglobin 12.6 - hematocrit: 39 - Platelet count: 657 - Sodium: 120 - Potassium: 5.2 - Chloride: 85 - BUN: 29 - Creatinine: 1.5 - CT head without contrast completed on 09/05/2019: no acute intracranial abnormality or ICH. - EEG 09/05/2019: intermittent diffuse rhythmic discharges and slowing consistent with a non-convulsive electrographic seizures. . - PET scan reviewed and placed in the patient's chart. "Findings compatible with widespread salvador mestatic disease extending from the left supracalvicular region to the aortic bifurcation. 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 Family History: No family history of stroke or seizures. Social History: . Lives with spouse. He continues to smoke approximately 1.5 ppd which he has done since 17 years of age. No history of excessive alcohol use. Medications: Aspirin 81 mg CHEW TAB* [Aspirin Low Dose TAB*] 81 mg PO DAILY 08/06/18 [ History Confirmed 09/05/19] Azelastine HCl 2 spray BOTH NARES BID PRN 08/06/18 [History Confirmed 09/05/19] Cilostazol TAB* [Pletal TAB*] 100 mg PO BID 08/06/18 [History Confirmed 09/05/19 ] Glucosamine Sulfate Dipot Chlr [Gnp Glucosamine Maximum S] 1,000 mg PO DAILY 10/20 [History Confirmed 09/05/19] Insulin Detemir [Levemir Flextouch] 52 unit SC BID 08/06/18 [History Confirmed 09/05/19] Loperamide CAP* [Imodium CAP*] 4 mg PO ONCE PRN MDD 8 caps 08/06/18 [History Confirmed 09/05/19] Metoprolol Tartrate TAB* [Lopressor TAB*] 25 mg PO BID 08/06/18 [History Confirmed 09/05/19] Multivitamin [Multivitamins] 1 cap PO DAILY 08/06/18 [History Confirmed 09/05/19 ] Nitroglycerin TAB 0.4 MG* 0.4 mg SL Q5M PRN 08/06/18 [History Confirmed 09/05/19 ] Ramipril CAP* [Altace CAP*] 10 mg PO BID 08/06/18 [History Confirmed 09/05/19] Cholecalciferol CAP/TAB(NF) [Vitamin D3 CAP/TAB (NF)] 2,000 unit PO DAILY [History Confirmed 09/05/19] Fenofibrate [Tricor 160 MG] 160 mg PO QAM 09/05/19 [History Confirmed 09/05/19] Insulin Aspart [Novolog Penfill 100 units/ml 5 ml x 3 pens] 6 units SUBCUT TID 09/05/19 [History Confirmed 09/05/19] Polyethylene Glycol 3350* [Miralax (17 GM DOSE JEN)] 17 gm PO DAILY 09/05/19 [ History Confirmed 09/05/19] Rosuvastatin (NF) [Crestor] 20 mg PO DAILY 09/05/19 [History Confirmed 09/05/19] hydroCHLOROthiazide [Hydrochlorothiazide] 12.5 mg PO QAM 09/05/19 [History Confirmed 09/05/19] ReviAllergies bupropion Allergy (Verified 09/05/19 07:47) Vomiting famciclovir Allergy (Verified 09/05/19 07:47) Vomiting liraglutide Allergy (Verified 09/05/19 07:47) Vomiting morphine Allergy (Verified 09/05/19 07:47) See Comment became addicted and then convulsed. pioglitazone Allergy (Verified 09/05/19 07:47) Vomiting pravastatin Allergy (Verified 09/05/19 07:47) Vomiting ew of Systems: The patient cannot provide a ROS. Physical Exam: Vitals: Vital Signs - 12 hr Temp Pulse Resp BP Pulse Ox 09/05/19 08:58 101.7 F 115 127/59 96 09/05/19 08:53 101.8 F 108 99/57 100 09/05/19 08:48 102.0 F 109 87/51 100 09/05/19 08:45 102.2 F 107 81/43 100 09/05/19 08:42 102.2 F 114 74/46 100 09/05/19 08:40 102.0 F 118 64/41 100 09/05/19 08:38 102.0 F 121 74/45 100 09/05/19 08:37 102.0 F 120 70/52 100 09/05/19 08:33 102.0 F 118 72/45 100 09/05/19 08:32 102.0 F 124 72/46 94 09/05/19 08:20 101.8 F 125 123/62 100 09/05/19 08:10 101.8 F 121 119/69 100 09/05/19 08:02 101.7 F 124 100 09/05/19 08:01 101.7 F 124 130/59 100 09/05/19 08:00 101.7 F 124 23 78/64 100 09/05/19 07:50 101.5 F 123 115/78 100 09/05/19 07:40 123 117/62 100 09/05/19 07:30 119 119/71 75 09/05/19 07:12 124 125/77 100 09/05/19 07:11 127 100 09/05/19 06:08 97.7 F 130 20 111/78 100 General: critically ill appearing frail man in no distress. Head: normocephalic, without obvious abnormality Eyes: conjunctivae/corneas clear Neck: supple, symmetrical. No carotid bruit. No lymphadenopathy. Lungs: clear to auscultation bilaterally, non-labored CV: sinus tachycardia Extremities: left lower extremity prosthesis Skin: no skin lesions or lacerations Psych: n/a Neurological examination: Mental Status: Patient intubated. On propofol and recently received ATivan. Patient does not wake to auditory or noxious stimuli. Cranial Nerves: Pupils were equal, round, and sluggish reaction with constriction from 3 mm to 2 mm. Oculocephalic reflex intact. Corneal reflexes intact. Grimace to nasal stimuli was symmetric. Gag present. Motor: Does not move to distal noxious stimuli. Sensory: Does not localize to pain Reflexes: trace throughout the upper and lower extremities with extensor plantar response on the right. Coordination: Could not be assessed due to mental status. Gait: Could not be assessed due to mental status. Assessment: Mr. Gray Tyson is a 74-year-old right-handed man with a history significant for hypertension, CAD s/p CABG, diabetic mellitus type II, and below the knee amputation on the left who presented [place] [facility] after he collapsed and became unresponsive. The patient's examination is notable for intact brainstem reflexes without any motor response. He does have an extensor plantar response on the right. The patient is sedated and recently received Ativan 4 mg prior to the evaluation. CT Head without contrast showed no evidence of acute intracranial abnormality. EEG: showed multiple clusters of focal and also diffuse evolving sharp alpha and theta waves that evolve into a nonconvulsive status epilepticus pattern. The NCSE abated with Ativan and levetirecetam therapies. 1. Nonconvulsive status epilepticus due to severe metabolic encephalopathy (eg, undocumented hypoglycemia) or paraneoplastic syndrome. Recommendations: - Ativan 4 mg IV x 1, then bolus with levetirecetam 1,500 mg IV x 1. Continue levetirecetam 1,000 mg IV every 12 hours for now. Since the seizures are likely secondary to a metabolic disturbance, he will require anti-seizure medications for longer than 7-10 days. - CTA head and neck without contrast to evaluate for LVO. If negative, then can admit to the ICU. - Repeat an EEG this afternoon. Order has been placed. - MRI brain with a focus on the pituitary gland without contrast (Due to KATINA). We can wait for the MRI until his kidney function improves. He has no evidence of pituitary apoplexy on CT. An MRI would be more sensitive to look at the pituitary glad and to evaluate for metastatic disease or stroke. 2. Hyponatremia, hyperkalemia, and hypotension- suspect adrenal insufficiency. Ordered TSH, ACTH, random cortisol, testosterone, prolactin, and B12 levels. Recommend steroid trial as he is critically hypotensive at this point. Defer management to the primary team. 3. Leukocytosis and elevated CRP. Screening for COVID-19. Leukocytosis could be reactive secondary to seizures. CRP elevation can also be due to systemic disease or cancer. Recommend obtaining blood cultures. If we don't have a source for the fevers, or we don't suspect adrenal insufficiency can be the source, he should be started on prophylactic antibiotics for meningitis coverage. I am less suspicion for meningitis as the patient has no history of headaches and there are other causes that can explain his fevers. A lumbar puncture can help rule out a [employer] infection. 4. KATINA- defer treatment to the primary team. 5. Metastatic disease, possibly originating from the lungs. Neurology will continue to follow. Discussed the above recommendations with Drs. Goins, Contreras, and Christina. Landy Le MD Date: 09/05/19 Time: 09:37
[2019-09-05] MEDS ORDERED: Dextrose 50% Syringe 50 ML* 25 GM/50 ML SYRINGE IV PUSH PRN (10:33)
[2019-09-05] MEDS ORDERED: levETIRAcetam IV* 1,500 MG in NS 0.9% 100 ML* 100 ML IVPB ONE (10:42)
[2019-09-05 11:04] LABS: Troponin I 0.13 ng/mL (<0.03)
[2019-09-05 12:16] LABS: Testosterone 124.35 ng/dL (240-950)
[2019-09-05 12:30] LABS: Prolactin 11.8 ng/mL (1.0-20.0)
[2019-09-05] MEDS: Insulin LISPRO* 1 UNITS UNIT SUBCUT SCH ×2 (12:35→18:02)
[2019-09-05] MEDS: Chlorhexidine MOUTHWASH 0.12%* 15 ML UDC TOPICAL SCH ×3 (12:35→20:28)
[2019-09-05] MEDS: Pantoprazole IV* 40 MG IV SCH (12:36)
[2019-09-05 13:14] LABS: Troponin I 0.53 ng/mL (<0.03)
[2019-09-05] MEDS: Cefepime 1 GM in Dextrose(*) 1 GM/50 ML BAG IV SCH (13:52)
[2019-09-05] MEDS ORDERED: Perflutren Lipid Microsphere* 3 ML VIAL ONE (14:19)
--- NOTE | 2019-09-05 14:22 | HP ---
CRITICAL CARE ADMISSION NOTE: DATE OF ADMISSION: 09/05/19 HISTORY OF PRESENT ILLNESS: The patient presented to the emergency department poorly responsive for which he was intubated. Workup included CT head as well as CT angiography. The patient was seen by Neurology. EEG was done. It revealed status post epilepticus that was interrupted with antiepileptic drugs as administered by Neurology. CTA was performed and judged to be not suspicious for a large vessel occlusion ischemic event and the patient was admitted to the [facility] on the critical care service for further workup and management in the setting of his seizures. I have reviewed a recent note from [facility] in [place] by Dr. Munguia. The patient apparently was just 10 days ago diagnosed with yia-klxqk-hgly lung cancer, stage IVB. He underwent a retroperitoneal lymph node biopsy which showed adenocarcinoma of presumed lung origin. There apparently was an extensive discussion in the office that any intervention from the oncologic standpoint would be for treatment with palliative intent quoting from the note. With that in mind, they were entertaining the possibility of some low-dose chemo and Keytruda. Plan was to follow up in a couple of weeks. PAST MEDICAL HISTORY: Significant for severe peripheral vascular disease, status post BKA on the left as well as diabetes, hyperlipidemia, and active tobacco abuse. He is also known to have coronary artery disease with old [place]. MEDICATIONS: His medication list on presentation includes: 1. Multivitamin 1 cap daily. 2. Ramipril 10 mg p.o. b.i.d. 3. Nitroglycerin as needed. 4. Loperamide as needed. 5. Aspirin 81 mg daily. 6. Detemir 52 units subcutaneous b.i.d. 7. Lopressor 25 mg p.o. b.i.d. 8. Cilostazol 100 mg p.o. b.i.d. 9. Glucosamine 1000 mg daily. 10. Azelastine hydrochloride 137 mcg 2 sprays both nares b.i.d. as needed. 11. Aspartate insulin 6 units subcutaneously t.i.d. 12. MiraLAX 17 g daily. 13. Hydrochlorothiazide 12.5 mg p.o. q.a.m. 14. TriCor 160 mg p.o. q.a.m. 15. Cholecalciferol vitamin D 1 tablet daily. 16. Rosuvastatin 20 mg p.o. daily. ALLERGIES: He has documented drug allergies to BUPROPION, GANCICLOVIR, MORPHINE , PIOGLITAZONE, PRAVASTATIN, and LIRAGLUTIDE. FAMILY HISTORY: Remarkable for coronary artery disease in his father. Brother diagnosed with throat cancer and stomach cancer. Father diagnosed with prostate cancer. SOCIAL HISTORY: He is actively smoking. He was formerly an alcohol abuser, having quit in 2019. He worked at [employer]. He has children. REVIEW OF SYSTEMS: Unobtainable due to his intubated status. PHYSICAL EXAMINATION GENERAL: He is a well-developed, now slight of build white male, intubated, sedated, mechanically ventilated. VITAL SIGNS: He presents with initial temperature of 38.9 degrees. He has blood pressure at that time of 72/45, heart rate of 120. He was then saturating 100% on the ventilator. Since that time, he has received some fluid. Blood pressure currently is 117/62, heart rate 109, temperature currently is 38.4, and saturating 100% on 50% on the ventilator. HEENT: He is normocephalic, atraumatic. Pupils are equal and reactive. NECK: Supple and nontender without JVD. LUNGS: Clear bilaterally. HEART: He has S1, S2. Regular. Tachycardic. ABDOMEN: Soft, nondistended. Positive bowel sounds. It does not appear tender. EXTREMITIES: Right lower extremity without edema. Left lower extremity, status post BKA, well healed and remote. NEUROLOGIC: He is sedated, spontaneously moves his extremities. DIAGNOSTIC STUDIES/LABORATORY DATA: Laboratory evaluations are revealing a white blood cell count of 21,000 almost entirely neutrophils, hemoglobin is 12, platelet count is 657. INR is 1.2. Blood gas; pH of 7.22, pCO2 of 45, pO2 of 39, it was a venous gas. Serum sodium 120, potassium 5.2, chloride 85, bicarbonate 9, BUN and creatinine are 29/1.5 with glucose of 294. Lactic acid was 5.3 and we will repeat that now. CRP was 77. LFTs grossly normal. Random cortisol is 45. TSH is normal at 1.8. BNP is 100, troponin is 0.1. Ammonia is 42. Urine reveals no bacteria, 11 to 20 white blood cells, high glucose. Tox is positive only for benzos, which may have been after we gave him some; serum alcohol is less than 10. Chest x-ray is without effusion or infiltrate. CTA of the head is read as attenuation of the right superior cerebellar artery concerning for occlusion. There is no appreciable perfusion defect or loss of samayoa- white differentiation within the expected vascular territory of the right superior cerebellar artery. Atheromatous disease. No internal carotid artery stenosis by NASCET criteria. EKG: Sinus tachycardia at 120, perhaps some hyperacute Ts on the anterior precordium more consistent with some focal ischemia than hyperkalemia as it does seem to be confined to V2, V3, V4. He has got left axis and is beginning to work on a right bundle pattern, but not yet a block. ASSESSMENT AND PLAN: This is a 74-year-old male with severe vascular disease and recently diagnosed stage IVB presumed lung cancer, presents with status epilepticus. He has severe metabolic acidosis and fever. This certainly could all be from his seizure. We have no overt evidence for infection as chest x- ray is clear, his urine is clear. Given that he is still febrile and not actively seizing at this moment, I will cover him with antibiotics at least for the next 24 hours and we can see where things settle out. We will pull cultures. We will follow his lactate. His blood pressure is certainly better than when it was initially drawn, so I am hopeful that the lactate will be clearing as well. He has received some fluid and perhaps more importantly received some steroids. He does seem to have adrenal involvement looking at his imaging from Hematology/Oncology and certainly could have some aspect of adrenal insufficiency. There is additionally some recent history of hypoglycemia. He is on a fair dose of detemir and he does not seem to be all that large, perhaps he has been losing some weight and that could explain it or perhaps he also has adrenal insufficiency that certainly could explain his hyponatremia and mild hyperkalemia as well. With all that in mind, we will continue steroids for now, his random is 45, but it is always hard to know whether the hydrocortisone ordered in the ED was given before or after. As we see the lactate clearing and we get better control of his hemodynamics, I feel more comfortable backing those off. The antibiotics as discussed, fluid, and time. Anti-epileptic drugs will be per Neurology. He has made a small troponin , which is consistent with demand ischemia in this scenario and does not seem to be an acute epicardial occlusion to have been the source of these events. It is more in the endocrine and neurologic world from what I can see so far. TIME SPENT: The aggregate time providing critical care as well as personally interpreting multiple laboratory evaluations, imaging studies, reviewing the medical records, discussing the case with Dr. Le as well as Dr. Goins has thus far exceeded 45 minutes. [id number]/CPS #: [id number] MARY KAY
--- NOTE | 2019-09-05 15:56 | ECHO ---
*[facility]* [place] [address] Fax #: [phone] Transthoracic Echocardiogram Patient: Gray Tyson : 1945 Study Date: 09/05/2019 Age: 74 Gender: M HR: 105 bpm Height: 70 in /177.8 cm BSA: 1.82 m^2 Weight: 143.7 lb /65.3 kg BMI: 20.7 kg/m^2 *[facility] [employer] Tap: * Talita Plasencia [facility] *Referring Physician: * Carlos Enrique Ta *Reading Physician: * Roberto Azar MD Indications: Abnormal EKG. History: Coronary artery disease. Risk factors: Current tobacco use. Hypertension. Diabetes mellitus. Labs, prior tests, procedures, and surgery: Coronary artery bypass grafting. Conclusions Summary: - Impressions: The study is unchanged since the previous study. - Left ventricle: Systolic function is vigorous. The estimated ejection fraction is 65-70%. Systolic function is hyperdyanamic c/t the study of September 2009. Doppler parameters are consistent with abnormal left ventricular relaxation (grade 1 diastolic dysfunction). - Right ventricle: The cavity size is normal. Wall thickness is increased. Systolic function is normal. - Mitral valve: There is trace regurgitation. Study data: Transthoracic echocardiogram. Procedure: Transthoracic echocardiography was performed. Image quality was adequate. Intravenous Definity , 2 mls was administered. Image enhancement administered by [facility] THOMAS[facility] community. Complete 2D, spectral Doppler, and color flow Doppler. Location: ICU Patient status: Inpatient. Patient room number: 3. The previous study was not available, so comparison is made to the report of September 2009. Rhythm: Normal sinus rhythm. Findings Left ventricle: The cavity size is mildly reduced. Wall thickness is mildly increased. Systolic function is vigorous. The estimated ejection fraction is 65-70%. Systolic function is hyperdyanamic c/t the study of September 2009. Wall motion is normal; there are no regional wall motion abnormalities. Doppler parameters are consistent with abnormal left ventricular relaxation (grade 1 diastolic dysfunction). Right ventricle: The cavity size is normal. Wall thickness is increased. Systolic function is normal. Left atrium: The atrium is normal in size. Right atrium: The atrium is normal in size. Mitral valve: The leaflets are normal thickness. There is no evidence of stenosis. There is trace regurgitation. Aortic valve: The valve is trileaflet. The leaflets are mildly thickened. There is no evidence of stenosis. There is no significant regurgitation. Tricuspid valve: The leaflets are normal thickness. There is no evidence of stenosis. There is trace regurgitation. Pulmonic valve: The leaflets are normal thickness. There is no evidence of stenosis. There is mild regurgitation. Aorta: The aortic root appears normal. The aortic arch appears normal. Pericardium: There is no significant pericardial effusion. Pulmonary arteries: Systolic pressure can not be accurately estimated. Systemic veins: Inferior vena cava: Not well visualized. Measurements Left ventricle Value Ref Aortic valve continued Value Ref TETO, LAX (L) 3.5 cm 4.2 - 5.8 Peak v, S 1.14 m/sec --------- ESD, LAX 2.8 cm 2.5 - 4.0 VTI, S 18.4 cm --------- FS, LAX (L) 19 % 25 - 43 Mean grad, S 3.0 mm Hg --------- PW, ED, LAX (H) 1.3 cm 0.6 - 1.0 Peak grad, S 5.0 mm Hg --------- E', lat mj, TDI (L) 5.1 cm/sec >=10.0 E/e', lat mj, 12 Mitral valve Value Ref TDI Peak E 0.61 m/sec --------- Peak A 1.27 m/sec --------- LVOT Value Ref Decel time 129 ms --------- Peak fabrice, S 1.2 m/sec Peak E/A ratio 0.5 --------- Peak grad, S 6 mm Hg Mean grad, S 3 mm Hg Pulmonic valve Value Ref Peak v, S 1.25 m/sec --------- Ventricular septum Value Ref Peak grad, S 6.0 mm Hg --------- IVS, ED (H) 1.1 cm 0.6 - 1.0 Aortic root Value Ref Right ventricle Value Ref Root diam 3.3 cm <4.0 TETO, LAX 2.9 cm Root max 1.8 cm/m^2 1.3 - 2.1 diam/bsa, ED Left atrium Value Ref AP dim, ES 3.60 cm 3.00 - Ascending aorta Value Ref 4.00 AAo AP diam, S 2.9 cm --------- ML dim, A4C 4.1 cm AAo AP 1.6 cm/m^2 --------- SI dim, A4C 4.4 cm diam/bsa, S Vol/bsa, ES, 1-p 22 ml/m^2 12 - 37 A4C Aortic arch Value Ref Arch diam 3.0 cm --------- Right atrium Value Ref Arch diam/bsa 1.6 cm/m^2 --------- SI dim, ES 4.8 cm 3.4 - 5.3 Estimated RAP 8 mm Hg Decending aorta Value Ref Matthew peak fabrice 0.91 m/sec --------- Aortic valve Value Ref Mj diam, ED 2.0 cm Legend: (L) and (H) moshe values outside specified reference range. Prepared and electronically signed by Roberto Azar MD 09/05/2019 15:55
[2019-09-05 17:37] LABS: Troponin I 0.62 ng/mL (<0.03)
[2019-09-05] MEDS ORDERED: niCARdipine 0.1MG/ML IVPREMIX* 20 MG/200 ML BAG IV SCH (18:00)
--- NOTE | 2019-09-05 19:45 | EEG ---
ELECTROENCEPHALOGRAPHY: DATE OF STUDY: 09/05/19 DATE READ: 09/05/19 ORDERED BY: Dr. Jeremi Chairez. CLINICAL PROBLEM: Mr. Tyson is a 74-year-old man with history of metastatic cancer who was found unresponsive with seizure-like activity. This EEG was obtained to evaluate for nonconvulsive status epilepticus. DURATION: 7:27 a.m. to 8:15 a.m. and again 12:27 p.m. to 12:59 p.m. MEDICATIONS: 1. Protonix. 2. Humalog. 3. Keppra. 4. Ativan. 5. Diprivan. REPORT: The most remarkable finding on this EEG was electrographic seizures. At the beginning of the recording, there was intermittent, medium amplitude, sharp theta and alpha activity that was semi-rhythmic and occasionally started in the left FP1, F7, and FZ, and rarely from the right. Then, this evolved into a 3-5 Hz rhythmic activity in the right hemisphere, maximal at the right temporal lobe at T6 and T4. This was followed by diffuse rhythmic delta and theta slowing that lasted for 60-80 seconds. Following the rhythmic activity, there was diffuse discontinuation of the background with low voltage suppression of the background frequency and intermittent high amplitude 1-2 Hz diffuse delta activity. This intermittent pattern was stereotypical until 8:01 which was minutes after the patient had received Ativan. Following the Ativan therapy as well as the second EEG that was recorded showed a background that lacked organization or clearly defined anterior-posterior voltage and frequency gradients. There was no discernable posterior dominant rhythm. Instead, the background consisted of diffuse medium amplitude polymorphic 2-5 Hz delta and theta range slowing. There were intermittent periodic sharp frontally predominant discharges at a frequency of 0.5-1 Hz seen throughout the recording. Preceding the periodic discharges, there were faster alpha and beta frequencies lasting for 1-2 seconds. Hyperventilation and photic stimulation were not performed. EKG showed sinus tachycardia with a rate of 120 beats per minute. CLINICAL IMPRESSION: This is an abnormal EEG due to intermittent stereotypical rhythmic activity consisting of sharp theta and alpha discharges that can start from either the right or left hemisphere and then evolves into a rhythmic delta frequency lasting for 70-80 seconds. This was followed by diffuse low voltage suppression. These findings are consistent with recurrent subclinical electrographic seizures. Following the administration of Ativan and levetiracetam, there were intermittent periodic lateralized epileptiform discharges predominantly in the frontal region with a background of diffuse slowing. This suggests resolution of the nonconvulsive pattern and an EEG background consistent with moderate encephalopathy and concern for structural abnormality that is non- localizable. Given his history of cancer, there is a concern that he may have metastasis to the brain or underlying paraneoplastic syndrome. [id number]/[facility] #: [id number] [facility] HOSPITALWild
[2019-09-05] MEDS ORDERED: Propofol* 100 ML ONE (20:24)
[2019-09-05] MEDS: levETIRAcetam 1000MG IVPREMIX* 1,000 MG/100 ML BAG IVPB SCH (21:19)
[2019-09-05 21:47] LABS: Calcium 8.3 mg/dL (8.6-10.3); Potassium 4.6 mmol/L (3.5-5.0)
[2019-09-05 21:52] LABS: BUN/Creatinine Ratio 25.3 (8-20); EGFR African American 104.4 (>60); EGFR Non-African American 86.3 (>60)
[2019-09-06] MEDS: Insulin LISPRO* 1 UNITS UNIT SUBCUT SCH ×4 (00:11→18:13)
[2019-09-06] MEDS: Chlorhexidine MOUTHWASH 0.12%* 15 ML UDC TOPICAL SCH ×6 (00:11→19:44)
[2019-09-06] MEDS: Cefepime 1 GM in Dextrose(*) 1 GM/50 ML BAG IV SCH ×2 (01:22→13:31)
[2019-09-06] MEDS: Propofol* 100 ML IV SCH ×4 (04:29→23:03)
[2019-09-06 04:36] LABS: ABS Lymphocytes 0.5 10^3/ul (1.0-4.8); ABS Monocytes 1.5 10^3/ul (0-0.8); ABS Neutrophils 15.1 10^3/ul (1.5-7.7); Eosinophil % 0.1 %; Hematocrit 31 % (42-52); Hemoglobin 10.5 g/dL (14.0-18.0); Lymphocyte % 3.2 %; Mean Corpuscular HGB Conc 34 g/dL (31-36); Mean Corpuscular Hemoglobin 30 pg (27-31); Mean Corpuscular Volume 90 fL (80-94); Mean Platelet Volume 6.7 fL (7.4-10.4); Platelet Count 494 10^3/uL (150-450); Red Blood Count 3.45 10^6 /uL (4.18-5.48); Red Cell Distribution Width 15 % (10-15); White Blood Count 17.1 10^3/uL (3.5-10.8)
[2019-09-06 04:52] LABS: Anion Gap 9 mmol/L (2-11); BUN/Creatinine Ratio 24.3 (8-20); Blood Urea Nitrogen 18 mg/dL (6-24); CO2 Carbon Dioxide 19 mmol/L (22-32); Calcium 8.4 mg/dL (8.6-10.3); Chloride 101 mmol/L (101-111); EGFR African American 125.8 (>60); Glucose 157 mg/dL (70-100); Sodium 129 mmol/L (135-145)
[2019-09-06 04:56] LABS: Troponin I 0.34 ng/mL (<0.03)
[2019-09-06] MEDS ORDERED: NS 0.9% 500 ML* 500 ML IV ONE (08:45)
[2019-09-06] MEDS: Pantoprazole IV* 40 MG IV SCH (08:45)
[2019-09-06] MEDS: levETIRAcetam 1000MG IVPREMIX* 1,000 MG/100 ML BAG IVPB SCH ×2 (10:06→21:06)
--- NOTE | 2019-09-06 14:29 | PN ---
Date of Service: 09/06/19 - [facility] note Critical Care Services: Pt seen and examined at bedside. Overnight events noted. Plan of care discussed with bedside RN Remains sedated. Had brief period of SVT last night. UO dropped, bladder scan showed urine retention, vail was noted to be kinked and was draining after re-adjustment. Active Medications Generic Name Dose Route Start Last Admin Trade Name Freq PRN Reason Stop Dose Admin Chlorhexidine Gluconate 15 ml 09/05/19 11:00 09/06/19 11:52 Peridex Mouth Wash 0.12%* TOPICAL 15 ml Q4H JAMESON Administration Dextrose 12.5 gm 09/05/19 10:33 D50w Syringe 50 Ml* IV PUSH .FOR FS < 60 - SS PRN FS < 60 Levetiracetam 1,000 mg in 100 mls @ 400 mls/hr 09/05/19 21:00 09/06/19 10:06 Keppra Iv Premix* IVPB 400 mls/hr Q12H JAMESON Administration Cefepime HCl 1 gm in 50 mls @ 100 mls/hr 09/05/19 13:00 09/06/19 13:31 Maxipime 1 Gm In Dextrose Duplex (*) IV 100 mls/hr Q12H JAMESON Administration Propofol 100 mls @ 7.608 mls/hr 09/05/19 22:28 09/06/19 12:04 Diprivan* IV 13.3 mls/hr .PER PROTOCOL JAMESON Administration Protocol 20 MCG/KG/MIN Sodium Chloride 1,000 mls @ 100 mls/hr 09/06/19 09:30 Ns 0.9% 1000 Ml IV PER RATE JAMESON Insulin Human Lispro 0 units 09/05/19 18:11 09/06/19 12:01 Humalog* SUBCUT 2 unit Q6HR JAMESON Administration Protocol Miscellaneous 1 ea 09/05/19 07:49 Ativan Pyxis Enamorado N/A .ATIVAN IV ENAMORADO PRN PYXIS ENAMORADO Pantoprazole Sodium 40 mg 09/05/19 11:45 09/06/19 08:45 Protonix Iv* IV 40 mg DAILY JAMESON Administration Vital Signs: Temp Pulse Resp BP SpO2 FiO2 100.6 F 97 20 127/50 100 25 09/06/19 13:00 09/06/19 13:00 09/06/19 11:00 09/06/19 13:00 09/06/19 13:00 09/05 09:06 Physical Exam: Gen: Pt is intubated, sedated HEENT: ETT+ Lungs: Clear to auscultation b/l Cardiac: S1, S2+ Abdomen: Soft, BS+, ? hepatic mass palpable in RUQ Extremities: No edema, s/p Lt BKA Neuro: Sedated, no purposeful movements Skin: No rash Fluid Balance (Past 24 Hours): I= 1150 O= 360 Net 790 Intake & Output 09/04/19 09/05/19 09/06/19 09/07/19 06:59 06:59 06:59 06:59 Intake Total 2747 1150 Output Total 1195 360 Balance 1552 790 Weight 144 lb 142 lb 6.698 oz Intake: IV Fluids 2298 951 NS (0.9%) 183 951 IVPB 235 109 ABX - CEFEPIME 126 keppra 109 109 Medicated IV 214 90 CC - Propofol/Diprivan 214 90 Oral 0 Output: Vail 1195 360 Labs: Laboratory Results - last 24 hr 09/05/19 09/05/19 09/05/19 07:21 16:47 17:56 WBC RBC Hgb Hct MCV MCH MCHC RDW Plt Count MPV Neut % (Auto) Lymph % (Auto) [place] % (Auto) Eos % (Auto) Baso % (Auto) Absolute Neuts (auto) Absolute Lymphs (auto) Absolute Monos (auto) Absolute Eos (auto) Absolute Basos (auto) Absolute Nucleated RBC Nucleated RBC % Sodium Potassium Chloride Carbon Dioxide Anion Gap BUN Creatinine Est GFR ( Amer) Est GFR (Non-Af Amer) BUN/Creatinine Ratio Glucose POC Glucose (mg/dL) 221 H Hemoglobin A1c 6.4 H Calcium Magnesium Troponin I 0.62 H* 09/05/19 09/06/19 09/06/19 21:16 00:02 04:19 WBC 17.1 H RBC 3.45 L Hgb 10.5 L Hct 31 L MCV 90 MCH 30 MCHC 34 RDW 15 Plt Count 494 H D MPV 6.7 L Neut % (Auto) 87.8 Lymph % (Auto) 3.2 [place] % (Auto) 8.7 Eos % (Auto) 0.1 Baso % (Auto) 0.2 Absolute Neuts (auto) 15.1 H Absolute Lymphs (auto) 0.5 L Absolute Monos (auto) 1.5 H Absolute Eos (auto) 0.0 Absolute Basos (auto) 0.0 Absolute Nucleated RBC 0.0 Nucleated RBC % 0.0 Sodium 129 L D Potassium 4.6 Chloride 100 L Carbon Dioxide 18 L Anion Gap 11 BUN 22 Creatinine 0.87 Est GFR ( Amer) 104.4 Est GFR (Non-Af Amer) 86.3 BUN/Creatinine Ratio 25.3 H Glucose 165 H POC Glucose (mg/dL) 178 H Hemoglobin A1c Calcium 8.3 L Magnesium Troponin I 09/06/19 09/06/19 04:19 11:41 WBC RBC Hgb Hct MCV MCH MCHC RDW Plt Count MPV Neut % (Auto) Lymph % (Auto) [place] % (Auto) Eos % (Auto) Baso % (Auto) Absolute Neuts (auto) Absolute Lymphs (auto) Absolute Monos (auto) Absolute Eos (auto) Absolute Basos (auto) Absolute Nucleated RBC Nucleated RBC % Sodium 129 L Potassium 4.0 Chloride 101 Carbon Dioxide 19 L Anion Gap 9 BUN 18 Creatinine 0.74 Est GFR ( Amer) 125.8 Est GFR (Non-Af Amer) 104.0 BUN/Creatinine Ratio 24.3 H Glucose 157 H POC Glucose (mg/dL) 164 H Hemoglobin A1c Calcium 8.4 L Magnesium 2.0 Troponin I 0.34 H* Studies: CXR 09/04: Clear lung herman Nutrition: Tube feeds Impression: 74 y o m with significant smoking history with recently dx metastatic NSCLC a/f AMS, found to have seizure activity on EEG. Pt also with hypotension and electrolyte abnormalities with concern for adrenal suppression in setting of metastatic disease to adrenals. Awaiting MRI of brain to evaluate for metastatic disease to brain. 1. AMS 2. Seizure/status epilepticus 3. Fever 4. Hyponatremia 5. Metabolic acidosis 6. Leucocytosis 7. Anemia 8. S/p intubation for airway protection Plan: 1. Neuro: Pt is sedated with RASS score of -3. Pt getting agitated and trying to reach for ETT while on cereal miller sedation and didnot tolerate sedation vacation this morning. Keep HOB elevated. c/w Keppra. EEG reviewed. Discussed with neurology Dr Le this am 2. Pulm: Intubated for airway protection. Pt with no acute pulm issues. Vent settings reviewed. Pulm toilet and vent bundle ordered. 3. CVS: Episode of SVT this am. Hemodynamically stable. Monitor and correct electrolytes as needed 4. ID: Remains febrile. No source isolated. If mental status doesnot improve, and continues to remain febrile, will need LP after MRI. Lactate normalized, leucocytosis improving. c/w Cefepime empirically. 5. Renal: Was retaining urine earlier, vail out put been OK since repositioning of vail. Electrolyte derangements- hyponatremia, stable. Hyperkalemia resolved. Will c/w fluids at 50cc/hr. Will f/u BMP closely 6. GI: Tube feeds. PPI. Hepatomegaly noted on abd exam- ? mets. 7. Endo: Bl sugars slightly elevated, c/w Insulin SS as needed 8. Haem: Normocytic anemia, stable 9. Musculoskeletal: Frequent turning and positioning 10. Psychosocial: Pt`s son updated over phone. Pt`s is hard of hearing, son will inform his mother regarding pts condition. As per pts son, pt wished to be DNR and signed advance directives in 2013 at [facility]. Son will bring documents. Will update change in [facility] when documents available. DVT px: Heparin sq Critical Care Time: 30 min
[2019-09-06] MEDS ORDERED: Acetaminophen ADULT LIQ* 650 MG/20.3 ML UDC ONE (19:39)
[2019-09-06] MEDS: Acetaminophen ADULT LIQ* 650 MG/20.3 ML UDC PO PRN (19:44)
[2019-09-06] MEDS: Heparin VIAL(*) 5000 UNITS/ML VIAL (FIVE THOUSAND) SUBCUT SCH (21:07)
[2019-09-07] MEDS: Chlorhexidine MOUTHWASH 0.12%* 15 ML UDC TOPICAL SCH ×7 (00:24→22:27)
[2019-09-07] MEDS: Insulin LISPRO* 1 UNITS UNIT SUBCUT SCH ×4 (00:25→17:45)
[2019-09-07] MEDS: NS 0.9% 1000 ML** 1,000 ML IV SCH ×2 (01:02→22:31)
[2019-09-07] MEDS: Cefepime 1 GM in Dextrose(*) 1 GM/50 ML BAG IV SCH ×2 (01:05→12:50)
[2019-09-07 05:45] LABS: Albumin 2.8 g/dL (3.2-5.2); Calcium 7.9 mg/dL (8.6-10.3); Chloride 104 mmol/L (101-111); Sodium 130 mmol/L (135-145)
[2019-09-07 05:51] LABS: ALT 11 U/L (7-52); Alkaline Phosphatase 34 U/L (34-104); BUN/Creatinine Ratio 21.9 (8-20); Blood Urea Nitrogen 14 mg/dL (6-24); EGFR African American 148.7 (>60); EGFR Non-African American 122.9 (>60); Globulin 2.7 g/dL (2-4); Glucose 144 mg/dL (70-100); Total Protein 5.5 g/dL (6.4-8.9)
[2019-09-07] MEDS: Heparin VIAL(*) 5000 UNITS/ML VIAL (FIVE THOUSAND) SUBCUT SCH ×3 (06:22→21:36)
--- NOTE | 2019-09-07 08:06 | PN ---
Date of Service: 09/07/19 Critical Care Services: Patient sedated, no acute distress. No new overnight events noted. Plan of care discussed with RN. Vital Signs: Temp Pulse Resp BP SpO2 FiO2 100.4 F 88 19 150/66 100 25 09/07/19 07:01 09/07/19 07:01 09/07/19 07:00 09/07/19 07:01 09/07/19 07:01 09/06 04:00 Physical Exam: General: Sedated HEENT: Normocephalic, atraumatic, non-icteric sclera, moist oral mucosa Neck: soft, supple, no JVD CV: Regular rate and rhythm, no murmurs or rubs Pulm/Chest: Good bilateral air entry, no rhonchi or rales, no wheeze Abdomen/GI: soft, nontender, nondistended, +BS noted MSK/Skin: warm, dry, intact, +2 pulses+, no edema or cyanosis Neuro: Sedated to RASS -3 Psych: Not applicable Fluid Balance (Past 24 Hours): I= 5163 O= 2223 Net = + 2940 Intake & Output 09/05/19 09/06/19 09/07/19 09/08/19 06:59 06:59 06:59 06:59 Intake Total 2747 2416 Output Total 1195 1028 Balance 1552 1388 Weight 144 lb 142 lb 6.698 oz 139 lb 15.643 oz Intake: IV Fluids 2298 1809 NS (0.9%) 183 1809 IVPB 235 254 ABX - CEFEPIME 126 NS (0.9%) 49 keppra 109 205 Medicated IV 214 353 CC - Propofol/Diprivan 214 353 Oral 0 Output: Vail 1195 1028 Labs: Laboratory Results - last 24 hr 09/06/19 09/06/19 09/07/19 11:41 17:05 00:19 Sodium Potassium Chloride Carbon Dioxide Anion Gap BUN Creatinine Est GFR ( Amer) Est GFR (Non-Af Amer) BUN/Creatinine Ratio Glucose POC Glucose (mg/dL) 164 H 143 H 184 H Calcium Total Bilirubin AST ALT Alkaline Phosphatase Total Protein Albumin Globulin Albumin/Globulin Ratio 09/07/19 09/07/19 05:27 06:16 Sodium 130 L Potassium TNP Chloride 104 Carbon Dioxide TNP Anion Gap Not Reportable BUN 14 Creatinine 0.64 L Est GFR ( Amer) 148.7 Est GFR (Non-Af Amer) 122.9 BUN/Creatinine Ratio 21.9 H Glucose 144 H POC Glucose (mg/dL) 175 H Calcium 7.9 L Total Bilirubin 0.40 AST TNP ALT 11 Alkaline Phosphatase 34 Total Protein 5.5 L Albumin 2.8 L Globulin 2.7 Albumin/Globulin Ratio 1.0 Studies: Chest xray 09/05/19: IMPRESSION: LINES AND TUBES ABOVE. NO ACTIVE CARDIOPULMONARY DISEASE. Brain CT 09/05/19: IMPRESSION: 1. Mild cerebral atrophy. 2. No acute intracranial hemorrhage or infarct. Head/Neck CTA 09/05/19: IMPRESSION: 1. ATTENUATION OF THE RIGHT SUPERIOR CEREBELLAR ARTERY, CONCERNING FOR OCCLUSION. THERE IS NO APPRECIABLE PERFUSION DEFECT OR LOSS OF CEJA-WHITE DIFFERENTIATION WITHIN THE EXPECTED VASCULAR TERRITORY OF THE RIGHT SUPERIOR CEREBELLAR ARTERY. 2. ATHEROMATOUS DISEASE 3. NO INTERNAL CAROTID ARTERY STENOSIS BY NASCET CRITERIA. Chest xray 09/05/19: IMPRESSION: NO ACTIVE CARDIOPULMONARY DISEASE IS NOTED. OG TUBE APPEARS TO BE COILED IN THE STOMACH. Impression: Mr. Tyson is a 74 yo M with a PMH of recent diagnosis of metastatic NSCLC with suspected adrenal mass, insulin dependent diabetes who was admitted on 09/05/19 with concern for seizure, metabolic derangements and suspected adrenal insufficiency now s/p intubation for airway protection. Diagnosis: * AMS s/p intubation for airway protection * Adrenal insufficiency (ruled out) * Seizures * Fever * Hyponatremia * Metabolic acidosis * Leukocytosis * Anemia * Recent diasnosis metastatic NSLC Plan: Neuro: - Continue sedation with propofol to RASS -3 - Appreciate neuro consult (Mimi). Continue keppra for seizures. Awaiting MRI of brain to assess for metastatic disease - Maintain HOB elevation CVS: - Hemodynamically stable - Episode of SVT on 09/06/19, none since - Maintain K > 4 and Mag > 2 - K PENDING, mag 2.0 Resp: - Intubated for airway protection - No acute pulmonary issues - Continue vent bundle and pulm toilet ID: - Remains febrile, no source identified - Lactate normal, no leukocytosis - Continue with empiric cefepime given critical illness - LP performed by Dr Le today GI: - Has liquid stool, flexiseal placed. - Continue TF. - Continue PPI. Renal: - Continue vail while intubated - Hyponatremia: mild and stable - Continue fluids at 50 ml/hr Heme: - Stable normocytic anemia - Likely due to chronic illness Endo: - Hx of insulin dependent diabetes - BGs well controlled, continue lispro SSI coverage Musculsk: - Pressure ulcer prophylaxis. Bedrest. Wounds: - None DVT prophylaxis: Heparin SQ Disposition: Patient requires Critical Care/ICU for intubation for airway protection Patient clinical status: Critical, stable Code Status: Patient's son brought in HCP which lists his (deaf) and his son, Ralph, as back up HCP. Called but unable to leave message for Ralph to discuss code status Total Critical Care time is 45 minutes, excluding procedures/teaching
[2019-09-07] MEDS: Propofol* 100 ML IV SCH ×3 (08:26→18:43)
[2019-09-07] MEDS: levETIRAcetam 1000MG IVPREMIX* 1,000 MG/100 ML BAG IVPB SCH ×2 (08:27→20:19)
[2019-09-07] MEDS: Pantoprazole IV* 40 MG IV SCH (08:27)
[2019-09-07] MEDS: Acetaminophen ADULT LIQ* 650 MG/20.3 ML UDC PO PRN (08:27)
[2019-09-07] MEDS ORDERED: LORazepam INJ* 2 MG/ML 1 ML VIAL IV PUSH ONE (12:05)
[2019-09-07] MEDS ORDERED: Lorazepam PYXIS KEY PRN (12:05)
[2019-09-07] MEDS ORDERED: fentaNYL* 50 MCG/ML 2 ML VIAL (100 MCG VIAL) ONE (12:13)
[2019-09-07] MEDS ORDERED: LORazepam INJ* 2 MG/ML 1 ML VIAL ONE (12:14)
[2019-09-07] MEDS: fentaNYL* 50 MCG/ML 2 ML VIAL (100 MCG VIAL) IV SLOW PU PRN ×2 (12:25→12:40)
[2019-09-07 13:14] LABS: Body Fluid Source Cerebral Spinal
[2019-09-07 13:37] LABS: CSF Glucose 126 mg/dL (40-70)
--- NOTE | 2019-09-07 14:05 | PN ---
Subjective Date of Service: 09/07/19 Length of Stay: 2 Days Neurology is following for the evaluation of seizures. Interval History: The patient is intubated and is on sedation. According to the bedside nurse, during a sedation window, the patient is moving all extremities but does not follow command. He is nonpurposeful. There has been no reported seizures. He still has intermittent low grade fevers that are not explained by any known source of infection. Review of Systems: Limited due to intubation. Objective Active Medications: Acetaminophen (Tylenol Adult Liq*) 650 mg PO Q4H PRN PRN Reason: MILD PAIN or TEMP > 100.4 Last Admin: 09/07/19 08:27 Dose: 650 mg Chlorhexidine Gluconate (Peridex Mouth Wash 0.12%*) 15 ml TOPICAL Q4H [facility] Last Admin: 09/07/19 11:51 Dose: 15 ml Dextrose (D50w Syringe 50 Ml*) 12.5 gm IV PUSH .FOR FS < 60 - SS PRN PRN Reason: FS < 60 Fentanyl Citrate (Fentanyl*) 25 mcg IV SLOW PU Q15M PRN PRN Reason: PAIN - SEVERE Last Admin: 09/07/19 12:40 Dose: 25 mcg Heparin Sodium (Porcine) (Heparin Vial(*)) 5,000 units SUBCUT Q8HR [facility] Last Admin: 09/07/19 06:22 Dose: 5,000 units Levetiracetam (Keppra Iv Premix*) 1,000 mg in 100 mls @ 400 mls/hr IVPB Q12H [facility] Last Admin: 09/07/19 08:27 Dose: 400 mls/hr Cefepime HCl (Maxipime 1 Gm In Dextrose Duplex (*)) 1 gm in 50 mls @ 100 mls/ hr IV Q12H [facility] Last Admin: 09/07/19 12:50 Dose: 100 mls/hr Sodium Chloride (Ns 0.9% 1000 Ml) 1,000 mls @ 100 mls/hr IV PER RATE [facility] Last Admin: 09/07/19 01:02 Dose: 100 mls/hr Propofol (Diprivan*) 100 mls @ 7.608 mls/hr IV .PER PROTOCOL [facility]; Protocol Last Admin: 09/07/19 08:26 Dose: 17.1 mls/hr Insulin Human Lispro (Humalog*) 0 units SUBCUT Q6HR [facility]; Protocol Last Admin: 09/07/19 11:50 Dose: 2 unit Miscellaneous (Ativan Pyxis Enamorado) 1 ea N/A .ATIVAN IV ENAMORADO PRN PRN Reason: PYXIS ENAMORADO Pantoprazole Sodium (Protonix Iv*) 40 mg IV DAILY [facility] Last Admin: 09/07/19 08:27 Dose: 40 mg Vital Signs 09/07/19 09/07/19 13:00 13:30 Temperature 100.0 F 99.9 F Pulse Rate 98 54 Respiratory Rate Blood Pressure 116/66 128/66 (mmHg) O2 Sat by Pulse 100 99 Oximetry Intake and Output Last 24 Hours 09/05/19 09/06/19 09/07/19 09/08/19 06:59 06:59 06:59 06:59 Intake Total 2747 2416 Output Total 1195 1078 200 Balance 1552 1338 -200 Weight 144 lb 142 lb 6.698 oz 139 lb 15.643 oz Intake: IV Fluids 2298 1809 NS (0.9%) 183 1809 IVPB 235 254 ABX - CEFEPIME 126 NS (0.9%) 49 keppra 109 205 Medicated IV 214 353 CC - Propofol/Diprivan 214 353 Oral 0 Output: Bynum 1195 1028 200 Liquid Stool 50 Oxygen Devices in Use Now: Endotracheal Tube, Mechanical Ventilator Neurology Exam: General: General: critically ill appearing frail man in no distress. Head: normocephalic, without obvious abnormality Eyes: conjunctivae/corneas clear Neck: supple, symmetrical. No carotid bruit. No lymphadenopathy. Lungs: clear to auscultation bilaterally, non-labored CV: no murmurs or gallops. Extremities: left BKA. Skin: no skin lesions or lacerations Psych: n/a Neurological examination: Mental Status: Patient intubated. On propofol 40-60 mcg. Patient does not wake to auditory or noxious stimuli. Cranial Nerves: Pupils were equal, round, and sluggish reaction with constriction from 4 mm to 2 mm. Oculocephalic reflex intact. Corneal reflexes intact. Grimace to nasal stimuli was symmetric. Gag present. Motor: minimally flexes the elbows and knees to distal noxious stimuli on both upper and right lower extremities. Normal tone throughout. Sensory: Does not localize to pain Reflexes: trace throughout the upper and lower extremities with extensor plantar response on the right. Coordination: Could not be assessed due to mental status. Gait: Could not be assessed due to mental status. Result Diagrams: 09/06/19 04:19 09/07/19 05:27 Additional Lab and Data: - LABS: Sodium: 130. Creatinine: 0.64. POC Glucose: 175. CSF analysis: WBC:1, total cell count: 1, Glucose: 126, Protein:26 - CT head without contrast completed on 09/05/2019: no acute intracranial abnormality or ICH. - CTA head and neck completed on 09/05/2019: there is an area of contrast enhancement in the right frontal lobe which can be seen in metastatic disease. - EEG 09/05/2019: intermittent diffuse rhythmic discharges and slowing consistent with a non-convulsive electrographic seizures. . - PET scan completed at an outside facility was reviewed and placed in the patient's chart. "Findings compatible with widespread salvador metastatic disease extending from the left supracalvicular region to the aortic bifurcation." Microbiology and Other Data: Microbiology 09/07/19 12:49 CSF Gram Stain (Tube 3) - Final Cerebral Spinal Fluid 09/05/19 18:20 Aerobic Blood Culture - Preliminary Blood Venous No Growth Day 1 Anaerobic Blood Culture - Preliminary No Growth Day 1 09/05/19 17:00 Aerobic Blood Culture - Preliminary Blood Venous No Growth Day 1 Anaerobic Blood Culture - Preliminary No Growth Day 1 09/05/19 07:21 Urine Culture - Final Urine No Growth (<1,000 CFU/mL) Assessment/Plan Mr. 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 He was intubated in the ED. He was found to have recurrent subclinical seizures on EEG that abated with Ativan and levetirecetam therapy. The patient's examination is notable for intact brainstem responses while on sedation. He was reported to be moving all extremities symmetrically during a sedation window. He has not yet followed command. 1. Recurrent subclinical seizures. 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 There is a small area of contrast enhancement in the right frontal lobe on CT. This needs to be further confirmed with MRI. Recommendations: - MRI brain with contrast to evaluate for metastatic disease. He can now have the contrasted study since his kidney function improved. If the MRI is positive for mets, consult oncology. If the MRI is negative for cancer or showed stroke (less likely to be the case), please re-consult neurology for further recommendations. - Continue levetirecetam 1,000 mg IV twice daily. - Obtain a trough levetirecetam level. If level is over 30, consider reducing the dose to 750 mg twice daily as levetirecetam can be worsening his mentation. - Seizure precautions - EEG tomorrow, without sedation if possible - Pending paraneoplastic panel in the CSF. 2. Acute encephalopathy with low grade fevers: Possibly due to post-ictal state , metabolic disturbance (hyponatremia), adrenal insufficiency, and due to medication effect. This is less likely to be related to a meningoencephalitis since CSF shows no evidence of BLEACH LIQUOR MAKER infection. Recommendations: - If there is no clear indication for antibiotic therapy, I recommend discontinuing cefepime as it can cause neurotoxic side effects in the elderly. - Pending Cytology and flow cyometry. - Slowly wean off sedation and extubate after the MRI is done. 3. Metastatic disease 4. KATINA- resolved. I will ask Dr. Emery to go over the EEG and MRI results tomorrow when available.
[2019-09-08] MEDS: Cefepime 1 GM in Dextrose(*) 1 GM/50 ML BAG IV SCH ×3 (00:05→23:35)
[2019-09-08] MEDS: Insulin LISPRO* 1 UNITS UNIT SUBCUT SCH ×5 (00:06→23:34)
[2019-09-08] MEDS: Chlorhexidine MOUTHWASH 0.12%* 15 ML UDC TOPICAL SCH ×6 (03:06→22:06)
[2019-09-08] MEDS: Propofol* 100 ML IV SCH ×4 (03:06→15:20)
[2019-09-08 04:53] LABS: ABS Basophils 0.1 10^3/ul (0-0.2); ABS Lymphocytes 0.4 10^3/ul (1.0-4.8); ABS Monocytes 1.1 10^3/ul (0-0.8); ABS Neutrophils 17.8 10^3/ul (1.5-7.7); Eosinophil % 0.1 %; Hematocrit 29 % (42-52); Mean Corpuscular HGB Conc 34 g/dL (31-36); Mean Corpuscular Hemoglobin 30 pg (27-31); Mean Corpuscular Volume 89 fL (80-94); Mean Platelet Volume 7.3 fL (7.4-10.4); Platelet Count 385 10^3/uL (150-450); Red Blood Count 3.29 10^6 /uL (4.18-5.48); Red Cell Distribution Width 15 % (10-15); White Blood Count 19.4 10^3/uL (3.5-10.8)
[2019-09-08 05:09] LABS: BUN/Creatinine Ratio 21.2 (8-20); EGFR Non-African American 156.2 (>60); Potassium 4.1 mmol/L (3.5-5.0)
[2019-09-08] MEDS: Heparin VIAL(*) 5000 UNITS/ML VIAL (FIVE THOUSAND) SUBCUT SCH ×3 (05:32→22:06)
[2019-09-08] MEDS: Pantoprazole IV* 40 MG IV SCH (08:45)
[2019-09-08] MEDS: levETIRAcetam 1000MG IVPREMIX* 1,000 MG/100 ML BAG IVPB SCH ×2 (08:45→20:00)
[2019-09-08] MEDS ORDERED: Gadoteridol* (CONTRAST) 279.3 MG/ML 10 ML IV ONE (09:10)
--- NOTE | 2019-09-08 09:34 | PN ---
Date of Service: 09/08/19 Critical Care Services: No acute events overnight. During sedation holiday today he moved toes only to command. He moves all extremities spontaneously. Afebrile since yesterday evening. Awaiting MRI today to determine goals of care. CSF negative so far for infection. Unable to perform ROS due to mental status Vital Signs: Temp Pulse Resp BP SpO2 FiO2 99.5 F 87 16 140/79 98 21 09/08/19 09:00 09/08/19 09:00 09/08/19 07:00 09/08/19 09:00 09/08/19 09:00 09/07 07:53 Physical Exam: Gen: NAD, Intubated and sedated HEENT: Normocephalic and atraumatic. Pupils equal and reactive. ETT and OGT in place. Lungs: Clear to auscultation, FiO2 21%, PEEP 5, Vt 500 Cardiac: RRR Abdomen: Soft, nondistended. Extremities: Warm, L BKA, No pedal edema on right. Neuro: Intubated and sedated. RASS -3 Fluid Balance (Past 24 Hours): I= O= Net Intake & Output 09/06/19 09/07/19 09/08/19 09/09/19 06:59 06:59 06:59 06:59 Intake Total 2747 2416 2232 Output Total 1195 1078 945 35 Balance 1552 1338 1287 -35 Weight 142 lb 6.698 oz 139 lb 15.643 oz 140 lb 4.301 oz 146 lb Intake: IV Fluids 2298 1809 1619 ABX - CEFEPIME 50 NS (0.9%) 183 1809 1569 IVPB 235 254 151 ABX - CEFEPIME 126 51 NS (0.9%) 49 keppra 109 205 100 Medicated IV 214 353 462 CC - Propofol/Diprivan 214 353 462 Oral 0 0 Output: Bynum 1195 1028 945 35 Liquid Stool 50 Other: Estimated Stool Amount Small Labs: Laboratory Results - last 24 hr 09/07/19 09/07/19 09/07/19 11:46 12:49 12:49 WBC RBC Hgb Hct MCV MCH MCHC RDW Plt Count MPV Neut % (Auto) Lymph % (Auto) Gates % (Auto) Eos % (Auto) Baso % (Auto) Absolute Neuts (auto) Absolute Lymphs (auto) Absolute Monos (auto) Absolute Eos (auto) Absolute Basos (auto) Absolute Nucleated RBC Nucleated RBC % Sodium Potassium Chloride Carbon Dioxide Anion Gap BUN Creatinine Est GFR ( Amer) Est GFR (Non-Af Amer) BUN/Creatinine Ratio Glucose POC Glucose (mg/dL) 195 H Calcium Fluid Source Cerebral spinal Fluid Volume 5 Fluid Color Colorless Fluid Appearance Clear Fluid WBC 1 Fluid RBC 0 Fluid Tot Cell Count 1 Fluid Neutrophils 100 CSF Cell Count Tube # 4 CSF Glucose 126 H CSF Total Protein 26 09/07/19 09/07/19 09/08/19 17:31 23:57 04:42 WBC RBC Hgb Hct MCV MCH MCHC RDW Plt Count MPV Neut % (Auto) Lymph % (Auto) Gates % (Auto) Eos % (Auto) Baso % (Auto) Absolute Neuts (auto) Absolute Lymphs (auto) Absolute Monos (auto) Absolute Eos (auto) Absolute Basos (auto) Absolute Nucleated RBC Nucleated RBC % Sodium 132 L Potassium 4.1 Chloride 104 Carbon Dioxide 19 L Anion Gap 9 BUN 11 Creatinine 0.52 L Est GFR ( Amer) 189.0 Est GFR (Non-Af Amer) 156.2 BUN/Creatinine Ratio 21.2 H Glucose 152 H POC Glucose (mg/dL) 175 H 171 H Calcium 8.0 L Fluid Source Fluid Volume Fluid Color Fluid Appearance Fluid WBC Fluid RBC Fluid Tot Cell Count Fluid Neutrophils CSF Cell Count Tube # CSF Glucose CSF Total Protein 09/08/19 04:42 WBC 19.4 H RBC 3.29 L Hgb 10.0 L Hct 29 L MCV 89 MCH 30 MCHC 34 RDW 15 Plt Count 385 MPV 7.3 L Neut % (Auto) 91.9 Lymph % (Auto) 2.0 Gates % (Auto) 5.5 Eos % (Auto) 0.1 Baso % (Auto) 0.5 Absolute Neuts (auto) 17.8 H Absolute Lymphs (auto) 0.4 L Absolute Monos (auto) 1.1 H Absolute Eos (auto) 0.0 Absolute Basos (auto) 0.1 Absolute Nucleated RBC 0.0 Nucleated RBC % 0.0 Sodium Potassium Chloride Carbon Dioxide Anion Gap BUN Creatinine Est GFR ( Amer) Est GFR (Non-Af Amer) BUN/Creatinine Ratio Glucose POC Glucose (mg/dL) Calcium Fluid Source Fluid Volume Fluid Color Fluid Appearance Fluid WBC Fluid RBC Fluid Tot Cell Count Fluid Neutrophils CSF Cell Count Tube # CSF Glucose CSF Total Protein Studies: MRI pending Nutrition: NPO Impression: 74M with recently diagnosed metastatic lung cancer, admitted with seizure. Intubated for airway protection. Awaiting MRI before deciding goals of care. Seizure Metabolic acidosis Leukocytosis Fever Metastatic lung cancer DM type 2 Hyponatremia, improving CAD PVD S/p L BKA Plan: Neuro: MRI this afternoon to look at extent of metastatic disease and to help determine prognosis. Family will be updated when results available. Neuro following. Keppra for seizures. No evidence of CSF infection. Propofol for sedation while intubated. Fentanyl prn, Tylenol prn for pain and fever. Sedation holiday daily. CV: MAP goal >65. Continuous telemetry. Resp: Minimal vent support. Remains intubated due to mental satus. Vent bundle, pulmonary toilet GI: NPO. If family elects to continue treatment, will start TFs (likely tomorrow) PPI for GI prophylaxis Renal: Bynum for accurate I&Os Hyponatremia: stable. Hyperkalemia resolved ID: No source of fever or leukocytosis. F/u final CSF cx. Will continue cefepime. Heme: Daily CBC DVT ppx: SQH Endo: Lispro sliding scale. Goal BG <200 MSK: Bedrest Wounds: None Code status: DNR Dispo: ICU for ventilator management, metabolic derangements Status: Critical Critical Care Time: 30 min
--- NOTE | 2019-09-08 12:28 | EEG ---
ELECTROENCEPHALOGRAPHY: DATE OF STUDY: 09/08/19 REFERRING PROVIDER: Dr. Le. LOCATION: He is an inpatient in the intensive care unit. CLINICAL PROBLEM: The patient presented with new-onset seizures and metastatic non- small cell lung cancer. The patient required intubation. MEDICATIONS: Include: 1. Propofol infusion. 2. Fentanyl. 3. Cefepime. 4. Keppra. REPORT: This 19-channel EEG is remarkable for background rhythms consisting of diffuse slowing, part icularly with high voltage slow activity seen centrally and bifrontally. Beta activity is abundant i ntermittently with suppression of central slowing. There are no clinical events. At times, left fro ntal focal slowing is of greater duration and interspersed with some fairly broad sharp wave discharg es. The patient described he is chewing the endotracheal tube at times. No clinical events otherwise are described. Sleep stages are not recognized. CLINICAL IMPRESSION: Abnormal EEG due to generalized slowing and disorganization of background rhyth ms with more focal slowing seen from the left frontal region. At times, there are interspersed sharp waves centrally and in the left frontal region suggestive of epileptiform discharges. There are no i ctal events. This tracing is compatible with diffuse cerebral dysfunction, sedative drug effect, and focal seizures emanating from probable left frontal region. [id number]/[facility] #: [id number]
--- NOTE | 2019-09-08 13:03 | PN ---
NEUROLOGY FOLLOWUP NOTE: DATE OF FOLLOWUP: 09/08/19 FARM BUTCHER: Dr. Hinton. LOCATION: He is an inpatient in ICU bed 3. CHIEF COMPLAINT: Seizures. INTERVAL HISTORY: Since yesterday, Mr. Tyson has not been observed to have any seizures. He remain ed intubated. During my visit today, his propofol was being weaned and he was reaching up to the end otracheal tube with his hands pretty symmetrically. MEDICATIONS: Medications are reviewed and include: 1. Propofol infusion. 2. He is on cefepime 1 g IV q.12 hours. 3. Fentanyl 25 mcg IV q.15 minutes as needed. 4. Heparin subcutaneous 5000 units q.8 hours. 5. Sliding scale insulin. 6. Keppra 1000 mg IV q.12 hours. 7. Protonix IV 40 mg daily. 8. Propofol infusion. PHYSICAL EXAMINATION: On exam, he appears well hydrated. He is intubated. Most recent temperature is 100.2 by Bynum probe, blood pressure 134/62, heart rate is in the 90s on the monitor. Respiratory rate is 24 on the ventilator and oxygen saturation is 97%. He has a left [id number] amputation. His eyes are intermittently opened. He responds to visual threat from the right side, but not cons istently from the left side. He does not make eye contact. Facial musculature appears symmetric to grimace. He responds to grimace symmetrically with deep nail bed pressure to either of these upper e xtremities. There are no tremors or other involuntary movements observed. He has a right Babinski s ign. He does not follow commands to voice, but his nurse said that he did wiggle his foot to her com nixon a few minutes before I entered the room. DIAGNOSTIC STUDIES/LAB DATA: Laboratory data reviewed includes a CBC with an elevated white blood ce ll count at 19.4, anemia with a hemoglobin of 10.0 which is down from 12.6 three days ago. He has a left shift with 17.8 absolute neutrophils. Chemistries today notable for a sodium of 132 which is an improvement from yesterday when it was 130, creatinine 0.52. Glucose this morning is 152. EEG done earlier today is reviewed and reveals generalized slowing and disorganization of background rhythms with more prominent slowing from the left frontal region. There is intermingled sharp waves centrally and bifrontally. A brain CT without contrast was done on 09/05/19 and reviewed the images and its interpretation showi ng atrophy only. I have reviewed the images personally and I agreed. IMPRESSION: Impression is that of new onset seizures in the patient with metastatic non-small cell l wesly cancer. Intracranial metastases are highly suspected. Currently, he does not appear to be havin g seizures, on Keppra 1000 mg IV every 12 hours and with a propofol drip. I do not recommend any michaela nges. He is scheduled to have an MRI scan of the brain at 4:30 this afternoon. I will continue to f ciscolow him along with you. [id number]/[facility] #: [id number]
[2019-09-08] MEDS: Acetaminophen ADULT LIQ* 650 MG/20.3 ML UDC PO PRN (19:59)
[2019-09-08] MEDS: fentaNYL* 50 MCG/ML 2 ML VIAL (100 MCG VIAL) IV SLOW PU PRN ×2 (22:41→23:56)
[2019-09-09] MEDS ORDERED: Albuterol/Ipratropium NEB.SOL* Albuterol 2.5 MG/Ipratropium 0.5 MG 3 ML ONE (00:08)
[2019-09-09] MEDS: Albuterol/Ipratropium NEB.SOL* Albuterol 2.5 MG/Ipratropium 0.5 MG 3 ML INH PRN ×2 (00:16→04:23)
[2019-09-09] MEDS ORDERED: methylPREDNISolone 125 MG* 2 ML VIAL IV ONE (01:25)
[2019-09-09] MEDS ORDERED: Albuterol (2.5 MG) 0.5 % CONC 2.5 MG/0.5 ML NEB.SOLN (ICU and ED only) INH ONE (01:26)
[2019-09-09] MEDS ORDERED: methylPREDNISolone 125 MG* 2 ML VIAL ONE (01:30)
[2019-09-09] MEDS ORDERED: Furosemide IV* 10 MG/ML VIAL (40 MG) IV ONE (02:15)
--- NOTE | 2019-09-09 02:19 | PN ---
Hospitalist Progress Note Date of Service: 09/09/19 Hospitalist Cross Cover Note 74M with recently diagnosed metastatic lung cancer, admitted with status epilepticus thought to be 2/2 to metabolic encephalopathy, from e lyte derangements vs widely metastatic dz. MRI largely unremarkble, EEG with sig seizure activity, loaded on keppra, still has ongoing low grade fever on cefipime with unclear source. Overall plan awaiting further GOC discussions depending on meaningful return to mental status. Tonight a few events: 1)Pt with high peak pressures triggering on vent to high 30s. AC 450/16/5/30% satting well at 98%. PPeak 38 and exam shows wheezing, givne duoneb which cleared wheezing though pt continues to breath stack, very diminished in blt RLL , CXR reveals no PTX or acute pathology. Given 1 dose of solumedrol for possible underlying bronchospasm/RAD. Adjusted I/E ratio to increase expiratory time with e/o autopeep, also increased sedation to max prop and pt was then much more comfortable with less asynchrony and pressures falling nicely. Did not get ABG at this time as oxygenating well and minute ventilation overall preserved. 2)Low UOP: Given x1 dose lasix 40mg
[2019-09-09] MEDS: Chlorhexidine MOUTHWASH 0.12%* 15 ML UDC TOPICAL SCH ×4 (02:47→15:50)
[2019-09-09] MEDS ORDERED: fentaNYL INFUSION 50 MCG/ML* 2,500 MCG/50 ML BAG IV SCH (03:00)
[2019-09-09 05:20] LABS: ABS Basophils 0.1 10^3/ul (0-0.2); ABS Lymphocytes 0.2 10^3/ul (1.0-4.8); ABS Monocytes 0.4 10^3/ul (0-0.8); ABS Neutrophils 18.9 10^3/ul (1.5-7.7); Hematocrit 34 % (42-52); Hemoglobin 11.1 g/dL (14.0-18.0); Lymphocyte % 0.8 %; Mean Corpuscular HGB Conc 32 g/dL (31-36); Mean Corpuscular Hemoglobin 29 pg (27-31); Mean Corpuscular Volume 91 fL (80-94); Mean Platelet Volume 8.1 fL (7.4-10.4); Platelet Count 485 10^3/uL (150-450); Red Blood Count 3.78 10^6 /uL (4.18-5.48); Red Cell Distribution Width 15 % (10-15); White Blood Count 19.5 10^3/uL (3.5-10.8)
[2019-09-09 05:38] LABS: BUN/Creatinine Ratio 21.8 (8-20); Calcium 8.7 mg/dL (8.6-10.3); EGFR African American 177.2 (>60); EGFR Non-African American 146.4 (>60); Potassium 4.6 mmol/L (3.5-5.0)
[2019-09-09] MEDS: Insulin LISPRO* 1 UNITS UNIT SUBCUT SCH ×3 (05:43→17:47)
[2019-09-09] MEDS: Heparin VIAL(*) 5000 UNITS/ML VIAL (FIVE THOUSAND) SUBCUT SCH ×3 (05:44→21:35)
[2019-09-09] MEDS: Pantoprazole IV* 40 MG IV SCH (08:04)
[2019-09-09] MEDS: Propofol* 100 ML IV SCH ×2 (08:04→12:31)
[2019-09-09] MEDS: levETIRAcetam 1000MG IVPREMIX* 1,000 MG/100 ML BAG IVPB SCH ×2 (10:09→21:35)
--- NOTE | 2019-09-09 10:15 | CONSULT ---
Palliative / Hospice Consult Ordering Provider: Joan Quezada - PCP-Kristin Referal Reason: Goals of care/no bowel meds/ fentanyl - Subjective Code Status: DNR Advance Directives Location: No Advance Directives [facility] Part A Completed: Yes - updated on chart MOL[facility] Part E Completed:: Yes - updated on chart - History or Present Illness History or Present Illness: 74yo male with recently diagnosed NSLC stage 4 presents with unresponsiveness. PMH is significant for NSCLC adenocarcnoma stage [address] Munguia in [place], CAD s/p CABG, DM type 2 on insulin, HTN, below the knee amputation and PVD. PSHx lives with who is hard of hearing, and son Ralph([phone]) are HCP, smoker, ex etoh user, retired from [employer]. Studies CXR-nl, tubes lines in place, EKg-ectopic atrial tachycardia, brain CT- mild atrophy no intercranial hemmorrhage or infarct, head CTA- ? occlussion R superior cerebellar artery, CXR no acute chest disease, EEG-recurrent subclinical electrographic seizures, after Ativan administration consistent with moderate encephalopathy ? structural abnormality, PET scan- widespread salvador metastatic disease L supraclavicular region aortic bifurcation, ECHO-EF 65 -70%, MRI brain no mets, H/H 04/01, BUN/Cr 11/.52, egfr 156.2, Ca 8, alb 2.8, BNP 104, CRP 76.69, trp .17 and INR 1.23. Pt admitted to ICU and intubated for nonconvulsive status epilepticus from metabolic encephalopathy(severe metabolic acidosis). All history is from family and medical records, pt is intubated and unable to participate. Lab Values: Abnormal Lab Results 09/05/19 09/07/19 09/08/19 10:29 12:49 11:34 WBC RBC Hgb Hct MCV MCH MCHC RDW Plt Count MPV Neut % (Auto) Lymph % (Auto) [place] % (Auto) Eos % (Auto) Baso % (Auto) Absolute Neuts (auto) Absolute Lymphs (auto) Absolute Monos (auto) Absolute Eos (auto) Absolute Basos (auto) Absolute Nucleated RBC Nucleated RBC % Sodium Potassium Chloride Carbon Dioxide Anion Gap BUN Creatinine Est GFR ( Amer) Est GFR (Non-Af Amer) BUN/Creatinine Ratio Glucose POC Glucose (mg/dL) 158 H Calcium ACTH 9.2 Fluid Cell Count Rvw By 09/09/19 09/09/19 04:49 04:49 WBC 19.5 H RBC 3.78 L Hgb 11.1 L Hct 34 L MCV 91 MCH 29 MCHC 32 RDW 15 Plt Count 485 H D MPV 8.1 Neut % (Auto) 96.6 Lymph % (Auto) 0.8 [place] % (Auto) 2.2 Eos % (Auto) 0.0 Baso % (Auto) 0.4 Absolute Neuts (auto) 18.9 H Absolute Lymphs (auto) 0.2 L Absolute Monos (auto) 0.4 Absolute Eos (auto) 0.0 Absolute Basos (auto) 0.1 Absolute Nucleated RBC 0.0 Nucleated RBC % 0.0 Sodium 133 L Potassium 4.6 Chloride 101 Carbon Dioxide 20 L Anion Gap 12 H BUN 12 Creatinine 0.55 L Est GFR ( Amer) 177.2 Est GFR (Non-Af Amer) 146.4 BUN/Creatinine Ratio 21.8 H Glucose 179 H POC Glucose (mg/dL) Calcium 8.7 ACTH Fluid Cell Count Rvw By Laboratory Last Values WBC 19.5 10^3/uL (3.5-10.8) H 09/09/19 04:49 RBC 3.78 10^6 /uL (4.18-5.48) L 09/09/19 04:49 Hgb 11.1 g/dL (14.0-18.0) L 09/09/19 04:49 Hct 34 % (42-52) L 09/09/19 04:49 MCV 91 fL (80-94) 09/09/19 04:49 MCH 29 pg (27-31) 09/09/19 04:49 MCHC 32 g/dL (31-36) 09/09/19 04:49 RDW 15 % (10-15) 09/09/19 04:49 Plt Count 485 10^3/uL (150-450) H D 09/09/19 04:49 MPV 8.1 fL (7.4-10.4) 09/09/19 04:49 Neut % (Auto) 96.6 % 09/09/19 04:49 Lymph % (Auto) 0.8 % 09/09/19 04:49 [place] % (Auto) 2.2 % 09/09/19 04:49 Eos % (Auto) 0.0 % 09/09/19 04:49 Baso % (Auto) 0.4 % 09/09/19 04:49 Absolute Neuts (auto) 18.9 10^3/ul (1.5-7.7) H 09/09/19 04:49 Absolute Lymphs (auto) 0.2 10^3/ul (1.0-4.8) L 09/09/19 04:49 Absolute Monos (auto) 0.4 10^3/ul (0-0.8) 09/09/19 04:49 Absolute Eos (auto) 0.0 10^3/ul (0-0.6) 09/09/19 04:49 Absolute Basos (auto) 0.1 10^3/ul (0-0.2) 09/09/19 04:49 Absolute Nucleated RBC 0.0 10^3/ul 09/09/19 04:49 Nucleated RBC % 0.0 09/09/19 04:49 INR (Anticoag Therapy) 1.23 (0.82-1.09) H 09/05/19 05:50 VBG pH 7.22 (7.32-7.43) L 09/05/19 07:21 VBG pCO2 45 mmHg (41-51) 09/05/19 07:21 VBG pO2 39.0 mmHg (35-45) 09/05/19 07:21 VBG HCO3 16.8 mmol/L (24-28) L 09/05/19 07:21 VBG O2 Saturation 60.6 % (70-80) L 09/05/19 07:21 VBG Base Excess -9.1 mmol/L (0.0-4.0) L 09/05/19 07:21 Sodium 133 mmol/L (135-145) L 09/09/19 04:49 Potassium 4.6 mmol/L (3.5-5.0) 09/09/19 04:49 Chloride 101 mmol/L (101-111) 09/09/19 04:49 Carbon Dioxide 20 mmol/L (22-32) L 09/09/19 04:49 Anion Gap 12 mmol/L (2-11) H 09/09/19 04:49 BUN 12 mg/dL (6-24) 09/09/19 04:49 Creatinine 0.55 mg/dL (0.67-1.17) L 09/09/19 04:49 Est GFR ( Amer) 177.2 (>60) 09/09/19 04:49 Est GFR (Non-Af Amer) 146.4 (>60) 09/09/19 04:49 BUN/Creatinine Ratio 21.8 (8-20) H 09/09/19 04:49 Glucose 179 mg/dL (70-100) H 09/09/19 04:49 POC Glucose (mg/dL) 158 mg/dL (70-100) H 09/08/19 11:34 Hemoglobin A1c 6.4 % (4.0-5.6) H 09/05/19 07:21 Lactic Acid 1.7 mmol/L (0.5-2.0) 09/05/19 11:30 Calcium 8.7 mg/dL (8.6-10.3) 09/09/19 04:49 Magnesium 2.0 mg/dL (1.9-2.7) 09/06/19 04:19 Total Bilirubin 0.40 mg/dL (0.2-1.0) 09/07/19 05:27 AST TNP 09/07/19 05:27 ALT 11 U/L (7-52) 09/07/19 05:27 Alkaline Phosphatase 34 U/L (34-104) 09/07/19 05:27 Ammonia 42 mcmol/L (16-53) 09/05/19 07:21 Total Creatine Kinase 115 U/L (10-223) 09/05/19 05:50 Troponin I 0.34 ng/mL (<0.03) H* 09/06/19 04:19 C-Reactive Protein 76.69 mg/L (<8.01) H 09/05/19 05:50 B-Natriuretic Peptide 104 pg/mL (<=100) H 09/05/19 07:21 Total Protein 5.5 g/dL (6.4-8.9) L 09/07/19 05:27 Albumin 2.8 g/dL (3.2-5.2) L 09/07/19 05:27 Globulin 2.7 g/dL (2-4) 09/07/19 05:27 Albumin/Globulin Ratio 1.0 (1-3) 09/07/19 05:27 Vitamin B12 > 1450 pg/mL (180-914) H 09/05/19 05:50 TSH 1.75 mcIU/mL (0.34-5.60) 09/05/19 05:50 Prolactin 11.8 ng/mL (1.0-20.0) 09/05/19 05:50 Total Testosterone 124.35 ng/dL (240-950) L 09/05/19 05:50 Cortisol 45.25 mcg/dL 09/05/19 05:50 ACTH 9.2 pg/mL 09/05/19 10:29 Urine Color Yellow 09/05/19 07:21 Urine Appearance Turbid 09/05/19 07:21 Urine pH 5.0 (5-9) 09/05/19 07:21 Ur Specific [place] 1.013 (1.010-1.030) 09/05/19 07:21 Urine Protein 2+(100 mg/dl) (Negative) A 09/05/19 07:21 Urine Ketones Trace (Negative) A 09/05/19 07:21 Urine Blood 1+ (Negative) A 09/05/19 07:21 Urine Nitrate Negative (Negative) 09/05/19 07:21 Urine Bilirubin Negative (Negative) 09/05/19 07:21 Urine Urobilinogen Negative (Negative) 09/05/19 07:21 Ur Leukocyte Esterase Negative (Negative) 09/05/19 07:21 Urine WBC (Auto) 2+(11-20/hpf) (Absent) A 09/05/19 07:21 Urine RBC (Auto) Trace(0-2/hpf) (Absent) 09/05/19 07:21 Ur Squamous Epith Cells Present (Absent) A 09/05/19 07:21 Urine Bacteria Absent (Absent) 09/05/19 07:21 Hyaline Casts Present (Absent) A 09/05/19 07:21 Urine Glucose 3+(>=500 mg/dl) (Negative) A 09/05/19 07:21 Fluid Source Cerebral spinal 09/07/19 12:49 Fluid Volume 5 mL 09/07/19 12:49 Fluid Color Colorless 09/07/19 12:49 Fluid Appearance Clear 09/07/19 12:49 Fluid WBC 1 /mcL 09/07/19 12:49 Fluid RBC 0 /mcL 09/07/19 12:49 Fluid Tot Cell Count 1 09/07/19 12:49 Fluid Neutrophils 100 % 09/07/19 12:49 Fluid Cell Count Rvw By 09/07/19 12:49 CSF Cell Count Tube # 4 09/07/19 12:49 CSF Glucose 126 mg/dL (40-70) H 09/07/19 12:49 CSF Total Protein 26 mg/dL (15-45) 09/07/19 12:49 Urine Opiates Screen None detected (None Detect) 09/05/19 07:21 Ur Barbiturates Screen None detected (None Detect) 09/05/19 07:21 Ur Phencyclidine Scrn None detected (None Detect) 09/05/19 07:21 Ur Amphetamines Screen None detected (None Detect) 09/05/19 07:21 U Benzodiazepines Scrn Presumptive positive (None Detect) A 09/05/19 07:21 Urine Cocaine Screen None detected (None Detect) 09/05/19 07:21 U Cannabinoids Screen None detected (None Detect) 09/05/19 07:21 Serum Alcohol < 10 mg/dL (<10) 09/05/19 05:50 - Objective Active Medications: Acetaminophen (Tylenol Adult Liq*) 650 mg PO Q4H PRN PRN Reason: MILD PAIN or TEMP > 100.4 Last Admin: 09/08/19 19:59 Dose: 650 mg Albuterol/Ipratropium (Duoneb (Albuterol 2.5 Mg/Ipratropium 0.5 Mg)) 1 neb INH Q4H PRN PRN Reason: SOB/WHEEZING Last Admin: 09/09/19 04:23 Dose: 1 neb Chlorhexidine Gluconate (Peridex Mouth Wash 0.12%*) 15 ml TOPICAL Q4H JAMESON Last Admin: 09/09/19 08:04 Dose: 15 ml Dextrose (D50w Syringe 50 Ml*) 12.5 gm IV PUSH .FOR FS < 60 - SS PRN PRN Reason: FS < 60 Heparin Sodium (Porcine) (Heparin Vial(*)) 5,000 units SUBCUT Q8HR JAMESON Last Admin: 09/09/19 05:44 Dose: 5,000 units Levetiracetam (Keppra Iv Premix*) 1,000 mg in 100 mls @ 400 mls/hr IVPB Q12H [facility] Last Admin: 09/08/19 20:00 Dose: 400 mls/hr Cefepime HCl (Maxipime 1 Gm In Dextrose Duplex (*)) 1 gm in 50 mls @ 100 mls/ hr IV Q12H [facility] Last Admin: 09/08/19 23:35 Dose: 100 mls/hr Propofol (Diprivan*) 100 mls @ 7.608 mls/hr IV .PER PROTOCOL JAMESON; Protocol Last Admin: 09/09/19 08:04 Dose: 19 mls/hr Fentanyl Citrate (Fentanyl Infusion Bag 50 Mcg/Ml 50 Ml) 2,500 mcg in 50 mls @ 0.25 mls/hr IV .PER PROTOCOL [facility]; Protocol Last Admin: 09/09/19 02:45 Dose: 0.3 mls/hr Insulin Human Lispro (Humalog*) 0 units SUBCUT Q6HR [facility]; Protocol Last Admin: 09/09/19 05:43 Dose: 2 unit Miscellaneous (Ativan Pyxis [place]) 1 ea N/A .ATIVAN IV ENAM[place]ADO PRN PRN Reason: PYXIS [place] Pantoprazole Sodium (Protonix Iv*) 40 mg IV DAILY [facility] Last Admin: 09/09/19 08:04 Dose: 40 mg Vital Signs: Vital Signs: Temp Pulse Resp BP Pulse Ox 99.3 F 85 19 113/62 97 09/09/19 09:30 09/09/19 09:30 09/09/19 08:00 09/09/19 09:30 09/09/19 09:30 Patient Weight: Weight 66.9 kg Intake and Output: Intake & Output 09/07/19 09/08/19 09/09/19 09/10/19 06:59 06:59 06:59 06:59 Intake Total 2416 2232 1113.7 Output Total 8073 626 3015 150 Balance 1338 1287 -636.3 -150 Weight 63.493 kg 63.625 kg 66.9 kg Intake: IV Fluids 1809 1619 266.7 ABX - CEFEPIME 50 50 NS (0.9%) 1809 1569 116.7 keppra 100 IVPB 254 151 200 ABX - CEFEPIME 51 100 NS (0.9%) 49 keppra 205 100 100 Medicated IV 353 462 547 CC - Propofol/Diprivan 353 462 547 Oral 0 0 Tube Feeding Flush Amount 100 Output: Bynum 9019 072 6961 150 Liquid Stool 50 Other: Date of Last Bowel 09/08/2019 09/09/2019 Movement # Bowel Movements 1 1 Estimated Stool Amount Small Medium Medium ADLs: Meal Record Start: 09/05/19 11: 32 Freq: 09,13,18 Status: Complete Protocol: Created 09/05/19 11:32 System (Rec: 09/05/19 11:32 System ICU-M33) Intake and Output Start: 09/05/19 05: 55 Freq: Status: Active Protocol: Created 09/05/19 05:55 [id number] (Rec: 09/05/19 05:55 [id number] ED-L01) Intake and Output Start: 09/05/19 11: 32 Freq: Q1HR Status: Active Protocol: Created 09/05/19 11:32 System (Rec: 09/05/19 11:32 System ICU-M33) Document 09/05/19 11:47 SHF3588 (Rec: 09/05/19 11:48 [id number] ICU-M33) Document 09/05/19 13:00 LTZ5869 (Rec: 09/05/19 14:00 UAO8522 ICU-C15) Document 09/05/19 14:00 EOY2031 (Rec: 09/05/19 14:00 NUS0851 ICU-C15) Document 09/05/19 15:00 JNA7502 (Rec: 09/05/19 15:19 FJY9832 ICU-C15) Document 09/05/19 15:20 RXA2173 (Rec: 09/05/19 15:30 TZW0779 ICU-C15) Document 09/05/19 17:00 EPA5369 (Rec: 09/05/19 17:25 VLS7458 ICU-C15) Document 09/05/19 18:00 WKT5877 (Rec: 09/05/19 18:46 HXO5131 ICU-C15) Document 09/05/19 20:00 ZUP9228 (Rec: 09/05/19 20:02 PVK9999 ICU-M33) Document 09/05/19 22:00 TWX0940 (Rec: 09/05/19 22:06 ALH4515 ICU-C15) Document 09/05/19 23:00 SGW0677 (Rec: 09/05/19 23:32 DUB9764 ICU-C15) Document 09/06/19 00:00 WAS6344 (Rec: 09/06/19 00:39 CSS5285 ICU-C15) Document 09/06/19 01:00 YMM9934 (Rec: 09/06/19 01:15 IYR3069 ICU-C15) Document 09/06/19 03:00 QTO9140 (Rec: 09/06/19 03:13 BHZ5414 ICU-C15) Document 09/06/19 04:00 WGJ5566 (Rec: 09/06/19 04:01 KLZ6994 ICU-C15) Document 09/06/19 04:53 FXG4640 (Rec: 09/06/19 04:53 LKF3310 ICU-C15) Document 09/06/19 05:23 MSC6607 (Rec: 09/06/19 05:24 IAU8121 ICU-M33) Document 09/06/19 07:00 DRT9024 (Rec: 09/06/19 08:44 NSD3952 ICU-M33) Document 09/06/19 08:00 WVG5870 (Rec: 09/06/19 08:44 IES7850 ICU-M33) Document 09/06/19 09:00 ZSZ5422 (Rec: 09/06/19 10:21 ZLR5547 ICU-C12) Document 09/06/19 10:00 RRO1063 (Rec: 09/06/19 10:21 KNY8092 ICU-C12) Document 09/06/19 11:00 ATL5819 (Rec: 09/06/19 11:51 IZS4938 ICU-M33) Document 09/06/19 11:51 VXO6087 (Rec: 09/06/19 11:51 FFF5500 ICU-M33) Document 09/06/19 13:00 TLQ5439 (Rec: 09/06/19 13:38 PVM7973 ICU-M33) Document 09/06/19 13:38 RYA8534 (Rec: 09/06/19 13:38 XXP6150 ICU-M33) Document 09/06/19 15:00 KLE6028 (Rec: 09/06/19 16:08 CTK4834 ICU-M33) Document 09/06/19 16:00 UGD7194 (Rec: 09/06/19 16:08 TQX5725 ICU-M33) Document 09/06/19 17:00 WAG1562 (Rec: 09/06/19 17:06 NTH2536 ICU-M33) Document 09/06/19 18:15 UTW7087 (Rec: 09/06/19 18:15 PKF4623 ICU-M33) Document 09/06/19 18:44 SDL6048 (Rec: 09/07/19 08:44 HOH4118 ICU-M33) Document 09/06/19 19:00 DXH4584 (Rec: 09/06/19 23:07 KGO8039 ICU-C15) Document 09/06/19 20:00 VTV5776 (Rec: 09/06/19 23:24 FGB1999 ICU-C15) Document 09/06/19 21:00 ZZO9531 (Rec: 09/06/19 23:25 EPD3283 ICU-C15) Document 09/06/19 22:00 JTD4441 (Rec: 09/06/19 23:27 UIV6922 ICU-C15) Document 09/06/19 23:00 FOM6183 (Rec: 09/06/19 23:28 DJS9866 ICU-C15) Document 09/07/19 00:00 ZDN0132 (Rec: 09/07/19 00:21 KWT8156 ICU-C15) Document 09/07/19 01:00 ECA9692 (Rec: 09/07/19 01:15 JHR5659 ICU-C15) Document 09/07/19 02:00 VPW3027 (Rec: 09/07/19 02:03 DCD2425 ICU-C15) Document 09/07/19 03:00 PPU6455 (Rec: 09/07/19 03:14 YYS0812 ICU-M33) Document 09/07/19 04:00 PJH5995 (Rec: 09/07/19 04:21 HDI1885 ICU-C15) Document 09/07/19 05:00 FJA8057 (Rec: 09/07/19 07:27 AKJ1521 ICU-C21) Document 09/07/19 06:00 KQX9504 (Rec: 09/07/19 07:29 OFV1312 ICU-C21) Document 09/07/19 07:00 DIA3848 (Rec: 09/07/19 08:43 APV1529 ICU-M33) Document 09/07/19 08:00 FXI2299 (Rec: 09/07/19 08:43 YBJ7177 ICU-M33) Document 09/07/19 09:00 QIR8876 (Rec: 09/07/19 11:37 JDZ7915 ICU-C12) Document 09/07/19 10:00 UTI1155 (Rec: 09/07/19 11:42 KTO2469 ICU-M33) Document 09/07/19 11:00 AAM3492 (Rec: 09/07/19 11:42 CUZ4379 ICU-M33) Document 09/07/19 12:00 TLJ4677 (Rec: 09/07/19 14:07 IEA6797 ICU-C15) Document 09/07/19 13:00 TJX2001 (Rec: 09/07/19 14:07 NET7938 ICU-C15) Document 09/07/19 14:00 PSM2578 (Rec: 09/07/19 14:35 XVZ5768 ICU-M33) Document 09/07/19 15:00 HFE7029 (Rec: 09/07/19 15:20 UHB1674 ICU-C15) Document 09/07/19 16:00 KUK7935 (Rec: 09/07/19 16:38 PXN4366 ICU-C15) Document 09/07/19 17:00 ADN1450 (Rec: 09/07/19 17:45 YJW9142 ICU-M33) Document 09/07/19 18:00 NFD2297 (Rec: 09/07/19 18:09 ULU8964 ICU-C15) Document 09/07/19 18:49 SJT8473 (Rec: 09/07/19 18:49 SZF9374 ICU-M33) Document 09/07/19 20:00 RQL7050 (Rec: 09/07/19 20:14 SYP7496 ICU-M33) Document 09/07/19 21:00 FFP4351 (Rec: 09/07/19 21:04 MBQ8821 ICU-C15) Document 09/07/19 22:00 MVC4980 (Rec: 09/07/19 22:41 XHX6524 ICU-C15) Document 09/07/19 23:00 JXS6183 (Rec: 09/07/19 23:43 NGI2256 ICU-C15) Document 09/07/19 23:58 VRU5375 (Rec: 09/07/19 23:58 NHS8809 ICU-M33) Document 09/08/19 01:00 PHC9036 (Rec: 09/08/19 01:06 WFI1467 ICU-C15) Document 09/08/19 01:46 SWY6546 (Rec: 09/08/19 01:46 UZB2647 ICU-C15) Document 09/08/19 03:00 AGL3342 (Rec: 09/08/19 03:08 PXM2253 ICU-M33) Document 09/08/19 03:48 XSP1871 (Rec: 09/08/19 03:48 CCR0304 ICU-C15) Document 09/08/19 04:47 QIV6546 (Rec: 09/08/19 04:47 IAE8986 ICU-M33) Document 09/08/19 05:43 DNL6204 (Rec: 09/08/19 05:43 VSB8566 ICU-C15) Document 09/08/19 07:00 NXD2465 (Rec: 09/08/19 08:22 TLT5664 ICU-C15) Document 09/08/19 08:00 AOO3387 (Rec: 09/08/19 10:08 KLJ1950 ICU-C15) Document 09/08/19 09:00 OLA8163 (Rec: 09/08/19 10:09 AGB6017 ICU-C15) Document 09/08/19 10:00 SBU2389 (Rec: 09/08/19 10:13 LRU6679 ICU-C15) Document 09/08/19 11:00 DMC8596 (Rec: 09/08/19 12:40 CKD0605 ICU-C15) Document 09/08/19 12:00 EFR3924 (Rec: 09/08/19 12:41 OBB8204 ICU-C15) Document 09/08/19 13:00 HUD9795 (Rec: 09/08/19 13:57 PMY9911 ICU-C15) Document 09/08/19 14:00 LXX3826 (Rec: 09/08/19 15:44 KVT6624 ICU-C15) Document 09/08/19 15:00 IRQ6158 (Rec: 09/08/19 15:45 YUD1084 ICU-C15) Document 09/08/19 16:00 SID0281 (Rec: 09/08/19 18:54 AQQ6511 ICU-C15) Document 09/08/19 17:00 IAZ0749 (Rec: 09/08/19 18:55 IHF7586 ICU-C15) Document 09/08/19 18:00 SUJ3302 (Rec: 09/08/19 18:56 KAM6923 ICU-C15) Document 09/08/19 20:00 PAK2392 (Rec: 09/08/19 20:09 RYS7004 ICU-M33) Document 09/08/19 21:00 PWI5806 (Rec: 09/08/19 21:40 ZZI8246 ICU-C15) Document 09/08/19 22:00 GNL9549 (Rec: 09/08/19 22:03 KKM7472 ICU-C15) Document 09/09/19 00:00 UGQ8743 (Rec: 09/09/19 00:05 QBR8281 ICU-C15) Document 09/09/19 01:00 IIM8146 (Rec: 09/09/19 01:08 AFQ1065 ICU-C15) Document 09/09/19 02:00 YXR8961 (Rec: 09/09/19 02:17 MEB1467 ICU-C15) Document 09/09/19 02:59 CCR8203 (Rec: 09/09/19 02:59 MIV4732 ICU-C15) Document 09/09/19 03:53 OXG2673 (Rec: 09/09/19 03:54 SIA0058 ICU-C15) Document 09/09/19 05:00 VOY8742 (Rec: 09/09/19 05:01 JRU3548 ICU-C15) Document 09/09/19 06:00 AMH6246 (Rec: 09/09/19 06:09 VEK0171 ICU-C15) Document 09/09/19 07:00 RQT5709 (Rec: 09/09/19 08:03 VBO0870 ICU-M33) Document 09/09/19 08:00 PTX7257 (Rec: 09/09/19 08:04 YII8650 ICU-M33) Head: Normal Ears/Nose/Mouth/Throat: NL Teeth, Lips, Gums Neck: NL Appearance and Movements; NL JVP Cardiovascular: NL Sounds; No Murmurs; No JVD Respiratory: Symmetrical Chest Expansion and Respiratory Effort Abdominal: NL Sounds; No Tenderness; No Distention Neurological: - - not alert - Assessment Assessment: 74yo male with admitted with metabolic acidosis encephalopathy, seizures and NSCLC stage 4 - Plan Consult Plan (MU): Palliative Plan: Long discussion with son Ralph(HCP) over the phone due to COVID-19 no hospital visitors about goals of care. He met with his family(mother and brother) yesterday to discuss goals of care. They don't want their father re-intubated or to have CPR, feeding tube okay short term but no permanent tube. MOLST was updated to reflect his wishes. Pt wants to be at home and they are interested in home hospice. Hospice information discussed and phone number given. Ralph has had 2 prior experiences with hospice which were positive. Case management will make referral at discharge. I also gave him the results of MRI which showed no mets to the brain. He would like me to touch base with Dr Munguia for PET scan results which I did and results were given to son. Pt was being offered aggressive chemo for palliation and the possibility of interferon if tissue samples were accepted, because of recent events pt may not be able to participate fully with chemo. Family has video chat meeting with Dr Munguia 09/14 to discuss options. Pt is hospice eligible with diagnosis of stage 4 NSCLC. KPS 50%, PPS 50% - Time On Unit Date of Evaluation: 09/09/19 Hospice Consult Time in: 09:30 Hospice Consult Time Out: 10:30 Hospice Consult Time Total: 60 > 50% of Time Spend In Counseling or Coordinating Care: Yes
[2019-09-09] MEDS ORDERED: Dexmedetomidine* 1,000 MCG in NS 0.9% 250 ML* 240 ML IV SCH (12:00)
[2019-09-09] MEDS: Cefepime 1 GM in Dextrose(*) 1 GM/50 ML BAG IV SCH (12:33)
--- NOTE | 2019-09-09 13:18 | PN ---
Date of Service: 09/09/19 Critical Care Services: Patient seemed agitated overnight and peak pressures on vent were elevated. Fentanyl gtt was started and Lasix was given. The changes appeared to help. MRI brain did not show evidence of metastases. Afebrile. Hemodynamically stable. Vital Signs: Temp Pulse Resp BP SpO2 FiO2 99.1 F 84 19 116/64 97 21 09/09/19 12:00 09/09/19 12:00 09/09/19 11:00 09/09/19 12:00 09/09/19 12:00 09/08 08:02 Physical Exam: Gen: Intubated and sedated, NAD HEENT: Normocephalic and atraumatic. Pupils equal and reactive. ETT and OGT in place. Lungs: CTA, FiO2 21%, Vt 500ml, PEEP 5 Cardiac: RRR Abdomen: Soft, nondistended. Extremities: Warm, no pedal edema on right. Well-healed L BKA. Neuro: Intubated and sedated. Opens eyes to voice. RASS -3 Fluid Balance (Past 24 Hours): I= O= Net Intake & Output 09/07/19 09/08/19 09/09/19 09/10/19 06:59 06:59 06:59 06:59 Intake Total 2416 2232 1113.7 Output Total 6890 676 8173 360 Balance 1338 1287 -636.3 -360 Weight 139 lb 15.643 oz 140 lb 4.301 oz 147 lb 7.828 oz Intake: IV Fluids 1809 1619 266.7 ABX - CEFEPIME 50 50 NS (0.9%) 1809 1569 116.7 keppra 100 IVPB 254 151 200 ABX - CEFEPIME 51 100 NS (0.9%) 49 keppra 205 100 100 Medicated IV 353 462 547 CC - Propofol/Diprivan 353 462 547 Oral 0 0 Tube Feeding Flush Amount 100 Output: Bynum 2133 687 6405 360 Liquid Stool 50 Other: Date of Last Bowel 09/08/2019 09/09/2019 Movement # Bowel Movements 1 1 Estimated Stool Amount Small Medium Medium Labs: Laboratory Results - last 24 hr 09/08/19 09/08/19 09/08/19 11:34 18:24 23:30 WBC RBC Hgb Hct MCV MCH MCHC RDW Plt Count MPV Neut % (Auto) Lymph % (Auto) [place] % (Auto) Eos % (Auto) Baso % (Auto) Absolute Neuts (auto) Absolute Lymphs (auto) Absolute Monos (auto) Absolute Eos (auto) Absolute Basos (auto) Absolute Nucleated RBC Nucleated RBC % Sodium Potassium Chloride Carbon Dioxide Anion Gap BUN Creatinine Est GFR ( Amer) Est GFR (Non-Af Amer) BUN/Creatinine Ratio Glucose POC Glucose (mg/dL) 158 H 188 H 173 H Calcium 09/09/19 09/09/19 04:49 04:49 WBC 19.5 H RBC 3.78 L Hgb 11.1 L Hct 34 L MCV 91 MCH 29 MCHC 32 RDW 15 Plt Count 485 H D MPV 8.1 Neut % (Auto) 96.6 Lymph % (Auto) 0.8 [place] % (Auto) 2.2 Eos % (Auto) 0.0 Baso % (Auto) 0.4 Absolute Neuts (auto) 18.9 H Absolute Lymphs (auto) 0.2 L Absolute Monos (auto) 0.4 Absolute Eos (auto) 0.0 Absolute Basos (auto) 0.1 Absolute Nucleated RBC 0.0 Nucleated RBC % 0.0 Sodium 133 L Potassium 4.6 Chloride 101 Carbon Dioxide 20 L Anion Gap 12 H BUN 12 Creatinine 0.55 L Est GFR ( Amer) 177.2 Est GFR (Non-Af Amer) 146.4 BUN/Creatinine Ratio 21.8 H Glucose 179 H POC Glucose (mg/dL) Calcium 8.7 Nutrition: NPO Impression: 74M with recently diagnosed metastatic lung cancer, admitted with seizure. No evidence of metastatic disease on MRI brain. Intubated for airway protection. Seizure Metabolic acidosis Leukocytosis Metastatic lung cancer DM type 2 Hyponatremia, improving CAD PVD S/p L BKA Plan: Neuro: Switch to Precedex and d/c propofol. Wean fentanyl as tolerated for RASS -1. Will allow patient to wake up to determine if he can be extubated. Continue Keppra for seizures. Neuro following. Will consider EEG if altered mental status persists. Tylenol prn for pain and fever. CV: MAP goal >65. Continuous telemetry. Resp: Minimal vent support. Waiting for improvement in mental status to extubate. Family does not want re-intubation. Vent bundle, pulmonary toilet GI: NPO. Will start tube feeds later today if not able to extubate. PPI for GI prophylaxis Renal: Bynum for accurate I&Os Hyponatremia improving slowly, continue to monitor. ID: Unclear source for leukocytosis which is stable. Continue cefepime. Heme: Daily CBC DVT ppx: SQH Endo: Lispro sliding scale. Goal BG <200 MSK: Bedrest. Advance after extubation Wounds: None Code status: DNR. MOLST updated by Dr Thomas. Dispo: ICU for encephalopathy and ventilator management Status: Guarded but improving. Critical Care Time: 30 min. ADDENDUM: Patient following commands after turning off propofol and fentanyl. He was agitated and tried to pull ETT himself. He was extubated successfully to 2L NC.
--- NOTE | 2019-09-09 15:55 | PN ---
NEUROLOGY PROGRESS NOTE: DATE OF FOLLOWUP: 09/09/19 CLINICAL INFORMATION SYSTEMS DIRECTOR: Dr. Hinton. LOCATION: He is an inpatient in ICU bed 3. CHIEF COMPLAINT: Seizures. INTERVAL HISTORY: Since yesterday, Gray remains intubated and sedated. His sedation had to be increased overnight because of increased intrathoracic pressures from being agitated. He has not had any clinical seizures. MEDICATIONS: Medications are reviewed and currently consists of: 1. Propofol infusion. 2. Cefepime 1 g IV q.12 hours. 3. Fentanyl infusion. 4. Heparin 5000 units subcutaneous q.8 hours. 5. Sliding scale insulin. 6. Keppra 1000 mg IV q.12 hours. 7. Protonix 40 mg IV daily. PHYSICAL EXAMINATION: On exam, he is intubated and sedated. Temperature is 99.0 by Bynum probe, blood pressure is running 135/84, heart rate is in the 90s on the monitor. Oxygen saturation is 100% on supplemental oxygen. When I examined him early this afternoon at approximately 2 p.m., he was heavily sedated. Pupils reacted weakly to light from about 3 down to 2.5 mm. I could not elicit eye movements including vestibular ocular reflexes. There are very weak corneal reflexes which did not persist. I could not elicit facial grimace. Muscle tone was diffusely decreased. There were no spontaneous movements. There is no withdrawal of the pain. There is no response to sternal rub. He is still had a right Babinski sign. DIAGNOSTIC STUDIES/LAB DATA: Laboratory data includes an MRI of the brain from yesterday, which does not reveal any evidence of metastatic disease or acute infarctions. There are some nonspecific white matter changes. Additional laboratory data from today is notable for persistently elevated white blood cell count at 19.5, stable anemia with a hemoglobin of 11.1, persistently elevated platelet count 485,000. There is a left shift with 18.9% neutrophils. Chemistries notable for a borderline low sodium at 133 which is an improvement from prior days, improved glucose control, otherwise fairly unremarkable chemistries. Additional laboratory studies back included negative cryptococcal antigen on spinal fluid. Paraneoplastic studies on spinal fluid and serum are pending. IMPRESSION: Impression is that of new onset seizures in the patient with metastatic non-small cell lung cancer. 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 His spinal fluid was unremarkable in terms of lack of white blood cells and normal protein. Given the lack of supporting evidence for an immune etiology I would hold off on immunotherapy and also given that his seizures seemed to be under control as of last EEG. I discussed the case with Dr. Hinton who is going to try to transition the patient to Precedex and see if she can wean him off the ventilator. I suggested getting an EEG once he is lightened up from infusion sedation and as he is hopefully coming out of his stupor. Recommend continuing Keppra to 1000 mg twice per day for now. I will continue to follow him along with you. [id number]/[facility] #: [id number] [facility]
[2019-09-09 18:06] LABS: HSV 1 PCR, CSF Negative (Negative); HSV 2 PCR, CSF Negative (Negative)
[2019-09-09 18:53] LABS: Albumin 2540 mg/dL; CSF Albumin 10.9 mg/dL (<=27.0); CSF IGG 1.2 mg/dL (<=8.1); CSF Immunoglobulin G Synthesis 0.94 mg/24 h (<=12); Immunoglobulin G 453 mg/dL (767 - 1590)
[2019-09-10] MEDS: Cefepime 1 GM in Dextrose(*) 1 GM/50 ML BAG IV SCH ×2 (00:15→14:00)
[2019-09-10] MEDS: Insulin LISPRO* 1 UNITS UNIT SUBCUT SCH ×4 (00:15→17:41)
[2019-09-10] MEDS: Heparin VIAL(*) 5000 UNITS/ML VIAL (FIVE THOUSAND) SUBCUT SCH ×3 (06:16→20:31)
[2019-09-10 06:24] LABS: Hematocrit 30 % (42-52); Hemoglobin 10.3 g/dL (14.0-18.0); Mean Corpuscular HGB Conc 34 g/dL (31-36); Mean Corpuscular Hemoglobin 30 pg (27-31); Mean Corpuscular Volume 90 fL (80-94); Mean Platelet Volume 7.8 fL (7.4-10.4); Platelet Count 469 10^3/uL (150-450); Red Blood Count 3.39 10^6 /uL (4.18-5.48); Red Cell Distribution Width 15 % (10-15); White Blood Count 20.3 10^3/uL (3.5-10.8)
[2019-09-10 06:45] LABS: BUN/Creatinine Ratio 38.3 (8-20); Calcium 8.5 mg/dL (8.6-10.3); EGFR African American 212.4 (>60); EGFR Non-African American 175.5 (>60); Potassium 4.1 mmol/L (3.5-5.0)
[2019-09-10] MEDS: Pantoprazole IV* 40 MG IV SCH (08:42)
[2019-09-10] MEDS: levETIRAcetam 1000MG IVPREMIX* 1,000 MG/100 ML BAG IVPB SCH (08:42)
[2019-09-10 09:02] LABS: ABS Lymphocytes 0.5 10^3/ul (1.0-4.8); ABS Monocytes 1.1 10^3/ul (0-0.8); ABS Neutrophils 18.7 10^3/ul (1.5-7.7); Eosinophil % 0.1 %; Lymphocyte % 2.5 %
--- NOTE | 2019-09-10 12:18 | EEG ---
ELECTROENCEPHALOGRAPHY: DATE OF STUDY: 09/10/19 LOCATION: He is an inpatient in ICU. REFERRING PROVIDER: Dr. Emery. CLINICAL PROBLEM: The patient presented with unresponsiveness and seizures over a week ago. The patient was just recently extubated. The patient has metastatic non- small cell lung cancer, but negative MRI of the brain for metastasis. The patient was just recently extubated and was on propofol. CURRENT MEDICATIONS: Include: 1. Keppra. 2. Maxipime. 3. Humalog. 4. Protonix. 5. DuoNeb. REPORT: This 19-channel EEG is remarkable for background rhythms consisting of diffuse slow and abundant beta rhythms as well. The patient is awake, but confused. Frequently during the tracing, there is a rhythmic central delta activity sometimes with slightly sharp contours, but not clearly of epileptiform morphology. At other times, there is rhythmic delta slowing with similar waveforms from the left and/or the right frontal regions. At other times, rhythms remain mixed theta, delta, and beta without a clear anterior to posterior gradient. The patient does answer some questions at times including to bring his date of . There are no clinical events. CLINICAL IMPRESSION: Abnormal EEG due to generalized slowing and disorganization of background rhythms consistent with diffuse cerebral dysfunction. In addition, there is frequent rhythmic delta and somewhat sharply contoured waveforms seen most commonly centrally, but sometimes bifrontally. This tracing was compatible with diffuse cerebral dysfunction as well as possible epileptiform features. Cefepime has been described as causing epileptiform abnormalities on EEG with and sometimes without epileptic events. [id number]/[facility] #: [id number] [facility]
--- NOTE | 2019-09-10 12:52 | PN ---
NEUROLOGY PROGRESS NOTE: DATE OF FOLLOWUP: 09/10/19 SCOUT LEASER: Dr. Hinton. LOCATION: He is in ICU bed 3. CHIEF COMPLAINT: Seizures, encephalopathy. INTERVAL HISTORY: Since yesterday, Mr. Tyson has been extubated. He has not had any clinical seizures. He follows a few commands, but generally has markedly suppressed responsivity. MEDICATIONS: Medications are reviewed and he is currently on: 1. Cefepime 1 g IV q.12 hours. 2. Subcutaneous heparin 5000 units q.8 hours. 3. Sliding scale insulin. 4. Levetiracetam 1000 mg IV q.12 hours. 5. Protonix 40 mg IV daily. 6. DuoNeb. PHYSICAL EXAMINATION: On examination, he is awake with eyes opened and extubated. Most recent temperature 99.9 by Bynum probe, earlier this morning was 100.0. Heart rate is running in the 90s to 100s. Most recent blood pressure recorded as 136/79. On neurological exam, he tracks inconsistently visually. He responds to visual threats consistently from both sides. Facial musculature appears symmetric. Pupils respond equally from 3.5 down to 2 mm. I cannot get him to track to command, but he does engage the examiner visually, but episodically. Muscle tone in the extremities is diminished. There is no myoclonus or asterixis observed. He does open and close his hands to command on both sides. He holds up one finger to command. He does not respond verbally. DIAGNOSTIC STUDIES/LAB DATA: Laboratory data notable for chemistry profile today, which is fairly unremarkable. His glucose is 203 and his calcium is borderline low at 8.5. CBC remains notable for an elevated white blood cell count at 20.3, elevated platelet count at 469,000, left shift with 18.7 absolute neutrophils. Levetiracetam level was still pending. EEG from earlier today shows rhythmic discharges, which are typically seen apically, but some times bifrontally. There are some sharp components, but no clear epileptiform discharges. IMPRESSION: Impression is that of encephalopathy, possibly from metabolic causes. Cefepime can cause seizures, but can also cause epileptiform discharges without seizures. I have recommended to Dr. Hinton and Joan Quezada that cefepime be discontinued and different antibiotic coverage be selected. I will increase his Keppra to 1500 mg twice per day for now and repeat level tomorrow. We will repeat his EEG tomorrow as well. Paraneoplastic antibodies are still pending on both spinal fluid and blood. I will continue to follow him along with you. [id number]/[facility] #: [id number] MARY KAY
--- NOTE | 2019-09-10 17:49 | PN ---
Subjective Date of Service: 09/10/19 Interval History: Pt does not answer any questions. Objective Active Medications: Acetaminophen (Tylenol Adult Liq*) 650 mg PO Q4H PRN PRN Reason: MILD PAIN or TEMP > 100.4 Last Admin: 09/08/19 19:59 Dose: 650 mg Albuterol/Ipratropium (Duoneb (Albuterol 2.5 Mg/Ipratropium 0.5 Mg)) 1 neb INH Q4H PRN PRN Reason: SOB/WHEEZING Last Admin: 09/09/19 04:23 Dose: 1 neb Dextrose (D50w Syringe 50 Ml*) 12.5 gm IV PUSH .FOR FS < 60 - SS PRN PRN Reason: FS < 60 Heparin Sodium (Porcine) (Heparin Vial(*)) 5,000 units SUBCUT Q8HR [facility] Last Admin: 09/10/19 14:04 Dose: 5,000 units Cefepime HCl (Maxipime 1 Gm In Dextrose Duplex (*)) 1 gm in 50 mls @ 100 mls/ hr IV Q12H [facility] Last Admin: 09/10/19 14:00 Dose: 100 mls/hr Levetiracetam 1,500 mg/ Sodium (Chloride) 115 mls @ 460 mls/hr IVPB Q12H [facility] Insulin Human Lispro (Humalog*) 0 units SUBCUT Q6HR [facility]; Protocol Last Admin: 09/10/19 17:41 Dose: 2 unit Miscellaneous (Ativan Pyxis Ordoñez) 1 ea N/A .ATIVAN IV ORDOÑEZ PRN PRN Reason: PYXIS ORDOÑEZ Pantoprazole Sodium (Protonix Iv*) 40 mg IV DAILY [facility] Last Admin: 09/10/19 08:42 Dose: 40 mg Vital Signs - 8 hr 09/10/19 09/10/19 09/10/19 10:00 10:30 11:00 Temperature 100.0 F 100.0 F 99.9 F Pulse Rate 101 97 80 Respiratory 23 26 26 Rate Blood Pressure 123/59 134/76 136/79 (mmHg) O2 Sat by Pulse 99 100 99 Oximetry 09/10/19 09/10/19 09/10/19 11:30 12:00 12:30 Temperature 99.7 F 99.7 F 99.9 F Pulse Rate 100 84 93 Respiratory 26 35 38 Rate Blood Pressure 141/75 143/74 139/67 (mmHg) O2 Sat by Pulse 99 100 99 Oximetry 09/10/19 09/10/19 09/10/19 13:00 14:07 14:21 Temperature 99.9 F 97.7 F Pulse Rate 89 99 Respiratory 22 18 18 Rate Blood Pressure 145/64 136/62 (mmHg) O2 Sat by Pulse 99 96 Oximetry 09/10/19 15:09 Temperature 98.6 F Pulse Rate 95 Respiratory 16 Rate Blood Pressure 154/58 (mmHg) O2 Sat by Pulse 94 Oximetry Oxygen Devices in Use Now: None Appearance: Elderly male lying in bed, looking around but does not focus on me well, NAD Eyes: No Scleral Icterus Ears/Nose/Mouth/Throat: Mucous Membranes Moist Respiratory: Symmetrical Chest Expansion and Respiratory Effort, - - roncherous breath sounds Cardiovascular: NL Sounds; No Murmurs; No JVD, No Edema, - - mildly tachycardic , regular Abdominal: NL Sounds; No Tenderness; No Distention Extremities: No Clubbing, Cyanosis, - - L BKA Skin: No Nodules or Sclerosis Neurological: - - awake, not interactive Result Diagrams: 09/10/19 06:15 09/10/19 06:15 Additional Lab and Data: - LABS: Sodium: 130. Creatinine: 0.64. POC Glucose: 175. CSF analysis: WBC:1, total cell count: 1, Glucose: 126, Protein:26 - CT head without contrast completed on 09/05/2019: no acute intracranial abnormality or ICH. - CTA head and neck completed on 09/05/2019: there is an area of contrast enhancement in the right frontal lobe which can be seen in metastatic disease. - EEG 09/05/2019: intermittent diffuse rhythmic discharges and slowing consistent with a non-convulsive electrographic seizures. . - PET scan completed at an outside facility was reviewed and placed in the patient's chart. "Findings compatible with widespread salvador metastatic disease extending from the left supracalvicular region to the aortic bifurcation." Microbiology and Other Data: Microbiology 09/07/19 12:49 CSF Gram Stain (Tube 3) - Final Cerebral Spinal Fluid 09/05/19 18:20 Aerobic Blood Culture - Preliminary Blood Venous No Growth Day 1 Anaerobic Blood Culture - Preliminary No Growth Day 1 09/05/19 17:00 Aerobic Blood Culture - Preliminary Blood Venous No Growth Day 1 Anaerobic Blood Culture - Preliminary No Growth Day 1 09/05/19 07:21 Urine Culture - Final Urine No Growth (<1,000 CFU/mL) Assess/Plan/Problems-Billing Mr Tyson is a 74 yo M who has recently diagnosed non-small cell lung cancer, PAD, type II DM and HLD who presented to the ER after being found unresponsive and was found to be in non convulsive status epilepticus. - Patient Problems (1) Non-convulsive status epilepticus Current Visit: Yes Status: Acute Code(s): G40.901 - EPILEPSY, UNSP, NOT INTRACTABLE, WITH STATUS EPILEPTICUS SNOMED Code(s): 333670250 Comment: On admission pt with non-convulsive status epilepticus. EEG is still abnormal but no active ictal episodes. Continue keppra 1500mg BID (dose increased today by Dr. Emery). It was also recommended to stop cefepime as that could cause EEG abnormalities and be neurotoxic to elderly. (2) Fever Current Visit: Yes Status: Acute Code(s): R50.9 - FEVER, UNSPECIFIED SNOMED Code(s): 534694490 Comment: Pt has had relatively persistent fevers without clear source of infection. Stop cefepime. Monitor temp and for signs of infection. (3) Non-small cell lung cancer Current Visit: Yes Status: Acute Code(s): C34.90 - MALIGNANT NEOPLASM OF UNSP PART OF UNSP BRONCHUS OR LUNG SNOMED Code(s): 100847013 Comment: Recent diagnosis. Family talked with palliative care and they want hospice on d/c. (4) Type II diabetes mellitus Current Visit: Yes Status: Acute Comment: Blood sugars are moderately elevated. Start low dose lantus while he is not taking anything in by mouth. Continue lispro sliding scale. (5) HLD (hyperlipidemia) Current Visit: Yes Status: Acute Code(s): E78.5 - HYPERLIPIDEMIA, UNSPECIFIED SNOMED Code(s): 55076777 Comment: Crestor on hold as he is not taking anything in by mouth. (6) PAD (peripheral artery disease) Current Visit: Yes Status: Acute Code(s): I73.9 - PERIPHERAL VASCULAR DISEASE, UNSPECIFIED SNOMED Code(s): 374414381 Comment: s/p L BKA. No acute issues at this time. (7) DVT prophylaxis Current Visit: Yes Status: Acute Code(s): Z29.9 - ENCOUNTER FOR PROPHYLACTIC MEASURES, UNSPECIFIED SNOMED Code(s): 865533391 (8) DNR (do not resuscitate) Current Visit: Yes Status: Acute (9) Metabolic encephalopathy Current Visit: Yes Status: Acute Code(s): G93.41 - METABOLIC ENCEPHALOPATHY SNOMED Code(s): 51816520
[2019-09-10] MEDS: levETIRAcetam IV* 1,500 MG in NS 0.9% 100 ML* 100 ML IVPB SCH (20:31)
[2019-09-10] MEDS: Insulin GLARGINE(*) 1 UNITS UNIT SUBCUT SCH (23:50)
[2019-09-11] MEDS: Insulin LISPRO* 1 UNITS UNIT SUBCUT SCH ×4 (00:07→17:47)
[2019-09-11] MEDS ORDERED: NS 0.9% 1000 ML** 1,000 ML IV SCH (02:45)
[2019-09-11 05:07] LABS: ABS Lymphocytes 0.5 10^3/ul (1.0-4.8); ABS Monocytes 1.1 10^3/ul (0-0.8); ABS Neutrophils 14.4 10^3/ul (1.5-7.7); Hematocrit 34 % (42-52); Hemoglobin 11.2 g/dL (14.0-18.0); Lymphocyte % 3.3 %; Mean Corpuscular HGB Conc 33 g/dL (31-36); Mean Corpuscular Hemoglobin 30 pg (27-31); Mean Corpuscular Volume 91 fL (80-94); Mean Platelet Volume 7.7 fL (7.4-10.4); Platelet Count 494 10^3/uL (150-450); Red Blood Count 3.74 10^6 /uL (4.18-5.48); Red Cell Distribution Width 15 % (10-15); White Blood Count 16.1 10^3/uL (3.5-10.8)
[2019-09-11 05:24] LABS: Calcium 8.7 mg/dL (8.6-10.3); EGFR African American 197.8 (>60); EGFR Non-African American 163.5 (>60); Magnesium 1.6 mg/dL (1.9-2.7); Potassium 4.2 mmol/L (3.5-5.0)
[2019-09-11] MEDS: Heparin VIAL(*) 5000 UNITS/ML VIAL (FIVE THOUSAND) SUBCUT SCH ×3 (06:31→22:17)
[2019-09-11] MEDS: levETIRAcetam IV* 1,500 MG in NS 0.9% 100 ML* 100 ML IVPB SCH ×2 (09:15→21:45)
[2019-09-11] MEDS: Pantoprazole IV* 40 MG IV SCH (09:15)
--- NOTE | 2019-09-11 09:35 | PN ---
Subjective Date of Service: 09/11/19 Interval History: Pt is very sad currently. He tells me his abdomen feels good. He states yes to feeling short of breath. He tells me he is hungry and would like to eat. Objective Active Medications: Acetaminophen (Tylenol Adult Liq*) 650 mg PO Q4H PRN PRN Reason: MILD PAIN or TEMP > 100.4 Last Admin: 09/08/19 19:59 Dose: 650 mg Albuterol/Ipratropium (Duoneb (Albuterol 2.5 Mg/Ipratropium 0.5 Mg)) 1 neb INH Q4H PRN PRN Reason: SOB/WHEEZING Last Admin: 09/09/19 04:23 Dose: 1 neb Dextrose (D50w Syringe 50 Ml*) 12.5 gm IV PUSH .FOR FS < 60 - SS PRN PRN Reason: FS < 60 Heparin Sodium (Porcine) (Heparin Vial(*)) 5,000 units SUBCUT Q8HR [facility] Last Admin: 09/11/19 06:31 Dose: 5,000 units Levetiracetam 1,500 mg/ Sodium (Chloride) 115 mls @ 460 mls/hr IVPB Q12H [facility] Last Admin: 09/11/19 09:15 Dose: 460 mls/hr Sodium Chloride (Ns 0.9% 1000 Ml) 1,000 mls @ 75 mls/hr IV PER RATE [facility] Stop: 09/11/19 16:04 Last Admin: 09/11/19 04:29 Dose: 75 mls/hr Insulin Glargine (Lantus(*)) 5 units SUBCUT BEDTIME [facility] Last Admin: 09/10/19 23:50 Dose: 5 units Insulin Human Lispro (Humalog*) 0 units SUBCUT Q6HR [facility]; Protocol Last Admin: 09/11/19 06:30 Dose: 2 unit Miscellaneous (Ativan Pyxis Ordoñez) 1 ea N/A .ATIVAN IV ORDOÑEZ PRN PRN Reason: PYXIS ORDOÑEZ Pantoprazole Sodium (Protonix Iv*) 40 mg IV DAILY [facility] Last Admin: 09/11/19 09:15 Dose: 40 mg Vital Signs - 8 hr 09/11/19 09/11/19 09/11/19 01:41 03:37 07:37 Temperature 98.5 F 99.6 F Pulse Rate 125 110 100 Respiratory 18 20 Rate Blood Pressure 153/54 141/59 149/73 (mmHg) O2 Sat by Pulse 94 94 Oximetry 09/11/19 07:41 Temperature Pulse Rate Respiratory 20 Rate Blood Pressure (mmHg) O2 Sat by Pulse Oximetry Oxygen Devices in Use Now: None Appearance: Elderly male lying in bed, talking to himself but able to be re- directed, NAD Eyes: No Scleral Icterus Ears/Nose/Mouth/Throat: Mucous Membranes Moist Respiratory: Symmetrical Chest Expansion and Respiratory Effort, Clear to Auscultation, - - wet sounding respirations but lungs clear, wet sounds clear some with the patient coughing Cardiovascular: NL Sounds; No Murmurs; No JVD, RRR, No Edema Abdominal: NL Sounds; No Tenderness; No Distention Extremities: No Clubbing, Cyanosis Skin: No Nodules or Sclerosis Neurological: - - alert, still looks to not be connecting visually with me but much more responsive and answers my questions, he is very sad and cries frequently throughout my visit and FaceTime visit with his family. Result Diagrams: 09/11/19 04:53 09/11/19 04:53 Additional Lab and Data: - LABS: Sodium: 130. Creatinine: 0.64. POC Glucose: 175. CSF analysis: WBC:1, total cell count: 1, Glucose: 126, Protein:26 - CT head without contrast completed on 09/05/2019: no acute intracranial abnormality or ICH. - CTA head and neck completed on 09/05/2019: there is an area of contrast enhancement in the right frontal lobe which can be seen in metastatic disease. - EEG 09/05/2019: intermittent diffuse rhythmic discharges and slowing consistent with a non-convulsive electrographic seizures. . - PET scan completed at an outside facility was reviewed and placed in the patient's chart. "Findings compatible with widespread salvador metastatic disease extending from the left supracalvicular region to the aortic bifurcation." Microbiology and Other Data: Microbiology 09/07/19 12:49 CSF Gram Stain (Tube 3) - Final Cerebral Spinal Fluid 09/05/19 18:20 Aerobic Blood Culture - Preliminary Blood Venous No Growth Day 1 Anaerobic Blood Culture - Preliminary No Growth Day 1 09/05/19 17:00 Aerobic Blood Culture - Preliminary Blood Venous No Growth Day 1 Anaerobic Blood Culture - Preliminary No Growth Day 1 04/03/20 07:21 Urine Culture - Final Urine No Growth (<1,000 CFU/mL) Assess/Plan/Problems-Billing Mr Tyson is a 74 yo M who has recently diagnosed non-small cell lung cancer, PAD, type II DM and HLD who presented to the ER after being found unresponsive and was found to be in non convulsive status epilepticus. - Patient Problems (1) Non-convulsive status epilepticus Current Visit: Yes Status: Acute Code(s): G40.901 - EPILEPSY, UNSP, NOT INTRACTABLE, WITH STATUS EPILEPTICUS SNOMED Code(s): 133712170 Comment: On admission pt with non-convulsive status epilepticus. EEG yesterday was still abnormal but no active ictal episodes. Repeat EEG done this AM. Continue keppra 1500mg BID. Cefepime discontinued yesterday and today his mental status seems much better but he remains seeming to be confused. Continue to follow mental status and await further recommendations from Dr. Emery. (2) Metabolic encephalopathy Current Visit: Yes Status: Acute Code(s): G93.41 - METABOLIC ENCEPHALOPATHY SNOMED Code(s): 79002126 Comment: Mental status as above is improved today compared to yesterday. Continue to monitor. (3) Fever Current Visit: Yes Status: Acute Code(s): R50.9 - FEVER, UNSPECIFIED SNOMED Code(s): 663522587 Comment: Fever has improved since yesterday mid AM. Cefepime has been stopped. Continue to monitor temp and for signs of infection. (4) Non-small cell lung cancer Current Visit: Yes Status: Acute Code(s): C34.90 - MALIGNANT NEOPLASM OF UNSP PART OF UNSP BRONCHUS OR LUNG SNOMED Code(s): 878165385 Comment: Recent diagnosis. Family talked with palliative care and they want hospice on d/c. The family also has a phone conference set up for Sunday to discuss with the patient's oncologist. Await final decision until then. (5) Type II diabetes mellitus Current Visit: Yes Status: Acute Comment: Blood sugars are slightly better. Continue low dose lantus and lispro sliding scale until patient reliably takes in orals. (6) HLD (hyperlipidemia) Current Visit: Yes Status: Acute Code(s): E78.5 - HYPERLIPIDEMIA, UNSPECIFIED SNOMED Code(s): 90371717 Comment: Crestor on hold as he is not taking anything in by mouth. (7) PAD (peripheral artery disease) Current Visit: Yes Status: Acute Code(s): I73.9 - PERIPHERAL VASCULAR DISEASE, UNSPECIFIED SNOMED Code(s): 260733139 Comment: s/p L BKA. No acute issues at this time. (8) DVT prophylaxis Current Visit: Yes Status: Acute Code(s): Z29.9 - ENCOUNTER FOR PROPHYLACTIC MEASURES, UNSPECIFIED SNOMED Code(s): 315555937 Comment: SQ heparin (9) DNR (do not resuscitate) Current Visit: Yes Status: Acute
--- NOTE | 2019-09-11 13:08 | EEG ---
DATE OF STUDY: 09/11/2019. He is an inpatient in room 436. REFERRING PHYSICIAN: Dr. Emery. CLINICAL HISTORY: Encephalopathy post intubation. The patient had seizures early in the hospital co tammy. CURRENT MEDICATIONS: Keppra, Protonix, insulin, Lorazepam prn. EEG DESCRIPTION: This 19-channel EEG is remarkable for background rhythms consisting of diffuse mixe d theta, delta, and beta rhythms. Movement artifact is fairly abundant at times during the recording. I quieter portions, central delta slowing intermingled with beta rhythms are the predominant patter n. There is periodic higher voltage delta slowing seen predominantly centrally. Compared to the binu dy from yesterday, there are no additional sharp components. The periodic central slowing also is le ss frequent of lower amplitude. There are no clinical events. The patient is described as confused and at times weepy during the recording. There are no epileptiform features to this recording. INTERPRETATION: Abnormal EEG due to slowing and disorganization of background rhythms consistent wit h diffuse cerebral dysfunction. The periodic discharges seen bifrontally and centrally are less freq uent and of lower amplitude and no longer contain sharp components compared to the EEG from 0. [id number]/[facility] #: [id number]
--- NOTE | 2019-09-11 14:07 | PN ---
NEUROLOGY PROGRESS NOTE: DATE OF FOLLOWUP: 09/11/19 LOCATION: He is an inpatient in room 436. HOSPITALIST: Dr. Rain. CHIEF COMPLAINT: Mental status changes, seizures. INTERVAL HISTORY: Since yesterday, Mr. Tyson has not had any seizures observed. I reviewed Dr. Jade carrasquillo's progress note from earlier this morning indicating that he was more talkative, but sad. He deve loped an appetite, but remains n.p.o. MEDICATIONS: Reviewed and he is on: 1. Keppra 1500 mg IV q.12 hours. 2. Sliding scale insulin. 3. Protonix 40 mg IV daily. 4. Heparin subcutaneous 5000 units q.8 hours. 5. Albuterol as needed for wheezing. He is no longer on antibiotics. PHYSICAL EXAMINATION: He is well hydrated and well nourished. Temperature is 99.1, heart rate is in the 100s, respiratory rate is 20. Oxygen saturation is 94% on room air. Most recent recorded blood pressure is 145/74. Neurological Exam: He very rarely makes visual fixation. He is able to finger count accurately. Pu pils react equally from 4 down to 2.5 mm. Facial musculature is symmetric, but there is decreased fa cial expression. He is able to hold his hands out for me without a drift. There is no asterixis or myoclonus. He answers questions about half the time. I asked him if he feels sad, but he did not an swer. He says that he feels "pretty good." DIAGNOSTIC STUDIES/LAB DATA: Laboratory studies are reviewed and his CBC is notable for decrease in his elevated white blood cell count to 16.1, platelets remain elevated at 494,000. Absolute neutroph il has dropped to 14.4, but is still elevated. Chemistries today notable for an unremarkable basic m etabolic profile other than a glucose of 180. Magnesium is low at 1.6. His Keppra level from came back at 28.4. EEG done earlier today reveals generalized slowing of background rhythms, but some improvement in the somewhat periodic central slowing seen. There is no longer any sharp forms or bifrontal slowing. IMPRESSION AND PLAN: Impression is that of [id number] improvement in encephalopathy. Cefepime may be a significant contributor. At this point, it is out of the picture and he has done a little bit better. I recommend continuing Keppra at the current dose. If he continues to have problems with mood, we co uld consider decreasing it or perhaps switching it to Depakote. At this point, I would leave it wher e it is at as he has only in the last few days started to show significant improvement in his mentati on. I will continue to follow him with you. [id number]/[facility] #: [id number]
[2019-09-11] MEDS: Insulin GLARGINE(*) 1 UNITS UNIT SUBCUT SCH (21:44)
[2019-09-12] MEDS: Insulin LISPRO* 1 UNITS UNIT SUBCUT SCH ×4 (00:09→17:11)
[2019-09-12] MEDS: Acetaminophen ADULT LIQ* 650 MG/20.3 ML UDC PO PRN ×2 (01:02→08:49)
[2019-09-12 06:27] LABS: ABS Basophils 0.1 10^3/ul (0-0.2); ABS Lymphocytes 0.5 10^3/ul (1.0-4.8); ABS Monocytes 1.1 10^3/ul (0-0.8); ABS Neutrophils 15.4 10^3/ul (1.5-7.7); Hematocrit 33 % (42-52); Hemoglobin 11.1 g/dL (14.0-18.0); Lymphocyte % 3.2 %; Mean Corpuscular HGB Conc 33 g/dL (31-36); Mean Corpuscular Hemoglobin 30 pg (27-31); Mean Corpuscular Volume 89 fL (80-94); Mean Platelet Volume 8.2 fL (7.4-10.4); Platelet Count 455 10^3/uL (150-450); Red Blood Count 3.72 10^6 /uL (4.18-5.48); Red Cell Distribution Width 15 % (10-15); White Blood Count 17.2 10^3/uL (3.5-10.8)
[2019-09-12] MEDS: Heparin VIAL(*) 5000 UNITS/ML VIAL (FIVE THOUSAND) SUBCUT SCH ×3 (06:30→21:41)
[2019-09-12 06:37] LABS: Calcium 8.5 mg/dL (8.6-10.3); EGFR African American 197.8 (>60); EGFR Non-African American 163.5 (>60); Potassium 3.7 mmol/L (3.5-5.0)
[2019-09-12] MEDS: levETIRAcetam IV* 1,500 MG in NS 0.9% 100 ML* 100 ML IVPB SCH (08:49)
[2019-09-12] MEDS: Pantoprazole IV* 40 MG IV SCH (08:49)
--- NOTE | 2019-09-12 11:08 | PN ---
Subjective Date of Service: 09/12/19 Interval History: Pt is feeling sad currently. He did eat breakfast this AM. He remains confused but has periods where he is lucid. Pt pulled out vail last night. He has had bloody urine since. Objective Active Medications: Acetaminophen (Tylenol Adult Liq*) 650 mg PO Q4H PRN PRN Reason: MILD PAIN or TEMP > 100.4 Last Admin: 09/12/19 08:49 Dose: 650 mg Albuterol/Ipratropium (Duoneb (Albuterol 2.5 Mg/Ipratropium 0.5 Mg)) 1 neb INH Q4H PRN PRN Reason: SOB/WHEEZING Last Admin: 09/09/19 04:23 Dose: 1 neb Ciprofloxacin HCl (Cipro 0.3% Opth*) 1 drop BOTH EYES Q4HR [facility] Dextrose (D50w Syringe 50 Ml*) 12.5 gm IV PUSH .FOR FS < 60 - SS PRN PRN Reason: FS < 60 Heparin Sodium (Porcine) (Heparin Vial(*)) 5,000 units SUBCUT Q8HR [facility] Last Admin: 09/12/19 06:30 Dose: 5,000 units Levetiracetam 1,500 mg/ Sodium (Chloride) 115 mls @ 460 mls/hr IVPB Q12H [facility] Last Admin: 09/12/19 08:49 Dose: 460 mls/hr Insulin Glargine (Lantus(*)) 5 units SUBCUT BEDTIME [facility] Last Admin: 09/11/19 21:44 Dose: 5 units Insulin Human Lispro (Humalog*) 0 units SUBCUT Q6HR [facility]; Protocol Last Admin: 09/12/19 06:29 Dose: 2 unit Miscellaneous (Ativan Pyxis Ordoñez) 1 ea N/A .ATIVAN IV ORDOÑEZ PRN PRN Reason: PYXIS ORDOÑEZ Pantoprazole Sodium (Protonix Iv*) 40 mg IV DAILY [facility] Last Admin: 09/12/19 08:49 Dose: 40 mg Vital Signs - 8 hr 09/12/19 09/12/19 03:13 08:01 Temperature 98.1 F 100.5 F Pulse Rate 96 75 Respiratory 16 20 Rate Blood Pressure 134/56 144/66 (mmHg) O2 Sat by Pulse 93 93 Oximetry Oxygen Devices in Use Now: None Appearance: Elderly male lying in bed with eyes closed, opens them when I call his name, he starts crying shortly after I am in his room. Eyes: - - crusted shut eyelashes, mildly injected sclera Ears/Nose/Mouth/Throat: Mucous Membranes Moist Respiratory: Symmetrical Chest Expansion and Respiratory Effort, Clear to Auscultation - anteriorly Cardiovascular: NL Sounds; No Murmurs; No JVD, RRR, No Edema Abdominal: NL Sounds; No Tenderness; No Distention Extremities: No Clubbing, Cyanosis Skin: No Nodules or Sclerosis Neurological: - - interactive but keeps eyes closed throughout most of my visit. Becomes very tearful when talking to his family - Nutrition: Malnutrition Diagnosis/Plan Malnutrition Assessment by Registered Dietitian: Malnutrition Assessment Clinical Characteristics Acute,Severe Malnutrition Assessment: Inadequate Oral Intake - Despite diet Criteria advancement, pt w/ inadequate oral intake for extended time - Meeting <50% nutrient needs >5 days (severe) Unintentional Weight Loss - Noted pt w/ wt loss x2 wks; current wt 140lb, prev wt per external records 149lb x2 wks ago - 6.0% loss x2 wks ( severe) Malnutrition Assessment: Nutritional Supplementals/Nourishments - Will Interventions monitor intakes and offer nourishments/ supplements as indicated GI Related - Will monitor GI s/sx for return Glycemic Control - Recommend consistent carb diet; will continue to monitor BG/FS in the setting of T2DM Malnutrition Assessment: Goals 1) Recommend consistent carb diet 2) Adequate po intake to support lean body mass , skin integrity, and hydration status 3) Improve fluid/electrolyte balance w/ adequate po intake and repletion PRN 4) Improve glycemic control w/ adequate po and consistent carb intake in the setting of T2DM 5) Maintain bowel regularity w/ adequate po intake w/o return of diarrhea/development of constipation Result Diagrams: 09/12/19 05:52 09/12/19 05:52 Additional Lab and Data: - LABS: Sodium: 130. Creatinine: 0.64. POC Glucose: 175. CSF analysis: WBC:1, total cell count: 1, Glucose: 126, Protein:26 - CT head without contrast completed on 09/05/2019: no acute intracranial abnormality or ICH. - CTA head and neck completed on 09/05/2019: there is an area of contrast enhancement in the right frontal lobe which can be seen in metastatic disease. - EEG 09/05/2019: intermittent diffuse rhythmic discharges and slowing consistent with a non-convulsive electrographic seizures. . - PET scan completed at an outside facility was reviewed and placed in the patient's chart. "Findings compatible with widespread salvador metastatic disease extending from the left supracalvicular region to the aortic bifurcation." Microbiology and Other Data: Microbiology 09/07/19 12:49 CSF Gram Stain (Tube 3) - Final Cerebral Spinal Fluid 09/05/19 18:20 Aerobic Blood Culture - Preliminary Blood Venous No Growth Day 1 Anaerobic Blood Culture - Preliminary No Growth Day 1 09/05/19 17:00 Aerobic Blood Culture - Preliminary Blood Venous No Growth Day 1 Anaerobic Blood Culture - Preliminary No Growth Day 1 09/05/19 07:21 Urine Culture - Final Urine No Growth (<1,000 CFU/mL) Assess/Plan/Problems-Billing Mr Tyson is a 74 yo M who has recently diagnosed non-small cell lung cancer, PAD, type II DM and HLD who presented to the ER after being found unresponsive and was found to be in non convulsive status epilepticus. - Patient Problems (1) Non-convulsive status epilepticus Current Visit: Yes Status: Acute Code(s): G40.901 - EPILEPSY, UNSP, NOT INTRACTABLE, WITH STATUS EPILEPTICUS SNOMED Code(s): 523758320 Comment: On admission pt with non-convulsive status epilepticus. EEG done yesterday AM remains abnormal. Continue keppra for now but I question if a change to depakote may be better given his emotional distress currently. He remains confused but is having periods where he is somewhat lucid. He was able to recognize his family on Facetime call. (2) Metabolic encephalopathy Current Visit: Yes Status: Acute Code(s): G93.41 - METABOLIC ENCEPHALOPATHY SNOMED Code(s): 72061670 Comment: Mental status is about stable today. Continue to monitor. (3) Fever Current Visit: Yes Status: Acute Code(s): R50.9 - FEVER, UNSPECIFIED SNOMED Code(s): 114266354 Comment: Pt again today with fever of 100.5. Leukocytosis persists. No clear signs of infection other than possible conjunctivitis (start cipro drops). Continue to monitor off Abx. I question if the fever may be related to his newly identified stage IV lung cancer. (4) Non-small cell lung cancer Current Visit: Yes Status: Acute Code(s): C34.90 - MALIGNANT NEOPLASM OF UNSP PART OF UNSP BRONCHUS OR LUNG SNOMED Code(s): 875739283 Comment: Recent diagnosis. Family talked with palliative care and they want hospice on d/c. The family also has a phone conference set up for Sunday to discuss with the patient's oncologist. Await final decision until then. (5) Type II diabetes mellitus Current Visit: Yes Status: Acute Comment: Blood sugars are slightly better but not optimal at this time. Continue low dose lantus and lispro sliding scale until patient reliably takes in orals. (6) HLD (hyperlipidemia) Current Visit: Yes Status: Acute Code(s): E78.5 - HYPERLIPIDEMIA, UNSPECIFIED SNOMED Code(s): 34008147 Comment: Crestor on hold as he is not taking anything in by mouth. (7) PAD (peripheral artery disease) Current Visit: Yes Status: Acute Code(s): I73.9 - PERIPHERAL VASCULAR DISEASE, UNSPECIFIED SNOMED Code(s): 844734673 Comment: s/p L BKA. No acute issues at this time. (8) DVT prophylaxis Current Visit: Yes Status: Acute Code(s): Z29.9 - ENCOUNTER FOR PROPHYLACTIC MEASURES, UNSPECIFIED SNOMED Code(s): 379460689 Comment: SQ heparin (9) DNR (do not resuscitate) Current Visit: Yes Status: Acute
--- NOTE | 2019-09-12 13:22 | PN ---
NEUROLOGY PROGRESS NOTE: DATE OF FOLLOWUP: 09/12/19 LOCATION: He is an inpatient in room 436. HOSPITALIST: Dr. Rain. INTERVAL HISTORY: Since yesterday, Mr. Tyson continues to improve in regards to his encephalopathy. He has been weepy and sad. When I asked him directly how he felt his mood was, he says that he is "crabby." He has not had any seizures. There have been no new clinical events. MEDICATIONS: Reviewed and he is currently on: 1. Sliding scale insulin. 2. Albuterol inhaler as needed. 3. Keppra 1500 mg p.o. b.i.d. 4. Protonix IV 40 mg daily. PHYSICAL EXAMINATION: He is well hydrated and well nourished. Temperature is 98.1 by temporal scan, earlier this morning was 100.5. Blood pressure is 143/78, respiratory rate is 22 and oxygen saturat ion is 94% on room air. Eye movements are full. Visual herman are full to confrontation. Facial mu sculature is symmetric. He is more alert and responds more readily to voice than he did yesterday. H e speaks in full sentences. He follows simple commands. There is no asterixis or myoclonus. DIAGNOSTIC STUDIES/LAB DATA: Laboratory data today is notable for persistently elevated white blood cell count at 17.2 which is stable from yesterday, hemoglobin and hematocrit are stable as well. Janet telet count remains elevated at 455,000. Chemistries today notable only for a point of care glucose o f 238. Paraneoplastic studies on spinal fluid and blood are still pending. Spinal fluid PCR for herpes simplex 1 and 2 both came back negative. IMPRESSION AND PLAN: Impression is that of resolving encephalopathy. I suspect that cefepime was co ntributing to his encephalopathy at least over the last several days to a week or so. Clearly that d oes not explain his initial presentation. He is experiencing poor mood and weepiness and so I recomm end switching Keppra to Depakote. I will go ahead and cut the Keppra in half to 750 mg twice per day and start Depakote 500 mg twice per day. I will try to fairly rapidly wean him off the Keppra. I w ill continue to follow him along with you. [id number]/[facility] #: [id number]
[2019-09-12] MEDS: Divalproex DR TAB(*) 500 MG PO SCH ×2 (14:53→21:40)
[2019-09-12] MEDS: Ciprofloxacin 0.3% OPTH.SOL* BTL BOTH EYES SCH ×3 (14:54→21:41)
[2019-09-12] MEDS ORDERED: Insulin GLARGINE(*) 1 UNITS UNIT SUBCUT SCH (21:00)
[2019-09-12] MEDS: levETIRAcetam TAB* 500 MG PO SCH (21:40)
[2019-09-13] MEDS: Insulin LISPRO* 1 UNITS UNIT SUBCUT SCH ×5 (00:49→21:38)
[2019-09-13] MEDS: Ciprofloxacin 0.3% OPTH.SOL* BTL BOTH EYES SCH ×6 (02:20→21:37)
[2019-09-13 03:04] LABS: Hematocrit 34 % (42-52); Hemoglobin 11.4 g/dL (14.0-18.0)
[2019-09-13] MEDS ORDERED: Ondansetron INJ* 2 MG/ML VIAL IV PRN (03:32)
--- NOTE | 2019-09-13 03:55 | PN ---
Hospitalist Progress Note Date of Service: 09/13/19 Earlier this morning, notified of patient having bright red mixed with brown blood on bed linens. Did have reports of hematuria previously in hospitalization , but did not appear to have blood at urethra per WILLIAM Schafer. H&H ordered and no acute hgb drop. Patient was no c/o abdominal pain at this time. Stool hemoccult pending as patient has not had a bowel movement. Within hours, WILLIAM Schafer notified me that patient c/o nausea and abd pain. Evaluated patient at bedside. Patient c/o diffuse abdominal pain. Denies fever/ chills/diaphoresis. C/o nausea but has not yet vomited. Physical exam: General: thin, elderly male, laying in bed, appearing uncomfortable Abdomen: normoactive BS x4 quadrants; palpable cord extending vertically along lateral aspect of RLQ and RUQ, almost to the flank region which is more tender to touch, approx 10 cm in length and 2cm in width; no visible scar or overlying erythema; abdomen tender to palpation throughout minimally; nondistended Neuro: patient alert and oriented to self, answering questions appropriately Plan: -ordering stat CMP, lactic acid, and CT/abdomen pelvis -given presumed BRBPR, I do have concern for ischemic bowel -palpable cord on abdomen is not mentioned on other physical examinations during hospitalization, feels superficial but is abnormal, gives rise to concern for abdominal mass
[2019-09-13 04:11] LABS: Albumin/Globulin Ratio 1.1 (1-3); BUN/Creatinine Ratio 32.7 (8-20); Calcium 8.9 mg/dL (8.6-10.3); EGFR Non-African American 156.2 (>60); Globulin 2.8 g/dL (2-4); Potassium 3.6 mmol/L (3.5-5.0); Total Bilirubin 0.5 mg/dL (0.2-1.0); Total Protein 5.8 g/dL (6.4-8.9)
[2019-09-13] MEDS: Heparin VIAL(*) 5000 UNITS/ML VIAL (FIVE THOUSAND) SUBCUT SCH ×3 (05:54→21:37)
[2019-09-13] MEDS: levETIRAcetam TAB* 500 MG PO SCH ×2 (08:57→21:36)
[2019-09-13] MEDS: Divalproex DR TAB(*) 500 MG PO SCH ×2 (08:57→21:36)
[2019-09-13] MEDS: Pantoprazole IV* 40 MG IV SCH (08:57)
[2019-09-13 10:00] LABS: White Blood Count 19.3 10^3/uL (3.5-10.8)
[2019-09-13] MEDS ORDERED: Iodixanol* (CONTRAST) 320 MG/ML 100 ML SDV IV ONE (10:28)
[2019-09-13 14:47] LABS: Hematocrit 33 % (42-52); Hemoglobin 10.8 g/dL (14.0-18.0)
--- NOTE | 2019-09-13 20:47 | PN ---
Subjective Date of Service: 09/13/19 Interval History: Pt denies any CP, SOB, vomiting, unusual numbness/tingling/weakness. States that he has been having abdominal pain and nausea. Was unable to recall nursing noting blood on his linens last night. Was attempting to eat lunch this afternoon and was able to consume some. Had a facetime call with his family this afternoon as well, went well per nursing. I did call the son earlier this morning to review findings from CT scan and update him on how his father was doing. No further questions from him, stated that most of his questions are for when they have a family meeting with the patient's oncologist which is scheduled for Sunday. Objective Active Medications: Acetaminophen (Tylenol Adult Liq*) 650 mg PO Q4H PRN PRN Reason: MILD PAIN or TEMP > 100.4 Last Admin: 09/12/19 08:49 Dose: 650 mg Albuterol/Ipratropium (Duoneb (Albuterol 2.5 Mg/Ipratropium 0.5 Mg)) 1 neb INH Q4H PRN PRN Reason: SOB/WHEEZING Last Admin: 09/09/19 04:23 Dose: 1 neb Ciprofloxacin HCl (Cipro 0.3% Opth*) 1 drop BOTH EYES Q4HR [facility] Last Admin: 09/13/19 18:00 Dose: 1 drop Dextrose (D50w Syringe 50 Ml*) 12.5 gm IV PUSH .FOR FS < 60 - SS PRN PRN Reason: FS < 60 Divalproex Sodium (Depakote Dr Tab(*)) 500 mg PO BID [facility] Last Admin: 09/13/19 08:57 Dose: 500 mg Heparin Sodium (Porcine) (Heparin Vial(*)) 5,000 units SUBCUT Q8HR [facility] Last Admin: 09/13/19 13:34 Dose: 5,000 units Insulin Glargine (Lantus(*)) 7 units SUBCUT BEDTIME [facility] Last Admin: 09/12/19 21:39 Dose: 7 units Insulin Human Lispro (Humalog*) 0 units SUBCUT Q6HR [facility]; Protocol Last Admin: 09/13/19 17:59 Dose: 6 unit Levetiracetam (Keppra Tab*) 750 mg PO BID [facility] Last Admin: 09/13/19 08:57 Dose: 750 mg Miscellaneous (Ativan Pyxis Ordoñez) 1 ea N/A .ATIVAN IV ORDOÑEZ PRN PRN Reason: PYXIS ORDOÑEZ Ondansetron HCl (Zofran Inj*) 4 mg IV Q4H PRN PRN Reason: NAUSEA/VOMITING Last Admin: 09/13/19 03:45 Dose: 4 mg Pantoprazole Sodium (Protonix Iv*) 40 mg IV DAILY [facility] Last Admin: 09/13/19 08:57 Dose: 40 mg Vital Signs - 8 hr 09/13/19 09/13/19 09/13/19 15:20 19:03 19:28 Temperature 98.5 F 98.4 F Pulse Rate 101 82 Respiratory 20 28 20 Rate Blood Pressure 134/49 130/72 (mmHg) O2 Sat by Pulse 95 98 Oximetry Oxygen Devices in Use Now: None Appearance: sitting up in bed, NAD Eyes: No Scleral Icterus, - - PERRL, EOMI Ears/Nose/Mouth/Throat: Clear Oropharnyx Respiratory: Symmetrical Chest Expansion and Respiratory Effort, Clear to Auscultation Cardiovascular: RRR Abdominal: - - hyperactive BS throughout, mild distention, pt expresses significant discomfort during palpation throughout and along various areas of hard cord from R axilla to R lower abdomen and across abdomen to R femoral area Extremities: No Edema Skin: - - apepars dry and intact Neurological: - - alert, oriented to person and some of situation, knows he is in the hospital but thinks [place] is in [place], remote memory appears intact but recent memory not intact, did not remember being told that he was at the [facility] Nutrition: Taking PO's - Nutrition: Malnutrition Diagnosis/Plan Malnutrition Assessment by Registered Dietitian: Malnutrition Assessment Clinical Characteristics Acute,Severe Malnutrition Assessment: Inadequate Oral Intake - Despite diet Criteria advancement, pt w/ inadequate oral intake for extended time - Meeting <50% nutrient needs >5 days (severe) Unintentional Weight Loss - Noted pt w/ wt loss x2 wks; current wt 140lb, prev wt per external records 149lb x2 wks ago - 6.0% loss x2 wks ( severe) Malnutrition Assessment: Nutritional Supplementals/Nourishments - Will Interventions monitor intakes and offer nourishments/ supplements as indicated GI Related - Will monitor GI s/sx for return Glycemic Control - Recommend consistent carb diet; will continue to monitor BG/FS in the setting of T2DM Malnutrition Assessment: Goals 1) Recommend consistent carb diet 2) Adequate po intake to support lean body mass , skin integrity, and hydration status 3) Improve fluid/electrolyte balance w/ adequate po intake and repletion PRN 4) Improve glycemic control w/ adequate po and consistent carb intake in the setting of T2DM 5) Maintain bowel regularity w/ adequate po intake w/o return of diarrhea/development of constipation Result Diagrams: 09/13/19 14:43 09/13/19 03:44 Additional Lab and Data: - LABS: Sodium: 130. Creatinine: 0.64. POC Glucose: 175. CSF analysis: WBC:1, total cell count: 1, Glucose: 126, Protein:26 - CT head without contrast completed on 09/05/2019: no acute intracranial abnormality or ICH. - CTA head and neck completed on 09/05/2019: there is an area of contrast enhancement in the right frontal lobe which can be seen in metastatic disease. - EEG 09/05/2019: intermittent diffuse rhythmic discharges and slowing consistent with a non-convulsive electrographic seizures. . - PET scan completed at an outside facility was reviewed and placed in the patient's chart. "Findings compatible with widespread salvador metastatic disease extending from the left supracalvicular region to the aortic bifurcation." Microbiology and Other Data: Microbiology 09/07/19 12:49 CSF Gram Stain (Tube 3) - Final Cerebral Spinal Fluid 09/05/19 18:20 Aerobic Blood Culture - Preliminary Blood Venous No Growth Day 1 Anaerobic Blood Culture - Preliminary No Growth Day 1 09/05/19 17:00 Aerobic Blood Culture - Preliminary Blood Venous No Growth Day 1 Anaerobic Blood Culture - Preliminary No Growth Day 1 09/05/19 07:21 Urine Culture - Final Urine No Growth (<1,000 CFU/mL) Assess/Plan/Problems-Billing Mr Tyson is a 74 yo M who has recently diagnosed non-small cell lung cancer, PAD, type II DM and HLD who presented to the ER after being found unresponsive and was found to be in non convulsive status epilepticus. - Patient Problems (1) Non-convulsive status epilepticus Current Visit: Yes Status: Acute Code(s): G40.901 - EPILEPSY, UNSP, NOT INTRACTABLE, WITH STATUS EPILEPTICUS SNOMED Code(s): 171284046 Comment: On admission pt with non-convulsive status epilepticus. EEG done yesterday AM remains abnormal. Changed from keppra to depakote per neurology. He remains confused but is having periods where he is somewhat lucid. He was able to recognize his family on Facetime call. Continue depakote Seizure precautions (2) Metabolic encephalopathy Current Visit: Yes Status: Acute Code(s): G93.41 - METABOLIC ENCEPHALOPATHY SNOMED Code(s): 58351174 Comment: Sounds as if he is still not at his baseline but is improving. Continue supportive measures (3) Fever Current Visit: Yes Status: Acute Code(s): R50.9 - FEVER, UNSPECIFIED SNOMED Code(s): 732924667 Comment: Last fever of 100.5 on 09/11. Leukocytosis persists. No clear signs of infection other than possible conjunctivitis (start cipro drops). Continue to monitor off Abx. Fever along with tachycardia and leukocytosis may very well be in relation to metastatic disease. Continue to monitor (4) Non-small cell lung cancer Current Visit: Yes Status: Acute Code(s): C34.90 - MALIGNANT NEOPLASM OF UNSP PART OF UNSP BRONCHUS OR LUNG SNOMED Code(s): 559186479 Comment: Recent diagnosis. Family talked with palliative care and they want hospice on d/c. The family also has a phone conference set up for Sunday to discuss with the patient's oncologist who works out of [employer]. Await final decision until then. (5) Type II diabetes mellitus Current Visit: Yes Status: Acute Comment: Blood sugars are slightly better but not optimal at this time. Pt has had more consistent PO intake. This is however not near his usual detemir dosage but if intake is unreliable do not want to increase too high FS ACHS Lantus increase to 15un/day Lispro SS Will continue to monitor (6) HLD (hyperlipidemia) Current Visit: Yes Status: Acute Code(s): E78.5 - HYPERLIPIDEMIA, UNSPECIFIED SNOMED Code(s): 96582215 Comment: Crestor to restart 09/13 (7) PAD (peripheral artery disease) Current Visit: Yes Status: Acute Code(s): I73.9 - PERIPHERAL VASCULAR DISEASE, UNSPECIFIED SNOMED Code(s): 526633680 Comment: s/p L BKA. No acute issues at this time. (8) DNR (do not resuscitate) Current Visit: Yes Status: Acute (9) DVT prophylaxis Current Visit: Yes Status: Acute Code(s): Z29.9 - ENCOUNTER FOR PROPHYLACTIC MEASURES, UNSPECIFIED SNOMED Code(s): 994054569 Comment: SQ heparin Attending: Colton Melendez
[2019-09-13] MEDS ORDERED: Insulin GLARGINE(*) 1 UNITS UNIT SUBCUT SCH (21:00)
[2019-09-14] MEDS ORDERED: Lorazepam PYXIS KEY PRN (00:38)
[2019-09-14] MEDS ORDERED: LORazepam INJ* 2 MG/ML 1 ML VIAL IV PUSH ONE (00:38)
[2019-09-14] MEDS ORDERED: Lorazepam PYXIS KEY ONE (00:41)
[2019-09-14] MEDS ORDERED: LORazepam INJ* 2 MG/ML 1 ML VIAL ONE (00:41)
[2019-09-14] MEDS: Ciprofloxacin 0.3% OPTH.SOL* BTL BOTH EYES SCH ×6 (03:33→20:45)
[2019-09-14] MEDS ORDERED: Potassium Chlor TAB* 20 MEQ TAB.ER PO ONE ×2 (04:02→19:14)
--- NOTE | 2019-09-14 04:03 | PN ---
Hospitalist Progress Note Date of Service: 09/14/19 HOSPITALIST ADDENDUM Called by RN due to 7 seconds of SVT, asymptomatic. Will replete K and repeat labs in AM.
[2019-09-14 05:55] LABS: ABS Basophils 0.1 10^3/ul (0-0.2); ABS Lymphocytes 0.6 10^3/ul (1.0-4.8); ABS Monocytes 0.9 10^3/ul (0-0.8); ABS Neutrophils 12.1 10^3/ul (1.5-7.7); Eosinophil % 0.2 %; Hematocrit 33 % (42-52); Hemoglobin 10.7 g/dL (14.0-18.0); Lymphocyte % 4.5 %; Mean Corpuscular HGB Conc 32 g/dL (31-36); Mean Corpuscular Hemoglobin 29 pg (27-31); Mean Corpuscular Volume 90 fL (80-94); Platelet Count 388 10^3/uL (150-450); Red Blood Count 3.67 10^6 /uL (4.18-5.48); Red Cell Distribution Width 15 % (10-15); White Blood Count 13.6 10^3/uL (3.5-10.8)
[2019-09-14] MEDS: Heparin VIAL(*) 5000 UNITS/ML VIAL (FIVE THOUSAND) SUBCUT SCH ×3 (06:04→20:43)
[2019-09-14 06:13] LABS: Calcium 8.7 mg/dL (8.6-10.3); EGFR African American 197.8 (>60); EGFR Non-African American 163.5 (>60); Potassium 3.3 mmol/L (3.5-5.0)
[2019-09-14] MEDS ORDERED: QUEtiapine TAB* 25 MG PO ONE (07:11)
[2019-09-14] MEDS: Insulin LISPRO* 1 UNITS UNIT SUBCUT SCH ×4 (09:28→20:45)
[2019-09-14] MEDS: levETIRAcetam TAB* 500 MG PO SCH ×2 (09:29→20:45)
[2019-09-14] MEDS: Divalproex DR TAB(*) 500 MG PO SCH ×2 (09:29→20:45)
[2019-09-14] MEDS: Pantoprazole IV* 40 MG IV SCH (09:30)
[2019-09-14] MEDS: CMCS: Rosuvastatin (NF) 20 MG TAB PO SCH (09:32)
[2019-09-14] MEDS: Acetaminophen ADULT LIQ* 650 MG/20.3 ML UDC PO PRN (12:22)
--- NOTE | 2019-09-14 17:06 | PN ---
NEUROLOGY PROGRESS NOTE: DATE OF FOLLOWUP: 09/14/19 HOSPITALIST: Kassie Ruano NP LOCATION: He is an inpatient in room 436. CHIEF COMPLAINT: Seizures, encephalopathy INTERVAL HISTORY: Since 09/12/19, Gray has not had any observed seizures. He did have an asymptom atic run of supraventricular tachycardia in the paint supervisor hours. They are planning on having a f amily consultation with his oncologist tomorrow. MEDICATIONS: Reviewed and remains on: 1. Keppra 750 mg p.o. b.i.d. 2. Depakote 500 mg p.o. b.i.d. 3. Sliding scale insulin. 4. Heparin 5000 units subcutaneous q.8 hours. PHYSICAL EXAMINATION: On exam, he is tired but oriented to person and hospital. Temperature is 97.7, blood pressure 140/59, heart rate in the 70s and regular. Eye movements are full. Facial musculatu re symmetric. Speech is soft, but clear. LAB DATA: Laboratory data is notable for decrease in his white blood cell count at 13.6, stable anem ia with a hemoglobin of 10.7. Platelet count has come down to normal at 388,000. Chemistries are no table for potassium of 3.3 today and a glucose of 142. IMPRESSION: Stable seizures. PLAN: I will go ahead and decrease Keppra further to 500 mg twice per day and continue Depakote at 5 00 mg twice per day. The plan is to taper him off Keppra and maintain him on Depakote which hopefull y he will tolerate better. I will sign his case over to Dr. Le who will be on the neurology servi ce starting tomorrow morning. [id number]/[facility] #: [id number]
--- NOTE | 2019-09-14 19:22 | PN ---
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 Not able to focus and completely answer questions with detail, every question leads to him talking about eggs. Denied abdominal pain at the time, denied headache, CP, SOB, numbness/tingling. Objective Active Medications: Acetaminophen (Tylenol Adult Liq*) 650 mg PO Q4H PRN PRN Reason: MILD PAIN or TEMP > 100.4 Last Admin: 09/14/19 12:22 Dose: 650 mg Albuterol/Ipratropium (Duoneb (Albuterol 2.5 Mg/Ipratropium 0.5 Mg)) 1 neb INH Q4H PRN PRN Reason: SOB/WHEEZING Last Admin: 09/09/19 04:23 Dose: 1 neb Ciprofloxacin HCl (Cipro 0.3% Opth*) 1 drop BOTH EYES Q4HR [facility] Last Admin: 09/14/19 17:53 Dose: 1 drop Dextrose (D50w Syringe 50 Ml*) 12.5 gm IV PUSH .FOR FS < 60 - SS PRN PRN Reason: FS < 60 Divalproex Sodium (Depakote Dr Tab(*)) 500 mg PO BID [facility] Last Admin: 09/14/19 09:29 Dose: 500 mg Heparin Sodium (Porcine) (Heparin Vial(*)) 5,000 units SUBCUT Q8HR [facility] Last Admin: 09/14/19 15:38 Dose: 5,000 units Insulin Glargine (Lantus(*)) 20 units SUBCUT BEDTIME [facility] Insulin Human Lispro (Humalog*) 0 units SUBCUT ACHS [facility]; Protocol Last Admin: 09/14/19 17:52 Dose: 4 units Levetiracetam (Keppra Tab*) 500 mg PO BID [facility] Miscellaneous (Ativan Pyxis Ordoñez) 1 ea N/A .ATIVAN IV ORDOÑEZ PRN PRN Reason: PYXIS ORDOÑEZ Ondansetron HCl (Zofran Inj*) 4 mg IV Q4H PRN PRN Reason: NAUSEA/VOMITING Last Admin: 09/13/19 03:45 Dose: 4 mg Pantoprazole Sodium (Protonix Iv*) 40 mg IV DAILY [facility] Last Admin: 09/14/19 09:30 Dose: 40 mg Potassium Chloride (Klor Con Er Tab*) 40 meq PO ONCE ONE Stop: 09/14/19 19:15 Rosuvastatin Calcium (Crestor (Nf)) 20 mg PO DAILY [facility] Last Admin: 09/14/19 09:32 Dose: 20 mg Vital Signs - 8 hr 09/14/19 09/14/19 12:12 15:52 Temperature 97.7 F 97.1 F Pulse Rate 73 99 Respiratory 18 18 Rate Blood Pressure 140/59 131/65 (mmHg) O2 Sat by Pulse 100 100 Oximetry Oxygen Devices in Use Now: None Appearance: sitting up in chair, NAD Eyes: No Scleral Icterus - no erythema, edema or drainage, - - PERRL Ears/Nose/Mouth/Throat: Clear Oropharnyx Respiratory: Symmetrical Chest Expansion and Respiratory Effort, Clear to Auscultation Cardiovascular: - - HR irregular, S1/S2 present, no murmurs rubs or gallops Extremities: No Edema, - - PPP 1+ to R foot Skin: - - appears dry and intact Neurological: - - Alert, oriented to self and place but not situation, unable to maintain focus on conversation, drifts off into nonsensical conversation led by himself Nutrition: Taking PO's - Nutrition: Malnutrition Diagnosis/Plan Malnutrition Assessment by Registered Dietitian: Malnutrition Assessment Clinical Characteristics Acute,Severe Malnutrition Assessment: Inadequate Oral Intake - Despite diet Criteria advancement, pt w/ inadequate oral intake for extended time - Meeting <50% nutrient needs >5 days (severe) Unintentional Weight Loss - Noted pt w/ wt loss x2 wks; current wt 140lb, prev wt per external records 149lb x2 wks ago - 6.0% loss x2 wks ( severe) Malnutrition Assessment: Nutritional Supplementals/Nourishments - Will Interventions monitor intakes and offer nourishments/ supplements as indicated GI Related - Will monitor GI s/sx for return Glycemic Control - Recommend consistent carb diet; will continue to monitor BG/FS in the setting of T2DM Malnutrition Assessment: Goals 1) Recommend consistent carb diet 2) Adequate po intake to support lean body mass , skin integrity, and hydration status 3) Improve fluid/electrolyte balance w/ adequate po intake and repletion PRN 4) Improve glycemic control w/ adequate po and consistent carb intake in the setting of T2DM 5) Maintain bowel regularity w/ adequate po intake w/o return of diarrhea/development of constipation Result Diagrams: 09/14/19 05:37 09/14/19 05:37 Additional Lab and Data: - EEG 09/05/2019: intermittent diffuse rhythmic discharges and slowing consistent with a non-convulsive electrographic seizures. . - PET scan completed at an outside facility was reviewed and placed in the patient's chart. "Findings compatible with widespread salvador metastatic disease extending from the left supracalvicular region to the aortic bifurcation." Laboratory Results - last 24 hr 09/13/19 09/14/19 09/14/19 21:03 05:37 05:37 WBC 13.6 H RBC 3.67 L Hgb 10.7 L Hct 33 L MCV 90 MCH 29 MCHC 32 RDW 15 Plt Count 388 MPV 8.0 Neut % (Auto) 88.6 Lymph % (Auto) 4.5 [place] % (Auto) 6.3 Eos % (Auto) 0.2 Baso % (Auto) 0.4 Absolute Neuts (auto) 12.1 H Absolute Lymphs (auto) 0.6 L Absolute Monos (auto) 0.9 H Absolute Eos (auto) 0.0 Absolute Basos (auto) 0.1 Absolute Nucleated RBC 0.0 Nucleated RBC % 0.0 Sodium 142 Potassium 3.3 L Chloride 105 Carbon Dioxide 29 Anion Gap 8 BUN 14 Creatinine 0.50 L Est GFR ( Amer) 197.8 Est GFR (Non-Af Amer) 163.5 BUN/Creatinine Ratio 28.0 H Glucose 142 H POC Glucose (mg/dL) 176 H Calcium 8.7 09/14/19 09/14/19 09/14/19 07:50 12:03 16:54 WBC RBC Hgb Hct MCV MCH MCHC RDW Plt Count MPV Neut % (Auto) Lymph % (Auto) [place] % (Auto) Eos % (Auto) Baso % (Auto) Absolute Neuts (auto) Absolute Lymphs (auto) Absolute Monos (auto) Absolute Eos (auto) Absolute Basos (auto) Absolute Nucleated RBC Nucleated RBC % Sodium Potassium Chloride Carbon Dioxide Anion Gap BUN Creatinine Est GFR ( Amer) Est GFR (Non-Af Amer) BUN/Creatinine Ratio Glucose POC Glucose (mg/dL) 144 H 137 H 212 H Calcium Microbiology and Other Data: Microbiology 09/07/19 12:49 CSF Gram Stain (Tube 3) - Final Cerebral Spinal Fluid 09/05/19 18:20 Aerobic Blood Culture - Preliminary Blood Venous No Growth Day 1 Anaerobic Blood Culture - Preliminary No Growth Day 1 09/05/19 17:00 Aerobic Blood Culture - Preliminary Blood Venous No Growth Day 1 Anaerobic Blood Culture - Preliminary No Growth Day 1 09/05/19 07:21 Urine Culture - Final Urine No Growth (<1,000 CFU/mL) Assess/Plan/Problems-Billing Mr Tyson is a 74 yo M who has recently diagnosed non-small cell lung cancer, PAD, type II DM and HLD who presented to the ER after being found unresponsive and was found to be in non convulsive status epilepticus. - Patient Problems (1) Non-convulsive status epilepticus Current Visit: Yes Status: Acute Code(s): G40.901 - EPILEPSY, UNSP, NOT INTRACTABLE, WITH STATUS EPILEPTICUS SNOMED Code(s): 054234829 Comment: On admission pt with non-convulsive status epilepticus. EEG done yesterday AM remains abnormal. Changed from keppra to depakote per neurology. Tapering off of keppra per neuro Continue depakote Seizure precautions (2) Encephalopathy Current Visit: Yes Status: Acute Code(s): G93.40 - ENCEPHALOPATHY, UNSPECIFIED SNOMED Code(s): 62541836 Comment: noted throughout admission, baseline is very mild to no confusion per family report. Oriented to self and place but unaware of situation. More confused than yesterday. Nonsensical conversation. may be metabolic in nature potentially compounded by hospital-type delirium, no evidence of brain metastisis per MRI. (3) Fever Current Visit: Yes Status: Acute Code(s): R50.9 - FEVER, UNSPECIFIED SNOMED Code(s): 687481811 Comment: Last fever of 100.5 on 09/11. Leukocytosis persists but decreasing, 13.6 09/13. No clear signs of infection other than possible conjunctivitis was identified on 09/11 but no evidence of persistance since starting cipro drops, will continue these through 09/17 as there appears to have been improvement as conjunctiva appear WNL at this time. Continue to monitor off parenteral Abx. Prior Fever along with tachycardia and leukocytosis may very well have been in relation to metastatic disease. Continue to monitor (4) Non-small cell lung cancer Current Visit: Yes Status: Acute Code(s): C34.90 - MALIGNANT NEOPLASM OF UNSP PART OF UNSP BRONCHUS OR LUNG SNOMED Code(s): 590959713 Comment: Recent diagnosis. Family talked with palliative care and they want hospice on d/c. The family also has a phone conference set up for Sunday to discuss with the patient's oncologist who works out of [employer]. Await final decision until then. (5) Type II diabetes mellitus Current Visit: Yes Status: Acute Comment: More reliable PO intake. Glucose remains mid 100s-200s. FS ACHS Lantus increase to 20un/day, assess response Lispro SS Will continue to monitor (6) SVT (supraventricular tachycardia) Current Visit: Yes Status: Acute Code(s): I47.1 - SUPRAVENTRICULAR TACHYCARDIA SNOMED Code(s): 5018366 Comment: Has had bouts of SVT per telemetry monitoring, last noted 7 seconds vp patient 09/13. none noted since. as we are attempting to correct hypokalemia for which he received one dose of KCL 40meq PO this morning, I have added 1 more this evening as I have increased his evening insulin dosage. bmp and magnesium in a.m. (7) HLD (hyperlipidemia) Current Visit: Yes Status: Acute Code(s): E78.5 - HYPERLIPIDEMIA, UNSPECIFIED SNOMED Code(s): 29844343 Comment: Continue crestor (8) PAD (peripheral artery disease) Current Visit: Yes Status: Acute Code(s): I73.9 - PERIPHERAL VASCULAR DISEASE, UNSPECIFIED SNOMED Code(s): 051125579 Comment: s/p L BKA. No acute issues at this time. (9) DNR (do not resuscitate) Current Visit: Yes Status: Acute (10) DVT prophylaxis Current Visit: Yes Status: Acute Code(s): Z29.9 - ENCOUNTER FOR PROPHYLACTIC MEASURES, UNSPECIFIED SNOMED Code(s): 307454253 Comment: SQ heparin Attending: Colton Melendez
[2019-09-14] MEDS ORDERED: Insulin GLARGINE(*) 1 UNITS UNIT SUBCUT SCH (21:00)
[2019-09-15] MEDS: Acetaminophen ADULT LIQ* 650 MG/20.3 ML UDC PO PRN (00:52)
[2019-09-15] MEDS: Ciprofloxacin 0.3% OPTH.SOL* BTL BOTH EYES SCH ×6 (02:49→21:34)
[2019-09-15] MEDS: Heparin VIAL(*) 5000 UNITS/ML VIAL (FIVE THOUSAND) SUBCUT SCH ×3 (05:48→21:32)
[2019-09-15 06:14] LABS: BUN/Creatinine Ratio 24.4 (8-20); Calcium 8.8 mg/dL (8.6-10.3); EGFR African American 223.3 (>60); EGFR Non-African American 184.6 (>60); Magnesium 1.5 mg/dL (1.9-2.7); Potassium 4.1 mmol/L (3.5-5.0)
[2019-09-15] MEDS: Insulin LISPRO* 1 UNITS UNIT SUBCUT SCH ×4 (09:05→21:31)
[2019-09-15] MEDS: levETIRAcetam TAB* 500 MG PO SCH ×2 (09:06→21:23)
[2019-09-15] MEDS: Magnesium Oxide TAB* 400 MG PO SCH ×2 (09:06→21:27)
[2019-09-15] MEDS: Divalproex DR TAB(*) 500 MG PO SCH ×2 (09:06→21:24)
[2019-09-15] MEDS: Pantoprazole IV* 40 MG IV SCH (09:07)
[2019-09-15] MEDS: CMCS: Rosuvastatin (NF) 20 MG TAB PO SCH ×2 (09:07→09:38)
--- NOTE | 2019-09-15 10:05 | PN ---
Subjective Date of Service: 09/15/19 Interval History: Pt unable to maintain concentration with conversation about his health, easily distracted by his own thoughts. Able to give simple answers to simple questions and then will go off on a tangent about various subjects. Denies any headache, pain, CP, SOB. States he is unable to give an answer as to whether he is feeling numbness/tingling. He c/o a "sour stomach" when asked but states he is not feeling nauseous or having pain, just doesn't feel well. Spoke about his family having a phone conference with his oncologist this afternoon and pt was unaware that he recently been seen by oncology prior to this admission. Objective Active Medications: Acetaminophen (Tylenol Adult Liq*) 650 mg PO Q4H PRN PRN Reason: MILD PAIN or TEMP > 100.4 Last Admin: 09/15/19 00:52 Dose: 650 mg Albuterol/Ipratropium (Duoneb (Albuterol 2.5 Mg/Ipratropium 0.5 Mg)) 1 neb INH Q4H PRN PRN Reason: SOB/WHEEZING Last Admin: 09/09/19 04:23 Dose: 1 neb Ciprofloxacin HCl (Cipro 0.3% Opth*) 1 drop BOTH EYES Q4HR [facility] Last Admin: 09/15/19 09:07 Dose: 1 drop Dextrose (D50w Syringe 50 Ml*) 12.5 gm IV PUSH .FOR FS < 60 - SS PRN PRN Reason: FS < 60 Divalproex Sodium (Depakote Dr Tab(*)) 500 mg PO BID [facility] Last Admin: 09/15/19 09:06 Dose: 500 mg Heparin Sodium (Porcine) (Heparin Vial(*)) 5,000 units SUBCUT Q8HR [facility] Last Admin: 09/15/19 05:48 Dose: 5,000 units Insulin Glargine (Lantus(*)) 20 units SUBCUT BEDTIME [facility] Last Admin: 09/14/19 20:45 Dose: 20 unit Insulin Human Lispro (Humalog*) 0 units SUBCUT ACHS [facility]; Protocol Last Admin: 09/15/19 09:05 Dose: 2 units Levetiracetam (Keppra Tab*) 500 mg PO BID [facility] Last Admin: 09/15/19 09:06 Dose: 500 mg Magnesium Oxide (Magox 400 Tab*) 400 mg PO Q12H [facility] Stop: 09/15/19 20:01 Last Admin: 09/15/19 09:06 Dose: 400 mg Miscellaneous (Ativan Pyxis Ordoñez) 1 ea N/A .ATIVAN IV ORDOÑEZ PRN PRN Reason: PYXIS ORDOÑEZ Ondansetron HCl (Zofran Inj*) 4 mg IV Q4H PRN PRN Reason: NAUSEA/VOMITING Last Admin: 09/13/19 03:45 Dose: 4 mg Pantoprazole Sodium (Protonix Iv*) 40 mg IV DAILY [facility] Last Admin: 09/15/19 09:07 Dose: 40 mg Rosuvastatin Calcium (Crestor (Nf)) 20 mg PO DAILY [facility] Last Admin: 09/15/19 09:38 Dose: 20 mg Vital Signs - 8 hr 09/15/19 08:00 Temperature 97.3 F Pulse Rate 102 Respiratory 16 Rate Blood Pressure 154/68 (mmHg) O2 Sat by Pulse 98 Oximetry Oxygen Devices in Use Now: None Appearance: sitting up in chair, NAD Eyes: No Scleral Icterus, - - PERRL Ears/Nose/Mouth/Throat: Clear Oropharnyx Respiratory: Symmetrical Chest Expansion and Respiratory Effort, Clear to Auscultation Cardiovascular: - - HR irregular, no murmur/rub/gallop noted Abdominal: - - normoactive BSX4, abdomen slightly distended and firm to LUQ, RUQ , RLQ, softer to LLQ, non-tender to deep palpation Extremities: No Edema - R PPP 2+, L popliteal PP 2+ Skin: No Rash or Ulcers Neurological: - - Alert, oriented to self and place only Nutrition: Taking PO's - Nutrition: Malnutrition Diagnosis/Plan Malnutrition Assessment by Registered Dietitian: Malnutrition Assessment Clinical Characteristics Acute,Severe Malnutrition Assessment: Inadequate Oral Intake - Despite diet Criteria advancement, pt w/ inadequate oral intake for extended time - Meeting <50% nutrient needs >5 days (severe) Unintentional Weight Loss - Noted pt w/ wt loss x2 wks; current wt 140lb, prev wt per external records 149lb x2 wks ago - 6.0% loss x2 wks ( severe) Malnutrition Assessment: Nutritional Supplementals/Nourishments - Will Interventions monitor intakes and offer nourishments/ supplements as indicated GI Related - Will monitor GI s/sx for return Glycemic Control - Recommend consistent carb diet; will continue to monitor BG/FS in the setting of T2DM Malnutrition Assessment: Goals 1) Recommend consistent carb diet 2) Adequate po intake to support lean body mass , skin integrity, and hydration status 3) Improve fluid/electrolyte balance w/ adequate po intake and repletion PRN 4) Improve glycemic control w/ adequate po and consistent carb intake in the setting of T2DM 5) Maintain bowel regularity w/ adequate po intake w/o return of diarrhea/development of constipation Result Diagrams: 09/14/19 05:37 09/15/19 05:47 Additional Lab and Data: - EEG 09/05/2019: intermittent diffuse rhythmic discharges and slowing consistent with a non-convulsive electrographic seizures. . - PET scan completed at an outside facility was reviewed and placed in the patient's chart. "Findings compatible with widespread salvador metastatic disease extending from the left supracalvicular region to the aortic bifurcation." Laboratory Results - last 24 hr 09/13/19 09/14/19 09/14/19 21:03 05:37 05:37 WBC 13.6 H RBC 3.67 L Hgb 10.7 L Hct 33 L MCV 90 MCH 29 MCHC 32 RDW 15 Plt Count 388 MPV 8.0 Neut % (Auto) 88.6 Lymph % (Auto) 4.5 [place] % (Auto) 6.3 Eos % (Auto) 0.2 Baso % (Auto) 0.4 Absolute Neuts (auto) 12.1 H Absolute Lymphs (auto) 0.6 L Absolute Monos (auto) 0.9 H Absolute Eos (auto) 0.0 Absolute Basos (auto) 0.1 Absolute Nucleated RBC 0.0 Nucleated RBC % 0.0 Sodium 142 Potassium 3.3 L Chloride 105 Carbon Dioxide 29 Anion Gap 8 BUN 14 Creatinine 0.50 L Est GFR ( Amer) 197.8 Est GFR (Non-Af Amer) 163.5 BUN/Creatinine Ratio 28.0 H Glucose 142 H POC Glucose (mg/dL) 176 H Calcium 8.7 09/14/19 09/14/19 09/14/19 07:50 12:03 16:54 WBC RBC Hgb Hct MCV MCH MCHC RDW Plt Count MPV Neut % (Auto) Lymph % (Auto) [place] % (Auto) Eos % (Auto) Baso % (Auto) Absolute Neuts (auto) Absolute Lymphs (auto) Absolute Monos (auto) Absolute Eos (auto) Absolute Basos (auto) Absolute Nucleated RBC Nucleated RBC % Sodium Potassium Chloride Carbon Dioxide Anion Gap BUN Creatinine Est GFR ( Amer) Est GFR (Non-Af Amer) BUN/Creatinine Ratio Glucose POC Glucose (mg/dL) 144 H 137 H 212 H Calcium Abnormal Lab Results 09/14/19 09/14/19 09/14/19 12:03 16:54 19:57 Sodium Potassium Chloride Carbon Dioxide Anion Gap BUN Creatinine Est GFR ( Amer) Est GFR (Non-Af Amer) BUN/Creatinine Ratio Glucose POC Glucose (mg/dL) 137 H 212 H 283 H Calcium Magnesium 09/15/19 09/15/19 05:47 08:32 Sodium 138 Potassium 4.1 Chloride 104 Carbon Dioxide 28 Anion Gap 6 BUN 11 Creatinine 0.45 L Est GFR ( Amer) 223.3 Est GFR (Non-Af Amer) 184.6 BUN/Creatinine Ratio 24.4 H Glucose 118 H POC Glucose (mg/dL) 155 H Calcium 8.8 Magnesium 1.5 L Microbiology and Other Data: Microbiology 09/07/19 12:49 CSF Gram Stain (Tube 3) - Final Cerebral Spinal Fluid 09/05/19 18:20 Aerobic Blood Culture - Preliminary Blood Venous No Growth Day 1 Anaerobic Blood Culture - Preliminary No Growth Day 1 09/05/19 17:00 Aerobic Blood Culture - Preliminary Blood Venous No Growth Day 1 Anaerobic Blood Culture - Preliminary No Growth Day 1 09/05/19 07:21 Urine Culture - Final Urine No Growth (<1,000 CFU/mL) Assess/Plan/Problems-Billing Mr Tyson is a 74 yo M who has recently diagnosed non-small cell lung cancer, PAD, type II DM and HLD who presented to the ER after being found unresponsive and was found to be in non convulsive status epilepticus. - Patient Problems (1) Non-convulsive status epilepticus Current Visit: Yes Status: Acute Code(s): G40.901 - EPILEPSY, UNSP, NOT INTRACTABLE, WITH STATUS EPILEPTICUS SNOMED Code(s): 434502471 Comment: On admission pt with non-convulsive status epilepticus. EEG done yesterday AM remains abnormal. Changed from keppra to depakote per neurology. Tapering off of keppra per neuro Continue depakote Seizure precautions (2) Encephalopathy Current Visit: Yes Status: Acute Code(s): G93.40 - ENCEPHALOPATHY, UNSPECIFIED SNOMED Code(s): 12062417 Comment: noted throughout admission, baseline is very mild to no confusion per family report. Oriented to self and place but unaware of situation. More confused than yesterday. Nonsensical conversation. may be metabolic in nature potentially compounded by hospital-type delirium, no evidence of brain metastisis per MRI. (3) Fever Current Visit: Yes Status: Acute Code(s): R50.9 - FEVER, UNSPECIFIED SNOMED Code(s): 267659712 Comment: Last fever of 100.5 on 09/11. Leukocytosis persists but decreasing, 13.6 09/13. No clear signs of infection other than possible conjunctivitis was identified on 09/11 but no evidence of persistance since starting cipro drops, will continue these through 09/17 as there appears to have been improvement as conjunctiva appear WNL at this time. Continue to monitor off parenteral Abx. Prior Fever along with tachycardia and leukocytosis may very well have been in relation to metastatic disease. Continue to monitor (4) Non-small cell lung cancer Current Visit: Yes Status: Acute Code(s): C34.90 - MALIGNANT NEOPLASM OF UNSP PART OF UNSP BRONCHUS OR LUNG SNOMED Code(s): 382241837 Comment: Recent diagnosis. Family to have phone conference Sunday to discuss with the patient's oncologist who works out of [employer]. Await final decision until then. (5) Type II diabetes mellitus Current Visit: Yes Status: Acute Comment: More reliable PO intake. Slight improvement with increase in insulin dosage yesterday. FS ACHS Lantus increase to 30un/day, assess response, closer to home dose long-acting, no conversion necessary Lispro SS Will continue to monitor (6) SVT (supraventricular tachycardia) Current Visit: Yes Status: Acute Code(s): I47.1 - SUPRAVENTRICULAR TACHYCARDIA SNOMED Code(s): 1680289 Comment: Has had bouts of SVT per telemetry monitoring, last noted 7 seconds secondary connector armature 09/13. none noted since. hypokalemia resolved, attempting to correct hypomagnesemia mag ox 400 X2 ordered bmp mag in a.m. (7) Hypomagnesemia Current Visit: Yes Status: Acute Code(s): E83.42 - HYPOMAGNESEMIA SNOMED Code(s): 655090266 Comment: 1.5 4 mag ox 400 X2 ordered mag in am (8) HLD (hyperlipidemia) Current Visit: Yes Status: Acute Code(s): E78.5 - HYPERLIPIDEMIA, UNSPECIFIED SNOMED Code(s): 51411372 Comment: Continue crestor (9) PAD (peripheral artery disease) Current Visit: Yes Status: Acute Code(s): I73.9 - PERIPHERAL VASCULAR DISEASE, UNSPECIFIED SNOMED Code(s): 546912528 Comment: s/p L BKA. No acute issues at this time. (10) DNR (do not resuscitate) Current Visit: Yes Status: Acute (11) DVT prophylaxis Current Visit: Yes Status: Acute Code(s): Z29.9 - ENCOUNTER FOR PROPHYLACTIC MEASURES, UNSPECIFIED SNOMED Code(s): 491736293 Comment: SQ heparin Attending: Colton Melendez
[2019-09-15] MEDS: Nicotine PATCH 14 MG/24 HR* PATCH TRANSDERM SCH (14:44)
[2019-09-15] MEDS ORDERED: Nicotine Patch Removal NOTE FOLLOW UP SCH (21:00)
[2019-09-15] MEDS ORDERED: Insulin GLARGINE(*) 1 UNITS UNIT SUBCUT SCH (21:00)
[2019-09-16] MEDS: Acetaminophen ADULT LIQ* 650 MG/20.3 ML UDC PO PRN (00:44)
[2019-09-16] MEDS: Ciprofloxacin 0.3% OPTH.SOL* BTL BOTH EYES SCH ×4 (00:55→12:18)
[2019-09-16] MEDS: Albuterol/Ipratropium NEB.SOL* Albuterol 2.5 MG/Ipratropium 0.5 MG 3 ML INH PRN (02:23)
[2019-09-16] MEDS: Heparin VIAL(*) 5000 UNITS/ML VIAL (FIVE THOUSAND) SUBCUT SCH ×2 (05:34→12:18)
[2019-09-16] MEDS ORDERED: Magnesium Oxide TAB* 400 MG PO ONE (06:00)
[2019-09-16 06:19] LABS: BUN/Creatinine Ratio 21.4 (8-20); Calcium 8.8 mg/dL (8.6-10.3); EGFR African American 241.9 (>60); EGFR Non-African American 199.9 (>60); Magnesium 1.5 mg/dL (1.9-2.7); Potassium 3.9 mmol/L (3.5-5.0)
[2019-09-16] MEDS: Pantoprazole IV* 40 MG IV SCH (10:03)
[2019-09-16] MEDS: CMCS: Rosuvastatin (NF) 20 MG TAB PO SCH (10:05)
[2019-09-16] MEDS: Insulin LISPRO* 1 UNITS UNIT SUBCUT SCH ×2 (10:06→11:39)
[2019-09-16] MEDS: Divalproex DR TAB(*) 500 MG PO SCH (10:07)
[2019-09-16] MEDS: levETIRAcetam TAB* 500 MG PO SCH (10:07)
[2019-09-16] MEDS: Nicotine PATCH 14 MG/24 HR* PATCH TRANSDERM SCH (10:08)
[2019-09-16 14:24] VITALS: BP 131/72
--- NOTE | 2019-09-16 15:06 | DS ---
DISCHARGE SUMMARY: DATE OF ADMISSION: 09/05/19 DATE OF ANTICIPATED DISCHARGE: 09/16/19 ATTENDING PHYSICIAN: Dr. Benites* (dictated by Dori Rangel NP). PRIMARY CARE PHYSICIAN: Dr. Foster. CONSULTING PHYSICIANS: Dr. Emery with Neurology and Dr. Thomas with Palliative Care. PRIMARY DIAGNOSES: 1. Nonconvulsive status epilepticus. 2. Metastatic non-small cell lung cancer SECONDARY DIAGNOSES: 1. Encephalopathy. 2. Fever 3. Type 2 diabetes mellitus. 4. Supraventricular tachycardia. 5. Hypomagnesemia 6. Hyperlipidemia 7. Peripheral artery disease. HISTORY OF PRESENT ILLNESS AND HOSPITAL COURSE: Mr. Tyson is a 74-year-old male with past medical history significant for severe peripheral vascular disease status post BKA on the left, diabetes mellitus type 2, hyperlipidemia and current tobacco use as well as coronary artery disease and history of ND. On 09/05/19, he presented to the emergency department, was poorly responsive. He was brought in to the emergency department by [facility] as he was found unresponsive. EMS noted to the ED per provider report that the patient had decerebrate posturing and a seizure that was witnessed when they arrived on the scene. While in the emergency department, he was found to be poorly responsive for which he was intubated. The patient was seen by Neurology and EEG was done. The EEG revealed status post epilepticus that was interrupted with an antiepileptic drug administered per Neurology. Labs on arrival showed WBC 21.6 , hemoglobin 12.6, hematocrit 39, RBC 4.13, platelet count 657, absolute neutrophils 20.8, absolute lymphocytes 0.2. INR 1.23. Sodium 120, potassium of 5.2, carbon dioxide 9, anion gap 26, BUN 29, creatinine 1.5, glucose 294. Lactic acid 5.3. CRP 76.69. Cortisol 45.25. From the emergency department the patient was transferred to ICU. Per critical care note, oncology records have been reviewed by Dr. Ta and it was noted that 10 days prior to admission the patient was diagnosed with non-small cell lung cancer stage IVB by Dr. Munguia. He had undergone a retroperitoneal lymph node biopsy which showed adenocarcinoma of presumed lung origin. Per oncologic standpoint, it appeared that the patient in the future may be receiving treatment for palliative intent according to their note. His initial plan prior to being admitted to the hospital was to follow up with Oncology in a couple of weeks. While in the ICU, it was noted that the patient did have severe metabolic acidosis and fever. No overt evidence of infection was noted. He was given antibiotics while in the intensive care unit. It is also noted that he had a recent history of hypoglycemia. He was loaded with antiepileptic drugs per Neurology. He did end up having an elevated troponin level, which per intensive care provider report states was consistent with demand ischemia and does not seem to point towards an acute cardiac event. During his stay in the ICU, he was noted to have an episode of SVT assuming in relation to electrolyte disturbances. At some point between 09/09/19 and 09/10/19, the patient was extubated and on 09/10/19 he was transferred to the medical telemetry unit. While on the floor, he had been complaining initially of severe abdominal pain and nausea. He did have abdomen and pelvis CT to rule out any acute cause other than current processes such as abscess or ischemic bowel. There was no compelling imaging evidence for ischemic bowel and no clear etiology of his significant abdominal pain. The last few days, the patient has had waxing and waning of his encephalopathy. Today, he is able to maintain understanding of conversation slightly more than yesterday and the day before. I did speak with Dr. Le from Neurology and would appreciate input prior to the patient leaving the hospital. We did discuss that the cause of his seizures was most likely in relation to significant metabolic derangement noted on arrival. There is a paraneoplastic panel still pending as well as an LP still pending. Dr. Le plans to see the patient before leaving; however, we did review this case and again he sounds very convinced that seizure was in relation to metabolic derangement and otherwise feels safe having the metabolic derangement and not an oncologic or infectious cause. The patient had originally been started on Keppra; however, in relation to his mood he had been started on Depakote and will be weaned off Keppra. The patient's family did have a meeting with his oncologist via phone yesterday on 09/15/19, per Case Management , it sounds as if they decided to have the patient discharged to [facility] for short-term rehab, for which the future plan is most likely to be discharge to home on hospice. Today, the patient denies any headache, nausea, abdominal upset. He states he does still have some abdominal pain in a couple different areas, unable to locate those areas specifically and only at certain times. He is unable to give descriptive information. Denies any chest pain, shortness of breath, unusual numbness, tingling. Denies difficulty with bladder or bowel. Plan is to go to [facility]. Studies: There is a report of PET scan on 09/03/19 from [facility], indicated for metastatic non-small cell lung cancer. Impression states findings compatible with widespread salvador metastatic disease extending from the left supraclavicular region to the aortic bifurcation. The wall of the gastroesophageal junction and proximal stomach are inseparable from the confluent salvador mass adjacent to the celiac axis. Most suggestive of metastatic involvement of the stomach. The presence of a gastric primary is thought to be less likely, but not entirely excluded. If diagnosis is not established, consider tissue sampling of the left supraclavicular salvador mass. Unchanged 1 cm nodule along the course of the right major fissure, stable since 2016, also without suspicious FDG activity. No suspicious pulmonary nodule or mass. Head CTA, impression states attenuation of the right superior cerebellar artery concerning for occlusion. There is no appreciable perfusion defect or loss of sanchez- white differentiation within the expected vascular territory of the right superior cerebellar artery. Atheromatous disease. No internal carotid artery stenosis by NASCET criteria. Chest x-ray from 09/05/19, impression states as above. No active cardiopulmonary disease. Brain CT, impression states mild cerebellar atrophy. No acute intracranial hemorrhage or infarct. EKG showed sinus tachycardia at 120 beats per minute, perhaps some hyperacute Ts on the anterior precordium more consistent with some focal ischemia than hyperkalemia, as it does seem to be confined to V2, V3, V4. No block noted. Transthoracic echocardiogram. Conclusion summary states, impression, the study is unchanged since the previous study. Left ventricle systolic function is vigorous, estimated EF is 65% to 70%. Systolic function is hyperdynamic, the study of September 2009. Doppler parameters are consistent with abnormal left ventricular relaxation, grade 1 diastolic dysfunction. Right ventricle cavity size is normal. Wall thickness is increased. Systolic function is normal. Mitral valve, there is trace regurgitation. No regional wall abnormalities were noted per this report. CSF fluid was collected, final report showed few macrophages seen, negative for malignant cells. EEG from 09/08/19. Clinical impression per Dr. Emery states abnormal EEG due to generalized slowing and disorganization of background rhythms with more focal slowing seen from the left frontal region. At times, there are interspersed sharp waves centrally and in the left frontal region suggestive of epileptiform discharges. There are no ictal events. The tracing is compatible with diffuse cerebral dysfunction, sedative drug effect and focal seizures emanating from probable left frontal region. Brain MRI. Impression states no evidence of acute or subacute ischemic or other acute intracranial process evident. No evidence for brain metastasis. Mild involutional change. EEG from 09/10/[address] Emery. Clinical impression states abnormal EEG due to generalized slowing and disorganization of background rhythm consistent with diffuse cerebral dysfunction. In addition, there is frequent rhythmic delta and somewhat sharply contoured waveforms seen most commonly centrally but sometimes bifrontally. This tracing is compatible with diffuse cerebral dysfunction as well as possible epileptiform features. Cefepime has been described as causing epileptiform abnormalities on EEG with and sometimes without epileptic events. EEG from 09/11/19, again read by Dr. Emery. Interpretation states abnormal EEG due to slowing and disorganization of background rhythms consistent with diffuse cerebral dysfunction. The periodic discharges seen bifrontally and centrally are less frequent and of lower amplitude and no longer contain sharp components compared to the EEG from 09/10/19. Abdomen and pelvis CT. Impression states small pleural effusions. Circumferential mural thickening at the inferior rectum is nonspecific. Correlate with clinical assessment. No compelling CT evidence for bowel ischemia. Mild sigmoid colonic diverticulosis without acute inflammatory change. Differential for the pathologic process involving the left adrenal gland and retroperitoneum includes retroperitoneal hematoma as well as tumor such as lymphoma. Pertinent lab data: From 09/05/19, WBC 21.6, RBC 4.13 hemoglobin 12.6, hematocrit 39, MCV 94, MCH 31, MCHC 33, RDW 15, platelet count 657, MPV 7.6, absolute neutrophils 20.8, absolute lymphocytes 0.2. INR 1.23. Venous blood gases, pH 7.22, pCO2 45, pO2 39.0, HCO3 16.8, O2 saturation 60.6, base excess - 9.1. Chemistry: sodium 120, potassium 5.2, chloride 85, carbon dioxide 9, anion gap 26, BUN 29, creatinine 1.50, estimated GFR 46.0, BUN and creatinine ratio 19.3 and glucose 294, hemoglobin A1c 6.4, lactic acid 5.3, calcium 9.5, alk phosphatase 24, ammonia 42, total CK 115. Troponin 0.13, 0.53, and 0.62. CRP 76.6. BNP 104. Vitamin B12 greater than 1450. TSH 1.75. Prolactin 11.8, total testosterone 125.35, cortisol 45.25. UA showed presence of 2+ protein, trace ketones, 1+ blood, 2+ wbc's, trace rbc's, squamous epithelial cells present, no bacteria, hyaline casts were present, urine glucose 3+. Urine drug screen was positive for benzodiazepines, I presume that this was taken after he had been given benzodiazepine in the emergency department. After 09/05/19, CBC has remained essentially stable, has had waxing and waning of WBCs, but seem to be holding rather steady. Last CBC from 09/14/19, WBC 13.6, RBC 3.67, hemoglobin 10.7, hematocrit 33. Troponins ended up trending down, as of it was 0.34 and no more troponins are necessary after that. Continued with metabolic derangement; however, electrolytes are being repleted throughout his admission, glucose levels typically within the mid 100s to high 200s. Most recent BMP 09/16/19, sodium 136, potassium 3.9, chloride 101, carbon dioxide 29 , anion gap 6, BUN 9, creatinine 0.42, estimated GFR 199.9. BUN and creatinine ratio 21.4, glucose 122, calcium 8.8, and a magnesium of 1.5. REVIEW OF SYSTEMS: The patient has been given a 10-point review of systems. Please see HPI for all pertinent positives and negatives. PHYSICAL EXAMINATION: Constitutional: The patient sitting up in chair, in no acute distress. Last vital signs: Temp 97.6, heart rate 92, respiratory rate 20, O2 sat 99% on room air, BP 132/59. HEENT: PERRL. Mucous membranes moist. Cardiovascular: Heart rate with mild irregularity, S1-S2 present. No murmurs, rubs or gallops noted. Extremities: No edema. Right pedal pulse present 2+, left popliteal pulse present 2+. Strength and range of motion appears to be within normal limits in all extremities. Respiratory: Lung sounds clear throughout bilaterally. GI: Normoactive bowel sounds throughout. The patient tolerated deep palpation without any difficulty, did not complain of tenderness or show signs of discomfort during this period. There is a hard cord type structure reaching from his right axillary area going down his right side and around the very lower abdomen, unable to palpate past to the left femoral area. Skin appears dry and intact. Neuro: Alert, oriented to self and place, unaware of situation. Concentration and involvement with conversation seems slightly improved from yesterday. Normal sensation to light touch throughout right lower and left lower extremities. DISCHARGE PLAN: 1. The patient may resume a healthy diet, low in fats and sugars. 2. No equipment is necessary for discharge. 3. May increase to usual activity level as tolerated. Plans are for short- term rehab to gain some strength prior to going home. 4. Nonconvulsive status epilepticus. Again, this has been discussed with Dr. Le from Neurology. Current thoughts are that this condition was most likely in relation to metabolic derangement and not another cause. There are, however , still some lab work that is pending and this can be followed up on an outpatient basis. He will continue on Depakote. He will be tapered off of Keppra, he will be given 1 dose of 500 mg p.o. today and will be given 500 mg p.o. daily x2 more days. 5. Non-small cell lung cancer. The patient will be following up with Oncology about this. He is currently planning to go to [facility] and then in relation to this diagnosis and his poor prognosis, it sounds that he is a candidate for hospice and potential plan will be to go home on hospice after short-term rehab. 6. Encephalopathy, continues to wax and wane. Supportive measures should be maintained, likely multifactorial given seizure in relation to metabolic derangement as well as what could be a mild baseline confusion in conjunction with hospitalization. 7. Fever. The patient has not had recorded fever since 09/12/19, last was 100.5. He has, however, continued with leukocytosis. Last WBC 13.6 on . He does not have any overt signs of infection. There was a potential thought that he may have conjunctivitis on 09/12/19, there had not been any obvious signs of conjunctivitis since then. I think it is reasonable to stop the Cipro drops today. His fever and leukocytosis may very well have been in relation to metastatic disease. 8. Diabetes mellitus type 2. Again, given his current clinical situation and how he presented, it is reasonable to adjust his current diabetes regimen. Again, while in the hospital he has maintained levels in the mid 100s to high 200s. I did decrease his Lantus last night to 30 units q.24 hours and he had a morning glucose of 122 and a preprandial morning glucose of 133. Considering he seems to have decent control at this time, I will discharge him on his insulin detemir, for which there is no need for dosage conversion in relation to Lantus. His home dose of detemir was 52 units subcu b.i.d. Again given his decent control at this time on only 30 units q.24 of Lantus, he will be discharged on detemir 30 units q.24 hours. He can continue with his usual insulin aspart. 9. SVT. The patient has been having bouts of SVT per telemetry monitoring. Last noted on 09/14/19, lasted about 7 seconds. The patient has not had any since likely in relation to potassium and magnesium repletion. 10. Hypomagnesemia. Last magnesium level 1.5. The patient did receive a dose of magnesium oxide 400 mg this morning and it may be beneficial to check another BMP and magnesium within a week or so to reassess. 11. Hyperlipidemia. The patient can continue on Crestor at this time and his usual medication regimen can be reassessed, as he transfers between levels of care. 12. Peripheral artery disease. Status post left BKA. No acute issues at this time, again can continue to follow up with care from either primary care provider or oncologist depending on current level of care that he will be receiving. 13. Return precautions. If the patient experiences any chest pain, unusual shortness of breath, stroke-like symptoms, seizures, he should be returned to the emergency department. Any nonacute concerns can be deferred to his primary care provider. MEDICATIONS AT DISCHARGE: 1. Depakote 500 mg p.o. b.i.d. 2. Keppra 500 mg p.o. daily x2 days, which will be 09/17/19 and 09/18/19, then this medication can be discontinued. 3. Rosuvastatin 20 mg p.o. daily. 4. Aspirin 81 mg p.o. daily. 5. Azelastine spray 2 sprays both nares b.i.d. as needed. 6. Cholecalciferol 2000 units p.o. daily 7. Cilostazol 100 mg p.o. b.i.d. 8. Fenofibrate 160 mg p.o. q.a.m. 9. Glucosamine sulfate tablets 1000 mg p.o. daily. 10. Hydrochlorothiazide 12.5 mg p.o. q.a.m. 11. Insulin aspart 100 units/mL, 6 units t.i.d. 12. Insulin detemir 30 units subcu q.24 hours 13. Imodium 4 mg p.o. once daily p.r.n. 14. Metoprolol 25 mg p.o. b.i.d. 15. Multivitamin 1 cap p.o. daily 16. Nitroglycerin tab 0.4 mg sublingual q.5 minutes p.r.n. 17. MiraLAX 17 g p.o. daily. 18. Ramipril 10 mg p.o. b.i.d. CONDITION AT DISCHARGE: Stable. DISPOSITION: [facility]. TIME SPENT: Approximately 1 hour was spent on this discharge. This case and plan have been discussed with my attending physician, Dr. Benites and she agreed to this plan. DORI RANGEL NP [id number]/CPS #: [id number] MTDD
--- NOTE | 2019-09-16 15:28 | PN ---
Subjective Date of Service: 09/16/19 Length of Stay: 11 Days Neurology is following for the evaluation of seizures. I was asked by Kassie Ruano to make final recommendations regarding the patient's anti-seizure medications. Interval History: The patient is resting in a chair comfortably in no distress. He is no longer having any seizures. He appears confused and forgetful. He denied any headaches, focal weakness, tremors, or abdominal pain. Review of Systems: Denied CP, SOB, or palpitations. Objective Vital Signs 09/15/19 09/16/19 09/16/19 20:00 00:00 02:24 Temperature 97.9 F 97.7 F Pulse Rate 100 93 86 Respiratory 16 20 16 Rate Blood Pressure 146/66 126/61 (mmHg) O2 Sat by Pulse 100 99 95 Oximetry 09/16/19 09/16/19 09/16/19 04:00 08:00 11:15 Temperature 97.6 F 98 F 97.3 F Pulse Rate 92 86 91 Respiratory 20 18 Rate Blood Pressure 132/59 140/68 123/58 (mmHg) O2 Sat by Pulse 99 100 98 Oximetry 09/16/19 14:24 Temperature 98.2 F Pulse Rate 82 Respiratory 16 Rate Blood Pressure 131/72 (mmHg) O2 Sat by Pulse 98 Oximetry Intake and Output Last 24 Hours 09/14/19 09/15/19 09/16/19 09/17/19 06:59 06:59 06:59 06:59 Intake Total 490 840 365 365 Output Total 0 100 0 Balance 490 740 365 365 Weight 140 lb Intake: Oral 490 840 365 365 Output: Urine 0 100 0 Other: Estimated Void Medium Large Medium # Bowel Movements 1 1 1 Estimated Stool Amount Small Small Medium # Voids 1 1 2 Oxygen Devices in Use Now: None Neurology Exam: General: Chronically ill appearing man in no distress. HEENT: Normocephelic/atraumatic, sclera anicteric, mucous membranes moist Neck: Supple Chest: Clear to auscultation bilaterally Extremities: BKA on the left. Neurological Findings: Awake, alert, and oriented to person, place, but not time. No dysarthria. Cranial Nerve: PERRL, EOM intact, VFF, no nystagmus, face symmetric bilaterally , facial sensation intact. Motor: s/s throughout, proximal and distal extremities x4 tone/bulk normal Sensation: intact to LT/PP bilaterally upper and lower extremities Deep Tendon Reflex: 1+ symmetric in the upper/lower extremities, Babinski - down going Finger to nose, rapid alternating movements intact without tremor, no dysdiadochokinesia Result Diagrams: 09/14/19 05:37 09/16/19 05:30 Additional Lab and Data: - EEG 09/05/2019: intermittent diffuse rhythmic discharges and slowing consistent with a non-convulsive electrographic seizures. . - PET scan completed at an outside facility was reviewed and placed in the patient's chart. "Findings compatible with widespread salvador metastatic disease extending from the left supracalvicular region to the aortic bifurcation." Laboratory Results - last 24 hr 09/13/19 09/14/19 09/14/19 21:03 05:37 05:37 WBC 13.6 H RBC 3.67 L Hgb 10.7 L Hct 33 L MCV 90 MCH 29 MCHC 32 RDW 15 Plt Count 388 MPV 8.0 Neut % (Auto) 88.6 Lymph % (Auto) 4.5 Jerome % (Auto) 6.3 Eos % (Auto) 0.2 Baso % (Auto) 0.4 Absolute Neuts (auto) 12.1 H Absolute Lymphs (auto) 0.6 L Absolute Monos (auto) 0.9 H Absolute Eos (auto) 0.0 Absolute Basos (auto) 0.1 Absolute Nucleated RBC 0.0 Nucleated RBC % 0.0 Sodium 142 Potassium 3.3 L Chloride 105 Carbon Dioxide 29 Anion Gap 8 BUN 14 Creatinine 0.50 L Est GFR ( Amer) 197.8 Est GFR (Non-Af Amer) 163.5 BUN/Creatinine Ratio 28.0 H Glucose 142 H POC Glucose (mg/dL) 176 H Calcium 8.7 09/14/19 09/14/19 09/14/19 07:50 12:03 16:54 WBC RBC Hgb Hct MCV MCH MCHC RDW Plt Count MPV Neut % (Auto) Lymph % (Auto) Jerome % (Auto) Eos % (Auto) Baso % (Auto) Absolute Neuts (auto) Absolute Lymphs (auto) Absolute Monos (auto) Absolute Eos (auto) Absolute Basos (auto) Absolute Nucleated RBC Nucleated RBC % Sodium Potassium Chloride Carbon Dioxide Anion Gap BUN Creatinine Est GFR ( Amer) Est GFR (Non-Af Amer) BUN/Creatinine Ratio Glucose POC Glucose (mg/dL) 144 H 137 H 212 H Calcium Abnormal Lab Results 09/14/19 09/14/19 09/14/19 12:03 16:54 19:57 Sodium Potassium Chloride Carbon Dioxide Anion Gap BUN Creatinine Est GFR ( Amer) Est GFR (Non-Af Amer) BUN/Creatinine Ratio Glucose POC Glucose (mg/dL) 137 H 212 H 283 H Calcium Magnesium 09/15/19 09/15/19 05:47 08:32 Sodium 138 Potassium 4.1 Chloride 104 Carbon Dioxide 28 Anion Gap 6 BUN 11 Creatinine 0.45 L Est GFR ( Amer) 223.3 Est GFR (Non-Af Amer) 184.6 BUN/Creatinine Ratio 24.4 H Glucose 118 H POC Glucose (mg/dL) 155 H Calcium 8.8 Magnesium 1.5 L Microbiology and Other Data: Microbiology 09/07/19 12:49 CSF Gram Stain (Tube 3) - Final Cerebral Spinal Fluid 09/05/19 18:20 Aerobic Blood Culture - Preliminary Blood Venous No Growth Day 1 Anaerobic Blood Culture - Preliminary No Growth Day 1 09/05/19 17:00 Aerobic Blood Culture - Preliminary Blood Venous No Growth Day 1 Anaerobic Blood Culture - Preliminary No Growth Day 1 09/05/19 07:21 Urine Culture - Final Urine No Growth (<1,000 CFU/mL) Assessment/Plan Mr. 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 He was intubated in the ED. He was found to have recurrent subclinical seizures on EEG that abated with Ativan and levetirecetam therapy. He was eventually extubated and transferred to the floor. He was started on Depakote and the plan is to wean him off levetirecetam due to mood changes during the hospitalization. 1. Subclinical seizures associated with hyponatremia (sodium of 120 on admission ). Pending paraneoplastic work-up, although i don't think he has any limbic encephalitis since he improved without immunosuppressive therapy. He is no longer having any more seizures. Reduce levetirecetam to 500 mg daily for three days then discontinue. Continue Depakote 500 mg twice daily for 3 months. Follow-up with neurology where he will be slowly weaned off Depakote. 2. Mild cognitive impairment. Possible brain injury due to prolong seizures. Pending paraneoplastic panel. Further evaluation is recommended as an outpatient. 3. Drug induced encephalopathy. Cefepime is the likely culprit. Hopefully he will continue to slowly improve with time. Metastatic disease was ruled out during this hospitalization. Follow-up with neurology in 8-10 weeks.
== END 2019-09-16 14:59 | DRG 100 ==
LOC: ED 05:48 → ICU 10:23 → MEDTELE 09-10 11:21
PROVIDERS: ADMIT Internal Medicine Critical Care Medicine; ATTEND Internal Medicine
PROC: 0BH17EZ Insertion of Endotracheal Airway into Trachea, Via Natural or Artificial Opening (ICD-10-PCS; principal; 2019-09-05)
PROC: 5A1955Z Respiratory Ventilation, Greater than 96 Consecutive Hours (ICD-10-PCS; 2019-09-05)
PROC: 009U3ZX Drainage of Spinal Canal, Percutaneous Approach, Diagnostic (ICD-10-PCS; 2019-09-07)
DX: G40.901 Epilepsy, unspecified, not intractable, with status epilepticus (principal); G92 Toxic encephalopathy; N17.9 Acute kidney failure, unspecified; C77.1 Secondary and unspecified malignant neoplasm of intrathoracic lymph nodes; E87.2 Acidosis; I24.8 Other forms of acute ischemic heart disease; C78.89 Secondary malignant neoplasm of other digestive organs; I50.30 Unspecified diastolic (congestive) heart failure; E87.1 Hypo-osmolality and hyponatremia; I47.1 Supraventricular tachycardia; C34.90 Malignant neoplasm of unspecified part of unspecified bronchus or lung; E27.40 Unspecified adrenocortical insufficiency; C79.70 Secondary malignant neoplasm of unspecified adrenal gland; Z66 Do not resuscitate; E11.649 Type 2 diabetes mellitus with hypoglycemia without coma; R50.9 Fever, unspecified; I11.0 Hypertensive heart disease with heart failure; E11.51 Type 2 diabetes mellitus with diabetic peripheral angiopathy without gangrene; I95.9 Hypotension, unspecified; E78.5 Hyperlipidemia, unspecified; D72.829 Elevated white blood cell count, unspecified; E87.5 Hyperkalemia; E83.42 Hypomagnesemia; G31.84 Mild cognitive impairment of uncertain or unknown etiology; F17.210 Nicotine dependence, cigarettes, uncomplicated; R10.9 Unspecified abdominal pain; R74.8 Abnormal levels of other serum enzymes; I25.2 Old myocardial infarction; Z89.512 Acquired absence of left leg below knee; Z79.84 Long term (current) use of oral hypoglycemic drugs; Z79.82 Long term (current) use of aspirin; Z79.4 Long term (current) use of insulin; Z79.899 Other long term (current) drug therapy; Z88.5 Allergy status to narcotic agent; Z88.8 Allergy status to other drugs, medicaments and biological substances; Z82.49 Family history of ischemic heart disease and other diseases of the circulatory system; Z80.0 Family history of malignant neoplasm of digestive organs; Z80.42 Family history of malignant neoplasm of prostate; Z95.1 Presence of aortocoronary bypass graft; T36.1X5A Adverse effect of cephalosporins and other beta-lactam antibiotics, initial encounter; Y92.230 Patient room in hospital as the place of occurrence of the external cause
CPT/HCPCS: 36415; 70450; 70496; 70498; 70553; 71045; 74177; 80048; 80053; 80177; 80307; 80320; 81003; 81015; 82024; 82140; 82272; 82533; 82550; 82607; 82784; 82803; 82945; 83036; 83605; 83735; 83880; 84146; 84157; 84403; 84443; 84484; 85014; 85018; 85025; 85048; 85060; 85610; 86140; 86255; 87040; 87070; 87086; 87205; 87529; 87899; 88112; 88184; 88187; 88188; 88189; 89051; 93005; 93306; 94003; 94640; 95812; 95816; 95822; 96374; 96375; 99285; A9270-GY; A9579; C8929; G0480; J0330; J0692; J1644; J1720; J1953; J2060; J2405; J2704; J2930; J3010; J7611; Q9967